=== PATIENT | male | born 1955 | race Caucasian/White ===

== ENCOUNTER 2018-10-29 20:55 | Emergency (ER) | payer OTHER, SELFPAY ==
[2018-10-29 20:56] VITALS: BP 139/78; PULSE 55; RESP 17; TEMP 36.7; O2SAT 96; BMI 23.1
--- NOTE | 2018-10-29 21:24 | CT_ITS ---
HISTORY: LLQ PAIN X ONE WEEK. Hx of CABG, HTN and kidney stones ADDITIONAL HISTORY: None provided. TECHNIQUE: CT images were obtained of the abdomen and pelvis without IV contrast. Enteric contrast was not given. Number of images including paperwork: 449. A radiation dose optimization technique was used for this scan. COMPARISON: 02/17/2014 FINDINGS: Evaluation of the abdominopelvic organs is limited in the absence of contrast. LOWER THORAX: No consolidation or pleural effusion. Moderate to severe emphysema. Coronary calcification. LIVER: No concerning focal lesion. GALLBLADDER: No radiopaque calculi. BILE DUCTS: No significant biliary dilatation. SPLEEN: Unremarkable. PANCREAS: Unremarkable. ADRENAL GLANDS: Unremarkable. KIDNEYS/URETERS: Nonobstructing bilateral renal calculi measuring up to 6 mm in size. Renal vascular calcifications. BOWEL: No bowel obstruction. No significant bowel wall thickening. No localized inflammation. Colonic diverticulosis. APPENDIX: Normal. FREE FLUID: No significant free fluid. FREE AIR: None. LYMPH NODES: No pathologic appearing adenopathy. PERITONEUM, RETROPERITONEUM AND MESENTERY: Otherwise unremarkable. VASCULATURE: Atherosclerotic calcification. 3.6 x 3.9 cm infrarenal abdominal aortic aneurysm, previously 3.1 x 3.3 cm. 2.2 cm right common iliac artery aneurysm. Ectatic left common iliac artery 1.97 m. No evidence of acute rupture. ABDOMINAL WALL: Unremarkable. PELVIS: Unremarkable bladder. OSSEOUS AND SOFT TISSUE STRUCTURES: No acute skeletal findings. CT/Abdomen/Pelvis without Cont IMPRESSION: 1. No acute abdominopelvic abnormality. 2. Nonobstructing bilateral renal calculi. 3. Colonic diverticulosis. 4. Infrarenal abdominal aortic aneurysm and right common iliac artery aneurysm.. 5. Additional findings above. Individualized dose optimization techniques were used for this CT. at 2210 Reported and signed by: Sonia Briseno MD Electronically Signed: Sonia Briseno MD at 22:10 EDT Tel , Service support ,
[2018-10-29] MEDS: Ketorolac 30 MG/ML Syringe 15 MG IV (21:37)
[2018-10-29 21:52] LABS: Absolute Lymphocyte Count 1.45 X10^3/ul (0.83-4.51); Absolute Neutrophil Count 9.8 X10^3/uL (2.0-7.7); Basophil# 0.02 X10^3/uL; Basophil% 0.2 % (0-1); Eosinophil# 0.02 X10^3/uL; Eosinophils% 0.2 % (0-5); Hematocrit 39.4 % (40-54); Hemoglobin 13.7 g/dl (13.0-16.5); Lymphocyte # 1.45 X10^3/ul (4.0); Lymphocyte % 12.1 % (19-41); Mean Corp Hgb Conc 34.8 g/gl (32-36); Mean Corpuscular Volume 86.2 fL (80-94); Mean Platelet Vol. 10.5 fl (6.2-12.0); Monocyte# 0.62 X10^3/uL; Monocyte% 5.2 % (0-10); Neutrophil # 9.84 X10^3/uL (2.7-7.7); Neutrophil % 82.1 % (47-70); Platelet Count 255 K/mm3 (150-450); RBC Distribution Width CV 12.8 % (11.6-14.6); RBC Distribution Width SD 40.4 fl (35.1-43.9); Red Blood Count 4.57 M/mm3 (4.6-6.2)
[2018-10-29 21:53] LABS: POSITIVE COUNT NO; POSITIVE DIFFERENTIAL NO; POSITIVE MORPHOLOGY NO
[2018-10-29 22:09] LABS: Anion Gap 4 (5-15); BUN 19 mg/dL (7-18); BUN/Creat Ratio 12.9 RATIO (10-20); Calcium,Total 9.3 mg/dL (8.5-10.1); Chloride 107 mmol/L (98-107); Creatinine, Serum 1.47 mg/dL (0.70-1.30); EST Glomerular Filtration Rate 51 mL/min (>60); Est Glom Filt Rate - Afr Amer 62 mL/min (>60); Estimated Creatinine Clearance 56.16 ml/min; Glucose 109 mg/dL (74-106); Sodium Level 137 mmol/L (136-145)
--- NOTE | 2018-10-29 22:44 | ED.VIS.GI ---
History of Present Illness Chief Complaint: Abd Pain Narrative: Patient presenting secondary to abdominal pain. Patient reports that over the course last week he has been going backwards and forwards from constipation to having diarrhea. He reports that he has been having some crampy diffuse abdominal pain, but now it is somewhat localized to his left side. He denies any fevers nausea or vomiting. He denies any history of abdominal surgeries. He denies any urinary signs or symptoms associated with this. He is never had any prior similar episodes in the past. Review of systems otherwise negative. Past Medical History - Allergies and Home Meds Allergies/Adverse Reactions: Allergies Yshuezb-Thw-Gov Reductase Inhibitor Adverse Reaction (Verified 10/29/18 20:56) Other Primary Care Physician: [facility],[place] [Primary Care Provider] - 1 Week Smoking Status: Former smoker Review of Systems All systems negative except as indicated Gastrointestinal: Reports: Abdominal pain, Diarrhea, Constipation. Denies: Nausea, Vomiting Physical Exam Vital Signs/Narrative: Vital Signs Temp Pulse Resp BP Pulse Ox 10/29/18 20:56 98.0 F 55 L 17 139/78 H 96 General: Well nourished, Well developed, No Acute Distress Head: Normocephalic, Atraumatic Eyes: Perrl, EOMI ENT: Moist mucous membranes, No rhinorrhea Neck: Supple, Nontender Cardiovascular: Regular rate, Regular rhythm, No murmurs Respiratory: No distress, CTA bilaterally, Chest nontender Abdomen: Tender - LLQ Back: Nontender, Normal Inspection Extremities: Nontender, No edema Skin: Normal color, No rash Neurological: Alert, Oriented x3, Cranial nerves II-XII grossly intact, Normal Strength, Normal Sensation Psychological: Normal affect, Normal Mood Diagnostic/Tx/Re-eval - Medical Decision Making Patient presenting secondary to abdominal pain. Physical exam did show left lower quadrant tenderness. Patient will had some concern for the possibility of diverticulitis. Abdominal CT was found to be negative. CBC shows leukocytosis, chemistry shows no electrolyte abnormalities and stable renal function. Patient has a nonsurgical abdomen. Patient's pain likely is secondary to his constipation and diarrhea. Patient will be placed on Bentyl, and a bowel regimen with Colace. Patient was recommended to follow-up with his primary care physician. Disposition: Home ED Disposition - Plan for ED Patient: Disposition: Home or Assisted Living Diagnosis: Abdominal pain Instructions: ABDOMINAL PAIN, Unkown Cause, (Male) Prescriptions: Dicyclomine HCl [Bentyl] 20 mg PO TIDAC #20 cap Prescription Printed Docusate Sodium [Colace] 100 mg PO DAILY #20 cap Prescription Printed [facility] - 1 Week
[2018-10-29 23:13] VITALS: BP 152/83; PULSE 57; RESP 16; O2SAT 95
--- NOTE | 2018-10-29 23:14 | ED.RN ---
REVIEWED D/C INSTRUCTIONS, FOLLOW UP CARE, PRESCRIPTIONS AND S/S THAT WOULD WARRANT A RETURN TO THE ED WITH PT. PT VERBALIZED AN UNDERSTANDING AND DENIES FURTHER QUESTIONS FOR THIS RN. PT SKIN P/W/D, RESP EVEN AND UNLABORED, PT A&O X 3, NO DISTRESS NOTED. PT AMBULATED OUT OF ED, GAIT STEADY.
== END 2018-10-29 23:15 | disposition home or self-care (01) ==
PROVIDERS: Emergency Provider Emergency Medicine
DX: R10.32 Left lower quadrant pain (principal); Z87.891 Personal history of nicotine dependence
CPT/HCPCS: 74176; 80048; 85025; 96374; 99283; A4216

== ENCOUNTER 2021-01-27 13:10 | Emergency (ER) | payer OTHER, SELFPAY ==
[2021-01-27 13:11] VITALS: BP 97/64; PULSE 68; RESP 95; TEMP 36.4; BMI 21.7
[2021-01-27 13:13] VITALS: BP 109/76; PULSE 52; RESP 18; TEMP 36.4; O2SAT 94
--- NOTE | 2021-01-27 13:51 | EKG12_ITS ---
Test Reason : GI Blood Pressure : / mmHG Vent. Rate : 053 BPM Atrial Rate : 073 BPM P-R Int : 000 ms QRS Dur : 106 ms QT Int : 462 ms P-R-T Axes : 000 030 008 degrees QTc Int : 433 ms Sinus with PAC's Abnormal ECG Confirmed by LOUIS CASTRO, SHRADDHA ([id number]), editor at large BECKY SHARMA ([id number]) on 02/01/2021 10:46:38 AM Referred By: SAMRA Confirmed By:MACI MYERS MD
[2021-01-27 13:52] VITALS: BP 109/76; PULSE 52; RESP 18; TEMP 36.4; O2SAT 94
--- NOTE | 2021-01-27 13:52 | RAD_ITS ---
STUDY: X-RAY CHEST REASON FOR EXAM: Male, 65 years old. cough TECHNIQUE: AP COMPARISON: None. FINDINGS: EKG leads project over the chest. There are interstitial fibrotic changes of the lungs. No airspace consolidation. There is no demonstrated pleural abnormality. Normal size heart. Sternal wires and mediastinal surgical clips compatible with prior CABG. Normal visualized pulmonary arteries. Normal visualized aortic arch and descending thoracic aorta. Normal visualized thoracic spine. Normal visualized ribs, clavicles, and shoulders. There is no demonstrated abnormality of the visualized soft tissue structures of the upper abdomen. RAD/Chest 1 View (Portable) IMPRESSION: No airspace consolidation or pleural effusion. Parenchymal fibrotic changes. Electronically Signed: Jose Antonio Carvajal MD ([place]) at 14:37 EDT , Service support ,
--- NOTE | 2021-01-27 13:53 | EX.ED.DYSGE1 ---
HPI <Dr. Molly De Leon MD - Last Filed: 01/27/21 15:17> History of Present Illness Chief Complaint: General Illness Informant: patient Onset/Context/Timing Onset: Days Context: Gradual Onset Current Severity: Moderate Maximum Severity: Moderate Narrative Narrative: Patient presents secondary to increased shortness of breath, chest pain, generalized weakness. Patient developed Covid symptoms on Dec 30 and tested positive on Jan 25. He reports having subjective fevers and sweats. He has mild cough but has noted increased shortness of breath especially with any exertion over the past couple days. He reports having chest pain for the past 5 days. He does have diarrhea with some mild nausea. He did vomit this morning. Patient was previously vaccinated with [employer]. PFSH <Dr. Molly De Leon MD - Last Filed: 01/27/21 15:17> [facility] Medical History (Updated 01/27/21 @ 16:[address] Nhan Bee DO) Coronary artery disease High cholesterol Hypertension Myocardial infarction Home Medications oxycodone-acetaminophen 1 tab PO Q4H PRN PRN #30 tablet 02/17/14 [Rx Last Taken Unknown] tamsulosin 0.4 mg PO DAILY #7 capsule 02/17/14 [Rx Last Taken Unknown] hydrocodone-acetaminophen 1 - 2 tab PO Q4H PRN PRN #12 tablet 04/06/15 [Rx Last Taken Unknown] dicyclomine 20 mg PO TIDAC #20 cap 10/29/18 [Rx Last Taken Unknown] docusate sodium 100 mg PO DAILY #20 cap 10/29/18 [Rx Last Taken Unknown] dexamethasone [Decadron] 6 mg PO DAILY #9 tab 01/27/21 [Rx Last Taken Unknown] Allergy/AdvReac Type Severity Reaction Status Date / Time Dqbflkk-Iic-Oxj Reductase AdvReac Other Verified 01/27/21 14:19 Inhibitor Surgical History Hx of CABG Social History Smoking Status: Former smoker ROS <Dr. Molly De Leon MD - Last Filed: 01/27/21 15:17> ROS ED Constitutional Constitutional ED: Reports chills, fever(s), subjective and sweats Eyes Eyes: Denies change in vision ENT ENT ED: Denies sore throat Cardiovascular Cardiovascular: Reports chest pain Respiratory/Chest Respiratory/Chest: Reports cough and dyspnea Gastrointestinal Gastrointestinal: Reports diarrhea, nausea and vomiting; Denies abdominal pain Genitourinary Genitourinary ED: Denies dysuria Musculoskeletal Musculoskeletal: Reports myalgias; Denies back pain Integumentary Denies rash Neurologic Neurologic: Reports headache(s) and weakness Allergic/Immunologic Allergic/Immunologic ED: Denies urticaria EXAM <Dr. Molly De Leon MD - Last Filed: 01/27/21 15:17> Physical Exam Const Vital Signs: 01/27/21 13:11 01/27/21 13:13 01/27/21 13:52 Temperature 97.5 F L 97.5 F L 97.5 F L Temperature Source Oral Temporal Temporal Pulse Rate 68 52 L 52 L Respiratory Rate 95 H 18 18 Respiratory Effort Respiratory Pattern Blood Pressure 97/64 109/76 109/76 Blood Pressure Mean 75 87 87 Pulse Ox 94 94 Oxygen Delivery Method Room Air Room Air Room Air 01/27/21 14:13 01/27/21 14:16 01/27/21 16:58 Temperature Temperature Source Pulse Rate 55 L Respiratory Rate 18 Respiratory Effort Short of Breath Respiratory Pattern Normal Blood Pressure 101/78 Blood Pressure Mean 85 Pulse Ox 94 94 Oxygen Delivery Method Positive well nourished and well developed General Appearance ED: well developed HEENT Reports normocephalic and head/scalp atraumatic Eyes PERRL and EOMs intact bilaterally Neck supple Chest Wall inspection of chest normal and palpation of chest normal Resp normal respiratory effort and clear to auscultation bilaterally Cardio regular rhythm Rate: bradycardia GI normal to inspection, nondistended, normoactive bowel sounds and non-tender Palpation: soft Extremity normal to inspection Neuro oriented x3 and no sensory deficits noted Sensorium / Orientation: alert Motor Exam: strength 5/5 throughout Psych mental status grossly normal Skin no rashes or lesions noted <Dr. Nhan Bee DO - Last Filed: 01/27/21 23:51> Physical Exam Const Vital Signs: 01/27/21 13:11 01/27/21 13:13 01/27/21 13:52 Temperature 97.5 F L 97.5 F L 97.5 F L Temperature Source Oral Temporal Temporal Pulse Rate 68 52 L 52 L Respiratory Rate 95 H 18 18 Respiratory Effort Respiratory Pattern Blood Pressure 97/64 109/76 109/76 Blood Pressure Mean 75 87 87 Pulse Ox 94 94 Oxygen Delivery Method Room Air Room Air Room Air 01/27/21 14:13 01/27/21 14:16 01/27/21 16:58 Temperature Temperature Source Pulse Rate 55 L Respiratory Rate 18 Respiratory Effort Short of Breath Respiratory Pattern Normal Blood Pressure 101/78 Blood Pressure Mean 85 Pulse Ox 94 94 Oxygen Delivery Method MDM <Dr. Molly De Leon MD - Last Filed: 01/27/21 15:17> [facility] Narrative Medical decision making narrative: EKG, chest x-ray, lab work obtained. Patient is given a dose of Decadron. Lab Data Attestation: I reviewed the patient's lab results. Labs: Laboratory Results - last 24 hr 01/27/21 01/27/21 01/27/21 14:09 14:09 14:09 WBC 4.5 RBC 4.64 Hgb 13.9 Hct 40.5 MCV 87.3 MCH 30.0 MCHC 34.3 RDW Std Deviation 40.0 RDW Coeff of Taylor 12.5 Plt Count 157 MPV 10.5 Immature Gran % (Auto) 0.400 Neut % (Auto) 72.8 H Lymph % (Auto) 21.8 Elmore % (Auto) 4.8 Eos % (Auto) 0.0 Baso % (Auto) 0.2 Absolute Neuts (auto) 3.3 Absolute Lymphs (auto) 0.99 Nucleated RBC % 0 D-Dimer Quant (PE/DVT) 1.23 H* Sodium 134 L Potassium 3.6 Chloride 102 Carbon Dioxide 24.0 Anion Gap 8 BUN 21 H Creatinine 1.61 H Estim Creat Clear Calc 47.10 Est GFR (MDRD) Af Amer 56 L Est GFR (MDRD) Non-Af 46 L BUN/Creatinine Ratio 13.0 Glucose 105 Lactic Acid Calcium 8.6 Total Bilirubin 0.40 AST 38 H ALT 21 Alkaline Phosphatase 89 Troponin I High Sens 32 Total Protein 7.0 Albumin 2.9 L Globulin 4.1 Albumin/Globulin Ratio 0.7 L 01/27/21 14:09 WBC RBC Hgb Hct MCV MCH MCHC RDW Std Deviation RDW Coeff of Taylor Plt Count MPV Immature Gran % (Auto) Neut % (Auto) Lymph % (Auto) Elmore % (Auto) Eos % (Auto) Baso % (Auto) Absolute Neuts (auto) Absolute Lymphs (auto) Nucleated RBC % D-Dimer Quant (PE/DVT) Sodium Potassium Chloride Carbon Dioxide Anion Gap BUN Creatinine Estim Creat Clear Calc Est GFR (MDRD) Af Amer Est GFR (MDRD) Non-Af BUN/Creatinine Ratio Glucose Lactic Acid 1.5 Calcium Total Bilirubin AST ALT Alkaline Phosphatase Troponin I High Sens Total Protein Albumin Globulin Albumin/Globulin Ratio Radiography Chest X-Ray - ED: 1 View, Read by ED Physician and Right Infiltrate Diagnostic Testing: Radiology Impression Chest X-Ray 01/27/21 13:52 IMPRESSION: No airspace consolidation or pleural effusion. Parenchymal fibrotic changes. Electronically Signed: Jose Antonio Carvajal MD ([place]) at 14:37 EDT , Service support , Chest CTA 01/27/21 14:50 IMPRESSION: 1. No central or segmental pulmonary lesion. 2. Centrilobular emphysema. Electronically Signed: Jose Antonio Carvajal MD ([place]) at 15:58 EDT , Service support , EKG Initial EKG: Attestation: I personally reviewed and interpreted this EKG as follows: Interpretation: Sinus Bradycardia (Sinus bradycardia 53 bpm with PACs. No acute ST change.) Treatment and Re-Evaluation Comments:: Repeat evaluation patient resting comfortably. Blood work per my review reveals normal white count. Creatinine is 1.6, slightly elevated from last available labs 2 years ago. D-dimer is elevated and patient will be sent for CTA. Chest x-ray per my interpretation reveals right-sided peripheral infiltrate. Patient be signed out to oncoming physician for final disposition. <Dr. Nhan Bee, DO - Last Filed: 01/27/21 23:51> [facility] Narrative Medical decision making narrative: 1645: Cristal. Patient signed out to me to follow-up on CAT scan. Results neck for PE or infiltrates. Cardiac work-up was negative. Heart score is a 3. Day 7 of symptoms for Covid. 94% on room air he started on Decadron. Ambulation 93% starting went up to 95% walking he felt fine. He was not weak. He has been vaccinated. He is a candidate for antibody treatment. He would like evaluation. Consult was placed. Prescription for Decadron. Return precautions. All questions answered. Lab Data Attestation: I reviewed the patient's lab results. Labs: Laboratory Results - last 24 hr 01/27/21 01/27/21 01/27/21 14:09 14:09 14:09 WBC 4.5 RBC 4.64 Hgb 13.9 Hct 40.5 MCV 87.3 MCH 30.0 MCHC 34.3 RDW Std Deviation 40.0 RDW Coeff of Taylor 12.5 Plt Count 157 MPV 10.5 Immature Gran % (Auto) 0.400 Neut % (Auto) 72.8 H Lymph % (Auto) 21.8 Elmore % (Auto) 4.8 Eos % (Auto) 0.0 Baso % (Auto) 0.2 Absolute Neuts (auto) 3.3 Absolute Lymphs (auto) 0.99 Nucleated RBC % 0 D-Dimer Quant (PE/DVT) 1.23 H* Sodium 134 L Potassium 3.6 Chloride 102 Carbon Dioxide 24.0 Anion Gap 8 BUN 21 H Creatinine 1.61 H Estim Creat Clear Calc 47.10 Est GFR (MDRD) Af Amer 56 L Est GFR (MDRD) Non-Af 46 L BUN/Creatinine Ratio 13.0 Glucose 105 Lactic Acid Calcium 8.6 Total Bilirubin 0.40 AST 38 H ALT 21 Alkaline Phosphatase 89 Troponin I High Sens 32 Total Protein 7.0 Albumin 2.9 L Globulin 4.1 Albumin/Globulin Ratio 0.7 L 01/27/21 14:09 WBC RBC Hgb Hct MCV MCH MCHC RDW Std Deviation RDW Coeff of Taylor Plt Count MPV Immature Gran % (Auto) Neut % (Auto) Lymph % (Auto) Elmore % (Auto) Eos % (Auto) Baso % (Auto) Absolute Neuts (auto) Absolute Lymphs (auto) Nucleated RBC % D-Dimer Quant (PE/DVT) Sodium Potassium Chloride Carbon Dioxide Anion Gap BUN Creatinine Estim Creat Clear Calc Est GFR (MDRD) Af Amer Est GFR (MDRD) Non-Af BUN/Creatinine Ratio Glucose Lactic Acid 1.5 Calcium Total Bilirubin AST ALT Alkaline Phosphatase Troponin I High Sens Total Protein Albumin Globulin Albumin/Globulin Ratio Radiography Diagnostic Testing: Radiology Impression Chest X-Ray 01/27/21 13:52 IMPRESSION: No airspace consolidation or pleural effusion. Parenchymal fibrotic changes. Electronically Signed: Jose Antonio Carvajal MD ([place]) at 14:37 EDT , Service support , Chest CTA 01/27/21 14:50 IMPRESSION: 1. No central or segmental pulmonary lesion. 2. Centrilobular emphysema. Electronically Signed: Jose Antonio Carvajal MD ([place]) at 15:58 EDT , Service support , Discharge Plan Triage Chief Complaint: General Illness ED Provider: Molly De Leon Dx/Rx/DC Orders Clinical Impression: COVID-19, Chest pain Instructions: Coronavirus Disease 2019 (COVID-19): Caring for Yourself or Others, ED - COVID Monoclonal AB Infusion ..., ED Chest Pain, Noncardiac Prescriptions: New dexamethasone [Decadron] 6 mg tablet 6 mg PO DAILY Qty: 9 RF: 0 No Action oxycodone-acetaminophen 1 TABLET tablet 1 tab PO Q4H PRN PRN (Reason: Pain) Qty: 30 RF: 0 tamsulosin 0.4 MG capsule 0.4 mg PO DAILY Qty: 7 RF: 0 hydrocodone-acetaminophen 1 TABLET tablet 1 - 2 tab PO Q4H PRN PRN (Reason: Pain) Qty: 12 RF: 0 docusate sodium 100 MG capsule 100 mg PO DAILY Qty: 20 RF: 0 dicyclomine 10 MG capsule 20 mg PO TIDAC Qty: 20 RF: 0 Other Ambulatory Orders: COVID Outpatient Monoclonal Antibody Referral (Routine) Timeframe: 1 Day Facility: [facility] - Location: [facility] [place] Ordered By: Dr. Nhan Bee [facility] Provider[facility] - 1 Week Activity Restrictions/Additional Instructions: Your CAT scan negative for blood clots or pneumonia. Take Decadron as prescribed. You are a candidate for evaluation for antibody treatment. You will be contacted for discussion. Disposition Disposition: Home, Self Care Discharge Date/Time: 01/27/21 16:59
[2021-01-27 14:13] VITALS: BP 101/78; PULSE 55; RESP 18; O2SAT 94
[2021-01-27 14:29] LABS: Absolute Lymphocyte Count 0.99 X10^3/uL (0.83-4.51); Absolute Neutrophil Count 3.3 X10^3/uL (2.0-7.7); Basophil# 0.01 X10^3/uL; Basophil% 0.2 % (0-1); Hematocrit 40.5 % (40-54); Hemoglobin 13.9 g/dL (13.0-16.5); Lymphocyte # 0.99 X10^3/ul (0.83-4.51); Lymphocyte % 21.8 % (19-41); Mean Corp Hgb Conc 34.3 g/dL (32-36); Mean Corpuscular Volume 87.3 fL (80-94); Mean Platelet Vol. 10.5 fl (6.2-12.0); Monocyte# 0.22 X10^3/uL; Monocyte% 4.8 % (0-10); NRBC Flagged by Analyzer 0 % (0-5); Neutrophil % 72.8 % (47-70); Platelet Count 157 K/mm3 (150-450); RBC Distribution Width CV 12.5 % (11.6-14.6); Red Blood Count 4.64 M/mm3 (4.6-6.2); White Blood Count 4.5 K/mm3 (4.4-11.0)
[2021-01-27 14:44] LABS: ALB/GLOB Ratio 0.7 RATIO (0.9-2.4); AST(SGOT) 38 U/L (15-37); Alanine Aminotransfer ALT/SGPT 21 U/L (16-61); Albumin, Serum 2.9 g/dL (3.2-5.0); Alkaline Phosphatase 89 U/L (45-117); Anion Gap 8 (5-15); BUN 21 mg/dL (7-18); Calcium,Total 8.6 mg/dL (8.5-10.1); Chloride 102 mmol/L (98-107); Creatinine, Serum 1.61 mg/dL (0.70-1.30); EST Glomerular Filtration Rate 46 mL/min (>60); Est Glom Filt Rate - Afr Amer 56 mL/min (>60); Globulin 4.1 g/dL (2.2-4.2); Glucose 105 mg/dL (74-106); Potassium 3.6 mmol/L (3.5-5.1); Sodium Level 134 mmol/L (136-145); Troponin-I HS 32 pg/mL (3.0-78.0)
[2021-01-27 14:49] LABS: D-Dimer Quantitative (DVT/PE) 1.23 FEU/ug/m (0.27-0.49)
--- NOTE | 2021-01-27 14:50 | CT_ITS ---
STUDY: CTA CHEST REASON FOR EXAM: Male, 65 years old. Shortness of breath with elevated d-dimer RADIATION DOSAGE (If Supplied By Facility): CTDIvol = ( 9.23 ) mGy, DLP = ( 214.02 ) mGycm TECHNIQUE: The examination was performed with the intravenous administration of IV 100mL Isovue-370. Post-processing of the angiographic images was performed, with multiplanar reformation and 3D reconstruction. Individualized dose optimization techniques were used for this CT. COMPARISON: None. FINDINGS: Surgical clips at the base of the neck, midline. Normal enhancement of the main pulmonary artery and right and left pulmonary arteries. Normal enhancement of the bilateral peripheral pulmonary arteries. There is no demonstrated pulmonary embolism. Normal thoracic aorta and visualized great vessels. There is no demonstrated aortic dissection. Normal heart and pericardium. Sternal wires and mediastinal surgical clips compatible with prior CABG. Normal mediastinum. Normal hilar regions. Normal visualized trachea and bronchi. Lungs are hyperexpanded. Severe multilobar centrilobular emphysema with scattered fibrotic bands including in the right pleural apex. Normal pleura. Normal chest wall structures. There are degenerative changes of thoracic spine. Normal visualized upper abdomen. CT/CTA Chest W/WO Contrast IMPRESSION: 1. No central or segmental pulmonary lesion. 2. Centrilobular emphysema. Electronically Signed: Jose Antonio Carvajal MD ([place]) at 15:58 EDT , Service support ,
[2021-01-27 15:00] LABS: Lactic Acid 1.5 mmol/L (0.4-1.9)
[2021-01-27] MEDS: dexAMETHasone 4 MG/ML Vial 6 MG IV (15:32)
[2021-01-27 16:21] VITALS: O2SAT 93
[2021-01-27 16:58] VITALS: O2SAT 94
== END 2021-01-27 16:59 | disposition home or self-care (01) ==
PROVIDERS: Emergency Provider Emergency Medicine
DX: U07.1 COVID-19 (principal); R07.9 Chest pain, unspecified; I25.10 Atherosclerotic heart disease of native coronary artery without angina pectoris; Z87.891 Personal history of nicotine dependence
CPT/HCPCS: 71045; 71275; 80053; 83605; 84484; 85025; 85379; 87040; 93005; 96374; 99284; Q9967; A4216

== ENCOUNTER 2021-01-29 09:07 | Outpatient (CLI) | payer OTHER, SELFPAY ==
[2021-01-29 09:32] VITALS: BP 101/65; PULSE 54; RESP 16; TEMP 36.6; O2SAT 92; BMI 25.0
[2021-01-29] MEDS: 0.9% Saline Lock 10 ML Syringe IV (09:37)
[2021-01-29 10:12] VITALS: BP 96/62; PULSE 57; RESP 16; TEMP 36.6; O2SAT 94
[2021-01-29 11:12] VITALS: BP 111/62; PULSE 54; RESP 16; TEMP 36.6; O2SAT 92
--- NOTE | 2021-02-08 13:30 | NURSING ---
PT CALLED AND LEFT VMAIL WITH QUESTIONS FOR POST CARE FOLLOWING MONOCLONAL INFUSION. [facility]PO[facility] AND GIVEN DIRECTIONS.
== END 2021-01-29 11:12 | disposition home or self-care (01) ==
LOC: MS3OUT 09:07 → MS3 09:08
PROVIDERS: Referring Provider Nurse Practitioner Adult Health; Visit Provider Nurse Practitioner Adult Health
DX: Z23 Encounter for immunization (principal); U07.1 COVID-19
CPT/HCPCS: J7050; M0243; A4216; Q0240

== ENCOUNTER 2021-02-12 10:10 | Emergency (ER) | payer OTHER, SELFPAY ==
[2021-02-12] VITALS (7 sets, daily range): BP systolic 121–190; BP diastolic 86–114; PULSE 40–71; RESP 16–20; TEMP 36.3; O2SAT 84–95; BMI 23.0
--- NOTE | 2021-02-12 10:23 | ED.RN ---
pulse ox reading 87% on room air in triage, poor wav form and pt fingers are cold to touch. taken back to a room via wc and nurse to recheck and evaluate patients sats. татьяна rn aware
--- NOTE | 2021-02-12 10:23 | ED.RN ---
pt entered ed irritated and talking rapidly and aggressively to screener. this triage nurse directed him to triage room. pt elevated voiced began talking about being unhappy with previous visits and nobody gives a shit, this was his third one and states your worst nightmare just arrived. im done being a nice patient. cursing. pt was asked to please not curse that we would both show each other respect. Pt took a breath briefly said ok, then returned to yelling and cursing about [place], the hospital, the country, goverment/[facility] [employer]. When asking pt to get him triaged he would cut nurse off after getting one or two words out, with continued esculation. unable to converse, or have any productive conversation with patient. hands cold unable to get accurate o2 saturation. patient talking with elevated tone/voice and fowl language through the while triage with minimal respiratory distress noted. taken back to room. Charge nurse notified of patients esculation. continued to say your worse nightmare is here to staff as he went through halls to ed room.
--- NOTE | 2021-02-12 10:28 | CT_ITS ---
STUDY: CTA CHEST REASON FOR EXAM: Male, 65 years old. sob -- + covid (sx onset 01/21) RADIATION DOSAGE (If Supplied By Facility): CTDIvol = ( 12.17 ) mGy, DLP = ( 429.98 ) mGycm TECHNIQUE: The examination was performed with the intravenous administration of IV 100mL Isovue-370. Post-processing of the angiographic images was performed, with multiplanar reformation and 3D reconstruction. Individualized dose optimization techniques were used for this CT. COMPARISON: 01/27/2021 FINDINGS: Status post median sternotomy. Normal enhancement of the main pulmonary artery and right and left pulmonary arteries. Normal enhancement of the bilateral peripheral pulmonary arteries. There is no demonstrated pulmonary embolism. Normal thoracic aorta and visualized great vessels. There is no demonstrated aortic dissection. Normal heart and pericardium. Normal mediastinum. Normal hilar regions. Normal visualized trachea and bronchi. The lungs are well expanded. Severe emphysematous changes and scarring. No noncalcified nodule or mass. Normal pleura. Normal chest wall structures. Normal osseous structures. Normal visualized upper abdomen. CT/CTA Chest W/WO Contrast IMPRESSION: 1. No CT evidence of pulmonary embolism. 2. Severe emphysema and scarring. No pneumonia, atelectasis, nodule, or mass. Electronically Signed: Iron Jarquin MD at 12:16 EDT Tel , Service support ,
--- NOTE | 2021-02-12 10:28 | CT_ITS ---
STUDY: CT BRAIN WITHOUT CONTRAST REASON FOR EXAM: Male, 65 years old. pain -- headaches, sinus pressure RADIATION DOSAGE (If Supplied By Facility): CTDIvol = ( 44.99 ) mGy, DLP = ( 880.47 ) mGycm TECHNIQUE: Transaxial CT imaging of the brain was performed without administration of intravenous contrast material. Individualized dose optimization techniques were used for this CT. COMPARISON: No relevant priors. FINDINGS: Normal soft tissue structures. Normal calvarium. There is moderate cerebral atrophy with widening of the extra-axial spaces and ventricular dilatation. There are areas of decreased attenuation within the white matter tracts of the supratentorial brain, consistent with microvascular disease changes. Normal basal ganglia and thalami. Normal brainstem. Normal cerebellum. There is no intracranial hemorrhage. There are no findings of an acute ischemic infarction. Normal visualized paranasal sinuses. CT/Brain/Head without Contrast IMPRESSION: Normal unenhanced CT scan of the brain. Electronically Signed: Iron Jarquin MD at 11:50 EDT Tel , Service support ,
--- NOTE | 2021-02-12 10:31 | EX.ED.DYSGE1 ---
HPI History of Present Illness Chief Complaint: Shortness of Breath Informant: patient Onset/Context/Timing Onset: Weeks Context: Gradual Onset Current Severity: Severe Maximum Severity: Severe Narrative Narrative: Patient returns with multiple complaints related to Covid. He developed symptoms of Covid on January 21 and tested positive on December 26. He was seen here in the ER on the . He had a negative CTA at that time and a negative cardiac work-up. He was ambulated prior to discharge and did not require home oxygen. He was discharged on Decadron. Patient returns today stating that he has never gotten any better. He has significant facial pressure and rhinorrhea. He is coughing up multiple different colored sputum sent today had some blood streaks in it. He feels like he cannot get a deep breath. He states he was initially constipated for 4 days and is now having diarrhea. He states only had 1 day of fever that has not returned. Patient was vaccinated with the Pfizer vaccine. [facility] Medical History Coronary artery disease High cholesterol Hypertension Myocardial infarction Home Medications amlodipine 2.5 mg PO/SL DAILY 02/12/21 [History Last Taken Unknown] amoxicillin-pot clavulanate [Augmentin] 1 tab PO BID #20 tab 02/12/21 [Rx Last Taken Unknown] aspirin 81 mg PO/SL DAILY 02/12/21 [History Last Taken Unknown] carvedilol 3.125 mg PO/SL BID 02/12/21 [History Last Taken Unknown] isosorbide mononitrate 30 mg PO/SL DAILY 02/12/21 [History Last Taken Unknown] losartan 50 mg PO/SL BID 02/12/21 [History Last Taken Unknown] pravastatin 20 mg PO/SL QHS 02/12/21 [History Last Taken Unknown] Allergy/AdvReac Type Severity Reaction Status Date / Time Iolnnsg-Kni-Ynj Reductase AdvReac Other Verified 02/12/21 10:50 Inhibitor Surgical History Hx of CABG Social History Smoking Status: Former smoker ROS ROS ED Constitutional Constitutional ED: Denies chills or fever(s) Eyes Eyes: Denies change in vision ENT ENT ED: Reports rhinorrhea and other Details: Sinus pressure ; Denies sore throat Cardiovascular Cardiovascular: Denies chest pain Respiratory/Chest Respiratory/Chest: Reports cough, dyspnea and sputum Gastrointestinal Gastrointestinal: Reports diarrhea; Denies abdominal pain, nausea or vomiting Genitourinary Genitourinary ED: Denies dysuria Musculoskeletal Musculoskeletal: Reports myalgias; Denies back pain Integumentary Denies rash Neurologic Neurologic: Reports headache(s) and weakness Allergic/Immunologic Allergic/Immunologic ED: Denies urticaria EXAM Physical Exam Const Vital Signs: 02/12/21 10:10 02/12/21 10:40 02/12/21 11:21 Temperature 97.4 F L Temperature Source Temporal Pulse Rate 40 L 64 Respiratory Rate 16 19 H Respiratory Effort Normal Respiratory Depth Normal Respiratory Pattern Normal Blood Pressure 190/114 H 122/86 H Blood Pressure Mean 139 98 Pulse Ox 87 93 Pulse Ox [AMBULATING on Room Air] Pulse Ox [At REST on Room Air] Oxygen Delivery Method Room Air Room Air Room Air 02/12/21 12:15 Temperature Temperature Source Pulse Rate 71 Respiratory Rate 20 H Respiratory Effort Respiratory Depth Respiratory Pattern Blood Pressure 121/90 H Blood Pressure Mean 100 Pulse Ox 93 Pulse Ox [AMBULATING on Room Air] 84 Pulse Ox [At REST on Room Air] 94 Oxygen Delivery Method Room Air Positive well nourished and well developed General Appearance ED: well developed HEENT Reports normocephalic and head/scalp atraumatic Eyes PERRL and EOMs intact bilaterally Neck supple Chest Wall inspection of chest normal and palpation of chest normal Resp normal respiratory effort and clear to auscultation bilaterally Cardio regular rate and regular rhythm GI non-tender Auscultation: hyperactive bowel sounds Palpation: soft Extremity normal to inspection Neuro oriented x3 and no sensory deficits noted Sensorium / Orientation: alert Motor Exam: strength 5/5 throughout Psych Attitude: agitated Skin no rashes or lesions noted MDM MDM MDM Narrative Medical decision making narrative: Lab work, CT head, CTA chest ordered. EKG was ordered but patient declined. Lab Data Attestation: I reviewed the patient's lab results. Labs: Laboratory Results - last 24 hr 02/12/21 02/12/21 02/12/21 10:35 10:35 10:35 WBC 10.2 RBC 4.55 L Hgb 13.5 Hct 40.1 MCV 88.1 MCH 29.7 MCHC 33.7 RDW Std Deviation 41.9 RDW Coeff of Taylor 13.1 Plt Count 346 MPV 10.2 Immature Gran % (Auto) 0.400 Neut % (Auto) 82.1 H Lymph % (Auto) 11.5 L [place] % (Auto) 5.3 Eos % (Auto) 0.4 Baso % (Auto) 0.3 Absolute Neuts (auto) 8.4 H Absolute Lymphs (auto) 1.18 Nucleated RBC % 0 Sodium 138 Potassium 3.2 L Chloride 106 Carbon Dioxide 23.0 Anion Gap 9 BUN 12 Creatinine 1.22 Estim Creat Clear Calc 65.84 Est GFR (MDRD) Af Amer 77 Est GFR (MDRD) Non-Af 63 BUN/Creatinine Ratio 9.8 L Glucose 205 H Lactic Acid 2.5 H* Calcium 9.0 Troponin I High Sens 22 Radiography Diagnostic Testing: Clinical Impression(s) from Imaging Studies Brain CT 02/12/21 10:28 IMPRESSION: Normal unenhanced CT scan of the brain. Electronically Signed: Iron Jarquin MD at 11:50 EDT Tel , Service support , Chest CTA 02/12/21 10:28 IMPRESSION: 1. No CT evidence of pulmonary embolism. 2. Severe emphysema and scarring. No pneumonia, atelectasis, nodule, or mass. Electronically Signed: Iron Jarquin MD at 12:16 EDT Tel , Service support , Treatment and Re-Evaluation Comments:: Patient was noted to be hypoxic in triage 87%. At rest in the room he was satting 93%. Nursing staff did note that when he stood at the bedside to use the urinal he is dropped to 85% but then did quickly recover with rest. Patient states that is what he has been noticing at home. With any exertion he drops into the mid 80s and takes about 5 minutes to recover. At this time patient does have significant sinus drainage and cough with sputum. I will cover him with a course of Augmentin as we are seeing multiple secondary bacterial infections. Patient will be sent home with home oxygen. He is a pulse ox and will continue to monitor his oxygen levels. Discharge Plan Triage Chief Complaint: Shortness of Breath ED Provider: Molly De Leon Dx/Rx/DC Orders Clinical Impression: COVID-19 Instructions: Coronavirus Disease 2019 (COVID-19): Overview, Coronavirus Disease 2019 (COVID-19): Caring for Yourself or Others Prescriptions: New amoxicillin-pot clavulanate [Augmentin] 875-125 mg tablet 1 tab PO BID Qty: 20 RF: 0 No Action amlodipine 2.5 mg PO/SL DAILY RF: 0 aspirin 81 mg PO/SL DAILY RF: 0 carvedilol 3.125 mg PO/SL BID RF: 0 isosorbide mononitrate 30 mg PO/SL DAILY RF: 0 losartan 50 mg PO/SL BID RF: 0 pravastatin 20 mg PO/SL QHS RF: 0 Primary Care Provider: [facility] Referrals: Nato Elizabeth MD [STAFF PHYSICIAN] - [facility]eded [facility] [Primary Care Provider] - 1 Week Disposition Disposition: Home, Self Care
[2021-02-12 10:59] LABS: Absolute Lymphocyte Count 1.18 X10^3/uL (0.83-4.51); Absolute Neutrophil Count 8.4 X10^3/uL (2.0-7.7); Basophil# 0.03 X10^3/uL; Basophil% 0.3 % (0-1); Eosinophil# 0.04 X10^3/uL; Eosinophils% 0.4 % (0-5); Hematocrit 40.1 % (40-54); Hemoglobin 13.5 g/dL (13.0-16.5); Lymphocyte # 1.18 X10^3/ul (0.83-4.51); Lymphocyte % 11.5 % (19-41); Mean Corp Hgb Conc 33.7 g/dL (32-36); Mean Corpuscular Hgb 29.7 pg (27.0-32.0); Mean Corpuscular Volume 88.1 fL (80-94); Mean Platelet Vol. 10.2 fl (6.2-12.0); Monocyte# 0.54 X10^3/uL; Monocyte% 5.3 % (0-10); NRBC Flagged by Analyzer 0 % (0-5); Neutrophil # 8.41 X10^3/uL (2.7-7.7); Neutrophil % 82.1 % (47-70); Platelet Count 346 K/mm3 (150-450); RBC Distribution Width CV 13.1 % (11.6-14.6); RBC Distribution Width SD 41.9 fl (35.1-43.9); Red Blood Count 4.55 M/mm3 (4.6-6.2); White Blood Count 10.2 K/mm3 (4.4-11.0)
[2021-02-12 11:09] LABS: Anion Gap 9 (5-15); BUN 12 mg/dL (7-18); BUN/Creat Ratio 9.8 RATIO (10-20); Chloride 106 mmol/L (98-107); Creatinine, Serum 1.22 mg/dL (0.70-1.30); EST Glomerular Filtration Rate 63 mL/min (>60); Est Glom Filt Rate - Afr Amer 77 mL/min (>60); Estimated Creatinine Clearance 65.84 ml/min; Glucose 205 mg/dL (74-106); Potassium 3.2 mmol/L (3.5-5.1); Sodium Level 138 mmol/L (136-145); Troponin-I HS 22 pg/mL (3.0-78.0)
[2021-02-12 11:23] LABS: Lactic Acid 2.5 mmol/L (0.4-1.9)
[2021-02-12] MEDS: Amox/Clavulanate 875 MG Tablet PO (13:34)
--- NOTE | 2021-02-12 13:43 | CM.ED ---
SOCIAL WORK Referral Source: Dr. De Leon Reason for Consult: COVID positive requires home O2 Patient presents to [facility] ER for general illness. Patient tested positive for COVID-19 on 01/25/2021. Patient needing home O2. Patient lives home with . Nursing completed testing. Patient has pulse ox at home that is not working. Patient provided with pulse ox. Quickscript, facesheet, and clinical information faxed and called to [employer]. Portable tank obtained by nursing from the supply closet. R.T./nurse to review home O2 with patient. Case management notified via email for follow up. Plan: Home with oxygen (2L) Carmelo Casillas, ALLIGATOR TRAPPER, INDUSTRIAL MAINTENANCE REPAIRER HELPER
--- NOTE | 2021-02-12 13:51 | ED.RN ---
Patient angry at this nurse due to someone not stopping the monitor from beeping as on my arrival at bedside it was noted patient had taken all shelter monitor cables off by self, prior to recieving discharge.
[2021-02-12 14:49] LABS: Reflex Lactate? Y
--- NOTE | 2021-02-12 15:23 | CM.ED ---
SOCIAL WORK Received call from [employer], informed not in network with patient's insurance and unable to set up supplies unless patient uses credit card. Attempted to contact patient. No answer. Left message, awaiting call back. Call to [employer] to request they follow up with patient regarding self-pay.
--- NOTE | 2021-02-12 17:10 | CM.ED ---
SOCIAL WORK Patient has [employer] insurance. Received call from Nayana with [facility] who reports patient not friendly and refused self-pay. Nayana states informed patient able to use portable tank at this time as patient requires 2L O2 with exertion. This worker has faxed over 1st page of [facility] form that was reviewed with patient's and signed by ER physician. Message has been left for Azucena BRIGHT ([phone]). and patient will also be contacting [facility]. This worker to follow up on Monday. Carmelo Casillas MSW, DATASTAGE CONSULTANT
--- NOTE | 2021-02-15 15:19 | CM.ED ---
SOCIAL WORK This worker followed up on home o2 for patient. Spoke with Alicia through the [facility]. Alicia reports patient's PCP is putting in orders and they will be following up with patient for O2 needs. Call to patient and to update. Carmelo Casillas MSW, UNDER SEAL OPERATOR
--- NOTE | 2021-02-16 15:14 | CASEMGMT ---
ED Home oxygen follow-up: KATI CAMERON attempted to call patient for follow-up. No answer, voice message left with return contact information.
== END 2021-02-12 13:52 | disposition home or self-care (01) ==
PROVIDERS: Emergency Provider Emergency Medicine
DX: U07.1 COVID-19 (principal); I25.2 Old myocardial infarction; I25.10 Atherosclerotic heart disease of native coronary artery without angina pectoris; E78.00 Pure hypercholesterolemia, unspecified; I10 Essential (primary) hypertension; Z79.82 Long term (current) use of aspirin; Z79.899 Other long term (current) drug therapy; Z87.891 Personal history of nicotine dependence
CPT/HCPCS: 70450; 71275; 80048; 83605; 84484; 85025; 87040; 99284; Q9967; A4216

== ENCOUNTER 2023-06-10 15:37 | Inpatient (IN) | payer OTHER, SELFPAY ==
[2023-06-10] VITALS (8 sets, daily range): BP systolic 129–158; BP diastolic 81–108; PULSE 53–65; RESP 12–20; TEMP 36.3–36.7; O2SAT 70–96; BMI 23.9; BMI 23.1
--- NOTE | 2023-06-10 15:43 | EDS_ITS ---
HPI History of Present Illness Chief Complaint: Chest Pain [facility] Medical History Coronary artery disease High cholesterol Hypertension Myocardial infarction Home Medications amlodipine 2.5 mg PO/SL DAILY 02/12/21 [History Last Taken Unknown] amoxicillin 875 mg-potassium clavulanate 125 mg tablet (Augmentin) 1 tab PO BID #20 tabs 02/12/21 [Rx Last Taken Unknown] aspirin 81 mg PO/SL DAILY 02/12/21 [History Last Taken Unknown] carvedilol 3.125 mg PO/SL BID 02/12/21 [History Last Taken Unknown] isosorbide mononitrate 30 mg PO/SL DAILY 02/12/21 [History Last Taken Unknown] losartan 50 mg PO/SL BID 02/12/21 [History Last Taken Unknown] pravastatin 20 mg PO/SL QHS 02/12/21 [History Last Taken Unknown] Allergy/AdvReac Type Severity Reaction Status Date / Time [id number] Reductase AdvReac Other Verified 06/10/23 15:41 Inhibitor [Ejeaqan-Xll-Fkx Reductase Inhibitor] Surgical History Hx of CABG Social History Smoking Status: Former smoker MDM MDM MDM Narrative Medical decision making narrative: HISTORY OF PRESENT ILLNESS: [] REVIEW OF SYSTEMS: Pertinent positives: Chest pain Pertinent negatives: [] PHYSICAL EXAM: Nursing triage notes reviewed, Vital signs reviewed Constitutional: please see mdm HENT: MMM Eyes: Pupils equal round and reactive to light, Extraocular muscles intact Neck: No stridor, no JVD, full neck ROM Lungs: Clear to auscultation, No wheezing or rales. No increased work of breathing, no conversational dyspnea, no accessory muscle use, no nasal flaring. No respiratory distress noted Heart: Regular rate and rhythm, No murmurs, No rubs and No gallops, 2+ distal pulses (radial, femoral, posterior tibial) in all extremities Abdomen: Soft, there is no tenderness, rigidity, rebound or guarding, no obvious peritoneal signs, no palpable pulsatile abdominal masses, no auscultated abdominal bruit : No CVAT Extremities: No edema Neuro: No focal neurological deficits, cranial nerves II through XII intact, 5/5 strength in all extremities. Intact sensation to light touch in all extremities, 2+ reflexes bilateral patella tendons. Normal gait. No ataxia. Skin: No rash or lesions noted MEDICAL DECISION MAKING: Chief Complaint: Chest pain External records reviewed: No recent ED visits or hospitalizations Factors affecting care: Hyperlipidemia, hypertension, CAD Social determinants of health: none [] History obtained from others: none [] Consults: none [] MDM Narrative: [] I considered the following differential diagnosis: [] ALL IMAGES (IF OBTAINED) HAVE BEEN PERSONALLY REVIEWED AND INTERPRETED BY MYSELF. [] The patient and/or family, caregivers express understanding. The patient and/or family, caregivers agrees with the plan. Shared decision making: I will have a discussion with the patient and or visitors regarding risk/benefits of further testing or admission. They will be made aware of of the risk/benefits inherent in this decision they will be given the opportunity to voice understanding. Total critical care time today provided was at least 0 [] minutes. This excludes separately billable procedures. Critical care time (if documented) is secondary to the patient having high probability of clinically significant/life threatening deterioration in the patient's condition which required my urgent intervention. Impression: [] Dispo: [] This note was generated with [employer] dictation software. It may contain incorrect words, spelling, and punctuation that were not noted in review of the chart prior to signing. Discharge Plan Triage Chief Complaint: Chest Pain ED Provider: Raman Plasencia Dx/Rx/DC Orders Prescriptions: No Action amlodipine 2.5 mg PO/SL DAILY aspirin 81 mg PO/SL DAILY carvedilol 3.125 mg PO/SL BID isosorbide mononitrate 30 mg PO/SL DAILY losartan 50 mg PO/SL BID pravastatin 20 mg PO/SL QHS amoxicillin-pot clavulanate [Augmentin] 875-125 mg tablet 1 tab PO BID Qty: 20 0RF Primary Care Provider[facility] Referrals: [facility] [Primary Care Provider] -
--- NOTE | 2023-06-10 15:57 | CT_ITS ---
STUDY: CTA CHEST REASON FOR EXAM: Male, 68 years old. shortness of breath RADIATION DOSAGE (If Supplied By Facility): CTDIvol = ( 13.30 ) mGy, DLP = ( 362.74 ) mGycm TECHNIQUE: The examination was performed with the intravenous administration of IV 100mL Isovue-370. Post-processing of the angiographic images was performed, with multiplanar reformation and 3D reconstruction. Individualized dose optimization techniques were used for this CT. COMPARISON: None. FINDINGS: Normal enhancement of the main pulmonary artery and right and left pulmonary arteries. Normal enhancement of the bilateral peripheral pulmonary arteries. There is no demonstrated pulmonary embolism. There is atherosclerotic calcification of the aortic arch with tortuosity. There is no demonstrated aortic dissection (limited contrast enhancement). Normal heart and pericardium. Sternal wires and mediastinal surgical clips compatible with prior CABG. Normal mediastinum. Normal hilar regions. Lungs are hyperexpanded with severe bullous emphysema throughout the lungs, upper lobe dominant. Scattered areas of parenchymal fibrosis but no airspace consolidation. Mild atelectasis in the right more than left lung base. Nodule in the right apex on image 223 of series 2 measuring 6 mm is stable. No pleural effusion. Normal chest wall structures. There are degenerative changes of thoracic spine. Normal visualized upper abdomen. CT/CTA Chest W/WO Contrast IMPRESSION: 1. No central or segmental pulmonary embolism. 2. Stable chronic changes, as above. Electronically Signed: Jose Antonio Carvajal MD ([place]) at 17:38 EST ,
--- NOTE | 2023-06-10 15:57 | EKG12_ITS ---
Test Reason : CP Blood Pressure : / mmHG Vent. Rate : 058 BPM Atrial Rate : 058 BPM P-R Int : 144 ms QRS Dur : 116 ms QT Int : 460 ms P-R-T Axes : 062 033 001 degrees QTc Int : 451 ms Sinus bradycardia with occasional Premature ventricular complexes and Premature atrial complexes Incomplete right bundle branch block Cannot rule out Inferior infarct , age undetermined Abnormal ECG Confirmed by GEORGE CASTRO, LAINEY ([id number]), web content editor BECKY SHARMA ([id number]) on 06/12/2023 10:11:29 AM Referred By: GERALDINE Confirmed By:LAINEY VAZQUEZ MD
--- NOTE | 2023-06-10 16:03 | EX.ED.DYSGE1 ---
HPI <JARAD Amaya - Last Filed: 06/10/23 18:36> History of Present Illness Chief Complaint: Chest Pain Narrative Narrative: Patient presenting today due to progressively worsening shortness of breath that he has had over the past month. He reports that the shortness of breath was primarily just with exertion but has progressively worsened to the point where he will feel short of breath at rest. He reports that a few days ago he tried to go grocery shopping but had to leave and sit in his car to catch his breath which is abnormal for him. He reports that he has 4 different pulse oximeter's that he uses to test himself with and he has not been above 85% on room air when tested himself over the past few weeks. He reports that at times he has been in the 70s. He did do a recent sleep study and was diagnosed with DARWIN and was put on a CPAP. He reports a history of CAD with 5x CABG. He also reports that he has had a sharp and constant pain in his left rib cage. He denies any history of blood clots, recent surgery/procedures/travel/immobilization. [facility] <JARAD Amaya - Last Filed: 06/10/23 18:36> [facility] Medical History Coronary artery disease High cholesterol Hypertension Myocardial infarction Prediabetes Home Medications albuterol sulfate 90 mcg/actuation aerosol inhaler (ProAir HFA) 1 inh inhalation Q6H shortness of breath 06/10/23 [History Last Taken Unknown] amlodipine 2.5 mg tablet 2.5 mg PO DAILY 06/10/23 [History Last Taken 06/10/23] aspirin 81 mg chewable tablet 1 tab PO DAILY 06/10/23 [History Last Taken 06/10/23] carvedilol 3.125 mg tablet 3.125 mg PO BID 06/10/23 [History Last Taken 06/10/23] ibuprofen 200 mg tablet 600 mg PO DAILY PRN shoulder pain 06/10/23 [History Last Taken Unknown] isosorbide mononitrate 30 mg tablet,extended release 24 hr 30 mg PO DAILY 06/10/23 [History Last Taken 06/10/23] losartan 50 mg tablet 50 mg PO BID 06/10/23 [History Last Taken 06/10/23] metformin 500 mg tablet 500 mg PO DAILY 06/10/23 [History Last Taken 06/09/23] pantoprazole 1 tab PO DAILY acid reflux 06/10/23 [History Last Taken 06/10/23] pravastatin 20 mg tablet 20 mg PO QHS 06/10/23 [History Last Taken 06/09/23] Allergy/AdvReac Type Severity Reaction Status Date / Time Ygyvwuc-PZE-HvD Reductase AdvReac Other Verified 06/10/23 15:41 Inhibitor [Nmlakja-Rxy-Mrx Reductase Inhibitor] Surgical History Hx of CABG Social History Smoking Status: Former smoker ROS <JARAD Amaya - Last Filed: 06/10/23 18:36> ROS ED Constitutional Constitutional ED: Denies chills or fever(s) Cardiovascular Cardiovascular: Reports orthopnea; Denies chest pain or palpitations Respiratory/Chest Respiratory/Chest: Reports dyspnea, dyspnea on exertion and orthopnea; Denies cough Gastrointestinal Gastrointestinal: Denies abdominal pain, constipation, diarrhea, nausea or vomiting Musculoskeletal Musculoskeletal: Denies arthralgias or myalgias Integumentary Denies rash Neurologic Neurologic: Denies weakness EXAM <JARAD Amaya - Last Filed: 06/10/23 18:36> Physical Exam Const Vital Signs: 06/10/23 15:41 06/10/23 15:46 06/10/23 15:47 Temperature 97.3 F L Temperature Source Temporal Pulse Rate 65 Respiratory Rate 20 H Respiratory Pattern Tachypnea Blood Pressure 129/92 H Blood Pressure Mean 104 Pulse Ox 70 95 Oxygen Delivery Method Room Air Nasal Cannula Oxygen Flow Rate (L/min) 6 06/10/23 16:20 06/10/23 17:42 06/10/23 18:11 Temperature 98.0 F Temperature Source Pulse Rate 53 L 61 Respiratory Rate 17 12 Respiratory Pattern Blood Pressure 137/81 H 138/108 H Blood Pressure Mean 99 118 Pulse Ox 93 90 90 Oxygen Delivery Method Nasal Cannula Nasal Cannula Oxygen Flow Rate (L/min) 4 4 Positive well nourished, well developed and no apparent distress General Appearance ED: well developed HEENT Reports normocephalic and head/scalp atraumatic Mouth ED: Yes moist mucous membranes normal Eyes PERRL and EOMs intact bilaterally Neck full ROM and supple Chest Wall inspection of chest normal Resp normal respiratory effort and clear to auscultation bilaterally Cardio regular rate and regular rhythm GI soft to palpation, non-tender, non-distended and no masses Back/Spine normal ROM and normal to inspection Extremity normal to inspection and full ROM General Extremety ED: Negative for edema General Extremity: Negative for edema Neuro oriented x3, CN's II-XII intact bilaterally, moves all extremities, no focal motor deficits and no sensory deficits noted Sensorium / Orientation: awake and alert Psych mental status grossly normal and thought process normal Skin no rashes or lesions noted and no wounds <Dr. Raman Plasencia DO - Last Filed: 06/10/23 19:38> Physical Exam Const Vital Signs: 06/10/23 15:41 06/10/23 15:46 06/10/23 15:47 Temperature 97.3 F L Temperature Source Temporal Pulse Rate 65 Respiratory Rate 20 H Respiratory Pattern Tachypnea Blood Pressure 129/92 H Blood Pressure Mean 104 Pulse Ox 70 95 Oxygen Delivery Method Room Air Nasal Cannula Oxygen Flow Rate (L/min) 6 06/10/23 16:20 06/10/23 17:42 06/10/23 18:11 Temperature 98.0 F Temperature Source Pulse Rate 53 L 61 Respiratory Rate 17 12 Respiratory Pattern Blood Pressure 137/81 H 138/108 H Blood Pressure Mean 99 118 Pulse Ox 93 90 90 Oxygen Delivery Method Nasal Cannula Nasal Cannula Oxygen Flow Rate (L/min) 4 4 MDM <JARAD Amaya - Last Filed: 06/10/23 18:36> [facility] Narrative Medical decision making narrative: Patient presenting due to increasing shortness of breath on exertion over the past month. His symptoms do sound concerning as he is unable to perform his normal ADLs without feeling significantly short of breath. His pulse ox has been low at home and on arrival and is 70% on room air. I do have some concerns for PE given he has pain in his left rib cage. His lungs are clear on auscultation, I am not hearing any wheezing. CT will be obtained to rule out PE and cardiac workup will be obtained. CT shows evidence of pulmonary fibrosis without PE or infiltrate. He does have a history of pulmonary fibrosis from COVID-19. He is currently 90% oxygen saturation on 4 L O2. He is comfortable appearing, no conversational dyspnea. He does report a history of angina which has been stable. No current chest pain. I do think he would benefit from the hospital for further workup and treatment and he is comfortable with this plan. He will be admitted in stable condition. Lab Data Attestation: I reviewed the patient's lab results. Lab results narrative: WBC 12.8, potassium 3.4, creatinine 1.36, BNP 336.3 Labs: Laboratory Results - last 24 hr 06/10/23 15:45 WBC 12.8 H RBC 4.78 Hgb 14.4 Hct 42.4 MCV 88.7 MCH 30.1 MCHC 34.0 RDW Std Deviation 44.2 H RDW Coeff of Taylor 13.6 Plt Count 287 MPV 11.0 Immature Gran % (Auto) 0.500 Neut % (Auto) 70.2 H Lymph % (Auto) 19.1 [place] % (Auto) 7.0 Eos % (Auto) 2.4 Baso % (Auto) 0.8 Absolute Neuts (auto) 9.0 H Absolute Lymphs (auto) 2.44 Nucleated RBC % 0 Sodium 141 Potassium 3.4 L Chloride 113 H Carbon Dioxide 22.0 Anion Gap 6 BUN 16 Creatinine 1.36 H Estim Creat Clear Calc 57.06 Est GFR (MDRD) Af Amer 67 Est GFR (MDRD) Non-Af 55 L BUN/Creatinine Ratio 11.8 Glucose 157 H Calcium 9.6 Troponin I High Sens 43 B-Natriuretic Peptide 336.3 H Radiography Diagnostic Testing: Clinical Impression(s) from Imaging Studies Chest CTA 06/10/23 15:57 IMPRESSION: 1. No central or segmental pulmonary embolism. 2. Stable chronic changes, as above. Electronically Signed: Jose Antonio Carvajal MD ([place]) at 17:38 EST , EKG Initial EKG: Comments: 58 bpm, sinus bradycardia with occasional PVCs and PACs, incomplete right bundle branch block, no ST elevation, reviewed and interpreted by attending ED physician <Dr. Raman Plasencia, DO - Last Filed: 06/10/23 19:38> [facility] Lab Data Labs: Laboratory Results - last 24 hr 06/10/23 15:45 WBC 12.8 H RBC 4.78 Hgb 14.4 Hct 42.4 MCV 88.7 MCH 30.1 MCHC 34.0 RDW Std Deviation 44.2 H RDW Coeff of Taylor 13.6 Plt Count 287 MPV 11.0 Immature Gran % (Auto) 0.500 Neut % (Auto) 70.2 H Lymph % (Auto) 19.1 [place] % (Auto) 7.0 Eos % (Auto) 2.4 Baso % (Auto) 0.8 Absolute Neuts (auto) 9.0 H Absolute Lymphs (auto) 2.44 Nucleated RBC % 0 Sodium 141 Potassium 3.4 L Chloride 113 H Carbon Dioxide 22.0 Anion Gap 6 BUN 16 Creatinine 1.36 H Estim Creat Clear Calc 57.06 Est GFR (MDRD) Af Amer 67 Est GFR (MDRD) Non-Af 55 L BUN/Creatinine Ratio 11.8 Glucose 157 H Calcium 9.6 Troponin I High Sens 43 B-Natriuretic Peptide 336.3 H Radiography Diagnostic Testing: Clinical Impression(s) from Imaging Studies Chest CTA 06/10/23 15:57 IMPRESSION: 1. No central or segmental pulmonary embolism. 2. Stable chronic changes, as above. Electronically Signed: Jose Antonio Carvajal MD ([place]) at 17:38 EST Reading Location ID and State: [address] [place] [address] , Service support , Treatment and Re-Evaluation :: ED attending note: I evaluated the patient in conjunction with the JAIDEN. I agree with his/her statements and above findings. I have personally performed a face to face assessment of the patient and have reviewed the JAIDEN Note. I performed a substantive portion of the visit including all aspects of the following. I personally saw the patient performed chart review, physical exam, reviewed labs, imaging (if obtained), and formulated a treatment and management plan. This note was generated with [employer]umble[employer]ation software. It may contain incorrect words, spelling, and punctuation that were not noted in review of the chart prior to signing. Discharge Plan Dx/Rx/DC Orders Clinical Impression: Shortness of breath, Pulmonary fibrosis, CAD (coronary artery disease), Hypoxia Disposition Disposition: Acute Care Hospital [facility]
[2023-06-10 16:07] LABS: Absolute Lymphocyte Count 2.44 X10^3/uL (0.83-4.51); Basophil% 0.8 % (0-1); Eosinophil# 0.31 X10^3/uL; Eosinophils% 2.4 % (0-5); Hematocrit 42.4 % (40-54); Hemoglobin 14.4 g/dL (13.0-16.5); Lymphocyte # 2.44 X10^3/ul (0.83-4.51); Lymphocyte % 19.1 % (19-41); Mean Corpuscular Hgb 30.1 pg (27.0-32.0); Mean Corpuscular Volume 88.7 fL (80-94); Monocyte# 0.89 X10^3/uL; NRBC Flagged by Analyzer 0 % (0-5); Neutrophil % 70.2 % (47-70); Platelet Count 287 K/mm3 (150-450); RBC Distribution Width CV 13.6 % (11.6-14.6); RBC Distribution Width SD 44.2 fl (35.1-43.9); Red Blood Count 4.78 M/mm3 (4.6-6.2); White Blood Count 12.8 K/mm3 (4.4-11.0)
[2023-06-10 16:22] LABS: Anion Gap 6 (5-15); BUN 16 mg/dL (7-18); BUN/Creat Ratio 11.8 RATIO (10-20); Calcium,Total 9.6 mg/dL (8.5-10.1); Chloride 113 mmol/L (98-107); Creatinine, Serum 1.36 mg/dL (0.70-1.30); EST Glomerular Filtration Rate 55 mL/min (>60); Est Glom Filt Rate - Afr Amer 67 mL/min (>60); Estimated Creatinine Clearance 57.06 ml/min; Glucose 157 mg/dL (74-106); Potassium 3.4 mmol/L (3.5-5.1); Sodium Level 141 mmol/L (136-145); Troponin-I HS 43 pg/mL (3.0-78.0)
[2023-06-10 16:26] LABS: BNP,B-Type NATRIURETIC PEPTIDE 336.3 pg/mL (0-100)
--- NOTE | 2023-06-10 18:06 | NURSING ---
MED SURG SMITH HYPOXIA, SOB
--- NOTE | 2023-06-10 18:29 | HP.PCM.HOS_ITS ---
HPI - General General Date of Admission: 06/10/23 Date of Service: 06/10/23 Chief Complaint: Shortness of breath HPI Narrative ANDRZEJ LLOYD, is a 68 M with history of coronary artery disease s/p CABG, dyslipidemia, chronic nicotine use, suspected COPD, DARWIN on home CPAP who presents progressive shortness of breath over last 1 week. Since last Monday he has been noticing worsening shortness of breath, fatigue and easy fatigability. He has pulse oximeter at home and today he noticed his agitation was in 60s to 70s. Over the last couple of days and the saturation has never been above 80%. He does not have home oxygen. He follows up at the [facility] in [place] and most of his care is there. He is scheduled to follow-up with pulmonary medicine at the [facility] in July. He was recently diagnosed with DARWIN and was started on CPAP but that has not helped his present symptoms. No orthopnea or PND. Has not noticed any progressive swelling over his feet. He underwent CTA in the ED that showed hyperexpanded lungs with severe bullous emphysema throughout the lungs predominantly involving the upper lobe with mild atelectasis in the right more than left lung. He has quit smoking for the last few years, used to smoke about 2 packs a day for 35 years, was using vape to allow him to quit smoking. His partner continues to vape at present and he is exposed to the fumes. [facility] Medical History Coronary artery disease High cholesterol Hypertension Myocardial infarction Prediabetes Home Medications albuterol sulfate 90 mcg/actuation aerosol inhaler (ProAir HFA) 1 inh inhalation Q6H shortness of breath 06/10/23 [History Last Taken Unknown] amlodipine 2.5 mg tablet 2.5 mg PO DAILY 06/10/23 [History Last Taken 06/10/23] aspirin 81 mg chewable tablet 1 tab PO DAILY 06/10/23 [History Last Taken 06/10/23] carvedilol 3.125 mg tablet 3.125 mg PO BID 06/10/23 [History Last Taken 06/10/23] ibuprofen 200 mg tablet 600 mg PO DAILY PRN shoulder pain 06/10/23 [History Last Taken Unknown] isosorbide mononitrate 30 mg tablet,extended release 24 hr 30 mg PO DAILY 06/10 [History Last Taken 06/10/23] losartan 50 mg tablet 50 mg PO BID 06/10/23 [History Last Taken 06/10/23] metformin 500 mg tablet 500 mg PO DAILY 06/10/23 [History Last Taken 06/09/23] pantoprazole 1 tab PO DAILY acid reflux 06/10/23 [History Last Taken 06/10/23] pravastatin 20 mg tablet 20 mg PO QHS 06/10/23 [History Last Taken 06/09/23] Allergy/AdvReac Type Severity Reaction Status Date / Time Bwmjfcc-YUE-ZxR Reductase AdvReac Other Verified 06/10/23 15:41 Inhibitor [Rebtdff-Kjo-Nji Reductase Inhibitor] Family History no significant family his no significant family history Surgical History Hx of CABG no surgical history Social History Smoking Status: Former smoker ROS Review of Systems ROS Unobtainable: Denies due to encephalopathy, due to endotracheal tube, due to mental condition, due to mental status or other Constitutional Constitutional: Denies fatigue, fever(s), malaise or night sweats Eyes Eyes: Denies blurry vision, change in eye color, change in vision, discharge from eye(s), double vision, erythema, eye pain, loss of vision or other ENT HEENT: Denies abnormal hearing, dysphagia, ear pain, epistaxis, headache(s), hearing loss, nasal congestion, nasal discharge, post nasal drip, sinus pressure, sore throat or other Cardiovascular Cardiovascular: Denies chest pain, claudication, dyspnea on exertion, edema, lightheadedness, orthopnea, palpitations, paroxysmal nocturnal dyspnea, rapid heart rate, syncope or other Respiratory/Chest Respiratory/Chest: Reports dyspnea and shortness of breath at rest; Denies cough, excessive phlegm production, hemoptysis, productive cough, shortness of breath with exertion, wheezing or other Gastrointestinal Gastrointestinal: Denies abdominal pain, coffee ground emesis, constipation, diarrhea, dyspepsia, hematemesis, hematochezia, loose stools, melena, nausea, vomiting or other Genitourinary Genitourinary: Denies burning urination, difficulty urinating, dysuria, hematuria, nocturia, urinary frequency, urinary hesitancy, urinary incontinence, urinary urgency or other Musculoskeletal Musculoskeletal: Denies arthralgias, back pain, joint pain, joint stiffness, joint swelling, myalgias, neck pain or other Neurologic Neurologic: Denies abnormal gait, abnormal speech, confusion, disequilibrium, di zziness, focal weakness, headache(s), numbness, paresthesias, seizure-like activity, seizures, syncope, tingling, tremor(s) or other Psychiatric Psychiatric: Denies anxiety, depression, homicidal ideation, suicidal ideation or other Endocrine Endocrinology: Denies change in body appearance, cold intolerance, excessive sweating, heat intolerance, polydipsia, polyuria or other Hematologic/Lymphatic Hematologic/Lymphatic: Denies anemia, easy bleeding, easy bruising, lymphadenopathy or other Allergic/Immunologic Allergic/Immunologic: Denies rhinitis, hives, eczemia, asthma or other Vital Signs Vital Signs Vital Signs: 06/10/23 15:41 06/10/23 15:46 06/10/23 15:47 Temperature 97.3 F L Temperature Source Temporal Pulse Rate 65 Respiratory Rate 20 H Respiratory Pattern Tachypnea Blood Pressure 129/92 H Blood Pressure Mean 104 Pulse Ox 70 95 Oxygen Delivery Method Room Air Nasal Cannula Oxygen Flow Rate (L/min) 6 06/10/23 16:20 06/10/23 17:42 06/10/23 18:11 Temperature 98.0 F Temperature Source Pulse Rate 53 L 61 Respiratory Rate 17 12 Respiratory Pattern Blood Pressure 137/81 H 138/108 H Blood Pressure Mean 99 118 Pulse Ox 93 90 90 Oxygen Delivery Method Nasal Cannula Nasal Cannula Oxygen Flow Rate (L/min) 4 4 Weight Weight: 176 lb 5.917 oz Body Mass Index (BMI) 23.9 Physical Exam Const alert and oriented x3 General Appearance: cooperative Neck no lymphadenopathy, supple and no JVD Resp Auscultation: rhonchi; Negative for wheezes Cardio regular rate and regular rhythm GI normal to inspection, nondistended, normoactive bowel sounds Extremity normal to inspection Extremity Narrative: No pedal edema Neuro oriented x3 Psych affect normal Results Medical Records Data Attestation: I reviewed the patient's medical records Lab / Micro Data Attestation: I reviewed the patient's lab results. Lab results narrative: WBC 12.8, hemoglobin 14.4, potassium 3.4 BNP 336.3. Creatinine 1.3 06/10/23 15:45 06/10/23 15:45 Labs: Laboratory Results - last 24 hr 06/10/23 15:45: WBC 12.8 H, RBC 4.78, Hgb 14.4, Hct 42.4, MCV 88.7, MCH 30.1, MCHC 34.0, RDW Std Deviation 44.2 H, RDW Coeff of Taylor 13.6, Plt Count 287, MPV 11.0, Immature Gran % (Auto) 0.500, Neut % (Auto) 70.2 H, Lymph % (Auto) 19.1, [place] % (Auto) 7.0, Eos % (Auto) 2.4, Baso % (Auto) 0.8, Absolute Neuts (auto) 9.0 H, Absolute Lymphs (auto) 2.44, Nucleated RBC % 0, Sodium 141, Potassium 3.4 L, Chloride 113 H, Carbon Dioxide 22.0, Anion Gap 6, BUN 16, Creatinine 1.36 H, Estim Creat Clear Calc 57.06, Est GFR (MDRD) Af Amer 67, Est GFR (MDRD) Non-Af 55 L, BUN/Creatinine Ratio 11.8, Glucose 157 H, Calcium 9.6, Troponin I High Sen s 43, B-Natriuretic Peptide 336.3 H Micro: Microbiology 06/10/23 16:27 Mucosa - Nasopharyngeal SARS-CoV-2, Influenza & RSV (PCR) - Final Imaging Radiology Impression Chest CTA 06/10/23 15:57 Lungs are hyperexpanded with severe bullous emphysema throughout the lungs, upper lobe dominant. Scattered areas of parenchymal fibrosis but no airspace consolidation. Mild atelectasis in the right more than left lung base. Nodule in the right apex on image 223 of series 2 measuring 6 mm is stable. No pleural effusion IMPRESSION: 1. No central or segmental pulmonary embolism. 2. Stable chronic changes, as above. Electronically Signed: Jose Antonio Carvajal MD ([place]) at 17:38 EST Reading Location ID and State: [facility] / [place] , Service support , Assessment & Plan Assessment/Plan (1) Hypoxia: (2) Pulmonary fibrosis: PLAN: Plan Mr Lloyd, 68-year-old man with history of COPD, DARWIN, coronary artery disease, dyslipidemia presents to the ED with concerns regarding progressive shortness of breath and hypoxia. Based on his symptoms there is he has no features of COPD exacerbation [no increased cough, expectoration, no fever] but he has some leukocytosis. Based on his CT scan showing severe bullous emphysema that is predominantly involving his upper lobe this could be only secondary to natural history of COPD but could also be interstitial lung disease with significant fibrosis. His imaging findings are similar to his CT scan done in 2020. His proBNP is mildly elevated and we will get echocardiogram for cardiac evaluation given the keisha gstanding history of ischemic heart disease. 1. Acute on chronic respiratory failure: Differentials include severe COPD with natural progression versus interstitial lung disease versus ADHF -Azithromycin for 5 days to cover for atypical infection -Continue oxygen support and maintain saturation 88 to 92% -Discussed regarding long-term home oxygen therapy -Echocardiogram -Pulmonary medicine opinion regarding ILD versus severe COPD 2. Coronary artery disease s/p PCI, CABG: Continue aspirin as before 3. Hypertension: Continue home amlodipine, carvedilol therapy 4. Chronic sinusitis: On fluticasone at home, will hold for now. 5. DVT prophylaxis enoxaparin 6. Physical therapy and Occupational Therapy consult for rehabilitation. Charges/Coding Visit Charges Inpatient E&M: 25160 Init Hosp L2
--- NOTE | 2023-06-10 19:15 | ECHOD_ITS ---
Reason For Study: SOB Procedure This was a 2D Doppler, Color Flow transthoracic echocardiogram. Exam performed portable in patient room. Left Ventricle Normal LV size. Mild concentric left ventricular hypertrophy. Left ventricular systolic function is normal. The left ventricular ejection fraction is 60 %. Stage 1 diastolic dysfunction. Right Ventricle Normal RV size. Normal systolic function. Atria Normal left atrium. Normal right atrium. Mitral Valve Normal mitral valve. Tricuspid Valve Normal tricuspid valve. Mild to moderate (1-2+) tricuspid valve insufficiency. Pulmonary artery systolic pressure is 40 mmHg. Great Vessels Normal aortic root. The pulmonary artery is normal size. Normal inferior vena cava. Pericardium/Pleural No pericardial effusion. MMode/2D Measurements & Calculations LVIDd: 5.0 cm IVSd: 1.4 cm Ao root diam: 3.2 cm LVIDs: 3.9 cm LVPWd: 1.2 cm RVDd: 3.7 cm FS: 22.1 % LAV(MOD-bp): 56.9 ml LVAd ap4: 34.5 cm2 LVAd ap2: 37.1 cm2 LAV(MOD-bp) Indexed: 28.6 ml/m2 LVLd ap4: 9.4 cm LVLd ap2: 9.3 cm LAV(MOD-sp2): 55.6 ml EDV(MOD-sp4): 107.2 ml EDV(MOD-sp2): 123.6 ml LAV(MOD-sp4): 47.9 ml EDV(sp4-el): 108.1 ml EDV(sp2-el): 125.3 ml LVAs ap4: 20.0 cm2 LVAs ap2: 24.8 cm2 LVLs ap4: 7.8 cm LVLs ap2: 8.5 cm ESV(MOD-sp4): 46.3 ml ESV(MOD-sp2): 65.3 ml ESV(sp4-el): 43.5 ml ESV(sp2-el): 61.1 ml EF(MOD-sp4): 56.8 % EF(MOD-sp2): 47.1 % EF(sp4-el): 59.8 % SV(MOD-sp4): 60.9 ml SV(MOD-sp2): 58.3 ml SV(sp4-el): 64.6 ml LA A4 area: 20.2 cm2 LA dimension(2D): 4.5 cm RA A4 area: 19.9 cm2 TAPSE: 1.5 cm Time Measurements MV dec time: 0.22 sec Doppler Measurements & Calculations MV E max antoine: 52.4 cm/sec Lat Peak E' Antoine: 5.5 cm/sec Med Peak E' Antoine: 3.6 cm/sec MV A max antoine: 64.1 cm/sec E/E' lat: 9.6 E/E' med: 14.5 MV E/A: 0.82 MV dec slope: 240.7 cm/sec2 Ao V2 max: 142.7 cm/sec LV V1 max: 119.1 cm/sec Ao max P.1 mmHg LV V1 max P.7 mmHg Ao V2 mean: 94.5 cm/sec LV V1 mean P.1 mmHg Ao mean P.1 mmHg LV V1 mean: 83.5 cm/sec Ao V2 VTI: 30.2 cm LV V1 VTI: 25.7 cm AV (velocity ratio): 0.85 PA V2 max: 88.2 cm/sec TR max antoine: 306.9 cm/sec TR max P.7 mmHg ECHO/Echo Complete Interpretation Summary Normal LV size. Mild concentric left ventricular hypertrophy. The left ventricular ejection fraction is 60 %. Left ventricular systolic function is normal. Stage 1 diastolic dysfunction. Pulmonary artery systolic pressure is 40 mmHg. Ordering Physician: Herbert Nunez Referring Physician: [facility] Performed By: Diana Win RDCS
[2023-06-10] MEDS: Azithromycin 500 MG in Dextrose 5%-Water (250mL Bag) 250 ML 250 MG IV (20:29)
[2023-06-10] MEDS: Enoxaparin 40 MG/0.4 ML Syringe SC (20:30)
[2023-06-10] MEDS: Pravastatin 20 MG Tablet PO (22:40)
[2023-06-10] MEDS: Carvedilol 3.125 MG TABLET PO (22:40)
[2023-06-11] VITALS (8 sets, daily range): BP systolic 105–119; BP diastolic 61–70; PULSE 43–65; RESP 14–18; TEMP 36.6–37.1; O2SAT 90–96
[2023-06-11] MEDS: Albuterol 2.5 MG/3 ML VIAL.NEB. INHALATION (04:32)
--- NOTE | 2023-06-11 05:04 | EKG12_ITS ---
Test Reason : Blood Pressure : / mmHG Vent. Rate : 066 BPM Atrial Rate : 066 BPM P-R Int : 148 ms QRS Dur : 106 ms QT Int : 440 ms P-R-T Axes : 039 016 -07 degrees QTc Int : 461 ms Sinus rhythm with frequent Premature ventricular complexes in a pattern of bigeminy Incomplete right bundle branch block Borderline ECG Confirmed by GEORGE CASTRO, LAINEY ([id number]), order editor LIGIA COLLAZO ([id number]) on 06/13/2023 6:29:41 AM Referred By: Confirmed By:LAINEY VAZQUEZ MD
[2023-06-11 05:19] LABS: Allen Test Positive; Base Excess -4 mmol/L (-2 to +2); Bicarbonate 20.4 mmol/L (22-26); Blood Gas Specimen Type ART; Mode Not entered; O2 Delivery Device HFNC; PO2 68 mmHG (75-100); SITE R Radial; SO2 93 % (95-99); Total Carbon Dioxide 21 mmol/L
[2023-06-11 05:27] LABS: Absolute Lymphocyte Count 2.84 X10^3/uL (0.83-4.51); Absolute Neutrophil Count 6.5 X10^3/uL (2.0-7.7); Basophil# 0.09 X10^3/uL; Basophil% 0.9 % (0-1); Eosinophil# 0.36 X10^3/uL; Eosinophils% 3.4 % (0-5); Hematocrit 37.5 % (40-54); Hemoglobin 12.6 g/dL (13.0-16.5); Lymphocyte # 2.84 X10^3/ul (0.83-4.51); Lymphocyte % 26.9 % (19-41); Mean Corp Hgb Conc 33.6 g/dL (32-36); Mean Corpuscular Hgb 29.9 pg (27.0-32.0); Mean Corpuscular Volume 89.1 fL (80-94); Mean Platelet Vol. 10.9 fl (6.2-12.0); Monocyte# 0.78 X10^3/uL; Monocyte% 7.4 % (0-10); NRBC Flagged by Analyzer 0 % (0-5); Neutrophil # 6.45 X10^3/uL (2.7-7.7); Neutrophil % 61.1 % (47-70); Platelet Count 243 K/mm3 (150-450); RBC Distribution Width CV 13.7 % (11.6-14.6); Red Blood Count 4.21 M/mm3 (4.6-6.2); White Blood Count 10.6 K/mm3 (4.4-11.0)
[2023-06-11] MEDS: MethylPREDNISolone 125 MG/2 ML Vial IV (05:42)
[2023-06-11] MEDS: Ceftriaxone 1 GM/50 ML BAG IV (05:45)
[2023-06-11 05:52] LABS: Troponin-I HS 45 pg/mL (3.0-78.0)
[2023-06-11] MEDS: Acetaminophen 325 MG Tablet 650 MG PO ×2 (05:52→22:53)
[2023-06-11 05:54] LABS: ALB/GLOB Ratio 1.1 RATIO (0.9-2.4); AST(SGOT) 15 U/L (15-37); Alanine Aminotransfer ALT/SGPT 16 U/L (16-61); Albumin, Serum 3.2 g/dL (3.2-5.0); Alkaline Phosphatase 85 U/L (45-117); Anion Gap 5 (5-15); BUN 18 mg/dL (7-18); BUN/Creat Ratio 16.5 RATIO (10-20); Bilirubin, Direct 0.29 mg/dL (0.00-0.30); Calcium,Total 8.5 mg/dL (8.5-10.1); Chloride 115 mmol/L (98-107); Creatinine, Serum 1.09 mg/dL (0.70-1.30); EST Glomerular Filtration Rate 72 mL/min (>60); Est Glom Filt Rate - Afr Amer 87 mL/min (>60); Globulin 2.9 g/dL (2.2-4.2); Glucose 93 mg/dL (74-106); Magnesium 1.9 mg/dL (1.6-2.6); Phosphorus 3.5 mg/dL (2.5-4.9); Potassium 3.6 mmol/L (3.5-5.1); Protein, Total 6.1 g/dL (6.4-8.2); Sodium Level 142 mmol/L (136-145); Thyroid Stim Hormone (TSH) 2.49 uIU/mL (0.358-3.74)
[2023-06-11 06:02] LABS: International Normalized Ratio 1.2; Prothrombin Time (Protime)PT. 15.3 SECONDS (11.7-14.9)
--- NOTE | 2023-06-11 07:03 | NURSING ---
PT STSTED HE JUST DIDNT FEEL LIKE HE WAS GETTING BETTER AND FELT WORSE, HR LOW IN THE 30-40. CALLED RESP, GOT A BREATHING TREATMENT GIVEN, LUNGS DIMINISHED, ON 8LNC HF, DROPS TO THE 80S WHEN HE USES THE URINAL AND TAKES A LONG TIME TO RECOVER. CALLED DR OCONNOR AND GOT A BUNCH OF ORDERED, SOLUMEDROL, ROCEPHIN, EKG, ABGS.
--- NOTE | 2023-06-11 09:02 | PN.HOSP_ITS ---
Subjective Subjective Breathing is better on the 8 L, no issues overnight Objective Data Objective Data Vital Signs: Vital Signs Temp Pulse Resp BP Pulse Ox O2 Del Method O2 Flow Rate 98.4 F 56 L 16 107/64 94 High Flow 8 06/11/23 05:30 06/11/23 05:30 06/11/23 05:30 06/11/23 05:30 06/11/23 07:25 06/11/23 07:25 06/11/23 07:25 Oxygen Flow Rate (L/min) 8 Oxygen Delivery Method High Flow Weight: 170 lb 13.732 oz Body Mass Index (BMI) 23.1 Intake & Output: Intake and Output for Last 24 Hours 06/10/23 06/11/23 06/12/23 03:59 03:59 03:59 Intake Total 305 / 305 Output Total 120 / 120 Balance 185 / 185 Lab / Micro Data 06/11/23 05:14 06/11/23 05:14 Labs: Laboratory Results - last 24 hr 06/10/23 15:45: WBC 12.8 H, RBC 4.78, Hgb 14.4, Hct 42.4, MCV 88.7, MCH 30.1, MCHC 34.0, RDW Std Deviation 44.2 H, RDW Coeff of Taylor 13.6, Plt Count 287, MPV 11.0, Immature Gran % (Auto) 0.500, Neut % (Auto) 70.2 H, Lymph % (Auto) 19.1, Trego % (Auto) 7.0, Eos % (Auto) 2.4, Baso % (Auto) 0.8, Absolute Neuts (auto) 9.0 H, Absolute Lymphs (auto) 2.44, Nucleated RBC % 0, Sodium 141, Potassium 3.4 L, Chloride 113 H, Carbon Dioxide 22.0, Anion Gap 6, BUN 16, Creatinine 1.36 H, Estim Creat Clear Calc 57.06, Est GFR (MDRD) Af Amer 67, Est GFR (MDRD) Non-Af 55 L, BUN/Creatinine Ratio 11.8, Glucose 157 H, Calcium 9.6, Troponin I High Sens 43, B-Natriuretic Peptide 336.3 H 06/11/23 05:14: WBC 10.6, RBC 4.21 L, Hgb 12.6 L, Hct 37.5 L, MCV 89.1, MCH 29.9, MCHC 33.6, RDW Std Deviation 44.0 H, RDW Coeff of Taylor 13.7, Plt Count 243, MPV 10.9, Immature Gran % (Auto) 0.300, Neut % (Auto) 61.1, Lymph % (Auto) 26.9, Trego % (Auto) 7.4, Eos % (Auto) 3.4, Baso % (Auto) 0.9, Absolute Neuts (auto) 6.5, Absolute Lymphs (auto) 2.84, Nucleated RBC % 0, PT 15.3 H, INR 1.2, Sodium 142, Potassium 3.6, Chloride 115 H, Carbon Dioxide 22.0, Anion Gap 5, BUN 18, Creatinine 1.09, Estim Creat Clear Calc 71.10, Est GFR (MDRD) Af Amer 87, Est GFR (MDRD) Non-Af 72, BUN/Creatinine Ratio 16.5, Glucose 93, Calcium 8.5, Phosphorus 3.5, Magnesium 1.9, Total Bilirubin 0.80, Direct Bilirubin 0.29, AST 15, ALT 16, Alkaline Phosphatase 85, Troponin I High Sens 45, Total Protein 6.1 L, Albumin 3.2, Globulin 2.9, Albumin/Globulin Ratio 1.1, TSH 2.49 Micro: Microbiology 06/10/23 16:27 Mucosa - Nasopharyngeal SARS-CoV-2, Influenza & RSV (PCR) - Final ABG Data ABG results: ABG 06/11/23 05:15 Specimen Type ART Sample Site R Radial pH 7.40 Bicarbonate Actual 20.4 L Total CO2 21 Base Excess -4 L O2 Saturation 93 L O2 % 8.0 ABG pCO2 33.0 L ABG pO2 68 L Micheal Test Positive O2 Delivery Device HFNC Vent Mode Not entered Radiography Diagnostic Testing: Radiology Impression Chest CTA 06/10/23 15:57 IMPRESSION: 1. No central or segmental pulmonary embolism. 2. Stable chronic changes, as above. Electronically Signed: Jose Antonio Carvajal MD ([place]) at 17:38 EST , Physical Exam Narrative General: Alert, Oriented x3, Cooperative, No apparent distress HEENT: Atraumatic, PERRLA, EOMI, Normocephalic Oral: Moist Mucosa Neck: Supple, No JVD Lungs: Diminished, Normal air movement, No rhonchi, No wheeze, No rales, mild conversational dyspnea now that he is on appropriate oxygen Cardiovascular: Regular rate, Regular Rhythm, Normal S1, Normal S2, No murmurs Abdomen: Soft, Non Tender, Non-Distended, No Hepato-splenomegaly Extremities: No edema, Capillary Refill Less than 3 Seconds Skin: No rashes, No breakdown Musculoskeletal: No Tenderness to Palpation of Joints or Extremities Neurological: No focal neurological deficits, Motor Exam 5/5 strength throughout, Sensory exam intact to light touch and pain Psych/Mental Status: Normal Affect, Appropriate Assessment & Plan Assessment/Plan (1) Hypoxia: (2) Pulmonary fibrosis: PLAN: Plan Mr Powell, 68-year-old man with history of COPD, DARWIN, coronary artery disease, dyslipidemia presents to the ED with concerns regarding progressive shortness of breath and hypoxia. Based on his symptoms there is he has no features of COPD exacerbation [no increased cough, expectoration, no fever] but he has some leukocytosis. 1. Acute hypoxic respiratory failure secondary to severe COPD versus interstitial lung disease ? Continue with steroids and breathing treatments ? CTA of the chest demonstrated bullous emphysema ? Will consult pulmonology for evaluation tomorrow ? She was placed on azithromycin, will obtain a sputum culture 2. CAD status post CABG and stent/HTN/HLD ? His BNP is slightly elevated but his troponins were normal ? We do not have an echo in our system so we will obtain an echo tomorrow depending on findings can proceed with other test ? Will resume his home blood pressure medications ? We will monitor make adjustments as necessary 3. DM2 ? Will hold his home metformin ? Will place him on sign scale insulin ? Accu-Cheks ACHS ? We will monitor make adjustments as necessary 4. GERD ? Stable ? Continue with PPI DVT: Lovenox Charges/Coding Visit Charges Inpatient E&M: 65351 Subs Hosp L2
[2023-06-11] MEDS: Aspirin 81 MG TAB.CHEW PO (09:27)
[2023-06-11] MEDS: Carvedilol 3.125 MG TABLET PO ×2 (09:27→22:44)
[2023-06-11] MEDS: amLODIPine 2.5 MG Tablet PO (09:27)
[2023-06-11] MEDS: Losartan Potassium 50 MG Tablet PO (09:28)
[2023-06-11] MEDS: Isosorbide Mononitrate 30 MG Tablet PO (09:28)
[2023-06-11] MEDS: Enoxaparin 40 MG/0.4 ML Syringe SC (09:28)
[2023-06-11] MEDS: MethylPREDNISolone 125 MG/2 ML Vial 60 MG IV ×2 (09:30→22:43)
[2023-06-11] MEDS: Azithromycin 500 MG in Dextrose 5%-Water (250mL Bag) 250 ML 250 MG IV (09:34)
[2023-06-11] MEDS: Insulin Lispro 100 UNIT/ML INSULN.PEN SC ×2 (11:25→16:29)
[2023-06-11 11:54] LABS: Bedside Glucose 252 mg/dL (74-106)
[2023-06-11 17:20] LABS: Bedside Glucose 182 mg/dL (74-106)
[2023-06-11] MEDS: 0.9% Saline Lock 10 ML Syringe IV (22:43)
[2023-06-11] MEDS: Pravastatin 20 MG Tablet PO (22:44)
[2023-06-11 23:23] LABS: Bedside Glucose 146 mg/dL (74-106)
[2023-06-12] VITALS (12 sets, daily range): BP systolic 108–116; BP diastolic 52–70; PULSE 62–70; RESP 12–18; TEMP 36.2–36.6; O2SAT 78–97
[2023-06-12 06:41] LABS: Bedside Glucose 149 mg/dL (74-106)
--- NOTE | 2023-06-12 07:05 | EX.PCM.CONCC ---
Assessment & Plan Assessment/Plan (1) Shortness of breath: (2) Hypoxia: PLAN: Plan RECOMMENDATIONS: 1. Wean supplemental oxygen to maintain saturations 88 to 92%. 2. Initiate scheduled bronchodilators as ordered. 3. Continue antimicrobials and steroids. 4. BiPAP therapy with naps and nightly. 5. Encourage incentive spirometer use and mobilize patient as tolerated. 6. Close outpatient follow-up with primary steam conditioner operator through the [facility] system. IMPRESSIONS: 1. Shortness of breath and hypoxemia The patient has a known history of COPD and is currently followed by an outside pulmonary provider. CTA chest showed no evidence for PE but did demonstrate significant end-stage emphysematous changes. I suspect that his presenting symptoms and hypoxemia are just progression of his known obstructive lung disease. Although the patient was not previously on supplemental O2, it is highly likely that he will require supplemental oxygen at the time of his discharge. At this time, I agree with continuing antibiotics and steroids as ordered. I am going to place the patient on scheduled DuoNebs while awake. I would recommend that supplemental oxygen to be weaned to maintain saturation is 88 to 92%. Lastly, will initiate PAP therapy with naps and nightly, given his history of sleep apnea. 2. History of coronary artery disease status post CABG/history of tobacco dependency/diabetes mellitus/GERD/sleep apnea Complicates care, management, recovery and prognosis. Continue supportive care as noted above. This note was generated with FONU2 dictation software. It may contain incorrect words, spelling, and punctuation that were not noted in checking the note before signing. HPI Consult Data Date of Consult: 06/12/23 HPI Narrative Reason for Consultation: COPD HPI Narrative: The patient is a 68-year-old male, with a history as outlined below, who presented to the emergency department on June 10 with shortness of breath. The patient has a known history of coronary artery disease status post CABG along with chronic tobacco dependency and suspected obstructive lung disease. In addition, the patient was previously diagnosed with obstructive sleep apnea, for which she is prescribed nocturnal PAP therapy. Although the patient quit smoking combustible cigarettes 15 years ago, he does vape on a regular basis. He is currently an established patient of a pulmonary provider through the [facility] system as scheduled to follow-up with his primary pulmonary provider in July. He is already on a stable maintenance inhaler regimen. He stated that his breathing quality has been on a downward trajectory since 2020, when he was diagnosed with COVID-19. On presentation to the emergency department, the patient was documented to be afebrile and hemodynamically stable. He was documented to be saturating 70% on room air. Initial laboratory evaluation revealed a white blood cell count of 13,000. Chemistry profile was notable for a creatinine of 1.36. Troponin was within normal limits. BNP was mildly elevated at 336. COVID, influenza and RSV PCR were negative. CTA chest showed no evidence for pulmonary embolism. Significant bilateral emphysematous changes were noted. The patient is currently being maintained on antimicrobials, steroids and as needed albuterol. [facility] Medical History Coronary artery disease High cholesterol Hypertension Myocardial infarction Prediabetes Home Medications albuterol sulfate 90 mcg/actuation aerosol inhaler (ProAir HFA) 1 inh inhalation Q6H shortness of breath 06/10/23 [History Last Taken Unknown] amlodipine 2.5 mg tablet 2.5 mg PO DAILY 06/10/23 [History Last Taken 06/10/23] aspirin 81 mg chewable tablet 1 tab PO DAILY 06/10/23 [History Last Taken 06/10/23] carvedilol 3.125 mg tablet 3.125 mg PO BID 06/10/23 [History Last Taken 06/10/23] ibuprofen 200 mg tablet 600 mg PO DAILY PRN shoulder pain 06/10/23 [History Last Taken Unknown] isosorbide mononitrate 30 mg tablet,extended release 24 hr 30 mg PO DAILY 06/10/23 [History Last Taken 06/10/23] losartan 50 mg tablet 50 mg PO BID 06/10/23 [History Last Taken 06/10/23] metformin 500 mg tablet 500 mg PO DAILY 06/10/23 [History Last Taken 06/09/23] pantoprazole 1 tab PO DAILY acid reflux 06/10/23 [History Last Taken 06/10/23] pravastatin 20 mg tablet 20 mg PO QHS 06/10/23 [History Last Taken 06/09/23] Allergy/AdvReac Type Severity Reaction Status Date / Time Mytphmd-Aln-Kxd Reductase AdvReac Other Verified 06/10/23 15:41 Inhibitor Family History no significant family his Surgical History Hx of CABG Social History Smoking Status: Former smoker ROS ROS Narrative 10 systems were reviewed with pertinent positives as noted in the HPI above. Physical Exam Const alert and no apparent distress General Appearance: cooperative HEENT normocephalic, head/scalp atraumatic and moist oral mucous membranes Eyes PERRL, EOMs intact bilaterally and conjunctivae normal Neck supple General: trachea midline Chest inspection of chest normal Resp normal respiratory effort Resp Narrative: Globally diminished air movement throughout all lung mcdaniel. No wheezes, rales or rhonchi. Cardio regular rate and regular rhythm GI normal to inspection, nondistended, normoactive bowel sounds Extremity no clubbing, cyanosis or edema Skin no rashes or lesions noted Neuro oriented x3, CN's II-XII intact bilaterally and moves all extremities Psych cooperative and affect normal Lab / Micro Data 06/11/23 05:14 06/11/23 05:14 Labs: Laboratory Results - last 24 hr 06/11/23 11:21: POC Glucose 252 H 06/11/23 16:23: POC Glucose 182 H 06/11/23 22:46: POC Glucose 146 H 06/12/23 06:07: POC Glucose 149 H Charges/Coding Visit Charges Inpatient E&M: 36407 Init Hosp L3
[2023-06-12] MEDS: Aspirin 81 MG TAB.CHEW PO (08:08)
[2023-06-12] MEDS: Losartan Potassium 50 MG Tablet PO (08:08)
[2023-06-12] MEDS: amLODIPine 2.5 MG Tablet PO (08:08)
[2023-06-12] MEDS: Isosorbide Mononitrate 30 MG Tablet PO (08:08)
[2023-06-12] MEDS: Carvedilol 3.125 MG TABLET PO ×2 (08:08→21:18)
[2023-06-12] MEDS: Enoxaparin 40 MG/0.4 ML Syringe SC (08:08)
[2023-06-12] MEDS: Ceftriaxone 1 GM/50 ML BAG IV (09:19)
[2023-06-12] MEDS: MethylPREDNISolone 125 MG/2 ML Vial 60 MG IV ×2 (09:19→21:17)
[2023-06-12] MEDS: 0.9% Saline Lock 10 ML Syringe IV ×2 (09:20→21:17)
--- NOTE | 2023-06-12 09:27 | CASEMGMT ---
KATI CAMERON Assessment Face to Face with patient for initial transition planning/care coordination assessment. KATI CAMERON introduced self and role at [facility], pt voices understanding. Pt is A&Ox4 and is resting comfortably in bed and is calm. Care providers, pharmacy, and demographics verified. Admitting dx: SOB LACE Strata: 2 PCP: NUHA. Pt states his Primary is in [place]. Specialist: Pt states he sees a Credit Card Control Clerk, Soil Engineer, and ENT at [facility] in [place]. Preferred Pharmacy: [facility] Insurance: MD, [facility] A Prescription Benefit: Yes LNOK: Fannie Powell (W) Living Arrangements: Pt lives with his and 24 y/o daughter in a 2 story home with an attic and unfinished BM with HR. Pt states there are 5 steps to enter the home with HR and no issues. ADLs/IADLs: Ind Transportation: Drives. drives DME: Pt states he is looking into getting a lift chair. Pt denies having a walker or cane at home and denies the need at this time. Pt does have a P. Ox at home. Pt states he had to wear O2 at home before d/t COVID and states that he used [employer] at that time. Pt states that he does not have any of the O2 equipment anymore. Pt states he was told by the MD he may need to go home on O2. Pt denies wanting to see a local list of in-network DME providers. Pt states he wants to use [employer] again for home O2 needs. Will follow. HHC/SNF: Denies history or needs. Pt?s goal: Home with family Plan: Pt is on 4L currently. Pt is Ind and not requiring additional therapy at this time. The plan is to DC home with potential O2. Pt denies other needs. CM to follow. Ty Barrow RN, CM
--- NOTE | 2023-06-12 09:52 | PCM.PN.HOSP ---
Subjective Subjective Doing well, breathing a bit better. Oxygen is down to 4 L nasal cannula Objective Data Objective Data Vital Signs: Vital Signs Temp Pulse Resp BP Pulse Ox O2 Del Method O2 Flow Rate 97.4 F L 65 16 108/52 L 95 High Flow 4 06/12/23 08:28 06/12/23 08:28 06/12/23 08:28 06/12/23 08:28 06/12/23 08:28 06/12/23 08:28 06/12/23 08:28 Oxygen Flow Rate (L/min) 4 Oxygen Delivery Method High Flow Weight: 170 lb 13.732 oz Body Mass Index (BMI) 23.1 Intake & Output: Intake and Output for Last 24 Hours 06/11/23 06/12/23 06/13/23 03:59 03:59 03:59 Intake Total 560 / 560 Output Total 320 / 320 300 / 300 Balance 240 / 240 -300 / -300 Lab / Micro Data 06/11/23 05:14 06/11/23 05:14 Labs: Laboratory Results - last 24 hr 06/11/23 11:21: POC Glucose 252 H 06/11/23 16:23: POC Glucose 182 H 06/11/23 22:46: POC Glucose 146 H 06/12/23 06:07: POC Glucose 149 H Micro: Microbiology 06/10/23 16:27 Mucosa - Nasopharyngeal SARS-CoV-2, Influenza & RSV (PCR) - Final Physical Exam Narrative General: Alert, Oriented x3, Cooperative, No apparent distress HEENT: Atraumatic, PERRLA, EOMI, Normocephalic Oral: Moist Mucosa Neck: Supple, No JVD Lungs: Diminished, Normal air movement, No rhonchi, No wheeze, No rales Cardiovascular: Regular rate, Regular Rhythm, Normal S1, Normal S2, No murmurs Abdomen: Soft, Non Tender, Non-Distended, No Hepato-splenomegaly Extremities: No edema, Capillary Refill Less than 3 Seconds Skin: No rashes, No breakdown Musculoskeletal: No Tenderness to Palpation of Joints or Extremities Neurological: No focal neurological deficits, Motor Exam 5/5 strength throughout, Sensory exam intact to light touch and pain Psych/Mental Status: Normal Affect, Appropriate Assessment & Plan Assessment/Plan (1) Hypoxia: (2) Pulmonary fibrosis: PLAN: Plan 1. Acute hypoxic respiratory failure secondary to severe COPD versus interstitial lung disease ? Continue with steroids and breathing treatments ? CTA of the chest demonstrated bullous emphysema ? Appreciate pulmonology assistance ? She was placed on azithromycin, will obtain a sputum culture ? Respiratory status is improving with current intervention 2. CAD status post CABG and stent/HTN/HLD ? His BNP is slightly elevated but his troponins were normal ? We do not have an echo in our system so we will obtain an echo tomorrow depending on findings can proceed with other test ? Will resume his home blood pressure medications ? We will monitor make adjustments as necessary 3. DM2 ? Will hold his home metformin ? Will place him on sign scale insulin ? Accu-Cheks ACHS ? We will monitor make adjustments as necessary 4. GERD ? Stable ? Continue with PPI DVT: Lovenox Charges/Coding Visit Charges Inpatient E&M: 24378 Subs Hosp L2
[2023-06-12] MEDS: Azithromycin 500 MG in Dextrose 5%-Water (250mL Bag) 250 ML 250 MG IV (10:15)
[2023-06-12 11:28] LABS: Bedside Glucose 179 mg/dL (74-106)
[2023-06-12] MEDS: Ipratropium/Albuterol Sulfate 3 ML AMPUL.NEB INHALATION ×3 (11:29→19:04)
[2023-06-12] MEDS: Insulin Lispro 100 UNIT/ML INSULN.PEN SC ×2 (12:22→15:48)
[2023-06-12 16:10] LABS: Bedside Glucose 194 mg/dL (74-106)
[2023-06-12] MEDS: Acetaminophen 325 MG Tablet 650 MG PO (21:18)
[2023-06-12] MEDS: Pravastatin 20 MG Tablet PO (21:22)
[2023-06-12 22:05] LABS: Bedside Glucose 142 mg/dL (74-106)
[2023-06-13] VITALS (9 sets, daily range): BP systolic 101–134; BP diastolic 54–72; PULSE 61–96; RESP 12–20; TEMP 36.1–36.6; O2SAT 81–98
[2023-06-13 06:37] LABS: Bedside Glucose 142 mg/dL (74-106)
[2023-06-13] MEDS: Ipratropium/Albuterol Sulfate 3 ML AMPUL.NEB INHALATION ×4 (07:22→19:46)
[2023-06-13] MEDS: Furosemide 20 MG/2 ML VIAL IV ×2 (07:40→16:01)
[2023-06-13] MEDS: 0.9% Saline Lock 10 ML Syringe IV (07:40)
[2023-06-13] MEDS: Aspirin 81 MG TAB.CHEW PO (07:47)
[2023-06-13] MEDS: Ceftriaxone 1 GM/50 ML BAG IV (10:46)
[2023-06-13] MEDS: MethylPREDNISolone 125 MG/2 ML Vial 60 MG IV ×2 (10:47→21:37)
[2023-06-13] MEDS: Enoxaparin 40 MG/0.4 ML Syringe SC (10:48)
[2023-06-13] MEDS: Azithromycin 500 MG in Dextrose 5%-Water (250mL Bag) 250 ML 250 MG IV (12:05)
--- NOTE | 2023-06-13 12:10 | PN.HOSP_ITS ---
Subjective Subjective Doing well, the Jose Raulix helped this morning unfortunately still needed 8 L nasal cannula with ambulation Objective Data Objective Data Vital Signs: Vital Signs Temp Pulse Resp BP Pulse Ox O2 Del Method O2 Flow Rate 97.8 F 65 16 101/59 L 84 Nasal Cannula 4 06/13/23 07:39 06/13/23 10:46 06/13/23 10:46 06/13/23 07:39 06/13/23 10:44 06/13/23 07:54 06/13/23 10:44 FiO2 6 06/12/23 15:31 Oxygen Flow Rate (L/min) [ 8 AMBULATING with Oxygen #3] Oxygen Flow Rate (L/min) [ 6 AMBULATING with Oxygen #2] Oxygen Flow Rate (L/min) [At 4 REST with Oxygen] Oxygen Flow Rate (L/min) [ 4 AMBULATING with Oxygen #1] Oxygen Flow Rate (L/min) 5 Oxygen Delivery Method Nasal Cannula Weight: 170 lb 13.732 oz Body Mass Index (BMI) 23.1 Intake & Output: Intake and Output for Last 24 Hours 06/12/23 06/13/23 06/14/23 03:59 03:59 03:59 Intake Total 560 / 560 905 / 905 50 / 50 Output Total 320 / 320 700 / 700 400 / 400 Balance 240 / 240 205 / 205 -350 / -350 Lab / Micro Data 06/11/23 05:14 06/11/23 05:14 Labs: Laboratory Results - last 24 hr 06/12/23 15:47: POC Glucose 194 H 06/12/23 21:15: POC Glucose 142 H 06/13/23 06:01: POC Glucose 142 H Micro: Microbiology 06/10/23 16:27 Mucosa - Nasopharyngeal SARS-CoV-2, Influenza & RSV (PCR) - Final Radiography Diagnostic Testing: Radiology Impression Echocardiogram 06/10/23 19:15 Interpretation Summary Normal LV size. Mild concentric left ventricular hypertrophy. The left ventricular ejection fraction is 60 %. Left ventricular systolic function is normal. Stage 1 diastolic dysfunction. Pulmonary artery systolic pressure is 40 mmHg. Ordering Physician: Herbert Nunez Referring Physician: [facility] Performed By: Diana Win RDCS Physical Exam Narrative General: Alert, Oriented x3, Cooperative, No apparent distress HEENT: Atraumatic, PERRLA, EOMI, Normocephalic Oral: Moist Mucosa Neck: Supple, No JVD Lungs: Diminished, Normal air movement, No rhonchi, No wheeze, No rales Cardiovascular: Regular rate, Regular Rhythm, Normal S1, Normal S2, No murmurs Abdomen: Soft, Non Tender, Non-Distended, No Hepato-splenomegaly Extremities: No edema, Capillary Refill Less than 3 Seconds Skin: No rashes, No breakdown Musculoskeletal: No Tenderness to Palpation of Joints or Extremities Neurological: No focal neurological deficits, Motor Exam 5/5 strength throughout, Sensory exam intact to light touch and pain Psych/Mental Status: Normal Affect, Appropriate Assessment & Plan Assessment/Plan (1) Hypoxia: (2) Pulmonary fibrosis: PLAN: Plan 1. Acute hypoxic respiratory failure secondary to severe COPD versus intersti tial lung disease ? Continue with steroids and breathing treatments ? CTA of the chest demonstrated bullous emphysema ? Appreciate pulmonology assistance ? He was placed on azithromycin, will obtain a sputum culture ? Respiratory status is improving with current intervention ? Ambulatory pulse ox demonstrated need of 8 L at 91% 2. CAD status post CABG and stent/HTN/HLD/pulmonary hypertension ? His BNP is slightly elevated but his troponins were normal ? Echo on 06/10/2023 with an EF of 60% with stage I diastolic dysfunction and a PASP of 40 mmHg ? Continue with Lasix ? Will resume his home blood pressure medications ? We will monitor make adjustments as necessary 3. DM2 ? Will hold his home metformin ? Will place him on sign scale insulin ? Accu-Cheks ACHS ? We will monitor make adjustments as necessary 4. GERD ? Stable ? Continue with PPI DVT: Lovenox Charges/Coding Visit Charges Inpatient E&M: 69941 Subs Hosp L2
[2023-06-13 12:29] LABS: Bedside Glucose 176 mg/dL (74-106)
[2023-06-13] MEDS: Insulin Lispro 100 UNIT/ML INSULN.PEN SC ×2 (13:00→17:45)
--- NOTE | 2023-06-13 15:20 | CASEMGMT ---
RN CM met with pt in room. Discussed home oxygen needs and oxygen providers. Pt reports he plans to use [employer] and [facility] as [employer] is quicker. Discussed with pt that [facility] paperwork can be completed today and arranged, and should not cause any delays in DC. Completed [facility] questionnaires and paperwork with pt at bedside. [facility] with a note that pt is anticipated to be DC ready tomorrow 06/14/2023. Pt denies any other home going needs. He reports he was doing pulmonary rehab and has some home exercises that he plans to re-start once he is discharged. Anny Johns MSN, RN, CCM
[2023-06-13 17:47] LABS: Bedside Glucose 163 mg/dL (74-106)
[2023-06-13] MEDS: Acetaminophen 325 MG Tablet 650 MG PO (20:13)
[2023-06-13] MEDS: Carvedilol 3.125 MG TABLET PO (21:37)
[2023-06-13] MEDS: Pravastatin 20 MG Tablet PO (21:38)
[2023-06-13 22:03] LABS: Bedside Glucose 146 mg/dL (74-106)
[2023-06-14] VITALS (11 sets, daily range): BP systolic 98–139; BP diastolic 62–69; PULSE 60–96; RESP 15–22; TEMP 36.6; O2SAT 86–96
[2023-06-14 06:47] LABS: Bedside Glucose 128 mg/dL (74-106)
[2023-06-14] MEDS: Ipratropium/Albuterol Sulfate 3 ML AMPUL.NEB INHALATION ×4 (07:27→21:58)
[2023-06-14] MEDS: 0.9% Saline Lock 10 ML Syringe IV (08:03)
[2023-06-14] MEDS: Furosemide 40 MG/4 ML Vial IV (08:03)
[2023-06-14] MEDS: Aspirin 81 MG TAB.CHEW PO (08:03)
[2023-06-14 09:29] LABS: Anion Gap 6 (5-15); BUN 38 mg/dL (7-18); BUN/Creat Ratio 37.3 RATIO (10-20); Calcium,Total 9.1 mg/dL (8.5-10.1); Chloride 112 mmol/L (98-107); Creatinine, Serum 1.02 mg/dL (0.70-1.30); EST Glomerular Filtration Rate 77 mL/min (>60); Est Glom Filt Rate - Afr Amer 93 mL/min (>60); Estimated Creatinine Clearance 75.98 ml/min; Glucose 131 mg/dL (74-106); Sodium Level 142 mmol/L (136-145)
[2023-06-14] MEDS: Ceftriaxone 1 GM/50 ML BAG IV (09:53)
[2023-06-14] MEDS: Losartan Potassium 50 MG Tablet PO (09:57)
[2023-06-14] MEDS: amLODIPine 2.5 MG Tablet PO (09:57)
[2023-06-14] MEDS: Isosorbide Mononitrate 30 MG Tablet PO (09:57)
[2023-06-14] MEDS: Enoxaparin 40 MG/0.4 ML Syringe SC (09:57)
[2023-06-14] MEDS: Carvedilol 3.125 MG TABLET PO ×2 (09:57→21:10)
[2023-06-14] MEDS: MethylPREDNISolone 125 MG/2 ML Vial 60 MG IV ×2 (10:04→21:10)
--- NOTE | 2023-06-14 10:50 | PCM.PN.HOSP ---
Subjective Subjective Doing well, unfortunately requires 8 L with ambulation today Objective Data Objective Data Vital Signs: Vital Signs Temp Pulse Resp BP Pulse Ox O2 Del Method O2 Flow Rate 97.8 F 64 18 128/65 H 86 Nasal Cannula 2 06/14/23 07:53 06/14/23 07:53 06/14/23 07:53 06/14/23 07:53 06/14/23 09:46 06/14/23 08:14 06/14/23 09:46 FiO2 6 06/12/23 15:31 Oxygen Flow Rate (L/min) [ 8 AMBULATING with Oxygen #3] Oxygen Flow Rate (L/min) [ 4 AMBULATING with Oxygen #2] Oxygen Flow Rate (L/min) [At 4 REST with Oxygen] Oxygen Flow Rate (L/min) [ 2 AMBULATING with Oxygen #1] Oxygen Flow Rate (L/min) 5 Oxygen Delivery Method Nasal Cannula Weight: 170 lb 13.732 oz Body Mass Index (BMI) 23.1 Intake & Output: Intake and Output for Last 24 Hours 06/13/23 06/14/23 06/15/23 03:59 03:59 03:59 Intake Total 905 / 905 1405 / 1405 Output Total 700 / 700 2300 / 2300 250 / 250 Balance 205 / 205 -895 / -895 -250 / -250 Lab / Micro Data 06/11/23 05:14 06/14/23 07:00 Labs: Laboratory Results - last 24 hr 06/13/23 12:10: POC Glucose 176 H 06/13/23 16:43: POC Glucose 163 H 06/13/23 21:36: POC Glucose 146 H 06/14/23 06:22: POC Glucose 128 H 06/14/23 07:00: Sodium 142, Potassium 4.0, Chloride 112 H, Carbon Dioxide 24.0, Anion Gap 6, BUN 38 H, Creatinine 1.02, Estim Creat Clear Calc 75.98, Est GFR (MDRD) Af Amer 93, Est GFR (MDRD) Non-Af 77, BUN/Creatinine Ratio 37.3 H, Glucose 131 H, Calcium 9.1 Micro: Microbiology 06/10/23 16:27 Mucosa - Nasopharyngeal SARS-CoV-2, Influenza & RSV (PCR) - Final Physical Exam Narrative General: Alert, Oriented x3, Cooperative, No apparent distress HEENT: Atraumatic, PERRLA, EOMI, Normocephalic Oral: Moist Mucosa Neck: Supple, No JVD Lungs: Diminished, Normal air movement, No rhonchi, No wheeze, No rales Cardiovascular: Regular rate, Regular Rhythm, Normal S1, Normal S2, No murmurs Abdomen: Soft, Non Tender, Non-Distended, No Hepato-splenomegaly Extremities: No edema, Capillary Refill Less than 3 Seconds Skin: No rashes, No breakdown Musculoskeletal: No Tenderness to Palpation of Joints or Extremities Neurological: No focal neurological deficits, Motor Exam 5/5 strength throughout, Sensory exam intact to light touch and pain Psych/Mental Status: Normal Affect, Appropriate Assessment & Plan Assessment/Plan (1) Hypoxia: (2) Pulmonary fibrosis: PLAN: Plan 1. Acute hypoxic respiratory failure secondary to severe COPD versus interstitial lung disease ? Continue with steroids and breathing treatments ? CTA of the chest demonstrated bullous emphysema ? Appreciate pulmonology assistance ? He was placed on azithromycin, will obtain a sputum culture ?Continue with Lasix as needed ? Ambulatory pulse ox demonstrated need of 8 L at 90% 2. CAD status post CABG and stent/HTN/HLD/pulmonary hypertension ? His BNP is slightly elevated but his troponins were normal ? Echo on 06/10/2023 with an EF of 60% with stage I diastolic dysfunction and a PASP of 40 mmHg ? Continue with Lasix ? Will resume his home blood pressure medications ? We will monitor make adjustments as necessary 3. DM2 ? Will hold his home metformin ? Will place him on sign scale insulin ? Accu-Cheks ACHS ? We will monitor make adjustments as necessary 4. GERD ? Stable ? Continue with PPI DVT: Lovenox Charges/Coding Visit Charges Inpatient E&M: 54039 Subs Hosp L2
[2023-06-14] MEDS: Azithromycin 500 MG in Dextrose 5%-Water (250mL Bag) 250 ML 250 MG IV (10:51)
[2023-06-14] MEDS: Insulin Lispro 100 UNIT/ML INSULN.PEN SC (12:20)
[2023-06-14 12:21] LABS: Bedside Glucose 172 mg/dL (74-106)
[2023-06-14 17:28] LABS: Bedside Glucose 142 mg/dL (74-106)
[2023-06-14] MEDS: Pravastatin 20 MG Tablet PO (21:10)
[2023-06-14 21:32] LABS: Bedside Glucose 144 mg/dL (74-106)
[2023-06-15] VITALS (9 sets, daily range): BP systolic 101–118; BP diastolic 53–70; PULSE 58–67; RESP 14–18; TEMP 36.6–37.1; O2SAT 81–99; BMI 23.1
[2023-06-15 07:00] LABS: Bedside Glucose 121 mg/dL (74-106)
[2023-06-15] MEDS: Ipratropium/Albuterol Sulfate 3 ML AMPUL.NEB INHALATION ×2 (07:23→11:06)
--- NOTE | 2023-06-15 07:33 | PCM.PN.INT ---
Assessment & Plan Assessment/Plan (1) Shortness of breath: (2) Hypoxia: PLAN: Plan RECOMMENDATIONS: 1. Wean supplemental oxygen to maintain saturations 88 to 92%. 2. Continue scheduled bronchodilators as ordered. 3. Continue antimicrobials. 4. Transition to prednisone 40 mg daily, with plans for a 5-day burst at discharge. 5. Continue attempts at diuresis as tolerated by hemodynamics and renal function. 6. Perform walking oximetry study prior to consideration for discharge home. 7. BiPAP therapy with naps and nightly. 8. Close outpatient follow-up with primary manager power through the [facility] system. IMPRESSIONS: 1. Shortness of breath and hypoxemia The patient has a known history of COPD and is currently followed by an outside pulmonary provider. CTA chest showed no evidence for PE but did demonstrate significant end-stage emphysematous changes. I suspect that his presenting symptoms and hypoxemia are just progression of his known obstructive lung disease. Although the patient was not previously on supplemental O2, it is highly likely that he will require supplemental oxygen at the time of his discharge. At this time, I agree with continuing antibiotics and steroids as ordered. The patient will be transition to prednisone today. He has responded favorably to the use of diuretics, which can be continued as needed, as tolerated by hemodynamics and renal function. Perform walking oximetry study prior to consideration for discharge home. Continue PAP therapy with naps and nightly, given his history of sleep apnea. Continue to wean supplemental oxygen to maintain saturations 80 to 92%. 2. History of coronary artery disease status post CABG/history of tobacco dependency/diabetes mellitus/GERD/sleep apnea Complicates care, management, recovery and prognosis. Continue supportive care as noted above. This note was generated with [employer] dictation software. It may contain incorrect words, spelling, and punctuation that were not noted in checking the note before signing. Subjective Subjective The patient was seen and examined at the bedside this morning. Events from the last 24 hours have been reviewed. The patient is currently afebrile, hemodynamically stable and maintaining appropriate oxygen saturations on 2 L/min via nasal cannula. The patient is documented to be overall net -1.8 L for the hospitalization. The patient has been tolerant of diuresis over the last couple of days. Creatinine remains within normal limits. Objective Data Objective Data The patient's most recent lab work, culture data and imaging studies have all been personally reviewed. Infectious workup has been unrevealing to date. Vital Signs: Vital Signs Temp Pulse Resp BP Pulse Ox O2 Del Method O2 Flow Rate 98.7 F 58 L 15 107/53 L 97 Nasal Cannula 4 06/15/23 03:30 06/15/23 03:30 06/15/23 04:00 06/15/23 03:30 06/15/23 03:30 06/15/23 04:00 06/15/23 04:00 FiO2 6 06/12/23 15:31 Oxygen Flow Rate (L/min) [ 8 AMBULATING with Oxygen #3] Oxygen Flow Rate (L/min) [ 4 AMBULATING with Oxygen #2] Oxygen Flow Rate (L/min) [At 4 REST with Oxygen] Oxygen Flow Rate (L/min) [ 2 AMBULATING with Oxygen #1] Oxygen Flow Rate (L/min) 4 Oxygen Delivery Method Nasal Cannula Weight: 170 lb 13.732 oz Body Mass Index (BMI) 23.1 Intake & Output: Intake and Output for Last 24 Hours 06/13/23 06/14/23 06/15/23 23:59 23:59 23:59 Intake Total 1405 / 1405 305 / 305 Output Total 1650 / 2300 2300 / 2300 Balance -245 / -895 -1994 / Lab / Micro Data Attestation: I reviewed the patient's lab results. 06/11/23 05:14 06/15/23 06:51 Labs: Laboratory Results - last 24 hr 06/14/23 07:00: Sodium 142, Potassium 4.0, Chloride 112 H, Carbon Dioxide 24.0, Anion Gap 6, BUN 38 H, Creatinine 1.02, Estim Creat Clear Calc 75.98, Est GFR (MDRD) Af Amer 93, Est GFR (MDRD) Non-Af 77, BUN/Creatinine Ratio 37.3 H, Glucose 131 H, Calcium 9.1 06/14/23 12:01: POC Glucose 172 H 06/14/23 16:34: POC Glucose 142 H 06/14/23 21:09: POC Glucose 144 H 06/15/23 06:29: POC Glucose 121 H Micro: Microbiology 06/10/23 16:27 Mucosa - Nasopharyngeal SARS-CoV-2, Influenza & RSV (PCR) - Final Physical Exam Const alert and no apparent distress General Appearance: cooperative HEENT normocephalic, head/scalp atraumatic and moist oral mucous membranes Eyes PERRL, EOMs intact bilaterally and conjunctivae normal Neck supple General: trachea midline Chest inspection of chest normal Resp normal respiratory effort Resp Narrative: Globally diminished air movement throughout all lung mcdaniel. No wheezes, rales or rhonchi. Cardio regular rate and regular rhythm GI normal to inspection, nondistended, normoactive bowel sounds Extremity no clubbing, cyanosis or edema Skin no rashes or lesions noted Neuro oriented x3, CN's II-XII intact bilaterally and moves all extremities Psych cooperative and affect normal Charges/Coding Visit Charges Inpatient E&M: 05956 Subs Hosp L2
[2023-06-15 07:36] LABS: Anion Gap 3 (5-15); BUN 39 mg/dL (7-18); BUN/Creat Ratio 37.1 RATIO (10-20); Calcium,Total 8.5 mg/dL (8.5-10.1); Chloride 109 mmol/L (98-107); Creatinine, Serum 1.05 mg/dL (0.70-1.30); EST Glomerular Filtration Rate 75 mL/min (>60); Est Glom Filt Rate - Afr Amer 90 mL/min (>60); Estimated Creatinine Clearance 73.81 ml/min; Glucose 132 mg/dL (74-106); Potassium 4.1 mmol/L (3.5-5.1); Sodium Level 140 mmol/L (136-145)
[2023-06-15] MEDS: 0.9% Saline Lock 10 ML Syringe IV (07:58)
[2023-06-15] MEDS: Furosemide 40 MG/4 ML Vial IV (07:58)
[2023-06-15] MEDS: Aspirin 81 MG TAB.CHEW PO (07:58)
[2023-06-15] MEDS: predniSONE 20 MG Tablet 40 MG PO (08:01)
--- NOTE | 2023-06-15 08:59 | CPS ---
decreased pt to 2L NC at this time
[2023-06-15] MEDS: Ceftriaxone 1 GM/50 ML BAG IV (10:19)
[2023-06-15] MEDS: Azithromycin 500 MG in Dextrose 5%-Water (250mL Bag) 250 ML 250 MG IV (11:02)
[2023-06-15] MEDS: Isosorbide Mononitrate 30 MG Tablet PO (11:07)
--- NOTE | 2023-06-15 11:07 | CASEMGMT ---
Addendum entered by Laure Johns 06/15/23 12:55: KATI CAMERON spoke with [facility], oxygen will be delivered between 130PM and 230PM. Spoke with pt bedside and made him aware of delivery times. Pt reports he spoke with them as well. Pt aware he can DC after oxygen is delivered. Pt states he has 5 pulse oxs at home. Pt states he is working on transportation home via friend but is willing to take a cab if needed. Laure HARRIS, RN, CCM Addendum entered by Laure Johns 06/15/23 12:31: KATI CAMERON [facility] to the [facility]. [facility] reports everythng was received, approved, and forwarded on to the DME provider. KATI CAMERON placed call to DME provider [facility] to find out delivery timing. [facility] unable to provide a time yet and will call this ticket writer back. Laure HARRIS, RN, CCM Original Note: KAT[facility] CAMERON [facility] Awaiting response. Laure HARRIS, RN, CCM
[2023-06-15] MEDS: amLODIPine 2.5 MG Tablet PO (11:08)
[2023-06-15] MEDS: Losartan Potassium 50 MG Tablet PO (11:08)
[2023-06-15] MEDS: Carvedilol 3.125 MG TABLET PO (11:09)
--- NOTE | 2023-06-15 11:34 | PCM.DC ---
Discharge Instructions Diet Discharge Diet: Low fat / Low cholesterol and 8 Cup Fluid Restriction Activity Discharge Activity: Return to Normal Activity Dressing / Incision Call your doctor if you observe: Fever of 101 or Higher, Shortness of breath, Dizziness, Fainting spells, Swelling in the ankles, Chest pain and Increased palpitations (irregular heartbeat) Follow Up Care Test Results: Test results from this visit will be discussed in further detail at your follow-up appointment, if applicable. Discharge Plan Admission Admit Date/Time: 06/10/23 18:19 Attending Provider: Neftali Suazo Primary Care Provider: [facility],[place] Consulting Providers: Herbert Nunez; Tyrone Huang; Nato Elizabeth; Jey Qureshi; Niall Shankar; Kaia Ellison; Bony Lui; Deandra Collins; Krysta Owens; Misael Gilliam; Saqib Garcia; Navin Encarnacion; Louis Rojas Instructions Additional Instructions / Restrictions: Follow-up with your PCP in 3 to 5 days to monitor your renal function your respiratory status. Discharge Orders/Prescriptions Prescriptions: New prednisone 10 mg tablet 40 mg PO BREAKFAST Qty: 30 0RF Rx Instructions: Take 4 tablets daily for 3 days then 3 tablets daily for 3 days then 2 tablets daily for 3 days then 1 tablet daily for 3 days furosemide [Lasix] 40 mg tablet 40 mg PO DAILY Qty: 30 0RF Continued amlodipine 2.5 mg tablet 2.5 mg PO DAILY aspirin 81 mg tablet,chewable 1 tab PO DAILY albuterol sulfate [ProAir HFA] 90 mcg/actuation HFA aerosol inhaler 1 inh inhalation Q6H carvedilol 3.125 mg tablet 3.125 mg PO BID Rx Instructions: must administer with a meal/food isosorbide mononitrate 30 mg tablet extended release 24 hr 30 mg PO DAILY losartan 50 mg tablet 50 mg PO BID pravastatin 20 mg tablet 20 mg PO QHS metformin 500 mg tablet 500 mg PO DAILY pantoprazole 1 tab PO DAILY Patient Comments: pt unsure if 20mg or 40mg ibuprofen 200 mg tablet 600 mg PO DAILY PRN (Reason: shoulder pain) Referrals / Follow Up: [facility],[place] [Primary Care Provider] - Within 1 Week Disposition Disposition (needs filled in before D/C Order can be placed): Home, Self Care
[2023-06-15] MEDS: Insulin Lispro 100 UNIT/ML INSULN.PEN SC (11:36)
--- NOTE | 2023-06-15 11:41 | PCM.DC.SUM ---
Providers Date of Admission: 06/10/23 Primary Care Physician: [facility] Consultations 06/10/23 19:15 Consult: Welder/Installer / Pulmonary Medicine Routine Consulting Provider: Pulmonary Medicine jose rafael Cain Reason for Consult: Progressive COPD versus ILD EMERGENT Consult: No Notified: No Date Notified: 06/10/23 Time Notified: 18:48 06/12/23 06:43 Consult: Welder/Installer / Pulmonary Medicine Routine Consulting Provider: Intensivists/Pulmonary Med Reason for Consult: sob EMERGENT Consult: No Notified: Yes Date Notified: 06/12/23 Time Notified: 06:43 Method of Notification: Text Reason For Visit: SHORTNESS OF BREATH Diagnosis Discharge Diagnosis (1) Shortness of breath: Status: Acute Code(s): R06.02 - Shortness of breath (2) Hypoxia: Status: Acute Code(s): R09.02 - Hypoxemia Medications at Discharge Home Medications albuterol sulfate 90 mcg/actuation aerosol inhaler (ProAir HFA) 1 inh inhalation Q6H shortness of breath 06/10/23 amlodipine 2.5 mg tablet 2.5 mg PO DAILY 06/10/23 aspirin 81 mg chewable tablet 1 tab PO DAILY 06/10/23 carvedilol 3.125 mg tablet 3.125 mg PO BID 06/10/23 ibuprofen 200 mg tablet 600 mg PO DAILY PRN shoulder pain 06/10/23 isosorbide mononitrate 30 mg tablet,extended release 24 hr 30 mg PO DAILY 06/10/23 losartan 50 mg tablet 50 mg PO BID 06/10/23 metformin 500 mg tablet 500 mg PO DAILY 06/10/23 pantoprazole 1 tab PO DAILY acid reflux 06/10/23 pravastatin 20 mg tablet 20 mg PO QHS 06/10/23 furosemide 40 mg tablet (Lasix) 40 mg PO DAILY #30 tabs 06/15/23 prednisone 10 mg tablet 40 mg (4 x 10 mg) PO BREAKFAST #30 tabs 06/15/23 Hospital Course Operations None Procedures 2-D Echocardiogram Summary of Care Provided Minutes Spent on Discharge: 36 Hospital Course: Per HPI: ANDRZEJ LLOYD, is a 68 M with history of coronary artery disease s/p CABG, dyslipidemia, chronic nicotine use, suspected COPD, DARWIN on home CPAP who presents progressive shortness of breath over last 1 week. Since last Monday he has been noticing worsening shortness of breath, fatigue and easy fatigability. He has pulse oximeter at home and today he noticed his agitation was in 60s to 70s. Over the last couple of days and the saturation has never been above 80%. He does not have home oxygen. He follows up at the [facility] in [place] and most of his care is there. He is scheduled to follow-up with pulmonary medicine at the [facility] in July. He was recently diagnosed with DARWIN and was started on CPAP but that has not helped his present symptoms. No orthopnea or PND. Has not noticed any progressive swelling over his feet. He underwent CTA in the ED that showed hyperexpanded lungs with severe bullous emphysema throughout the lungs predominantly involving the upper lobe with mild atelectasis in the right more than left lung. He has quit smoking for the last few years, used to smoke about 2 packs a day for 35 years, was using vape to allow him to quit smoking. His partner continues to vape at present and he is exposed to the fumes. Hospital course: 1. Acute hypoxic respiratory failure secondary to severe COPD with possible interstitial lung disease and pulmonary hypertension?68-year-old male presented to the hospital with shortness of breath. He was initially placed on azithromycin and Rocephin and he has completed 5 days of both. CTA of the chest demonstrated bullous emphysema and an echo was obtained which demonstrated an EF of 60% with stage I diastolic dysfunction and a PASP of 40 mmHg. He was started on steroids and transition to p.o. prednisone on the day of discharge. He was also started on aggressive Lasix which has significantly helped his respiratory issues. He was able to ambulate today on about 4 L of oxygen and felt well. He did complete his antibiotics and will be placed on a steroid taper on discharge. I did discuss with him the plan for discharge today he expressed understanding of the risk benefits of going home and would like to go home today. Patient is ambulatory in home and in the community and requires home oxygen with portability. I discussed with him the need to follow-up with both his PCP as well as his pulmonary doctor at the [facility]. 2. Coronary artery disease status post CABG and stents, essential hypertension, hyperlipidemia, type 2 diabetes, GERD are all chronic medical conditions which complicate his care. His home medications were continued where appropriate Physical Exam Narrative General: Alert, Oriented x3, Cooperative, No apparent distress HEENT: Atraumatic, PERRLA, EOMI, Normocephalic Oral: Moist Mucosa Neck: Supple, No JVD Lungs: Diminished, Normal air movement, No rhonchi, No wheeze, No rales Cardiovascular: Regular rate, Regular Rhythm, Normal S1, Normal S2, No murmurs Abdomen: Soft, Non Tender, Non-Distended, No Hepato-splenomegaly Extremities: No edema, Capillary Refill Less than 3 Seconds Skin: No rashes, No breakdown Musculoskeletal: No Tenderness to Palpation of Joints or Extremities Neurological: No focal neurological deficits, Motor Exam 5/5 strength throughout, Sensory exam intact to light touch and pain Psych/Mental Status: Normal Affect, Appropriate Weight / BMI Weight Weight: 170 lb 13.732 oz Body Mass Index (BMI) 23.1 ABG / Lab / Microbiology Data 06/11/23 05:14 06/15/23 06:51 Laboratory: Laboratory Results - last 24 hr 06/14/23 12:01: POC Glucose 172 H 06/14/23 16:34: POC Glucose 142 H 06/14/23 21:09: POC Glucose 144 H 06/15/23 06:29: POC Glucose 121 H 06/15/23 06:51: Sodium 140, Potassium 4.1, Chloride 109 H, Carbon Dioxide 28.0, Anion Gap 3 L, BUN 39 H, Creatinine 1.05, Estim Creat Clear Calc 73.81, Est GFR (MDRD) Af Amer 90, Est GFR (MDRD) Non-Af 75, BUN/Creatinine Ratio 37.1 H, Glucose 132 H, Calcium 8.5 Microbiology: Microbiology 06/10/23 16:27 Mucosa - Nasopharyngeal SARS-CoV-2, Influenza & RSV (PCR) - Final D/C Instructions Discharge Diet: Low fat / Low cholesterol and 8 Cup Fluid Restriction Call your doctor if you observe: Fever of 101 or Higher, Shortness of breath, Dizziness, Fainting spells, Swelling in the ankles, Chest pain and Increased palpitations (irregular heartbeat) Meaningful Use Info Meaningful Use Diagnoses (Choose all that apply): None applicable Discharge Plan Admission Admit Date/Time: 06/10/23 18:19 Attending Provider: Neftali Suazo Primary Care Provider: [facility],[place] Consulting Providers: Herbert Nunez; Tyrone Huang; Nato Elizabeth; Jey Qureshi; Niall Shankar; Kaia lElison; Bony Lui; Deandra Collins; Krysta Owens; Misael Gilliam; Saqib Garcia; Navin Encarnacion; Louis Rojas Instructions Additional Instructions / Restrictions: Follow-up with your PCP in 3 to 5 days to monitor your renal function your respiratory status. Discharge Orders/Prescriptions Prescriptions: New prednisone 10 mg tablet 40 mg PO BREAKFAST Qty: 30 0RF Rx Instructions: Take 4 tablets daily for 3 days then 3 tablets daily for 3 days then 2 tablets daily for 3 days then 1 tablet daily for 3 days furosemide [Lasix] 40 mg tablet 40 mg PO DAILY Qty: 30 0RF Continued amlodipine 2.5 mg tablet 2.5 mg PO DAILY aspirin 81 mg tablet,chewable 1 tab PO DAILY albuterol sulfate [ProAir HFA] 90 mcg/actuation HFA aerosol inhaler 1 inh inhalation Q6H carvedilol 3.125 mg tablet 3.125 mg PO BID Rx Instructions: must administer with a meal/food isosorbide mononitrate 30 mg tablet extended release 24 hr 30 mg PO DAILY losartan 50 mg tablet 50 mg PO BID pravastatin 20 mg tablet 20 mg PO QHS metformin 500 mg tablet 500 mg PO DAILY pantoprazole 1 tab PO DAILY Patient Comments: pt unsure if 20mg or 40mg ibuprofen 200 mg tablet 600 mg PO DAILY PRN (Reason: shoulder pain) [facility] - Within 1 Week Disposition Disposition (needs filled in before D/C Order can be placed): Home, Self Care Charges/Coding Visit Charges Inpatient E&M: 22318 Disch Hosp >30min
[2023-06-15 11:58] LABS: Bedside Glucose 183 mg/dL (74-106)
--- NOTE | 2023-06-15 13:21 | PHA.DC.MC.R ---
Pharmacy [facility] has performed discharge medication reconciliation and counseling for this patient. The patient's discharge medication list was reviewed for discrepancies and discrepancies were resolved. The patient was counseled on the following discharge medications and changes in medications for homegoing were reviewed. The Reason for Use, instructions for use, and potential side effects were reviewed for all new medications. The patient's questions regarding all of their medications were answered. 1. Furosemide 40 mg PO daily 2. Prednisone 40 mg daily The patient was able to verbally demonstrate an understanding of their discharge medications. The patient was counselled on new medications by pharmacy assistant Madhav. Medications at Discharge Home Medications albuterol sulfate 90 mcg/actuation aerosol inhaler (ProAir HFA) 1 inh inhalation Q6H shortness of breath 06/10/23 amlodipine 2.5 mg tablet 2.5 mg PO DAILY 06/10/23 aspirin 81 mg chewable tablet 1 tab PO DAILY 06/10/23 carvedilol 3.125 mg tablet 3.125 mg PO BID 06/10/23 ibuprofen 200 mg tablet 600 mg PO DAILY PRN shoulder pain 06/10/23 isosorbide mononitrate 30 mg tablet,extended release 24 hr 30 mg PO DAILY 06/10/23 losartan 50 mg tablet 50 mg PO BID 06/10/23 metformin 500 mg tablet 500 mg PO DAILY 06/10/23 pantoprazole 1 tab PO DAILY acid reflux 06/10/23 pravastatin 20 mg tablet 20 mg PO QHS 06/10/23 furosemide 40 mg tablet (Lasix) 40 mg PO DAILY #30 tabs 06/15/23 prednisone 10 mg tablet 40 mg (4 x 10 mg) PO BREAKFAST #30 tabs 06/15/23
== END 2023-06-15 15:46 | disposition home or self-care (01) | DRG 189 ==
LOC: ED 18:11 → MS3 18:25
PROVIDERS: Internal Medicine; Physician Assistant; Admitting Provider Internal Medicine; Emergency Provider Emergency Medicine; Visit Provider Family Medicine
DX: J96.01 Acute respiratory failure with hypoxia (principal); J44.1 Chronic obstructive pulmonary disease with (acute) exacerbation; I50.32 Chronic diastolic (congestive) heart failure; I27.20 Pulmonary hypertension, unspecified; J98.2 Interstitial emphysema; E11.9 Type 2 diabetes mellitus without complications; I11.0 Hypertensive heart disease with heart failure; E78.00 Pure hypercholesterolemia, unspecified; G47.33 Obstructive sleep apnea (adult) (pediatric); K21.9 Gastro-esophageal reflux disease without esophagitis; I25.10 Atherosclerotic heart disease of native coronary artery without angina pectoris; I25.2 Old myocardial infarction; Z95.1 Presence of aortocoronary bypass graft; Z95.5 Presence of coronary angioplasty implant and graft; Z79.82 Long term (current) use of aspirin; Z79.84 Long term (current) use of oral hypoglycemic drugs; Z79.899 Other long term (current) drug therapy; Z86.16 Personal history of COVID-19; Z87.891 Personal history of nicotine dependence
CPT/HCPCS: 36415; 36600; 71275; 80048; 80053; 80076; 82803; 82962; 83735; 83880; 84100; 84443; 84484; 85025; 85610; 87631; 93005; 93306; 94002; 94640; 94668; 94762; 99252; 99285; J7040; Q9967; A4216; G0463; J1940

== ENCOUNTER 2023-12-14 20:24 | Inpatient (IN) | payer OTHER, SELFPAY ==
[2023-12-14] VITALS (17 sets, daily range): BP systolic 116–163; BP diastolic 62–96; PULSE 61–80; RESP 12–23; TEMP 35.8–37.1; O2SAT 62–100; BMI 24.1
--- NOTE | 2023-12-14 20:35 | EKG12_ITS ---
Test Reason : Blood Pressure : / mmHG Vent. Rate : 069 BPM Atrial Rate : 069 BPM P-R Int : 128 ms QRS Dur : 116 ms QT Int : 440 ms P-R-T Axes : 075 021 004 degrees QTc Int : 471 ms Sinus rhythm with Premature atrial complexes Incomplete right bundle branch block ST & T wave abnormality, consider anterolateral ischemia Abnormal ECG When compared with ECG of 14-DEC-2023 20:27, MANUAL COMPARISON REQUIRED, DATA IS UNCONFIRMED Confirmed by Jaun Escobedo ([id number]), supervising film or videotape editor LIGIA COLLAZO ([id number]) on 12/18/2023 1:55:57 PM Referred By: RADHA Confirmed By:Jaun Escobedo
--- NOTE | 2023-12-14 20:42 | RAD_ITS ---
EXAM: XR CHEST, 1 VIEW CLINICAL INDICATION: CHEST PAIN TECHNIQUE: Frontal view of the chest. COMPARISON: 06/10/2023 CTA Chest. FINDINGS: LUNGS AND PLEURAL SPACES: Extensive emphysematous changes with lucencies suspicious for blebs at the lung apices and diffuse interstitial prominence. No definite focal pneumonia although superimposed pneumonia cannot be entirely excluded particularly in the basilar lungs. No pneumothorax. No effusion. HEART: Status post CABG. No significant cardiomegaly. MEDIASTINUM: Central airways and mediastinal contour are unremarkable. BONES/JOINTS: Median sternotomy. No acute fracture. SOFT TISSUES: No significant abnormality. RAD/Chest 1 View (Portable) IMPRESSION: 1. Extensive emphysematous changes with lucencies suspicious for blebs at the lung apices and diffuse interstitial prominence. No definite focal pneumonia although superimposed pneumonia cannot be entirely excluded particularly in the basilar lungs. 2. Status post CABG. No significant cardiomegaly. Electronically Signed: Caesar Galloway DO at 21:00 EDT ,
[2023-12-14 20:48] LABS: Allen Test Positive; Base Excess -4 mmol/L (-2 to +2); Bicarbonate 20.8 mmol/L (22-26); Blood Gas Specimen Type ART; Mode Not entered; O2 Delivery Device NRB; PO2 41 mmHG (75-100); SITE R Radial; SO2 78 % (95-99); Total Carbon Dioxide 22 mmol/L; pCO2 32.1 mmHg (35-45); pH 7.42 (7.35-7.45)
[2023-12-14 20:50] LABS: Absolute Lymphocyte Count 1.92 X10^3/uL (0.83-4.51); Absolute Neutrophil Count 7.9 X10^3/uL (2.0-7.7); Basophil# 0.12 X10^3/uL; Basophil% 1.1 % (0-1); Eosinophil# 0.27 X10^3/uL; Eosinophils% 2.4 % (0-5); Hemoglobin 13.5 g/dL (13.0-16.5); Lymphocyte # 1.92 X10^3/ul (0.83-4.51); Lymphocyte % 17.3 % (19-41); Mean Corp Hgb Conc 33.8 g/dL (32-36); Mean Corpuscular Hgb 29.9 pg (27.0-32.0); Mean Corpuscular Volume 88.7 fL (80-94); Mean Platelet Vol. 10.8 fl (6.2-12.0); Monocyte# 0.79 X10^3/uL; Monocyte% 7.1 % (0-10); NRBC Flagged by Analyzer 0 % (0-5); Neutrophil # 7.94 X10^3/uL (2.7-7.7); Neutrophil % 71.7 % (47-70); Platelet Count 330 K/mm3 (150-450); RBC Distribution Width CV 13.2 % (11.6-14.6); RBC Distribution Width SD 42.8 fl (35.1-43.9); Red Blood Count 4.51 M/mm3 (4.6-6.2); White Blood Count 11.1 K/mm3 (4.4-11.0)
[2023-12-14 21:11] LABS: Anion Gap 9 (5-15); BUN 19 mg/dL (7-18); BUN/Creat Ratio 15.6 RATIO (10-20); Calcium,Total 9.4 mg/dL (8.5-10.1); Chloride 106 mmol/L (98-107); Creatinine, Serum 1.22 mg/dL (0.70-1.30); EST Glomerular Filtration Rate 63 mL/min (>60); Est Glom Filt Rate - Afr Amer 76 mL/min (>60); Estimated Creatinine Clearance 63.61 ml/min; Glucose 124 mg/dL (74-106); Potassium 3.5 mmol/L (3.5-5.1); Sodium Level 139 mmol/L (136-145); Troponin-I HS (w/2H Reflex) 65 pg/mL (3.0-78.0)
--- NOTE | 2023-12-14 21:32 | ED.VIS.DYS ---
HPI History of Present Illness Chief Complaint: Chest Pain Informant: patient Onset/Context/Timing Onset: Weeks (2) Context: gradual Timing: Continuous Quality: Positive for Dyspnea on exertion Current Severity: Severe Maximum Severity: Severe Worsened by: Exertion Relieved by: Rest Associated Symptoms ear pain, subjective and chills; Negative for cough, rhinorrhea, post nasal drip, fever, sore throat, clear sputum, white sputum, yellow sputum or green sputum Chest Pain: Positive for Intermittent (Patient had chest pain yesterday but denies any pain today.) Narrative Narrative: Patient presents with shortness of breath that has been getting worse over the past 2 weeks. Patient states that he was at the [facility] earlier today and they were working with him to increase his oxygen saturations at that time. Patient states he was discharged from there today and his floor director called him and told him to come to the emergency department. Patient states that he tried to do things at home but his breathing got progressively worse. Patient then came to the emergency department. Patient admits to some pain on the right side of his chest yesterday. Patient states he took some nitroglycerin yesterday for this. Patient states that he has not required any nitroglycerin today. Patient denies any leg swelling. Patient denies any fevers or chills. [facility] Medical History (Updated 12/15/23 @ 00:[address] August Brandon, ) COPD (chronic obstructive pulmonary disease) COVID-19 Prediabetes High cholesterol Hypertension Myocardial infarction Coronary artery disease Home Medications ?Medication ?Instructions ?Recorded ?Last Taken ?Type albuterol sulfate 90 mcg/actuation 1 inh inhalation Q6H shortness of 06/10/23 Unknown History aerosol inhaler (ProAir HFA) breath amlodipine 2.5 mg tablet 2.5 mg PO DAILY 06/10/23 06/10/23 History aspirin 81 mg chewable tablet 1 tab PO DAILY 06/10/23 06/10/23 History carvedilol 3.125 mg tablet 3.125 mg PO BID 06/10/23 06/10/23 History isosorbide mononitrate 30 mg 30 mg PO DAILY 06/10/23 06/10/23 History tablet,extended release 24 hr losartan 50 mg tablet 50 mg PO BID 06/10/23 06/10/23 History metformin 500 mg tablet 500 mg PO DAILY 06/10/23 06/09/23 History pravastatin 20 mg tablet 20 mg PO QHS 06/10/23 06/09/23 History furosemide 40 mg tablet (Lasix) 40 mg PO DAILY #30 tabs 06/15/23 Unknown Rx pantoprazole 40 mg tablet,delayed 40 mg PO DAILY 12/14/23 Unknown History release Allergy/AdvReac Type Severity Reaction Status Date / Time [id number] Reductase AdvReac Other Verified 06/10/23 15:41 Inhibitor (Rrocijw-Shg-Dir Reductase Inhibitor) Surgical History (Updated 12/14/23 @ 21:[address] August Brandon DO) Hx of knee surgery Hx of CABG Social History Smoking Status: Former smoker ROS ROS ED Constitutional Constitutional ED: Denies chills or fever(s) Eyes Eyes: Denies blurry vision or change in vision ENT ENT ED: Denies rhinorrhea or sore throat Cardiovascular Cardiovascular: Reports chest pain; Denies palpitations Respiratory/Chest Respiratory/Chest: Reports dyspnea; Denies cough Gastrointestinal Gastrointestinal: Denies nausea or vomiting Genitourinary Genitourinary ED: Denies dysuria or hematuria Musculoskeletal Musculoskeletal: Reports back pain; Denies neck pain Integumentary Denies abscess or rash Neurologic Neurologic: Reports headache(s) and weakness Allergic/Immunologic Allergic/Immunologic ED: Denies mouth swelling or urticaria EXAM Physical Exam Const Vital Signs: 12/14/23 20:27 12/14/23 20:30 12/14/23 20:30 Temperature 96.4 F L 96.4 F L Temperature Source Temporal Temporal Pulse Rate 78 78 66 Respiratory Rate 13 14 23 H Respiratory Effort Respiratory Pattern Blood Pressure 138/82 H 160/62 H Blood Pressure Mean 100 94 Pulse Ox 62 87 86 Oxygen Delivery Method Nasal Cannula Non-Rebreather Non-Rebreather Oxygen Flow Rate (L/min) 8 15 15 12/14/23 20:37 12/14/23 20:41 12/14/23 20:54 Temperature 98.7 F Temperature Source Temporal Pulse Rate 65 69 Respiratory Rate 19 H 20 H Respiratory Effort Respiratory Pattern Blood Pressure 160/62 H Blood Pressure Mean 94 Pulse Ox 75 89 Oxygen Delivery Method Non-Rebreather Non-Rebreather Oxygen Flow Rate (L/min) 15 12/14/23 20:55 12/14/23 21:00 12/14/23 21:15 Temperature Temperature Source Pulse Rate 61 64 Respiratory Rate 13 15 Respiratory Effort Short of Breath Accessory Muscle Use Pursed Lip Head Bobbing Respiratory Pattern Tachypnea Blood Pressure 140/72 H 130/71 H Blood Pressure Mean 93 91 Pulse Ox 92 83 Oxygen Delivery Method Oxygen Flow Rate (L/min) 12/14/23 21:30 12/14/23 21:36 12/14/23 21:37 Temperature 98.1 F Temperature Source Oral Pulse Rate 69 63 61 Respiratory Rate 12 14 18 Respiratory Effort Respiratory Pattern Normal Blood Pressure 146/78 H 131/96 H Blood Pressure Mean 96 107 Pulse Ox 90 90 Oxygen Delivery Method High Flow Oxygen Flow Rate (L/min) 12/14/23 21:45 12/14/23 22:00 12/14/23 22:00 Temperature 98.4 F Temperature Source Temporal Pulse Rate 61 80 73 Respiratory Rate 14 22 H 14 Respiratory Effort Respiratory Pattern Blood Pressure 137/76 H 163/69 H 116/90 H Blood Pressure Mean 95 100 98 Pulse Ox 94 92 88 Oxygen Delivery Method High Flow High Flow Oxygen Flow Rate (L/min) 10 8 12/14/23 22:15 12/14/23 22:30 12/14/23 23:00 Temperature 98 F Temperature Source Oral Pulse Rate 65 69 65 Respiratory Rate 15 12 14 Respiratory Effort Respiratory Pattern Blood Pressure 148/83 H 154/96 H Blood Pressure Mean 103 115 Pulse Ox 91 89 100 Oxygen Delivery Method High Flow Oxygen Flow Rate (L/min) 10 12/14/23 23:00 12/14/23 23:30 12/14/23 23:31 Temperature Temperature Source Pulse Rate 67 65 65 Respiratory Rate 19 H 15 16 Respiratory Effort Respiratory Pattern Blood Pressure 154/96 H Blood Pressure Mean 112 Pulse Ox 100 100 98 Oxygen Delivery Method High Flow Nasal Cannula Oxygen Flow Rate (L/min) 6 8 12/15/23 00:00 12/15/23 00:13 Temperature 98.4 F Temperature Source Pulse Rate 61 61 Respiratory Rate 14 14 Respiratory Effort Respiratory Pattern Blood Pressure 129/74 H 129/74 H Blood Pressure Mean 89 92 Pulse Ox 100 100 Oxygen Delivery Method High Flow Oxygen Flow Rate (L/min) 6 Positive well nourished and well developed General Appearance ED: well developed and NAD HEENT Reports moist mucous membranes Neck supple and no JVD Resp normal respiratory effort Auscultation: diminished lung sounds diffuse Cardio regular rate and regular rhythm GI non-tender and non-distended Palpation: soft Extremity General Extremety ED: Negative for edema or tenderness General Extremity: Negative for edema Neuro oriented x3, CN's II-XII intact bilaterally and no sensory deficits noted Tre Coma Scale: document GCS findings Spontaneous Obeys Commands Oriented 15 Sensorium / Orientation: alert Motor Exam: strength 5/5 throughout Psych mental status grossly normal MDM MDM MDM Narrative Medical decision making narrative: Differential diagnosis includes COPD exacerbation, pneumonia, pneumothorax, congestive heart failure, cardiac dysrhythmia, cardiac ischemia, and viral illness. Chest x-ray will be obtained to assess for pneumonia, congestive heart failure, pneumothorax. EKG will be obtained to assess for cardiac dysrhythmia and cardiac ischemia. CBC will be obtained to assess for leukocytosis and anemia. Basic metabolic profile will be obtained to assess for electrolyte abnormality and renal function. PT with INR and PTT will be obtained to assess for coagulopathy. High-sensitivity troponin will be obtained to assess for cardiac ischemia. 2-hour repeat high-sensitivity troponin will be obtained to assess for ongoing cardiac ischemia. Serum lactate will be obtained to assess for sepsis. BNP will be obtained to assess for congestive heart failure. Lab Data Attestation: I reviewed the patient's lab results. Lab results narrative: CBC was reviewed. There is a slight leukocytosis of 11.1. The remainder is within normal limits. Basic metabolic profile was reviewed. Glucose was slightly elevated at 124. The remainder was within normal limits. High-sensitivity troponin was reviewed and was normal at 65. Lactate was reviewed and was normal at 1.6. PT was INR and PTT were reviewed. Pro time was 15.1 and INR is 1.2. PTT was normal at 32.1. BNP was reviewed and was elevated at 511.4. 2-hour repeat high-sensitivity troponin was reviewed and was elevated at 97. Labs: Laboratory Results - last 24 hr 12/14/23 12/14/23 12/14/23 20:32 20:35 21:48 WBC 11.1 H RBC 4.51 L Hgb 13.5 Hct 40.0 MCV 88.7 MCH 29.9 MCHC 33.8 RDW Std Deviation 42.8 RDW Coeff of Taylor 13.2 Plt Count 330 MPV 10.8 Immature Gran % (Auto) 0.400 Neut % (Auto) 71.7 H Lymph % (Auto) 17.3 L Darke % (Auto) 7.1 Eos % (Auto) 2.4 Baso % (Auto) 1.1 H Absolute Neuts (auto) 7.9 H Absolute Lymphs (auto) 1.92 Nucleated RBC % 0 PT 15.1 H INR 1.2 APTT 32.1 Sodium 139 Potassium 3.5 Chloride 106 Carbon Dioxide 24.0 Anion Gap 9 BUN 19 H Creatinine 1.22 Estim Creat Clear Calc 63.61 Est GFR (MDRD) Af Amer 76 Est GFR (MDRD) Non-Af 63 BUN/Creatinine Ratio 15.6 Glucose 124 H Lactic Acid 1.6 Calcium 9.4 Troponin I High Sens 65 B-Natriuretic Peptide 511.4 H 12/14/23 22:46 WBC RBC Hgb Hct MCV MCH MCHC RDW Std Deviation RDW Coeff of Taylor Plt Count MPV Immature Gran % (Auto) Neut % (Auto) Lymph % (Auto) Darke % (Auto) Eos % (Auto) Baso % (Auto) Absolute Neuts (auto) Absolute Lymphs (auto) Nucleated RBC % PT INR APTT Sodium Potassium Chloride Carbon Dioxide Anion Gap BUN Creatinine Estim Creat Clear Calc Est GFR (MDRD) Af Amer Est GFR (MDRD) Non-Af BUN/Creatinine Ratio Glucose Lactic Acid Calcium Troponin I High Sens 97 H B-Natriuretic Peptide ABG Data Attestation: I personally reviewed and interpreted this ABG as follows: Interpretation: Arterial blood gas was reviewed. pH was normal at 7.42. pCO2 was slightly low at 32. pO2 was low at 41. Bicarbonate was slightly low at 20.8. Oxygen saturation was low at 78. This was obtained on nonrebreather mask. ABG results: ABG 12/14/23 20:43 Specimen Type ART Sample Site R Radial pH 7.42 Bicarbonate Actual 20.8 L Total CO2 22 Base Excess -4 L O2 Saturation 78 L O2 % 15.0 ABG pCO2 32.1 L ABG pO2 41 L Micheal Test Positive O2 Delivery Device NRB Vent Mode Not entered Radiography Chest X-Ray - ED: 1 View, Read by ED Physician, Read by Radiologist and Chronic Changes Diagnostic Testing: Clinical Impression(s) from Imaging Studies Chest X-Ray 12/14/23 20:42 IMPRESSION: 1. Extensive emphysematous changes with lucencies suspicious for blebs at the lung apices and diffuse interstitial prominence. No definite focal pneumonia although superimposed pneumonia cannot be entirely excluded particularly in the basilar lungs. 2. Status post CABG. No significant cardiomegaly. Electronically Signed: Caesar Galloway DO at 21:00 EDT , Portable 1 view chest x-ray was obtained. On my independent interpretation, lung mcdaniel show chronic changes of COPD. There is normal cardiac silhouette. Bony thorax is normal. There is no acute infiltrate noted. Radiologist also interpreted the x-ray and agrees. EKG Initial EKG: Attestation: I personally reviewed and interpreted this EKG as follows: Interpretation: Sinus Rhythm (With frequent PVCs and PACs) and Non-Specific ST Changes Comments: EKG was obtained. On my independent interpretation, it showed sinus rhythm with frequent PVCs and PACs with a rate of 64. MA interval was normal at 126 ms. QRS was normal at 120 ms. QTc interval was normal at 470 ms. [place] was normal. There are nonspecific ST-T wave changes noted. Prior EKG tracings: available for review Prior: Unchanged (06/11/2023) Management Discussion w/another healthcare provider: Hospitalist and Insole And Outsole Splitter Treatment and Re-Evaluation :: Patient was given a DuoNeb aerosol here. Patient is feeling better on reevaluation. Patient's oxygen improved to 100% on high flow nasal cannula. We will attempt to wean this down. However, with the increase in troponin, I recommended admission to the hospital. Patient is agreeable with this. Case was discussed with Dr. Olvera. He had no further recommendations. He felt the increase in troponin is likely from hypoxia. Case was discussed with the hospitalist. She recommended obtaining a COVID PCR. This was ordered. She will admit the patient to PCU. Patient understood and was agreeable with the plan. All questions were answered. Discharge Plan Dx/Rx/DC Orders Clinical Impression: Hypoxia, Shortness of breath, COPD (chronic obstructive pulmonary disease), Elevated troponin Disposition Disposition: Acute Care [facility]
[2023-12-14] MEDS: Ipratropium/Albuterol Sulfate 3 ML AMPUL.NEB INHALATION (21:36)
[2023-12-14 22:04] LABS: International Normalized Ratio 1.2; Prothrombin Time (Protime)PT. 15.1 SECONDS (11.7-14.9)
[2023-12-14 22:05] LABS: Partial Thromboplast Time 32.1 Seconds (24.1-36.2)
[2023-12-14 22:14] LABS: BNP,B-Type NATRIURETIC PEPTIDE 511.4 pg/mL (0-100)
[2023-12-14 22:36] LABS: Lactic Acid 1.6 mmol/L (0.4-1.9)
[2023-12-14 22:42] LABS: Reflex Troponin-HS? (from REC) Y
[2023-12-14 23:13] LABS: Troponin-I HS 97 pg/mL (3.0-78.0)
[2023-12-15] VITALS (29 sets, daily range): BP systolic 111–153; BP diastolic 69–84; PULSE 60–89; RESP 14–24; TEMP 36.3–36.9; O2SAT 75–100; BMI 28.7
--- NOTE | 2023-12-15 01:04 | CT_ITS ---
EXAM: CT ANGIOGRAPHY CHEST WITHOUT AND WITH INTRAVENOUS CONTRAST CLINICAL INDICATION: hypoxia hypoxia TECHNIQUE: Helically acquired angiography images were obtained of the chest without and with intravenous contrast. This CT exam was performed using one or more of the following dose reduction techniques: automated exposure control, adjustment of the mA and/or kV according to patient size, and/or use of iterative reconstruction technique. MIP reconstructed images were created and reviewed. CONTRAST: IV 100mL Isovue-370 RADIATION DOSE: CTDIvol = 13.12 mGy, DLP = 432.65 mGy-cm COMPARISON: CTA Chest 05/31/2023 and 01/27/2021 FINDINGS: PULMONARY ARTERIES: Unremarkable. Normal in caliber. No evidence of pulmonary embolism. AORTA: There is atherosclerotic calcification of the thoracic aorta. Normal in caliber. No evidence of dissection. GREAT VESSELS OF AORTIC ARCH: Unremarkable. Normal in caliber. No evidence of dissection. LUNGS AND PLEURAL SPACES: There is a small right pleural effusion. There are prominent paraseptal and centrilobular emphysematous bullae throughout the lungs. There are prominent fibrotic changes. These findings are not significantly different from previous exams. As seen on series 2, axial image 215, there is a 7 mm right upper lobe lung nodule which is not significantly different from the previous exams. No pneumothorax. HEART: There are sternotomy wires and surgical clips suggesting previous CABG. There are coronary artery calcifications. Heart size is normal. No pericardial effusion. MEDIASTINUM: There are mildly enlarged mediastinal lymph nodes short axis diameters ranging up to 1.2 cm in the subcarinal region and AP window. There are enlarged right hilar lymph nodes with short axis diameters ranging up to 1.5 cm. Mildly enlarged lymph nodes were also present on previous studies. Esophagus is unremarkable. No hiatal hernia. THYROID: Unremarkable. No thyroid lesions. BONES/JOINTS: There are multilevel degenerative changes in the visualized spine. No suspicious lytic or blastic abnormality. CT/CTA Chest W/WO Contrast IMPRESSION: 1. No evidence for pulmonary embolism, aortic aneurysm, or aortic dissection. 2. Severe emphysematous and fibrotic changes in the lungs, stable in appearance. Emphysema is an independent risk factor for lung cancer. Recommend that the patient be considered for low dose CT lung cancer screening in the future. 3. Small right pleural effusion, which is increased from last previous study. No visualized acute pulmonary infiltrate. 4. Stable mediastinal and hilar lymph nodes. 5. Stable 7 mm right upper lobe lung nodule. No further evaluation is necessary. 6. Atherosclerosis. Electronically Signed: Chris Menezes MD at 4:33 EDT Reading Location ID and State: [facility] / [place] , Service support ,
--- NOTE | 2023-12-15 01:15 | HP.PCM.HOS_ITS ---
HPI - General General Date of Admission: 12/15/23 Date of Service: 12/15/23 Chief Complaint: Shortness of breath HPI Narrative ANDRZEJ LLOYD, is a 68 M who presented to the emergency department at [facility] on 12/14/2023 for chest pain and shortness of breath. Patient reported that he had been having worsening shortness of breath over about 2 weeks prior to presentation. He was at the [facility] earlier today and they were working with him to increase his oxygen saturations at that time. 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 The patient complains of predominantly exertional dyspnea. He denies any worsening edema or orthopnea. He states he had a cardiac catheterization and stress test a year ago in August with no intervention performed. He has had some suggestive chills and a chronic cough with no change in sputum production over the last month but denies any upper respiratory symptoms that are new and has had no fever. He has complained of some intermittent chest pain on and off for the last 48 hours. He denies any at the time of my evaluation. He did take some nitroglycerin however yesterday for this. Vital signs show temperature of 96.4, heart rate 78, respiratory rate 13, blood pressure 138/82 and oxygen saturation was 62% on 8 L nasal cannula which is in his baseline range of 6 to 8 L. He was placed on a nonrebreather at 15 L and his oxygen saturation only improved to 87% and progressively improved to 100% on high flow nasal cannula at 6 L after intervention in the emergency department. His CBC showed a mild leukocytosis with a white count of 11.1 and a minimal left shift with a 71.7% neutrophilia. Coags were overall unremarkable but his D- dimer was elevated at 1.78. An ABG was drawn and his pH was 7.42 with a pCO2 of 32 but a pO2 of 41 on a nonrebreather at the time of the draw. His chemistry panel was unremarkable other than some mild hyperglycemia at 124. His lactic acid was normal at 1.6. Initial troponin was 65 with a repeat of 97. BNP was markedly elevated at 511.4. Chest x-ray showed extensive emphysematous changes with no definite focal pneumonia and previous CABG. EKG showed sinus rhythm with frequent PVCs and PACs, normal intervals and nonspecific ST-T wave changes. [facility] Medical History COPD (chronic obstructive pulmonary disease) COVID-19 Prediabetes High cholesterol Hypertension Myocardial infarction Coronary artery disease Home Medications ?Medication ?Instructions ?Recorded ?Last Taken ?Type albuterol sulfate 90 mcg/actuation 1 inh inhalation Q6H shortness of 06/10/23 Unknown History aerosol inhaler (ProAir HFA) breath amlodipine 2.5 mg tablet 2.5 mg PO DAILY 06/10/23 06/10/23 History aspirin 81 mg chewable tablet 1 tab PO DAILY 06/10/23 06/10/23 History carvedilol 3.125 mg tablet 3.125 mg PO BID 06/10/23 06/10/23 History isosorbide mononitrate 30 mg 30 mg PO DAILY 06/10/23 06/10/23 History tablet,extended release 24 hr losartan 50 mg tablet 50 mg PO BID 06/10/23 06/10/23 History metformin 500 mg tablet 500 mg PO DAILY 06/10/23 06/09/23 History pravastatin 20 mg tablet 20 mg PO QHS 06/10/23 06/09/23 History furosemide 40 mg tablet (Lasix) 40 mg PO DAILY #30 tabs 06/15/23 Unknown Rx pantoprazole 40 mg tablet,delayed 40 mg PO DAILY 12/14/23 Unknown History release Allergy/AdvReac Type Severity Reaction Status Date / Time Iodinated Contrast Media (iv Allergy Intermediate Other Verified 12/15/23 02:04 contrast) Yubrwft-[id number] Reductase AdvReac Other Verified 12/15/23 01:32 Inhibitor (Kuxyajn-Zld-Icj Reductase Inhibitor) no significant family history Surgical History Hx of knee surgery Hx of CABG Social History (Updated 12/15/23 @ 02:[address] Jamee Triana DO) Smoking Status: Former smoker alcohol intake: never substance use type: does not use ROS Constitutional Constitutional: Reports chills; Denies anorexia, change in weight, fatigue, fever(s), malaise, night sweats, weakness or other Eyes Eyes: Denies blurry vision, change in eye color, change in vision, discharge from eye(s), double vision, erythema, eye pain, loss of vision or other ENT HEENT: Denies abnormal hearing, dysphagia, ear pain, epistaxis, headache(s), hearing loss, nasal congestion, nasal discharge, post nasal drip, sinus pressure, sore throat or other Cardiovascular Cardiovascular: Reports chest pain and dyspnea on exertion; Denies claudication, edema, lightheadedness, orthopnea, palpitations, paroxysmal nocturnal dyspnea, rapid heart rate, syncope or other Respiratory/Chest Respiratory/Chest: Reports cough, dyspnea, shortness of breath at rest and shortness of breath with exertion; Denies excessive phlegm production, hemoptysis, productive cough, wheezing or other Gastrointestinal Gastrointestinal: Denies abdominal pain, coffee ground emesis, constipation, diarrhea, dyspepsia, hematemesis, hematochezia, loose stools, melena, nausea, vomiting or other Genitourinary Genitourinary: Denies burning urination, difficulty urinating, dysuria, hematuria, nocturia, urinary frequency, urinary hesitancy, urinary incontinence, urinary urgency or other Musculoskeletal Musculoskeletal: Denies arthralgias, back pain, joint pain, joint stiffness, joint swelling, myalgias, neck pain or other Neurologic Neurologic: Denies abnormal gait, abnormal speech, confusion, disequilibrium, dizziness, focal weakness, headache(s), numbness, paresthesias, seizure-like activity, seizures, syncope, tingling, tremor(s) or other Psychiatric Psychiatric: Denies anxiety, depression, homicidal ideation, suicidal ideation or other Endocrine Endocrinology: Denies change in body appearance, cold intolerance, excessive sweating, heat intolerance, polydipsia, polyuria or other Hematologic/Lymphatic Hematologic/Lymphatic: Denies anemia, easy bleeding, easy bruising, lymphadenopathy or other Allergic/Immunologic Allergic/Immunologic: Denies rhinitis, hives, eczemia, asthma or other Vital Signs Vital Signs Vital Signs: 12/14/23 20:27 12/14/23 20:30 12/14/23 20:30 Temperature 96.4 F L 96.4 F L Temperature Source Temporal Temporal Pulse Rate 78 78 66 Respiratory Rate 13 14 23 H Respiratory Effort Respiratory Pattern Blood Pressure 138/82 H 160/62 H Blood Pressure Mean 100 94 Pulse Ox 62 87 86 Oxygen Delivery Method Nasal Cannula Non-Rebreather Non-Rebreather Oxygen Flow Rate (L/min) 8 15 15 12/14/23 20:37 12/14/23 20:41 12/14/23 20:54 Temperature 98.7 F Temperature Source Temporal Pulse Rate 65 69 Respiratory Rate 19 H 20 H Respiratory Effort Respiratory Pattern Blood Pressure 160/62 H Blood Pressure Mean 94 Pulse Ox 75 89 Oxygen Delivery Method Non-Rebreather Non-Rebreather Oxygen Flow Rate (L/min) 15 12/14/23 20:55 12/14/23 21:00 12/14/23 21:15 Temperature Temperature Source Pulse Rate 61 64 Respiratory Rate 13 15 Respiratory Effort Short of Breath Accessory Muscle Use Pursed Lip Head Bobbing Respiratory Pattern Tachypnea Blood Pressure 140/72 H 130/71 H Blood Pressure Mean 93 91 Pulse Ox 92 83 Oxygen Delivery Method Oxygen Flow Rate (L/min) 12/14/23 21:30 12/14/23 21:36 12/14/23 21:37 Temperature 98.1 F Temperature Source Oral Pulse Rate 69 63 61 Respiratory Rate 12 14 18 Respiratory Effort Respiratory Pattern Normal Blood Pressure 146/78 H 131/96 H Blood Pressure Mean 96 107 Pulse Ox 90 90 Oxygen Delivery Method High Flow Oxygen Flow Rate (L/min) 12/14/23 21:45 12/14/23 22:00 12/14/23 22:00 Temperature 98.4 F Temperature Source Temporal Pulse Rate 61 80 73 Respiratory Rate 14 22 H 14 Respiratory Effort Respiratory Pattern Blood Pressure 137/76 H 163/69 H 116/90 H Blood Pressure Mean 95 100 98 Pulse Ox 94 92 88 Oxygen Delivery Method High Flow High Flow Oxygen Flow Rate (L/min) 10 8 12/14/23 22:15 12/14/23 22:30 12/14/23 23:00 Temperature 98 F Temperature Source Oral Pulse Rate 65 69 65 Respiratory Rate 15 12 14 Respiratory Effort Respiratory Pattern Blood Pressure 148/83 H 154/96 H Blood Pressure Mean 103 115 Pulse Ox 91 89 100 Oxygen Delivery Method High Flow Oxygen Flow Rate (L/min) 10 12/14/23 23:00 12/14/23 23:30 12/14/23 23:31 Temperature Temperature Source Pulse Rate 67 65 65 Respiratory Rate 19 H 15 16 Respiratory Effort Respiratory Pattern Blood Pressure 154/96 H Blood Pressure Mean 112 Pulse Ox 100 100 98 Oxygen Delivery Method High Flow Nasal Cannula Oxygen Flow Rate (L/min) 6 8 12/15/23 00:00 12/15/23 00:13 Temperature 98.4 F Temperature Source Pulse Rate 61 61 Respiratory Rate 14 14 Respiratory Effort Respiratory Pattern Blood Pressure 129/74 H 129/74 H Blood Pressure Mean 89 92 Pulse Ox 100 100 Oxygen Delivery Method High Flow Oxygen Flow Rate (L/min) 6 Weight Weight: 80.7 kg Body Mass Index (BMI) 24.1 Physical Exam Const alert, oriented x3, no apparent distress, average body habitus and well nourished; Negative for healthy appearing Constitutional Narrative: Upper middle-aged, white male who appears older than stated age, lying in bed in right side-lying, currently appears comfortable, nontoxic, no conversational dyspnea at this time on 6 L high flow nasal cannula General Appearance: cooperative HEENT normocephalic, head/scalp atraumatic, hearing grossly normal bilaterally and moist oral mucous membranes HEENT Narrative: Mallampati 2, no thrush, dentures in place Eyes PERRL, EOMs intact bilaterally and conjunctivae normal Eyes Narrative: No scleral icterus Neck no lymphadenopathy and supple Neck Narrative: Trachea midline, no thyroid enlargement Resp no retractions, no use of accessory muscles and No clear to auscultation bilaterally Resp Narrative: Markedly diminished diffusely with poor air movement, no signs of extremis currently and no significant conversational dyspnea, crackles at bases bilaterally Auscultation: crackles; Negative for rhonchi or wheezes Cardio regular rate, regular rhythm, S1 normal heart sound, S2 normal heart sound, no murmurs, no rub, no gallops and no clicks GI normal to inspection, nondistended, normoactive bowel sounds, soft to palpation and non-tender Extremity no clubbing, cyanosis or edema Skin no rashes or lesions noted, no wounds, skin turgor normal, no jaundice, no petechiae and no mottling Neuro oriented x3, moves all extremities and no focal motor deficits Speech: speech normal Psych affect normal Psych Narrative: Very pleasant, interacts appropriately Results Lab / Micro Data 12/14/23 20:32 12/14/23 20:32 Labs: Laboratory Results - last 24 hr 12/14/23 20:32: WBC 11.1 H, RBC 4.51 L, Hgb 13.5, Hct 40.0, MCV 88.7, MCH 29.9, MCHC 33.8, RDW Std Deviation 42.8, RDW Coeff of Taylor 13.2, Plt Count 330, MPV 10.8, Immature Gran % (Auto) 0.400, Neut % (Auto) 71.7 H, Lymph % (Auto) 17.3 L, Eagle % (Auto) 7.1, Eos % (Auto) 2.4, Baso % (Auto) 1.1 H, Absolute Neuts (auto) 7.9 H, Absolute Lymphs (auto) 1.92, Nucleated RBC % 0, Sodium 139, Potassium 3.5, Chloride 106, Carbon Dioxide 24.0, Anion Gap 9, BUN 19 H, Creatinine 1.22, Estim Creat Clear Calc 63.61, Est GFR (MDRD) Af Amer 76, Est GFR (MDRD) Non-Af 63, BUN/Creatinine Ratio 15.6, Glucose 124 H, Calcium 9.4, Troponin I High Sens 65, B-Natriuretic Peptide 511.4 H 12/14/23 20:35: PT 15.1 H, INR 1.2, APTT 32.1 12/14/23 21:48: Lactic Acid 1.6 12/14/23 22:46: Troponin I High Sens 97 H Micro: Microbiology 12/15/23 00:17 Mucosa - Nose SARS-CoV-2, Influenza & RSV (PCR) - Final ABG Data ABG results: ABG 12/14/23 20:43 Specimen Type ART Sample Site R Radial pH 7.42 Bicarbonate Actual 20.8 L Total CO2 22 Base Excess -4 L O2 Saturation 78 L O2 % 15.0 ABG pCO2 32.1 L ABG pO2 41 L Micheal Test Positive O2 Delivery Device NRB Vent Mode Not entered Imaging Radiology Impression Chest X-Ray 12/14/23 20:42 IMPRESSION: 1. Extensive emphysematous changes with lucencies suspicious for blebs at the lung apices and diffuse interstitial prominence. No definite focal pneumonia although superimposed pneumonia cannot be entirely excluded particularly in the basilar lungs. 2. Status post CABG. No significant cardiomegaly. Electronically Signed: Caesar Galloway DO at 21:00 EDT , Assessment & Plan Assessment/Plan (1) Elevated troponin: (2) Acute on chronic hypoxic respiratory failure: (3) Elevated brain natriuretic peptide (BNP) level: (4) Chest pain: (5) Elevated d-dimer: PLAN: Plan Acute on chronic hypoxic respiratory failure secondary to heart failure of unknown type/+/- COPD exacerbation -Baseline oxygen requirement is 68 L and currently requiring high flow at 10 L -Patient with markedly elevated BNP -Check echocardiogram--> highly suspect right-sided heart failure with elevated pulmonary pressures based on history -Lasix 40 mg x 1 dose now followed by Lasix 40 mg IV push 3 times daily -Daily weights -Strict I's and O's -Fluid and sodium restricted diet -Aggressive aerosols -Will give steroids for now however not considerably wheezy during exam however he is markedly diminished and does have severe architectural changes on previous imaging -Mucinex -I-S/scheduled Pep therapy while awake -Consult pulmonary medicine Chest pain with elevated troponin -Initial troponin was 65 with a repeat in 97 -Highly suspect that this is related to his hypoxia -ER discussed with Dr. Olvera and he agrees that it is probably hypoxia and demand ischemia related -Check echocardiogram -Cycle cardiac enzymes -Continue home medications to include aspirin, carvedilol, isosorbide mononitrate, losartan, and pravastatin Elevated D-dimer something trying to get through -Check CTA of chest after patient is premedicated COPD/pulmonary fibrosis -Continue treatment as noted above Something new -Previous CABG -Follows with cardiology at the [facility] -Continue amlodipine -Continue aspirin -Continue carvedilol -Continue isosorbide mononitrate -Continue losartan -Continue pravastatin Send this -Hold home metformin -SSI as ordered -Accu-Cheks as ordered -Cardiac/carb controlled diet GERD -Continue home PPI DVT prophylaxis -Subcu Lovenox CODE STATUS -DNR CCA with no intubation per discussion with patient prior to admission Charges/Coding Visit Charges Inpatient E&M: 92218 Init Hosp L3
[2023-12-15 01:51] LABS: D-Dimer Quantitative (DVT/PE) 1.78 FEU/ug/m (0.27-0.49)
[2023-12-15] MEDS: DiphenhydrAMINE 50 MG/ML Syringe IV (02:12)
[2023-12-15] MEDS: MethylPREDNISolone 125 MG/2 ML Vial 40 MG IV (02:12)
[2023-12-15] MEDS: Furosemide 40 MG/4 ML Vial IV ×3 (03:51→20:19)
[2023-12-15] MEDS: 0.9% Saline Lock 10 ML Syringe IV ×3 (03:52→13:40)
[2023-12-15 04:46] LABS: Troponin-I HS 144 pg/mL (3.0-78.0)
[2023-12-15 05:57] LABS: Absolute Lymphocyte Count 0.67 X10^3/uL (0.83-4.51); Absolute Neutrophil Count 9.5 X10^3/uL (2.0-7.7); Basophil# 0.06 X10^3/uL; Basophil% 0.6 % (0-1); Eosinophil# 0.04 X10^3/uL; Eosinophils% 0.4 % (0-5); Hematocrit 40.1 % (40-54); Hemoglobin 13.8 g/dL (13.0-16.5); Lymphocyte # 0.67 X10^3/ul (0.83-4.51); Lymphocyte % 6.4 % (19-41); Mean Corp Hgb Conc 34.4 g/dL (32-36); Mean Corpuscular Hgb 29.8 pg (27.0-32.0); Mean Corpuscular Volume 86.6 fL (80-94); Mean Platelet Vol. 10.8 fl (6.2-12.0); Monocyte# 0.14 X10^3/uL; Monocyte% 1.3 % (0-10); NRBC Flagged by Analyzer 0 % (0-5); Neutrophil # 9.52 X10^3/uL (2.7-7.7); Neutrophil % 90.9 % (47-70); Platelet Count 320 K/mm3 (150-450); RBC Distribution Width CV 13.2 % (11.6-14.6); RBC Distribution Width SD 41.1 fl (35.1-43.9); Red Blood Count 4.63 M/mm3 (4.6-6.2); White Blood Count 10.5 K/mm3 (4.4-11.0)
[2023-12-15 06:44] LABS: Troponin-I HS 139 pg/mL (3.0-78.0)
[2023-12-15 06:56] LABS: AST(SGOT) 18 U/L (15-37); Alanine Aminotransfer ALT/SGPT 12 U/L (16-61); Albumin, Serum 3.7 g/dL (3.2-5.0); Alkaline Phosphatase 133 U/L (45-117); Anion Gap 8 (5-15); BUN 16 mg/dL (7-18); BUN/Creat Ratio 15.2 RATIO (10-20); Calcium,Total 9.4 mg/dL (8.5-10.1); Chloride 107 mmol/L (98-107); Creatinine, Serum 1.05 mg/dL (0.70-1.30); EST Glomerular Filtration Rate 75 mL/min (>60); Est Glom Filt Rate - Afr Amer 90 mL/min (>60); Estimated Creatinine Clearance 80.95 ml/min; Globulin 3.7 g/dL (2.2-4.2); Glucose 120 mg/dL (74-106); Magnesium 2.1 mg/dL (1.6-2.6); Phosphorus 1.6 mg/dL (2.5-4.9); Potassium 3.5 mmol/L (3.5-5.1); Protein, Total 7.4 g/dL (6.4-8.2); Sodium Level 140 mmol/L (136-145); Thyroid Stim Hormone (TSH) 0.922 uIU/mL (0.358-3.740)
[2023-12-15 07:10] LABS: Bedside Glucose 132 mg/dL (74-106)
[2023-12-15] MEDS: Aspirin 81 MG TAB.CHEW PO (08:27)
[2023-12-15] MEDS: guaiFENesin 1,200 MG Tablet 1200 MG PO ×2 (10:02→20:18)
[2023-12-15] MEDS: Enoxaparin 40 MG/0.4 ML Syringe SC (10:02)
[2023-12-15] MEDS: Carvedilol 3.125 MG TABLET PO ×2 (10:02→20:18)
[2023-12-15] MEDS: amLODIPine 2.5 MG Tablet PO (10:02)
[2023-12-15] MEDS: Pantoprazole Sodium 40 MG Tablet PO (10:02)
[2023-12-15] MEDS: Losartan Potassium 50 MG Tablet PO ×2 (10:02→20:19)
[2023-12-15] MEDS: Isosorbide Mononitrate 30 MG Tablet PO (10:02)
[2023-12-15 10:05] LABS: Troponin-I HS 105 pg/mL (3.0-78.0)
--- NOTE | 2023-12-15 10:50 | CASEMGMT ---
KATI CAMERON Face to Face with patient for initial transition planning/care coordination assessment. KATI CAMERON introduced self and role at [facility]. Patient lying in bed, alert and oriented. Patient willing to participate in assessment and is able to answer all questions appropriately. Care providers, pharmacy, and demographics verified. Strata: 2 PCP: Trip Starkey Specialists: Cardologist and healthcare marketer at [facility] Preferred Pharmacy: [facility] Insurance: [place], [facility] Prescription Benefit: [facility] only Living Will/HPOA: none LNOK: Living Arrangements: Patient lives with in a 3 story home. Patient is independent and able to ambulate stairs. Transportation: DME/HHC: Patient has shower chair, hand held shower, cpap, nebulizer, pulse ox, and home oxygen with portability through [facility] at 8lpm. No previous HHC or SNF Patient wishes to discharge home, denies need for home health at this time. Patient states he has no further needs or concerns at this time. CM to follow for discharge planning needs that may arise. Disposition Plan: Patient to discharge home with family support and follow-up plans in place. Will monitor for increase in home oxygen. Shanta BLUE, RN, CM
[2023-12-15] MEDS: Ipratropium/Albuterol Sulfate 3 ML AMPUL.NEB INHALATION ×4 (11:11→23:34)
[2023-12-15] MEDS: Acetaminophen 325 MG Tablet 650 MG PO ×2 (11:21→20:13)
[2023-12-15 11:32] LABS: Bedside Glucose 162 mg/dL (74-106)
--- NOTE | 2023-12-15 11:54 | CASEMGMT ---
Addendum entered by Vanna Alvarez 12/15/23 11:57: 6 clicks=22,no therapy ordered. Original Note: Spoke with Braydon at [facility], confirmed pt oxygen orders and updated on pt status. Plan for pt to dc back home once baseline oxygen is achieved.
--- NOTE | 2023-12-15 12:59 | PCMCONS.TICU ---
HPI Consult Data Date of Consult: 12/16/23 HPI Narrative HPI Narrative: Mr Powell is a 68 M who presented to the emergency department at [facility] on 12/14/2023 for chest pain and shortness of breath. Patient reported that he had been having worsening shortness of breath over about 2 weeks prior to presentation. He was at the [facility] earlier today and they were working with him to increase his oxygen saturations at that time. 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 In the ED an ABG was drawn and his pH was 7.42 with a pCO2 of 32 but a pO2 of 41 on a nonrebreather at the time of the draw. His chemistry panel was unremarkable other than some mild hyperglycemia at 124. His lactic acid was normal at 1.6. Initial troponin was 65 with a repeat of 97. BNP was markedly elevated at 511.4. Chest x-ray showed extensive emphysematous changes with no definite focal pneumonia and previous CABG. EKG showed sinus rhythm with frequent PVCs and PACs, normal intervals and nonspecific ST-T wave changes. On the floor the patient did have an Echo which showed Patient had an echo which showed had PASP on 40 mm hg. His imaging showed that he had paraseptal and cetrilobular emphysematous bullae thoughout his lungs. He did have fibrotic changes. di was also foudn to have enlarged mediastinal lympd nodes in the 1.2 cm in the subcarinal region [facility] Medical History (Updated 12/15/23 @ 03:38 by Sis Geronimo) Kidney stones On home oxygen therapy Congestive heart failure (CHF) COPD (chronic obstructive pulmonary disease) Prediabetes COVID-19 High cholesterol Hypertension Myocardial infarction Coronary artery disease Home Medications ?Medication ?Instructions ?Recorded ?Last Taken ?Type albuterol sulfate 90 mcg/actuation 1 inh inhalation Q6H shortness of 06/10/23 Unknown History aerosol inhaler (ProAir HFA) breath amlodipine 2.5 mg tablet 5 mg PO DAILY Blood pressure 06/10/23 06/10/23 History aspirin 81 mg chewable tablet 1 tab PO DAILY 06/10/23 06/10/23 History carvedilol 3.125 mg tablet 3.125 mg PO BID 06/10/23 06/10/23 History isosorbide mononitrate 30 mg 30 mg PO DAILY 06/10/23 06/10/23 History tablet,extended release 24 hr losartan 50 mg tablet 50 mg PO DAILY Blood pressure 06/10/23 06/10/23 History metformin 500 mg tablet 500 mg PO DAILY 06/10/23 06/09/23 History pravastatin 20 mg tablet 40 mg PO QHS Cholesterol 06/10/23 06/09/23 History furosemide 40 mg tablet (Lasix) 40 mg PO DAILY #30 tabs 06/15/23 Unknown Rx pantoprazole 40 mg tablet,delayed 20 mg PO DAILY Reflux 12/14/23 Unknown History release tiotropium 2.5 mcg-olodaterol 2.5 2 inh inhalation DAILY pulmonary 12/15/23 Unknown History mcg/actuation mist for inhalation HTN (Stiolto Respimat) Allergy/AdvReac Type Severity Reaction Status Date / Time Iodinated Contrast Media (iv Allergy Intermediate Other Verified 12/15/23 02:04 contrast) Mgmqvgc-MDO-QvW Reductase AdvReac Other Verified 12/15/23 01:32 Inhibitor (Mjmszub-Gst-Pua Reductase Inhibitor) Family History no significant family his Surgical History Hx of knee surgery Hx of CABG Social History (Updated 12/15/23 @ 02:[address] Jamee Triana DO) Smoking Status: Former smoker alcohol intake: never substance use type: does not use ROS Constitutional Constitutional: Reports fatigue Eyes Eyes: Reports systems reviewed and no addt'l complaints, except as documented ENT HEENT: Reports systems reviewed and no addt'l complaints, except as documented Cardiovascular Cardiovascular: Reports dyspnea on exertion and easily tiring during activity Respiratory/Chest Respiratory/Chest: Reports dyspnea on exertion and shortness of breath with exertion Objective Data Objective Data Vital Signs: Vital Signs Last response Temperature 36.3 C L 12/15/23 08:30 Temperature Source Oral 12/15/23 08:30 Pulse Rate 89 12/15/23 11:11 Pulse Strength Normal (2+) 12/15/23 10:00 Respiratory Rate 24 H 12/15/23 11:11 Respiratory Effort Normal, Non-Labored 12/15/23 10:00 Respiratory Depth Normal 12/15/23 10:00 Respiratory Pattern Tachypnea 12/15/23 11:11 Blood Pressure 137/80 H 12/15/23 08:30 Blood Pressure Mean 99 12/15/23 08:30 Blood Pressure Source Monitor 12/15/23 08:30 Blood Pressure Position Semi-Fowlers 12/15/23 08:30 Blood Pressure Location Right Arm 12/15/23 08:30 Pulse Ox 90 12/15/23 12:10 Oxygen Delivery Method High Flow 12/15/23 12:10 Oxygen Flow Rate (L/min) 8 12/15/23 12:10 I&O: I&O Last 24 Hours 12/14/23 12/15/23 12/15/23 23:59 11:59 23:59 Intake Total 420 / 420 Output Total 1100 / 1575 475 / 1575 Balance -1100 / -1155 -55 / -1155 I&O: Total Stay 12/14/23 20:24 thru 12/15/23 12:00 Intake Total 420 Output Total 1575 Balance -1155 Current Meds Ordered / Administered: Current meds ordered / Administered Generic Name Dose Route Start Last Admin Trade Name Vernell PRN Reason Stop Dose Admin Acetaminophen 650 mg 12/15/23 02:51 12/15/23 11:21 Acetaminophen 325 Mg Tablet PO 650 mg Q6H PRN PRN Administration Pain 1-10 Or Fever>100.7 Albuterol Sulfate 2.5 mg 12/15/23 02:51 Albuterol 2.5 Mg/3 Ml Vial.Neb. INHALATION Q2H PRN PRN SHORTNESS OF BREATH Albuterol/Ipratropium 3 ml 12/15/23 02:51 12/15/23 11:11 Ipratropium/Albuterol Sulfate 3 Ml Ampul.Neb INHALATION 3 ml Q4H.RT CHANELL Administration Amlodipine Besylate 2.5 mg 12/15/23 10:00 12/15/23 10:02 Amlodipine 2.5 Mg Tablet PO 2.5 mg DAILY CHANELL Administration Protocol Aspirin 81 mg 12/15/23 08:00 12/15/23 08:27 Aspirin 81 Mg Tab.Chew PO 81 mg DAILYCM CHANELL Administration Carvedilol 3.125 mg 12/15/23 10:00 12/15/23 10:02 Carvedilol 3.125 Mg Tablet PO 3.125 mg BID CHANELL Administration Protocol Enoxaparin Sodium 40 mg 12/15/23 10:00 12/15/23 10:02 Enoxaparin 40 Mg/0.4 Ml Syringe SC 40 mg DAILY CHANELL Administration Furosemide 40 mg 12/15/23 06:00 12/15/23 04:27 Furosemide 40 Mg/4 Ml Vial IV Not Given Q8 CHANELL Glucagon 1 mg 12/15/23 02:51 Glucagon 1 Mg/Ml Syringe IM X1 PRN HYPOGLYCEMIA Protocol Guaifenesin 1,200 mg 12/15/23 10:00 12/15/23 10:02 Guaifenesin 1,200 Mg Tablet PO 1,200 mg BID CHANELL Administration Dextrose 250 mls @ 0 mls/hr 12/15/23 02:51 Dextrose 10%-Water IV .Q0M PRN HYPOGLYCEMIA Protocol As Directed Sodium Chloride 250 mls @ 15 mls/hr 12/15/23 02:57 IV .[id number] PRN Additional IVPB Infusion Sodium Chloride 250 mls @ 15 mls/hr 12/15/23 02:57 IV .[id number] PRN Saline Flush Insulin Human Lispro 0 unit 12/15/23 07:00 12/15/23 11:23 Insulin Lispro 100 Unit/Ml Insuln.Pen SC Not Given ACHS [facility] Protocol Isosorbide Mononitrate 30 mg 12/15/23 10:00 12/15/23 10:02 Isosorbide Mononitrate 30 Mg Tablet PO 30 mg DAILY CHANELL Administration Protocol Losartan Potassium 50 mg 12/15/23 10:00 12/15/23 10:02 Losartan Potassium 50 Mg Tablet PO 50 mg BID CHANELL Administration Protocol Methylprednisolone 40 mg 12/15/23 06:00 12/15/23 04:28 Methylprednisolone 40 Mg/Ml Vial IV Not Given Q8 CHANELL Ondansetron HCl 4 mg 12/15/23 02:51 Ondansetron 4 Mg/2 Ml Vial IV Q8H PRN PRN NAUSEA/VOMITING Pantoprazole Sodium 40 mg 12/15/23 10:00 12/15/23 10:02 Pantoprazole Sodium 40 Mg Tablet PO 40 mg DAILY CHANELL Administration Pravastatin Sodium 20 mg 12/15/23 22:00 Pravastatin 20 Mg Tablet PO QHS CHANELL Senna/Docusate Sodium 2 tablet 12/15/23 02:51 Senna/Docusate Sodium 1 Tablet PO BID PRN PRN Constipation Sodium Chloride 10 - 40 ml 12/15/23 02:57 12/15/23 08:27 0.9% Saline Lock 10 Ml Syringe IV 10 ml UD PRN Administration SALINE FLUSH Physical Exam Const alert, oriented x3 and no apparent distress Orientation / Consciousness: awake HEENT normocephalic and head/scalp atraumatic Eyes PERRL General Eye: normal appearance of both eyes Neck full ROM Chest inspection of chest normal Chest: abnormal inspection of the chest Lab / Micro Data 12/16/23 06:20 12/16/23 06:20 Labs: Laboratory Results - last 24 hr 12/14/23 20:32: WBC 11.1 H, RBC 4.51 L, Hgb 13.5, Hct 40.0, MCV 88.7, MCH 29.9, MCHC 33.8, RDW Std Deviation 42.8, RDW Coeff of Taylor 13.2, Plt Count 330, MPV 10.8, Immature Gran % (Auto) 0.400, Neut % (Auto) 71.7 H, Lymph % (Auto) 17.3 L, [place] % (Auto) 7.1, Eos % (Auto) 2.4, Baso % (Auto) 1.1 H, Absolute Neuts (auto) 7.9 H, Absolute Lymphs (auto) 1.92, Nucleated RBC % 0, Sodium 139, Potassium 3.5, Chloride 106, Carbon Dioxide 24.0, Anion Gap 9, BUN 19 H, Creatinine 1.22, Estim Creat Clear Calc 63.61, Est GFR (MDRD) Af Amer 76, Est GFR (MDRD) Non-Af 63, BUN/Creatinine Ratio 15.6, Glucose 124 H, Calcium 9.4, Troponin I High Sens 65, B-Natriuretic Peptide 511.4 H 12/14/23 20:35: PT 15.1 H, INR 1.2, APTT 32.1, D-Dimer Quant (PE/DVT) 1.78 H* 12/14/23 21:48: Lactic Acid 1.6 12/14/23 22:46: Troponin I High Sens 97 H 12/15/23 04:00: Troponin I High Sens 144 H* 12/15/23 05:39: WBC 10.5, RBC 4.63, Hgb 13.8, Hct 40.1, MCV 86.6, MCH 29.8, MCHC 34.4, RDW Std Deviation 41.1, RDW Coeff of Taylor 13.2, Plt Count 320, MPV 10.8, Immature Gran % (Auto) 0.400, Neut % (Auto) 90.9 H, Lymph % (Auto) 6.4 L, [place] % (Auto) 1.3, Eos % (Auto) 0.4, Baso % (Auto) 0.6, Absolute Neuts (auto) 9.5 H, Absolute Lymphs (auto) 0.67 L, Nucleated RBC % 0, Sodium 140, Potassium 3.5, Chloride 107, Carbon Dioxide 25.0, Anion Gap 8, BUN 16, Creatinine 1.05, Estim Creat Clear Calc 80.95, Est GFR (MDRD) Af Amer 90, Est GFR (MDRD) Non-Af 75, BUN/Creatinine Ratio 15.2, Glucose 120 H, Calcium 9.4, Phosphorus 1.6 L, Magnesium 2.1, Total Bilirubin 1.10 H, AST 18, ALT 12 L, Alkaline Phosphatase 133 H, Troponin I High Sens 139 H*, Total Protein 7.4, Albumin 3.7, Globulin 3.7, Albumin/Globulin Ratio 1.0, TSH 0.922 12/15/23 06:51: POC Glucose 132 H 12/15/23 09:42: Troponin I High Sens 105 H 12/15/23 11:13: POC Glucose 162 H Micro: Microbiology 12/15/23 00:17 Mucosa - Nose SARS-CoV-2, Influenza & RSV (PCR) - Final ABG Data ABG results: ABG 12/14/23 20:43 Specimen Type ART Sample Site R Radial pH 7.42 Bicarbonate Actual 20.8 L Total CO2 22 Base Excess -4 L O2 Saturation 78 L O2 % 15.0 ABG pCO2 32.1 L ABG pO2 41 L Micheal Test Positive O2 Delivery Device NRB Vent Mode Not entered Imaging Radiology Impression Chest X-Ray 12/14/23 20:42 IMPRESSION: 1. Extensive emphysematous changes with lucencies suspicious for blebs at the lung apices and diffuse interstitial prominence. No definite focal pneumonia although superimposed pneumonia cannot be entirely excluded particularly in the basilar lungs. 2. Status post CABG. No significant cardiomegaly. Electronically Signed: Caesar Galloway DO at 21:00 EDT , Chest CTA 12/15/23 01:04 IMPRESSION: 1. No evidence for pulmonary embolism, aortic aneurysm, or aortic dissection. 2. Severe emphysematous and fibrotic changes in the lungs, stable in appearance. Emphysema is an independent risk factor for lung cancer. Recommend that the patient be considered for low dose CT lung cancer screening in the future. 3. Small right pleural effusion, which is increased from last previous study. No visualized acute pulmonary infiltrate. 4. Stable mediastinal and hilar lymph nodes. 5. Stable 7 mm right upper lobe lung nodule. No further evaluation is necessary. 6. Atherosclerosis. Electronically Signed: Chris Menezes MD at 4:33 EDT , Assessment and Plan . Assessment and plan: Acute hypoxic respiratory failure AECOPD Pulmonary fibrosis Pulmonary hypertension - patient has COPD with mixed fibrotic disease - will need to max out his COPD regimen , stiloto likely not enough , considering add pulmicort 0.5 mcg neb NEB and short acting b agonist as outpatient - the echo is showing patient is developing pulmonary hypertension likely to his structural lung disease - will need a diuretic regimen to help with symptoms - will need to investigate cause of fibrotic disease and how to prevent progression - needs FULL PFTS as an outpatient The entirety of this encounter was done via Telemedicine
--- NOTE | 2023-12-15 14:01 | PN_ITS ---
Subjective Subjective Patient seen and examined. HE complains of shortness of breath. He was admitted with a complaint of shortness of breath. He feels his breathing has improved a bit. He is down to 8L from 10L. He does wear 8L of oxygen at home. Review of systems is otherwise negative. Objective Data Objective Data Vital Signs: Vital Signs Temp Pulse Resp BP Pulse Ox O2 Del Method O2 Flow Rate 97.6 F L 63 18 111/76 96 High Flow 8 12/15/23 13:45 12/15/23 13:45 12/15/23 13:45 12/15/23 13:45 12/15/23 13:45 12/15/23 13:45 12/15/23 13:45 Oxygen Flow Rate (L/min) 8 Oxygen Delivery Method High Flow Weight: 211 lb 13.828 oz Body Mass Index (BMI) 28.7 Intake & Output: Intake and Output for Last 24 Hours 12/13/23 12/14/23 12/15/23 23:59 23:59 23:59 Intake Total 420 / 420 Output Total 1575 / 1575 Balance -1155 / -1155 Lab / Micro Data 12/15/23 05:39 12/15/23 05:39 Labs: Laboratory Results - last 24 hr 12/14/23 20:32: WBC 11.1 H, RBC 4.51 L, Hgb 13.5, Hct 40.0, MCV 88.7, MCH 29.9, MCHC 33.8, RDW Std Deviation 42.8, RDW Coeff of Taylor 13.2, Plt Count 330, MPV 10.8, Immature Gran % (Auto) 0.400, Neut % (Auto) 71.7 H, Lymph % (Auto) 17.3 L, [place] % (Auto) 7.1, Eos % (Auto) 2.4, Baso % (Auto) 1.1 H, Absolute Neuts (auto) 7.9 H, Absolute Lymphs (auto) 1.92, Nucleated RBC % 0, Sodium 139, Potassium 3.5, Chloride 106, Carbon Dioxide 24.0, Anion Gap 9, BUN 19 H, Creatinine 1.22, Estim Creat Clear Calc 63.61, Est GFR (MDRD) Af Amer 76, Est GFR (MDRD) Non-Af 63, BUN/Creatinine Ratio 15.6, Glucose 124 H, Calcium 9.4, Troponin I High Sens 65, B-Natriuretic Peptide 511.4 H 12/14/23 20:35: PT 15.1 H, INR 1.2, APTT 32.1, D-Dimer Quant (PE/DVT) 1.78 H* 12/14/23 21:48: Lactic Acid 1.6 12/14/23 22:46: Troponin I High Sens 97 H 12/15/23 04:00: Troponin I High Sens 144 H* 12/15/23 05:39: WBC 10.5, RBC 4.63, Hgb 13.8, Hct 40.1, MCV 86.6, MCH 29.8, MCHC 34.4, RDW Std Deviation 41.1, RDW Coeff of Taylor 13.2, Plt Count 320, MPV 10.8, Immature Gran % (Auto) 0.400, Neut % (Auto) 90.9 H, Lymph % (Auto) 6.4 L, [place] % (Auto) 1.3, Eos % (Auto) 0.4, Baso % (Auto) 0.6, Absolute Neuts (auto) 9.5 H, A bsolute Lymphs (auto) 0.67 L, Nucleated RBC % 0, Sodium 140, Potassium 3.5, Chloride 107, Carbon Dioxide 25.0, Anion Gap 8, BUN 16, Creatinine 1.05, Estim Creat Clear Calc 80.95, Est GFR (MDRD) Af Amer 90, Est GFR (MDRD) Non-Af 75, BUN/Creatinine Ratio 15.2, Glucose 120 H, Calcium 9.4, Phosphorus 1.6 L, Magnesium 2.1, Total Bilirubin 1.10 H, AST 18, ALT 12 L, Alkaline Phosphatase 133 H, Troponin I High Sens 139 H*, Total Protein 7.4, Albumin 3.7, Globulin 3.7, Albumin/Globulin Ratio 1.0, TSH 0.922 12/15/23 06:51: POC Glucose 132 H 12/15/23 09:42: Troponin I High Sens 105 H 12/15/23 11:13: POC Glucose 162 H Micro: Microbiology 12/15/23 00:17 Mucosa - Nose SARS-CoV-2, Influenza & RSV (PCR) - Final ABG Data ABG results: ABG 12/14/23 20:43 Specimen Type ART Sample Site R Radial pH 7.42 Bicarbonate Actual 20.8 L Total CO2 22 Base Excess -4 L O2 Saturation 78 L O2 % 15.0 ABG pCO2 32.1 L ABG pO2 41 L Micheal Test Positive O2 Delivery Device NRB Vent Mode Not entered Radiography Diagnostic Testing: Radiology Impression Chest X-Ray 12/14/23 20:42 IMPRESSION: 1. Extensive emphysematous changes with lucencies suspicious for blebs at the lung apices and diffuse interstitial prominence. No definite focal pneumonia although superimposed pneumonia cannot be entirely excluded particularly in the basilar lungs. 2. Status post CABG. No significant cardiomegaly. Electronically Signed: Caesar Galloway DO at 21:00 EDT , Chest CTA 12/15/23 01:04 IMPRESSION: 1. No evidence for pulmonary embolism, aortic aneurysm, or aortic dissection. 2. Severe emphysematous and fibrotic changes in the lungs, stable in appearance. Emphysema is an independent risk factor for lung cancer. Recommend that the patient be considered for low dose CT lung cancer screening in the future. 3. Small right pleural effusion, which is increased from last previous study. No visualized acute pulmonary infiltrate. 4. Stable mediastinal and hilar lymph nodes. 5. Stable 7 mm right upper lobe lung nodule. No further evaluation is necessary. 6. Atherosclerosis. Electronically Signed: Chris Menezes MD at 4:33 EDT , Physical Exam Const alert, oriented x3, no apparent distress and well nourished General Appearance: cooperative HEENT normocephalic, head/scalp atraumatic, moist oral mucous membranes and oropharynx normal Eyes PERRL and EOMs intact bilaterally Neck no lymphadenopathy and supple Lymph Lymphatic: no lymphadenopathy noted and no lymphedema noted Resp Resp Narrative: diminished breath sounds bilaterally, no wheezes, few crackles. On 8L of oxygen. Cardio regular rate, regular rhythm, S1 normal heart sound, S2 normal heart sound and no murmurs GI normal to inspection, nondistended, normoactive bowel sounds, soft to palpation, non-tender and non-distended Extremity normal capillary refill, no clubbing, cyanosis or edema and no calf tenderness General Extremity: no tenderness to palpation of joints or extremities Skin General Skin Exam: no breakdown Neuro CN's II-XII intact bilaterally, no focal motor deficits, no sensory deficits noted and deep tendon reflexes 2+ bilaterally Motor Exam: strength 5/5 throughout and general weakness Psych thought process normal and cooperative Appearance: appropriate Assessment & Plan Assessment/Plan (1) Acute on chronic hypoxic respiratory failure: PLAN: Plan #Acute on chronic hypoxic respiratory failure * Due to acute heart failure likely with preserved ejection fraction due to history of right-sided heart failure. Patient. May also be exacerbated by COPD. * He said he usually wears 8 L of oxygen at home. He was on 10 L but is now down to 8 L. * BNP was elevated. Being diuresed with IV Lasix. Will cut down from IV Lasix 40 mg 3 times daily to IV Lasix 40 mg twice daily. * On IV Solu-Medrol. Breathing treatments with bronchodilators. Titrate oxygen to maintain saturation above 90%. * Pulmonology on board. * Records requested from the [facility] as patient said he had an echo just yesterday so no need to repeat one now. #Elevated troponin * Likely due to to hypoxia. 2D echo ordered and pending. * Continue aspirin, carvedilol, Imdur, losartan and pravastatin. * #Elevated D-dimer: CTA was negative for evidence of PE. #COPD and pulmonary fibrosis: As above #CAD: S/p CABG. Follows cardiology at [facility]. On amlodipine, aspirin and carvedilol as well as Imdur, losartan and high intensity statin. #Type 2 diabetes mellitus: Metformin held. Insulin sliding scale. Checks ACHS. #GERD: On PPI DVT prophylaxis: Lovenox Code status: DNRCCA no intubation. Charges/Coding Visit Charges Inpatient E&M: 08736 Subs Hosp L2
--- NOTE | 2023-12-15 17:09 | EKG12_ITS ---
Test Reason : CP Blood Pressure : / mmHG Vent. Rate : 064 BPM Atrial Rate : 064 BPM P-R Int : 126 ms QRS Dur : 120 ms QT Int : 456 ms P-R-T Axes : 046 036 -03 degrees QTc Int : 470 ms Sinus rhythm with frequent Premature ventricular complexes and Premature atrial complexes Non-specific intra-ventricular conduction delay ST & T wave abnormality, consider anterior ischemia Abnormal ECG When compared with ECG of 11-JUN-2023 04:53, Premature atrial complexes are now Present Inverted T waves have replaced nonspecific T wave abnormality in Anterior leads Confirmed by Jaun Escobedo ([id number]), technical editor BECKY SHARMA ([id number]) on 12/19/2023 8:35:54 AM Referred By: ZHANNA Confirmed By:Jaun Escobedo
[2023-12-15 17:33] LABS: Bedside Glucose 160 mg/dL (74-106)
[2023-12-15] MEDS: Pravastatin 20 MG Tablet PO (20:18)
[2023-12-15] MEDS: Insulin Lispro 100 UNIT/ML INSULN.PEN SC (20:43)
[2023-12-15 20:56] LABS: Bedside Glucose 214 mg/dL (74-106)
[2023-12-16] VITALS (11 sets, daily range): BP systolic 105–119; BP diastolic 60–86; PULSE 66–97; RESP 16–18; TEMP 36.6–36.7; O2SAT 92–96; BMI 28.8
[2023-12-16] MEDS: Ipratropium/Albuterol Sulfate 3 ML AMPUL.NEB INHALATION ×6 (04:03→23:25)
[2023-12-16] MEDS: Furosemide 40 MG/4 ML Vial IV ×3 (05:34→20:07)
[2023-12-16 06:52] LABS: Bedside Glucose 144 mg/dL (74-106)
[2023-12-16 07:04] LABS: Absolute Lymphocyte Count 0.68 X10^3/uL (0.83-4.51); Absolute Neutrophil Count 16.7 X10^3/uL (2.0-7.7); Basophil# 0.02 X10^3/uL; Basophil% 0.1 % (0-1); Hematocrit 35.6 % (40-54); Hemoglobin 12.2 g/dL (13.0-16.5); Lymphocyte # 0.68 X10^3/ul (0.83-4.51); Lymphocyte % 3.8 % (19-41); Mean Corp Hgb Conc 34.3 g/dL (32-36); Mean Corpuscular Hgb 30.2 pg (27.0-32.0); Mean Corpuscular Volume 88.1 fL (80-94); Mean Platelet Vol. 11.1 fl (6.2-12.0); Monocyte# 0.47 X10^3/uL; Monocyte% 2.6 % (0-10); NRBC Flagged by Analyzer 0 % (0-5); Neutrophil # 16.72 X10^3/uL (2.7-7.7); Neutrophil % 92.9 % (47-70); Platelet Count 301 K/mm3 (150-450); RBC Distribution Width CV 13.1 % (11.6-14.6); Red Blood Count 4.04 M/mm3 (4.6-6.2)
[2023-12-16 09:04] LABS: Anion Gap 11 (5-15); BUN 28 mg/dL (7-18); BUN/Creat Ratio 15.8 RATIO (10-20); Calcium,Total 9.3 mg/dL (8.5-10.1); Chloride 105 mmol/L (98-107); Creatinine, Serum 1.77 mg/dL (0.70-1.30); EST Glomerular Filtration Rate 41 mL/min (>60); Est Glom Filt Rate - Afr Amer 49 mL/min (>60); Estimated Creatinine Clearance 48.07 ml/min; Glucose 147 mg/dL (74-106); Potassium 3.5 mmol/L (3.5-5.1); Sodium Level 138 mmol/L (136-145)
[2023-12-16] MEDS: amLODIPine 2.5 MG Tablet PO (11:04)
[2023-12-16] MEDS: Enoxaparin 40 MG/0.4 ML Syringe SC (11:04)
[2023-12-16] MEDS: Carvedilol 3.125 MG TABLET PO ×3 (11:05→20:06)
[2023-12-16] MEDS: Isosorbide Mononitrate 30 MG Tablet PO (11:06)
[2023-12-16] MEDS: Losartan Potassium 50 MG Tablet PO ×2 (11:06→20:06)
[2023-12-16] MEDS: Aspirin 81 MG TAB.CHEW PO (11:06)
[2023-12-16] MEDS: guaiFENesin 1,200 MG Tablet 1200 MG PO ×2 (11:06→20:06)
[2023-12-16] MEDS: Pantoprazole Sodium 40 MG Tablet PO (11:07)
--- NOTE | 2023-12-16 11:37 | PN.CC_ITS ---
Objective Data Objective Data Vital Signs: Vital Signs Last response 3 Temperature 36.6 C 12/16/23 11:00 Temperature Source Temporal 12/16/23 11:00 Pulse Rate 72 12/16/23 11:00 Pulse Strength Normal (2+) 12/15/23 22:00 Respiratory Rate 18 12/16/23 11:00 Respiratory Effort Non-Labored 12/15/23 20:30 Respiratory Depth Normal 12/15/23 14:00 Respiratory Pattern Normal 12/16/23 07:45 Blood Pressure 105/68 12/16/23 11:00 Blood Pressure Mean 80 12/16/23 11:00 Blood Pressure Source Monitor 12/16/23 11:00 Blood Pressure Position Semi-Fowlers 12/16/23 11:00 Blood Pressure Location Left Arm 12/16/23 11:00 Pulse Ox 96 12/16/23 11:00 Oxygen Delivery Method High Flow 12/16/23 11:00 Oxygen Flow Rate (L/min) 8 12/16/23 11:00 I&O: I&O Last 24 Hours 3 12/15/23 12/15/23 12/16/23 11:59 23:59 11:59 Intake Total 760 / 880 120 / 120 Output Total 1100 / 2125 875 / 2125 550 / 550 Balance -1100 / -1245 -115 / -1245 -430 / -430 I&O: Total Stay 3 12/14/23 20:24 thru 12/16/23 06:00 Intake Total 880 Output Total 2525 Balance -1645 Current Meds Ordered / Administered: Current meds ordered / Administered 3 Generic Name Dose Route Start Last Admin Trade Name Vernell PRN Reason Stop Dose Admin Acetaminophen 650 mg 12/15/23 02:51 12/15/23 20:13 Acetaminophen 325 Mg Tablet PO 650 mg Q6H PRN PRN Administration Pain 1-10 Or Fever>100.7 Albuterol Sulfate 2.5 mg 12/15/23 02:51 Albuterol 2.5 Mg/3 Ml Vial.Neb. INHALATION Q2H PRN PRN SHORTNESS OF BREATH Albuterol/Ipratropium 3 ml 12/15/23 02:51 12/16/23 11:15 Ipratropium/Albuterol Sulfate 3 Ml Ampul.Neb INHALATION 3 ml Q4H.RT CHANELL Administration Amlodipine Besylate 2.5 mg 12/15/23 10:00 12/16/23 11:04 Amlodipine 2.5 Mg Tablet PO 2.5 mg DAILY CHANELL Administration Protocol Aspirin 81 mg 12/15/23 08:00 12/16/23 11:06 Aspirin 81 Mg Tab.Chew PO 81 mg DAILYCM CHANELL Administration Carvedilol 3.125 mg 12/15/23 10:00 12/16/23 11:05 Carvedilol 3.125 Mg Tablet PO 3.125 mg BID CHANELL Administration Protocol Enoxaparin Sodium 40 mg 12/15/23 10:00 12/16/23 11:04 Enoxaparin 40 Mg/0.4 Ml Syringe SC 40 mg DAILY CHANELL Administration Furosemide 40 mg 12/15/23 06:00 12/16/23 05:34 Furosemide 40 Mg/4 Ml Vial IV 40 mg Q8 CHANELL Administration Glucagon 1 mg 12/15/23 02:51 Glucagon 1 Mg/Ml Syringe IM X1 PRN HYPOGLYCEMIA Protocol Guaifenesin 1,200 mg 12/15/23 10:00 12/16/23 11:06 Guaifenesin 1,200 Mg Tablet PO 1,200 mg BID CHANELL Administration Dextrose 250 mls @ 0 mls/hr 12/15/23 02:51 Dextrose 10%-Water IV .Q0M PRN HYPOGLYCEMIA Protocol As Directed Sodium Chloride 250 mls @ 15 mls/hr 12/15/23 02:57 IV .[id number] PRN Additional IVPB Infusion Sodium Chloride 250 mls @ 15 mls/hr 12/15/23 02:57 IV .[id number] PRN Saline Flush Insulin Human Lispro 0 unit 12/15/23 07:00 12/16/23 06:33 Insulin Lispro 100 Unit/Ml Insuln.Pen SC Not Given ACHS CHANELL Protocol Isosorbide Mononitrate 30 mg 12/15/23 10:00 12/16/23 11:06 Isosorbide Mononitrate 30 Mg Tablet PO 30 mg DAILY CHANELL Administration Protocol Losartan Potassium 50 mg 12/15/23 10:00 12/16/23 11:06 Losartan Potassium 50 Mg Tablet PO 50 mg BID HCANELL Administration Protocol Methylprednisolone 40 mg 12/15/23 06:00 12/16/23 05:33 Methylprednisolone 40 Mg/Ml Vial IV 40 mg Q8 CHANELL Administration Ondansetron HCl 4 mg 12/15/23 02:51 Ondansetron 4 Mg/2 Ml Vial IV Q8H PRN PRN NAUSEA/VOMITING Pantoprazole Sodium 40 mg 12/15/23 10:00 12/16/23 11:07 Pantoprazole Sodium 40 Mg Tablet PO 40 mg DAILY CHANELL Administration Pravastatin Sodium 20 mg 12/15/23 22:00 12/15/23 20:18 Pravastatin 20 Mg Tablet PO 20 mg QHS CHANELL Administration Senna/Docusate Sodium 2 tablet 12/15/23 02:51 Senna/Docusate Sodium 1 Tablet PO BID PRN PRN Constipation Sodium Chloride 10 - 40 ml 12/15/23 02:57 12/15/23 13:40 0.9% Saline Lock 10 Ml Syringe IV 20 ml UD PRN Administration SALINE FLUSH Lab / Micro Data 12/16/23 06:20 12/16/23 06:20 Labs: Laboratory Results - last 24 hr 12/15/23 16:56: POC Glucose 160 H 12/15/23 20:29: POC Glucose 214 H 12/16/23 06:20: WBC 18.0 H, RBC 4.04 L, Hgb 12.2 L, Hct 35.6 L, MCV 88.1, MCH 30.2, MCHC 34.3, RDW Std Deviation 42.0, RDW Coeff of Taylor 13.1, Plt Count 301, MPV 11.1, Immature Gran % (Auto) 0.600, Neut % (Auto) 92.9 H, Lymph % (Auto) 3.8 L, [place] % (Auto) 2.6, Eos % (Auto) 0.0, Baso % (Auto) 0.1, Absolute Neuts (auto) 16.7 H, Absolute Lymphs (auto) 0.68 L, Nucleated RBC % 0, Sodium 138, Potassium 3.5, Chloride 105, Carbon Dioxide 22.0, Anion Gap 11, BUN 28 H, Creatinine 1.77 H, Estim Creat Clear Calc 48.07, Est GFR (MDRD) Af Amer 49 L, Est GFR (MDRD) Non-Af 41 L, BUN/Creatinine Ratio 15.8, Glucose 147 H, Calcium 9.3 12/16/23 06:32: POC Glucose 144 H Assessment and Plan . Assessment and plan: Acute hypoxic respiratory failure AECOPD Pulmonary fibrosis Pulmonary hypertension - patient has COPD with mixed fibrotic disease - will need to max out his COPD regimen , stiloto likely not enough , considering add pulmicort 0.5 mcg neb NEB and short acting b agonist as outpatient - the echo is showing patient is developing pulmonary hypertension likely to his structural lung disease - will need a diuretic regimen to help with symptoms , will need this as an outpatient - will need to investigate cause of fibrotic disease and how to prevent progression - needs FULL PFTS as an outpatient Critical Care Time: The entirety of this encounter was done via Telemedicine Physical Exam Const alert and oriented x3 General Appearance: cooperative HEENT normocephalic Eyes PERRL Resp normal respiratory effort Auscultation: diminished lung sounds Cardio regular rate, regular rhythm and S1 normal heart sound GI normal to inspection, nondistended, normoactive bowel sounds Back/Spine no CVA tenderness Extremity no clubbing, cyanosis or edema Subjective Subjective Patient had no acute events overnight. Patietn remains short of breath
--- NOTE | 2023-12-16 11:44 | CPS ---
rt offered to change to airvo for humidification. patient has bubble humidifier on at this time. Patient stated that he may want to later but will cont. to use saline ns.
[2023-12-16 12:10] LABS: Bedside Glucose 167 mg/dL (74-106)
--- NOTE | 2023-12-16 13:42 | CASEMGMT ---
Social Work SW confirmed w/pt that his Erika is healthcare POA. SW explained that we do not have the document on file, if is is able to bring it in we can place a copy on the chart. Pt states understanding. TREE Bailey
--- NOTE | 2023-12-16 14:22 | PN_ITS ---
Subjective Subjective Patient seen and examined. He had no complaints. He was on his baseline 8 L of oxygen. He had an uneventful night and review of systems otherwise negative. His records obtained from [place] showed that he had severe pulmonary hypertension with right ventricular dilatation. Objective Data Objective Data Vital Signs: Vital Signs Temp Pulse Resp BP Pulse Ox O2 Del Method O2 Flow Rate 98 F 77 18 105/68 92 Nasal Cannula 8 12/16/23 11:00 12/16/23 11:43 12/16/23 11:43 12/16/23 11:00 12/16/23 11:43 12/16/23 11:43 12/16/23 11:43 Oxygen Flow Rate (L/min) 8 Oxygen Delivery Method Nasal Cannula Weight: 212 lb 4.882 oz Body Mass Index (BMI) 28.8 Intake & Output: Intake and Output for Last 24 Hours 12/14/23 12/15/23 12/16/23 23:59 23:59 23:59 Intake Total 760 / 880 120 / 120 Output Total 1975 / 2125 550 / 550 Balance -1215 / -1245 -430 / -430 Lab / Micro Data 12/16/23 06:20 12/16/23 06:20 Labs: Laboratory Results - last 24 hr 12/15/23 16:56: POC Glucose 160 H 12/15/23 20:29: POC Glucose 214 H 12/16/23 06:20: WBC 18.0 H, RBC 4.04 L, Hgb 12.2 L, Hct 35.6 L, MCV 88.1, MCH 30.2, MCHC 34.3, RDW Std Deviation 42.0, RDW Coeff of Taylor 13.1, Plt Count 301, MPV 11.1, Immature Gran % (Auto) 0.600, Neut % (Auto) 92.9 H, Lymph % (Auto) 3.8 L, [place] % (Auto) 2.6, Eos % (Auto) 0.0, Baso % (Auto) 0.1, Absolute Neuts (auto) 16.7 H, Absolute Lymphs (auto) 0.68 L, Nucleated RBC % 0, Sodium 138, Potassium 3.5, Chloride 105, Carbon Dioxide 22.0, Anion Gap 11, BUN 28 H, Creatinine 1.77 H, Estim Creat Clear Calc 48.07, Est GFR (MDRD) Af Amer 49 L, Est GFR (MDRD) Non-Af 41 L, BUN/Creatinine Ratio 15.8, Glucose 147 H, Calcium 9.3 12/16/23 06:32: POC Glucose 144 H 12/16/23 11:51: POC Glucose 167 H Micro: Microbiology 12/15/23 00:17 Mucosa - Nose SARS-CoV-2, Influenza & RSV (PCR) - Final Physical Exam Const alert, oriented x3 and no apparent distress General Appearance: cooperative and well developed HEENT normocephalic, head/scalp atraumatic, hearing grossly normal bilaterally, moist oral mucous membranes and oropharynx normal Eyes PERRL, EOMs intact bilaterally and conjunctivae normal Neck no lymphadenopathy and supple Lymph Lymphatic: no lymphadenopathy noted and no lymphedema noted Resp no retractions, no use of accessory muscles and No clear to auscultation bilaterally Resp Narrative: diminished breath sounds bilaterally, no wheezes, few crackles. On 8L of oxygen. Auscultation: crackles Cardio regular rate, regular rhythm, S1 normal heart sound, S2 normal heart sound, no murmurs, no rub, no gallops and no clicks GI normal to inspection, nondistended, normoactive bowel sounds, soft to palpation, non-tender and non-distended Extremity normal capillary refill, no clubbing, cyanosis or edema and no calf tenderness General Extremity: no tenderness to palpation of joints or extremities Skin no rashes or lesions noted, no wounds, skin turgor normal, no jaundice, no petechiae and no mottling General Skin Exam: no breakdown Neuro oriented x3, CN's II-XII intact bilaterally, moves all extremities, no focal motor deficits, no sensory deficits noted and deep tendon reflexes 2+ bilaterally Speech: speech normal Motor Exam: strength 5/5 throughout and general weakness Psych thought process normal, cooperative and affect normal Appearance: appropriate Assessment & Plan Assessment/Plan (1) Acute on chronic hypoxic respiratory failure: PLAN: Plan #Acute on chronic hypoxic respiratory failure * Due to acute heart failure likely with preserved ejection fraction due to history of right-sided heart failure from severe pulmonary hypertension. May also be exacerbated by COPD. * He said he usually wears 8 L of oxygen at home. Remains on his baseline 8 L of oxygen. * BNP was elevated. Being diuresed with IV Lasix. Will cut down from IV Lasix 40 mg 3 times daily to IV Lasix 40 mg twice daily. * On IV Solu-Medrol. Breathing treatments with bronchodilators. Titrate oxygen to maintain saturation above 90%. * Pulmonology on board. * Records from [place] showed that he had severe pulmonary hypertension per echo done the day before admission. There is no record of right heart cath but he seems like he had left heart cath back in 2022. * Will consult pulmonology. Patient may benefit from a right heart cath before initiation of treatment for pulmonary hypertension. However he should have that done here which so that treatment can be initiated for the pulmonary hypertension there. * He did have CT of the chest which showed no evidence of PE. * I think the pulmonary hypertension is likely due to the severe COPD. * #Severe pulmonary hypertension: As above #Elevated troponin * Likely due to to hypoxia. 2D echo ordered and pending. * Continue aspirin, carvedilol, Imdur, losartan and pravastatin. * #Elevated D-dimer: CTA was negative for evidence of PE. #COPD and pulmonary fibrosis: As above. CT chest as above #CAD: S/p CABG. Follows cardiology at [place]. On amlodipine, aspirin and carvedilol as well as Imdur, losartan and high intensity statin. #Type 2 diabetes mellitus: Metformin held. Insulin sliding scale. Checks ACHS. #GERD: On PPI DVT prophylaxis: Lovenox Code status: DNRCCA no intubation. Charges/Coding Visit Charges Inpatient E&M: 43872 [facility] Hosp L2
[2023-12-16] MEDS: 0.9% Saline Lock 10 ML Syringe IV (14:49)
[2023-12-16 17:43] LABS: Bedside Glucose 133 mg/dL (74-106)
[2023-12-16] MEDS: Pravastatin 20 MG Tablet PO (20:06)
[2023-12-16] MEDS: Acetaminophen 325 MG Tablet 650 MG PO (20:07)
[2023-12-16 21:21] LABS: Bedside Glucose 140 mg/dL (74-106)
[2023-12-17] VITALS (11 sets, daily range): BP systolic 102–111; BP diastolic 64–73; PULSE 57–71; RESP 17–18; TEMP 36.5–36.8; O2SAT 92–99; BMI 28.8
[2023-12-17 05:15] LABS: Absolute Lymphocyte Count 0.63 X10^3/uL (0.83-4.51); Absolute Neutrophil Count 17.4 X10^3/uL (2.0-7.7); Basophil# 0.02 X10^3/uL; Basophil% 0.1 % (0-1); Eosinophil# 0.01 X10^3/uL; Eosinophils% 0.1 % (0-5); Hematocrit 35.8 % (40-54); Lymphocyte # 0.63 X10^3/ul (0.83-4.51); Lymphocyte % 3.4 % (19-41); Mean Corp Hgb Conc 33.5 g/dL (32-36); Mean Corpuscular Hgb 30.1 pg (27.0-32.0); Mean Corpuscular Volume 89.7 fL (80-94); Mean Platelet Vol. 11.1 fl (6.2-12.0); Monocyte# 0.35 X10^3/uL; Monocyte% 1.9 % (0-10); NRBC Flagged by Analyzer 0 % (0-5); Neutrophil # 17.36 X10^3/uL (2.7-7.7); Neutrophil % 93.7 % (47-70); Platelet Count 304 K/mm3 (150-450); RBC Distribution Width CV 13.3 % (11.6-14.6); RBC Distribution Width SD 43.8 fl (35.1-43.9); Red Blood Count 3.99 M/mm3 (4.6-6.2); White Blood Count 18.5 K/mm3 (4.4-11.0)
[2023-12-17 05:29] LABS: Anion Gap 8 (5-15); BUN 43 mg/dL (7-18); BUN/Creat Ratio 24.7 RATIO (10-20); Calcium,Total 8.8 mg/dL (8.5-10.1); Chloride 102 mmol/L (98-107); Creatinine, Serum 1.74 mg/dL (0.70-1.30); EST Glomerular Filtration Rate 42 mL/min (>60); Est Glom Filt Rate - Afr Amer 50 mL/min (>60); Glucose 137 mg/dL (74-106); Potassium 3.7 mmol/L (3.5-5.1); Sodium Level 135 mmol/L (136-145)
[2023-12-17] MEDS: Furosemide 40 MG/4 ML Vial IV ×2 (06:07→09:27)
[2023-12-17 06:45] LABS: Bedside Glucose 135 mg/dL (74-106)
[2023-12-17] MEDS: Enoxaparin 40 MG/0.4 ML Syringe SC (09:26)
[2023-12-17] MEDS: Losartan Potassium 50 MG Tablet PO ×2 (09:27→21:10)
[2023-12-17] MEDS: guaiFENesin 1,200 MG Tablet 1200 MG PO ×2 (09:27→21:10)
[2023-12-17] MEDS: Isosorbide Mononitrate 30 MG Tablet PO (09:27)
[2023-12-17] MEDS: amLODIPine 2.5 MG Tablet PO (09:27)
[2023-12-17] MEDS: Aspirin 81 MG TAB.CHEW PO (09:27)
[2023-12-17] MEDS: Pantoprazole Sodium 40 MG Tablet PO (09:28)
[2023-12-17] MEDS: Ipratropium/Albuterol Sulfate 3 ML AMPUL.NEB INHALATION ×3 (11:06→23:24)
[2023-12-17 11:25] LABS: Bedside Glucose 150 mg/dL (74-106)
--- NOTE | 2023-12-17 11:31 | PCM.PROGNOTE ---
Subjective Subjective Patient seen and examined. He had no active complaints. He remains on Airvo. Review of systems is otherwise negative. Objective Data Objective Data Vital Signs: Vital Signs Temp Pulse Resp BP Pulse Ox O2 Del Method O2 Flow Rate 98.3 F 68 18 102/64 94 Airvo 8 12/17/23 09:20 12/17/23 11:05 12/17/23 11:05 12/17/23 09:20 12/17/23 09:20 12/17/23 09:20 12/17/23 08:28 FiO2 58 12/17/23 04:00 Oxygen Flow Rate (L/min) 8 Oxygen Delivery Method Airvo Weight: 212 lb 4.882 oz Body Mass Index (BMI) 28.8 Intake & Output: Intake and Output for Last 24 Hours 12/15/23 12/16/23 12/17/23 23:59 23:59 23:59 Intake Total 760 / 880 360 / 600 360 / 360 Output Total 1975 / 2125 1850 / 2450 1500 / 1500 Balance -1215 / -1245 -1490 / -1850 -1140 / -1140 Lab / Micro Data 12/17/23 04:28 12/17/23 04:28 Labs: Laboratory Results - last 24 hr 12/16/23 11:51: POC Glucose 167 H 12/16/23 17:20: POC Glucose 133 H 12/16/23 20:21: POC Glucose 140 H 12/17/23 04:28: WBC 18.5 H, RBC 3.99 L, Hgb 12.0 L, Hct 35.8 L, MCV 89.7, MCH 30.1, MCHC 33.5, RDW Std Deviation 43.8, RDW Coeff of Taylor 13.3, Plt Count 304, MPV 11.1, Immature Gran % (Auto) 0.800, Neut % (Auto) 93.7 H, Lymph % (Auto) 3.4 L, [place] % (Auto) 1.9, Eos % (Auto) 0.1, Baso % (Auto) 0.1, Absolute Neuts (auto) 17.4 H, Absolute Lymphs (auto) 0.63 L, Nucleated RBC % 0, Sodium 135 L, Potassium 3.7, Chloride 102, Carbon Dioxide 25.0, Anion Gap 8, BUN 43 H, Creatinine 1.74 H, Estim Creat Clear Calc 48.90, Est GFR (MDRD) Af Amer 50 L, Est GFR (MDRD) Non-Af 42 L, BUN/Creatinine Ratio 24.7 H, Glucose 137 H, Calcium 8.8 12/17/23 06:09: POC Glucose 135 H 12/17/23 11:05: POC Glucose 150 H Micro: Microbiology 12/15/23 00:17 Mucosa - Nose SARS-CoV-2, Influenza & RSV (PCR) - Final Physical Exam Const alert, oriented x3, no apparent distress and average body habitus General Appearance: cooperative and well developed HEENT normocephalic, head/scalp atraumatic, hearing grossly normal bilaterally, moist oral mucous membranes and oropharynx normal Eyes PERRL, EOMs intact bilaterally and conjunctivae normal Neck no lymphadenopathy and supple Neck Narrative: Trachea midline, no thyroid enlargement Lymph Lymphatic: no lymphadenopathy noted and no lymphedema noted Resp no retractions, no use of accessory muscles and No clear to auscultation bilaterally Resp Narrative: diminished breath sounds bilaterally, no wheezes, few crackles. on Airvo Auscultation: crackles; Negative for rhonchi or wheezes Cardio regular rate, regular rhythm, S1 normal heart sound, S2 normal heart sound, no murmurs, no rub, no gallops and no clicks GI normal to inspection, nondistended, normoactive bowel sounds, soft to palpation, non-tender and non-distended Extremity normal capillary refill, no clubbing, cyanosis or edema and no calf tenderness General Extremity: no tenderness to palpation of joints or extremities Skin no rashes or lesions noted, no wounds, skin turgor normal, no jaundice, no petechiae and no mottling General Skin Exam: no breakdown Neuro oriented x3, CN's II-XII intact bilaterally and moves all extremities Speech: speech normal Motor Exam: strength 5/5 throughout and general weakness Psych thought process normal, cooperative and affect normal Appearance: appropriate Assessment & Plan Assessment/Plan (1) Acute on chronic hypoxic respiratory failure: PLAN: Plan #Acute on chronic hypoxic respiratory failure Due to acute heart failure likely with preserved ejection fraction due to history of right-sided heart failure from severe pulmonary hypertension. May also be exacerbated by COPD. He said he usually wears 8 L of oxygen at home. Remains on his baseline 8 L of oxygen. BNP was elevated. Being diuresed with IV Lasix. Will cut down from IV Lasix 40 mg 3 times daily to IV Lasix 40 mg twice daily. On IV Solu-Medrol. Breathing treatments with bronchodilators. Titrate oxygen to maintain saturation above 90%. Pulmonology on board. Records from [place] showed that he had severe pulmonary hypertension per echo done the day before admission. There is no record of right heart cath but he seems like he had left heart cath back in 2022. Pulmonology reviewed patient and recommends that he needs to max out his COPD regimen as still O2 is not enough. To consider adding Pulmicort 0.5 mcg nebulized and short acting beta agonist on outpatient basis. To try to wean down to 8 L of oxygen as tolerated. #Severe pulmonary hypertension: As above #Elevated troponin Likely due to to hypoxia. 2D echo ordered and pending. Continue aspirin, carvedilol, Imdur, losartan and pravastatin. #Elevated D-dimer: CTA was negative for evidence of PE. #COPD and pulmonary fibrosis: As above. CT chest as above #CAD: S/p CABG. Follows cardiology at [place]. On amlodipine, aspirin and carvedilol as well as Imdur, losartan and high intensity statin. #Type 2 diabetes mellitus: Metformin held. Insulin sliding scale. Checks ACHS. #GERD: On PPI DVT prophylaxis: Lovenox Code status: DNRCCA no intubation. Charges/Coding Visit Charges Inpatient E&M: 41405 [facility] Hosp L3
--- NOTE | 2023-12-17 14:00 | PN.CC_ITS ---
Objective Data Objective Data Vital Signs: Vital Signs Last response 3 Temperature 36.8 C 12/17/23 09:20 Temperature Source Oral 12/17/23 09:20 Pulse Rate 68 12/17/23 11:05 Pulse Strength Normal (2+) 12/17/23 08:15 Respiratory Rate 18 12/17/23 11:05 Respiratory Effort Normal, Non-Labored 12/17/23 07:59 Respiratory Depth Normal 12/17/23 07:59 Respiratory Pattern Normal 12/17/23 11:05 Blood Pressure 102/64 12/17/23 09:20 Blood Pressure Mean 76 12/17/23 09:20 Blood Pressure Source Monitor 12/17/23 09:20 Blood Pressure Position Semi-Fowlers 12/17/23 09:20 Blood Pressure Location Right Arm 12/17/23 09:20 Pulse Ox 94 12/17/23 09:20 Oxygen Delivery Method Airvo 12/17/23 11:05 Oxygen Flow Rate (L/min) 8 12/17/23 12:17 Fraction of Inspired Oxygen (FIO2) 60 12/17/23 11:05 I&O: I&O Last 24 Hours 3 12/16/23 12/17/23 12/17/23 23:59 11:59 23:59 Intake Total 240 / 600 360 / 360 Output Total 1300 / 2450 1500 / 1500 Balance -1060 / -1850 -1140 / -1140 I&O: Total Stay 3 12/14/23 20:24 thru 12/17/23 06:00 Intake Total 1480 Output Total 5325 Balance -3845 Current Meds Ordered / Administered: Current meds ordered / Administered 3 Generic Name Dose Route Start Last Admin Trade Name Vernell PRN Reason Stop Dose Admin Acetaminophen 650 mg 12/15/23 02:51 12/16/23 20:07 Acetaminophen 325 Mg Tablet PO 650 mg Q6H PRN PRN Administration Pain 1-10 Or Fever>100.7 Albuterol Sulfate 2.5 mg 12/15/23 02:51 Albuterol 2.5 Mg/3 Ml Vial.Neb. INHALATION Q2H PRN PRN SHORTNESS OF BREATH Albuterol/Ipratropium 3 ml 12/15/23 02:51 12/17/23 11:06 Ipratropium/Albuterol Sulfate 3 Ml Ampul.Neb INHALATION 3 ml Q4H.RT CHANELL Administration Amlodipine Besylate 2.5 mg 12/15/23 10:00 12/17/23 09:27 Amlodipine 2.5 Mg Tablet PO 2.5 mg DAILY CHANELL Administration Protocol Aspirin 81 mg 12/15/23 08:00 12/17/23 09:27 Aspirin 81 Mg Tab.Chew PO 81 mg DAILYCM CHANELL Administration Carvedilol 3.125 mg 12/15/23 10:00 12/16/23 20:06 Carvedilol 3.125 Mg Tablet PO 3.125 mg BID CHANELL Administration Protocol Enoxaparin Sodium 40 mg 12/15/23 10:00 12/17/23 09:26 Enoxaparin 40 Mg/0.4 Ml Syringe SC 40 mg DAILY CHANELL Administration Furosemide 40 mg 12/17/23 10:00 12/17/23 09:27 Furosemide 40 Mg/4 Ml Vial IV 40 mg DAILY CHANELL Administration Protocol Glucagon 1 mg 12/15/23 02:51 Glucagon 1 Mg/Ml Syringe IM X1 PRN HYPOGLYCEMIA Protocol Guaifenesin 1,200 mg 12/15/23 10:00 12/17/23 09:27 Guaifenesin 1,200 Mg Tablet PO 1,200 mg BID CHANELL Administration Dextrose 250 mls @ 0 mls/hr 12/15/23 02:51 Dextrose 10%-Water IV .Q0M PRN HYPOGLYCEMIA Protocol As Directed Sodium Chloride 250 mls @ 15 mls/hr 12/15/23 02:57 IV .[id number] PRN Additional IVPB Infusion Sodium Chloride 250 mls @ 15 mls/hr 12/15/23 02:57 IV .[id number] PRN Saline Flush Insulin Human Lispro 0 unit 12/15/23 07:00 12/17/23 11:53 Insulin Lispro 100 Unit/Ml Insuln.Pen SC Not Given ACHS CHANELL Protocol Isosorbide Mononitrate 30 mg 12/15/23 10:00 12/17/23 09:27 Isosorbide Mononitrate 30 Mg Tablet PO 30 mg DAILY CHANELL Administration Protocol Losartan Potassium 50 mg 12/15/23 10:00 12/17/23 09:27 Losartan Potassium 50 Mg Tablet PO 50 mg BID CHANELL Administration Protocol Methylprednisolone 40 mg 12/15/23 06:00 12/17/23 06:07 Methylprednisolone 40 Mg/Ml Vial IV 40 mg Q8 CHANELL Administration Ondansetron HCl 4 mg 12/15/23 02:51 Ondansetron 4 Mg/2 Ml Vial IV Q8H PRN PRN NAUSEA/VOMITING Pantoprazole Sodium 40 mg 12/15/23 10:00 12/17/23 09:28 Pantoprazole Sodium 40 Mg Tablet PO 40 mg DAILY CHANELL Administration Pravastatin Sodium 20 mg 12/15/23 22:00 12/16/23 20:06 Pravastatin 20 Mg Tablet PO 20 mg QHS CHANELL Administration Senna/Docusate Sodium 2 tablet 12/15/23 02:51 Senna/Docusate Sodium 1 Tablet PO BID PRN PRN Constipation Sodium Chloride 10 - 40 ml 12/15/23 02:57 12/16/23 14:49 0.9% Saline Lock 10 Ml Syringe IV 10 ml UD PRN Administration SALINE FLUSH Lab / Micro Data 12/17/23 04:28 12/17/23 04:28 Labs: Laboratory Results - last 24 hr 12/16/23 17:20: POC Glucose 133 H 12/16/23 20:21: POC Glucose 140 H 12/17/23 04:28: WBC 18.5 H, RBC 3.99 L, Hgb 12.0 L, Hct 35.8 L, MCV 89.7, MCH 30.1, MCHC 33.5, RDW Std Deviation 43.8, RDW Coeff of Taylor 13.3, Plt Count 304, MPV 11.1, Immature Gran % (Auto) 0.800, Neut % (Auto) 93.7 H, Lymph % (Auto) 3.4 L, [place] % (Auto) 1.9, Eos % (Auto) 0.1, Baso % (Auto) 0.1, Absolute Neuts (auto) 17.4 H, Absolute Lymphs (auto) 0.63 L, Nucleated RBC % 0, Sodium 135 L, Potassium 3.7, Chloride 102, Carbon Dioxide 25.0, Anion Gap 8, BUN 43 H, C reatinine 1.74 H, Estim Creat Clear Calc 48.90, Est GFR (MDRD) Af Amer 50 L, Est GFR (MDRD) Non-Af 42 L, BUN/Creatinine Ratio 24.7 H, Glucose 137 H, Calcium 8.8 12/17/23 06:09: POC Glucose 135 H 12/17/23 11:05: POC Glucose 150 H Assessment and Plan . Assessment and plan: Acute hypoxic respiratory failure AECOPD Pulmonary fibrosis Pulmonary hypertension - patient has COPD with mixed fibrotic disease - will need to max out his COPD regimen , stiloto likely not enough , considering add pulmicort 0.5 mcg neb or inhaled corticosteroids. - the echo is showing patient is developing pulmonary hypertension likely to his structural lung disease - needs lasix daily when discharged - needs 6 minute walk prior to discharge to evaluate exertion - PT/OT - will need to investigate cause of fibrotic disease and how to prevent progression - needs FULL PFTS as an outpatient Physical Exam Const alert and oriented x3 General Appearance: cooperative HEENT normocephalic Eyes PERRL Neck full ROM Resp Effort and Inspection: able to speak in complete sentences Auscultation: rales Cardio regular rate, regular rhythm and S1 normal heart sound GI normal to inspection, nondistended, normoactive bowel sounds Extremity General Extremity: edema Neuro oriented x3 and CN's II-XII intact bilaterally Subjective Subjective Patient was started on airvo for comfort. 45 L and 60%. Patient given lasix and steroids.
[2023-12-17] MEDS: 0.9% Saline Lock 10 ML Syringe IV (14:13)
[2023-12-17 16:51] LABS: Bedside Glucose 137 mg/dL (74-106)
[2023-12-17] MEDS: Carvedilol 3.125 MG TABLET PO (21:10)
[2023-12-17] MEDS: Pravastatin 20 MG Tablet PO (21:10)
[2023-12-17 23:31] LABS: Bedside Glucose 152 mg/dL (74-106)
[2023-12-18] VITALS (11 sets, daily range): BP systolic 103–116; BP diastolic 68–80; PULSE 58–73; RESP 16–18; TEMP 36.4–36.7; O2SAT 89–98; BMI 29.2
[2023-12-18 07:16] LABS: Absolute Lymphocyte Count 0.63 X10^3/uL (0.83-4.51); Absolute Neutrophil Count 13.5 X10^3/uL (2.0-7.7); Basophil# 0.01 X10^3/uL; Basophil% 0.1 % (0-1); Hematocrit 35.3 % (40-54); Hemoglobin 11.8 g/dL (13.0-16.5); Lymphocyte # 0.63 X10^3/ul (0.83-4.51); Lymphocyte % 4.3 % (19-41); Mean Corp Hgb Conc 33.4 g/dL (32-36); Mean Corpuscular Hgb 29.8 pg (27.0-32.0); Mean Corpuscular Volume 89.1 fL (80-94); Mean Platelet Vol. 11.2 fl (6.2-12.0); Monocyte# 0.36 X10^3/uL; Monocyte% 2.5 % (0-10); NRBC Flagged by Analyzer 0 % (0-5); Neutrophil # 13.51 X10^3/uL (2.7-7.7); Neutrophil % 92.3 % (47-70); Platelet Count 287 K/mm3 (150-450); RBC Distribution Width CV 13.1 % (11.6-14.6); RBC Distribution Width SD 42.7 fl (35.1-43.9); Red Blood Count 3.96 M/mm3 (4.6-6.2); White Blood Count 14.6 K/mm3 (4.4-11.0)
[2023-12-18] MEDS: Ipratropium/Albuterol Sulfate 3 ML AMPUL.NEB INHALATION ×2 (07:47→19:48)
[2023-12-18 07:56] LABS: Anion Gap 8 (5-15); BUN 48 mg/dL (7-18); BUN/Creat Ratio 33.8 RATIO (10-20); Calcium,Total 8.2 mg/dL (8.5-10.1); Chloride 104 mmol/L (98-107); Creatinine, Serum 1.42 mg/dL (0.70-1.30); EST Glomerular Filtration Rate 53 mL/min (>60); Est Glom Filt Rate - Afr Amer 64 mL/min (>60); Estimated Creatinine Clearance 60.34 ml/min; Glucose 124 mg/dL (74-106); Potassium 3.5 mmol/L (3.5-5.1); Sodium Level 138 mmol/L (136-145)
[2023-12-18] MEDS: Aspirin 81 MG TAB.CHEW PO (09:11)
[2023-12-18] MEDS: Losartan Potassium 50 MG Tablet PO ×2 (09:12→21:40)
[2023-12-18] MEDS: guaiFENesin 1,200 MG Tablet 1200 MG PO ×2 (09:12→21:40)
[2023-12-18] MEDS: Isosorbide Mononitrate 30 MG Tablet PO (09:12)
[2023-12-18] MEDS: Carvedilol 3.125 MG TABLET PO ×2 (09:12→21:39)
[2023-12-18] MEDS: Enoxaparin 40 MG/0.4 ML Syringe SC (09:12)
[2023-12-18] MEDS: Pantoprazole Sodium 40 MG Tablet PO (09:12)
[2023-12-18] MEDS: amLODIPine 2.5 MG Tablet PO (09:12)
--- NOTE | 2023-12-18 09:26 | PN_ITS ---
Subjective Subjective Patient seen and examined. He said he felt much better today. He had been weaned down to 6L of oxygen today and was saturating at 88-89%. He states he is coughing more and bringing up more green sputum and he feels that is helping with his breathing. He has no other complaints and review of systems otherwise negative. Objective Data Objective Data Vital Signs: Vital Signs Temp Pulse Resp BP Pulse Ox O2 Del Method O2 Flow Rate 97.5 F L 65 16 103/75 93 Nasal Cannula 2 12/18/23 03:30 12/18/23 07:47 12/18/23 07:47 12/18/23 03:30 12/18/23 07:47 12/18/23 07:47 12/18/23 07:47 FiO2 50 12/17/23 23:26 Oxygen Flow Rate (L/min) 2 Oxygen Delivery Method Nasal Cannula Weight: 215 lb 9.793 oz Body Mass Index (BMI) 29.2 Intake & Output: Intake and Output for Last 24 Hours 12/16/23 12/17/23 12/18/23 23:59 23:59 23:59 Intake Total 360 / 600 840 / 960 120 / 120 Output Total 1850 / 2450 2250 / 2650 650 / 650 Balance -1490 / -1850 -1410 / -1690 -530 / -530 Lab / Micro Data 12/18/23 06:32 12/18/23 06:32 Labs: Laboratory Results - last 24 hr 12/17/23 11:05: POC Glucose 150 H 12/17/23 16:31: POC Glucose 137 H 12/17/23 21:13: POC Glucose 152 H 12/18/23 06:32: WBC 14.6 H, RBC 3.96 L, Hgb 11.8 L, Hct 35.3 L, MCV 89.1, MCH 29.8, MCHC 33.4, RDW Std Deviation 42.7, RDW Coeff of Taylor 13.1, Plt Count 287, MPV 11.2, Immature Gran % (Auto) 0.800, Neut % (Auto) 92.3 H, Lymph % (Auto) 4.3 L, [place] % (Auto) 2.5, Eos % (Auto) 0.0, Baso % (Auto) 0.1, Absolute Neuts (auto) 13.5 H, Absolute Lymphs (auto) 0.63 L, Nucleated RBC % 0, Sodium 138, Potassium 3.5, Chloride 104, Carbon Dioxide 26.0, Anion Gap 8, BUN 48 H, Creatinine 1.42 H , Estim Creat Clear Calc 60.34, Est GFR (MDRD) Af Amer 64, Est GFR (MDRD) Non-Af 53 L, BUN/Creatinine Ratio 33.8 H, Glucose 124 H, Calcium 8.2 L Micro: Microbiology 12/15/23 00:17 Mucosa - Nose SARS-CoV-2, Influenza & RSV (PCR) - Final Physical Exam Const alert, oriented x3, no apparent distress, average body habitus and well nourished; Negative for healthy appearing General Appearance: cooperative and well developed HEENT normocephalic, head/scalp atraumatic, hearing grossly normal bilaterally, moist oral mucous membranes and oropharynx normal Eyes PERRL, EOMs intact bilaterally and conjunctivae normal Eyes Narrative: Neck no lymphadenopathy and supple Lymph Lymphatic: no lymphadenopathy noted and no lymphedema noted Resp no retractions, no use of accessory muscles and No clear to auscultation bilaterally Resp Narrative: diminished breath sounds bilaterally, no wheezes, few crackles. on 6L of oxygen at time of review Cardio regular rate, regular rhythm, S1 normal heart sound, S2 normal heart sound, no murmurs, no rub, no gallops and no clicks GI normal to inspection, nondistended, normoactive bowel sounds, soft to palpation, non-tender and non-distended Extremity normal capillary refill, no clubbing, cyanosis or edema and no calf tenderness General Extremity: no tenderness to palpation of joints or extremities Skin no rashes or lesions noted, no wounds, skin turgor normal, no jaundice, no petechiae and no mottling General Skin Exam: no breakdown Neuro oriented x3, CN's II-XII intact bilaterally, moves all extremities, no focal motor deficits, no sensory deficits noted and deep tendon reflexes 2+ bilaterally Speech: speech normal Motor Exam: strength 5/5 throughout and general weakness Psych thought process normal, cooperative and affect normal Appearance: appropriate Assessment & Plan Assessment/Plan (1) Acute on chronic hypoxic respiratory failure: PLAN: Plan #Acute on chronic hypoxic respiratory failure * Due to acute heart failure likely with preserved ejection fraction due to history of right-sided heart failure from severe pulmonary hypertension. May also be exacerbated by COPD. * He said he usually wears 8 L of oxygen at home. was on 6L of oxygen * BNP was elevated. Being diuresed with IV Lasix. Will cut down from IV Lasix 40 mg 3 times daily to IV Lasix 40 mg twice daily. * On IV Solu-Medrol. Breathing treatments with bronchodilators. Titrate oxygen to maintain saturation above 90%. * Pulmonology on board. * Records from [place] showed that he had severe pulmonary hypertension per echo done the day before admission. There is no record of right heart cath but he seems like he had left heart cath back in 2022. * Pulmonology reviewed patient and recommends that he needs to max out his COPD regimen as still O2 is not enough. To consider adding Pulmicort 0.5 mcg nebulized and short acting beta agonist on outpatient basis. * To try to wean down to 8 L of oxygen as tolerated. * * #Severe pulmonary hypertension: As above #Elevated troponin * Likely due to to hypoxia. 2D echo ordered and pending. * Continue aspirin, carvedilol, Imdur, losartan and pravastatin. * #Elevated D-dimer: CTA was negative for evidence of PE. #COPD and pulmonary fibrosis: As above. CT chest as above #CAD: S/p CABG. Follows cardiology at [place]. On amlodipine, aspirin and carvedilol as well as Imdur, losartan and high intensity statin. #Type 2 diabetes mellitus: Metformin held. Insulin sliding scale. Checks ACHS. #GERD: On PPI DVT prophylaxis: Lovenox Code status: DNRCCA no intubation. Charges/Coding Visit Charges Inpatient E&M: 66243 [facility] Hosp L2
[2023-12-18 09:35] LABS: Bedside Glucose 129 mg/dL (74-106)
[2023-12-18] MEDS: Furosemide 40 MG/4 ML Vial IV (10:23)
[2023-12-18] MEDS: 0.9% Saline Lock 10 ML Syringe IV ×2 (10:23→14:18)
--- NOTE | 2023-12-18 10:40 | CASEMGMT ---
ADRIANA Bryson at the [facility] and update given of the pt status and POC.
--- NOTE | 2023-12-18 11:59 | PCM.PN.INT ---
Assessment & Plan Assessment/Plan (1) Shortness of breath: (2) Hypoxia: PLAN: Plan RECOMMENDATIONS: 1. Wean supplemental oxygen to maintain saturations 88 to 92%. 2. Continue scheduled bronchodilators and steroids as ordered. 3. Continue attempts at diuresis as tolerated by hemodynamics and renal function. 4. Perform walking oximetry study prior to consideration for discharge home. 5. BiPAP therapy with naps and nightly. 6. Close outpatient follow-up with primary sql developer through the [facility] system after discharge. IMPRESSIONS: 1. Shortness of breath and hypoxemia The patient has a known history of COPD and is currently followed by an outside pulmonary provider. CTA chest showed no evidence for PE but did demonstrate significant end-stage emphysematous changes and areas of fibrosis. I suspect that his presenting symptoms and hypoxemia are just progression of his known obstructive lung disease. The patient reported that he just had PFTs completed 6 weeks ago, but does not know the results of testing. However, he does confirm that his prior sql developer indicated to him that he had end-stage COPD and pulmonary fibrosis. With this in mind, the patient needs close outpatient follow-up for a secondary workup for his pulmonary fibrosis. In addition, given that he has frequent exacerbations, he would likely benefit from being placed on a triple therapy inhaler regimen after discharge. The patient appears to be slowly improving with current medical therapy. Perform walking oximetry study prior to consideration for discharge home. Continue PAP therapy with naps and nightly, given his history of sleep apnea. Continue to wean supplemental oxygen to maintain saturations 80 to 92%. 2. History of coronary artery disease status post CABG/history of tobacco dependency/diabetes mellitus/GERD/sleep apnea Complicates care, management, recovery and prognosis. Continue supportive care as noted above. This note was generated with Patient Feed dictation software. It may contain incorrect words, spelling, and punctuation that were not noted in checking the note before signing. Subjective Subjective The patient was seen and examined at the bedside this morning. Events from the last 24 hours have been reviewed. The patient is currently afebrile, hemodynamically stable and maintaining appropriate oxygen saturations on 6 L/min via nasal cannula. White count is elevated at 14,000. Creatinine has improved to 1.42. The patient remains on scheduled bronchodilators, IV steroids and Lasix. His breathing quality continues to improve clinically. The patient reported that he is not happy with the care that he received from his sql developer at the [facility] [place] and that he has plans to transition back to [facility] after discharge for ongoing, longitudinal management. Objective Data Objective Data The patient's most recent lab work, culture data and imaging studies have all been personally reviewed. COVID, influenza and RSV PCR's were negative. Vital Signs: Vital Signs Temp Pulse Resp BP Pulse Ox O2 Del Method O2 Flow Rate 98.1 F 73 16 105/68 89 High Flow 6 12/18/23 08:00 12/18/23 08:00 12/18/23 08:00 12/18/23 08:00 12/18/23 09:00 12/18/23 09:00 12/18/23 09:00 FiO2 50 12/17/23 23:26 Oxygen Flow Rate (L/min) 6 Oxygen Delivery Method High Flow Weight: 215 lb 9.793 oz Body Mass Index (BMI) 29.2 Intake & Output: Intake and Output for Last 24 Hours 12/16/23 12/17/23 12/18/23 23:59 23:59 23:59 Intake Total 360 / 600 840 / 960 120 / 120 Output Total 1850 / 2450 2250 / 2650 650 / 650 Balance -1490 / -1850 -1410 / -1690 -530 / -530 Lab / Micro Data Attestation: I reviewed the patient's lab results. 12/18/23 06:32 12/18/23 06:32 Labs: Laboratory Results - last 24 hr 12/17/23 16:31: POC Glucose 137 H 12/17/23 21:13: POC Glucose 152 H 12/18/23 06:32: WBC 14.6 H, RBC 3.96 L, Hgb 11.8 L, Hct 35.3 L, MCV 89.1, MCH 29.8, MCHC 33.4, RDW Std Deviation 42.7, RDW Coeff of Taylor 13.1, Plt Count 287, MPV 11.2, Immature Gran % (Auto) 0.800, Neut % (Auto) 92.3 H, Lymph % (Auto) 4.3 L, [place] % (Auto) 2.5, Eos % (Auto) 0.0, Baso % (Auto) 0.1, Absolute Neuts (auto) 13.5 H, Absolute Lymphs (auto) 0.63 L, Nucleated RBC % 0, Sodium 138, Potassium 3.5, Chloride 104, Carbon Dioxide 26.0, Anion Gap 8, BUN 48 H, Creatinine 1.42 H, Estim Creat Clear Calc 60.34, Est GFR (MDRD) Af Amer 64, Est GFR (MDRD) Non-Af 53 L, BUN/Creatinine Ratio 33.8 H, Glucose 124 H, Calcium 8.2 L 12/18/23 08:44: POC Glucose 129 H Micro: Microbiology 12/15/23 00:17 Mucosa - Nose SARS-CoV-2, Influenza & RSV (PCR) - Final Physical Exam Const alert and no apparent distress General Appearance: cooperative HEENT normocephalic, head/scalp atraumatic and moist oral mucous membranes Eyes PERRL, EOMs intact bilaterally and conjunctivae normal Neck supple General: trachea midline Chest inspection of chest normal Resp normal respiratory effort Resp Narrative: Globally diminished air movement throughout all lung mcdaniel. Auscultation: rales Cardio regular rate and regular rhythm GI normal to inspection, nondistended, normoactive bowel sounds Extremity no clubbing, cyanosis or edema Skin no rashes or lesions noted Neuro oriented x3, CN's II-XII intact bilaterally and moves all extremities Psych cooperative and affect normal Charges/Coding Visit Charges Inpatient E&M: 57376 Subs Hosp L2
[2023-12-18] MEDS: Insulin Lispro 100 UNIT/ML INSULN.PEN SC ×2 (12:31→16:31)
[2023-12-18 12:59] LABS: Bedside Glucose 154 mg/dL (74-106)
--- NOTE | 2023-12-18 15:11 | CHAPLAIN ---
Type of Pastoral Visit _x__ Initial Visit ___ Follow-up Visit ___ On-call Visit ___ General Patient Visit ___ Spiritual Assessment ___ Family Conference ___ Bereavement ___ Rapid Response ___ Code Blue ___ Other (describe below) Pastoral Care Referral From _x__ Patient ___ Family ___ Nurse ___ Physician ___ Multicut Line Operator ___ Evaporator Operator ___ Other (describe below) Sacrament/Intervention _x__ Active listening ___ Anointing ___ Faith ___ Bereavement ___ Communion ___ Justyna exploration ___ _x__ Life review ___ Prayer ___ Reconciliation ___ Sacrament of Sick _x__ Supportive presence ___ Wedding ___ Other (describe below) Pastoral Comments patient talks openly and at length about his health changes the past six months and how he is coping with it all; pt talks about his [facility] medical care and concerns; pt has a that is more worried than I am; pt is asked about his thoughts, feelings, and justyna during his health changes; pt acknowledges his hope for more time to enjoy his pleasures of life and family;
[2023-12-18 16:50] LABS: Bedside Glucose 156 mg/dL (74-106)
[2023-12-18] MEDS: Pravastatin 20 MG Tablet PO (21:40)
[2023-12-18 22:04] LABS: Bedside Glucose 148 mg/dL (74-106)
[2023-12-19] VITALS (11 sets, daily range): BP systolic 118–132; BP diastolic 70–75; PULSE 50–69; RESP 16–20; TEMP 35.6–36.6; O2SAT 87–98; BMI 29.3
[2023-12-19] MEDS: 0.9% Saline Lock 10 ML Syringe IV ×3 (06:18→22:04)
[2023-12-19 06:44] LABS: Bedside Glucose 122 mg/dL (74-106)
[2023-12-19 07:09] LABS: Absolute Neutrophil Count 11.1 X10^3/uL (2.0-7.7); Basophil# 0.02 X10^3/uL; Basophil% 0.2 % (0-1); Hematocrit 36.2 % (40-54); Hemoglobin 12.4 g/dL (13.0-16.5); Lymphocyte % 4.1 % (19-41); Mean Corp Hgb Conc 34.3 g/dL (32-36); Mean Corpuscular Hgb 30.2 pg (27.0-32.0); Mean Corpuscular Volume 88.1 fL (80-94); Mean Platelet Vol. 10.7 fl (6.2-12.0); Monocyte# 0.38 X10^3/uL; Monocyte% 3.1 % (0-10); NRBC Flagged by Analyzer 0 % (0-5); Neutrophil # 11.13 X10^3/uL (2.7-7.7); Neutrophil % 91.7 % (47-70); POSITIVE DIFFERENTIAL YES; Platelet Count 285 K/mm3 (150-450); RBC Distribution Width CV 13.2 % (11.6-14.6); Red Blood Count 4.11 M/mm3 (4.6-6.2); White Blood Count 12.1 K/mm3 (4.4-11.0)
[2023-12-19] MEDS: Ipratropium/Albuterol Sulfate 3 ML AMPUL.NEB INHALATION ×5 (07:43→23:26)
[2023-12-19] MEDS: Aspirin 81 MG TAB.CHEW PO (08:04)
[2023-12-19] MEDS: Furosemide 40 MG/4 ML Vial IV (09:24)
[2023-12-19] MEDS: amLODIPine 2.5 MG Tablet PO (09:25)
[2023-12-19] MEDS: Pantoprazole Sodium 40 MG Tablet PO (09:25)
[2023-12-19] MEDS: Carvedilol 3.125 MG TABLET PO ×2 (09:25→22:04)
[2023-12-19] MEDS: Losartan Potassium 50 MG Tablet PO ×2 (09:25→22:04)
[2023-12-19] MEDS: Enoxaparin 40 MG/0.4 ML Syringe SC (09:25)
[2023-12-19] MEDS: guaiFENesin 1,200 MG Tablet 1200 MG PO ×2 (09:25→22:04)
[2023-12-19] MEDS: Isosorbide Mononitrate 30 MG Tablet PO (09:25)
[2023-12-19 11:33] LABS: Bedside Glucose 154 mg/dL (74-106)
[2023-12-19 11:43] LABS: Anion Gap 11 (5-15); BUN 45 mg/dL (7-18); BUN/Creat Ratio 35.2 RATIO (10-20); Calcium,Total 8.6 mg/dL (8.5-10.1); Chloride 103 mmol/L (98-107); Creatinine, Serum 1.28 mg/dL (0.70-1.30); EST Glomerular Filtration Rate 59 mL/min (>60); Est Glom Filt Rate - Afr Amer 72 mL/min (>60); Estimated Creatinine Clearance 67.03 ml/min; Glucose 118 mg/dL (74-106); Potassium 3.3 mmol/L (3.5-5.1); Sodium Level 138 mmol/L (136-145)
--- NOTE | 2023-12-19 14:26 | PN_ITS ---
Subjective Subjective Patient seen and examined. He still remains short of breath. He is on his baseline 8 L of oxygen but easily gets short of breath with exertion. Pulmonology on board. He has no other complaints. Objective Data Objective Data Vital Signs: Vital Signs Temp Pulse Resp BP Pulse Ox O2 Del Method O2 Flow Rate 96.1 F L 61 16 121/75 H 95 Room Air 8 12/19/23 09:15 12/19/23 12:01 12/19/23 12:01 12/19/23 09:15 12/19/23 12:59 12/19/23 10:00 12/19/23 12:59 FiO2 50 12/17/23 23:26 Oxygen Flow Rate (L/min) 8 Oxygen Delivery Method Room Air Weight: 216 lb 4.375 oz Body Mass Index (BMI) 29.3 Intake & Output: Intake and Output for Last 24 Hours 12/17/23 12/18/23 12/19/23 23:59 23:59 23:59 Intake Total 840 / 960 120 / 120 740 / 740 Output Total 2250 / 2650 1700 / 1700 1350 / 1350 Balance -1410 / -1690 -1580 / -1580 -610 / -610 Lab / Micro Data 12/19/23 06:45 12/19/23 06:45 Labs: Laboratory Results - last 24 hr 12/18/23 16:27: POC Glucose 156 H 12/18/23 21:46: POC Glucose 148 H 12/19/23 06:19: POC Glucose 122 H 12/19/23 06:45: WBC 12.1 H, RBC 4.11 L, Hgb 12.4 L, Hct 36.2 L, MCV 88.1, MCH 30.2, MCHC 34.3, RDW Std Deviation 42.0, RDW Coeff of Taylor 13.2, Plt Count 285, MPV 10.7, Immature Gran % (Auto) 0.900, Neut % (Auto) 91.7 H, Lymph % (Auto) 4.1 L, [place] % (Auto) 3.1, Eos % (Auto) 0.0, Baso % (Auto) 0.2, Absolute Neuts (auto) 11.1 H, Absolute Lymphs (auto) 0.50 L, Nucleated RBC % 0, Sodium 138, Potassium 3.3 L, Chloride 103, Carbon Dioxide 24.0, Anion Gap 11, BUN 45 H, Creatinine 1.28, Estim Creat Clear Calc 67.03, Est GFR (MDRD) Af Amer 72, Est GFR (MDRD) Non-Af 59 L, BUN/Creatinine Ratio 35.2 H, Glucose 118 H, Calcium 8.6 12/19/23 11:15: POC Glucose 154 H Micro: Microbiology 12/15/23 00:17 Mucosa - Nose SARS-CoV-2, Influenza & RSV (PCR) - Final Physical Exam Const alert, oriented x3, no apparent distress and average body habitus Constitutional Narrative: General Appearance: cooperative HEENT normocephalic, head/scalp atraumatic, hearing grossly normal bilaterally, moist oral mucous membranes and oropharynx normal Eyes PERRL, EOMs intact bilaterally and conjunctivae normal Eyes Narrative: Neck no lymphadenopathy and supple Lymph Lymphatic: no lymphadenopathy noted and no lymphedema noted Resp no retractions, no use of accessory muscles and No clear to auscultation bilaterally Resp Narrative: diminished breath sounds bilaterally, no wheezes, few crackles. on 8L of oxygen Cardio regular rate, regular rhythm, S1 normal heart sound and S2 normal heart sound GI normal to inspection, nondistended, normoactive bowel sounds, soft to palpation, non-tender and non-distended Extremity normal capillary refill, no clubbing, cyanosis or edema and no calf tenderness General Extremity: no tenderness to palpation of joints or extremities Skin no rashes or lesions noted, no wounds, skin turgor normal, no jaundice, no petechiae and no mottling General Skin Exam: no breakdown Neuro oriented x3, CN's II-XII intact bilaterally, moves all extremities, no focal motor deficits, no sensory deficits noted and deep tendon reflexes 2+ bilaterally Speech: speech normal Motor Exam: strength 5/5 throughout and general weakness Psych thought process normal, cooperative and affect normal Appearance: appropriate Assessment & Plan Assessment/Plan (1) Acute on chronic hypoxic respiratory failure: PLAN: Plan #Acute on chronic hypoxic respiratory failure * Due to acute heart failure likely with preserved ejection fraction due to history of right-sided heart failure from severe pulmonary hypertension. May also be exacerbated by COPD. * He said he usually wears 8 L of oxygen at home. was on 6L of oxygen * BNP was elevated. Being diuresed with IV Lasix. Will cut down from IV Lasix 40 mg 3 times daily to IV Lasix 40 mg twice daily. * On IV Solu-Medrol. Breathing treatments with bronchodilators. Titrate oxygen to maintain saturation above 90%. * Pulmonology on board. * Records from [facility] showed that he had severe pulmonary hypertension per echo done the day before admission. There is no record of right heart cath but he seems like he had left heart cath back in 2022. * Pulmonology reviewed patient and recommends that he needs to max out his COPD regimen as still O2 is not enough. To consider adding Pulmicort 0.5 mcg nebulized and short acting beta agonist on outpatient basis. * On 8 L of oxygen. * #Severe pulmonary hypertension: As above #Elevated troponin * Likely due to to hypoxia. 2D echo ordered and read is still pending. * Continue aspirin, carvedilol, Imdur, losartan and pravastatin. * #Elevated D-dimer: CTA was negative for evidence of PE. #COPD and pulmonary fibrosis: As above. CT chest as above #CAD: S/p CABG. Follows cardiology at [facility]. On amlodipine, aspirin and carvedilol as well as Imdur, losartan and high intensity statin. #Type 2 diabetes mellitus: Metformin held. Insulin sliding scale. Checks ACHS. #GERD: On PPI DVT prophylaxis: Lovenox Code status: DNRCCA no intubation. Charges/Coding Visit Charges Inpatient E&M: 66539 Subs Hosp L2
[2023-12-19] MEDS: Insulin Lispro 100 UNIT/ML INSULN.PEN SC ×2 (17:45→22:05)
[2023-12-19 18:05] LABS: Bedside Glucose 189 mg/dL (74-106)
[2023-12-19] MEDS: Pravastatin 20 MG Tablet PO (22:04)
[2023-12-19 23:32] LABS: Bedside Glucose 173 mg/dL (74-106)
[2023-12-20] VITALS (10 sets, daily range): BP systolic 109–128; BP diastolic 73–83; PULSE 60–71; RESP 16–18; TEMP 36.2–36.6; O2SAT 89–95; BMI 29.2
[2023-12-20 06:42] LABS: Absolute Lymphocyte Count 0.45 X10^3/uL (0.83-4.51); Basophil# 0.01 X10^3/uL; Basophil% 0.1 % (0-1); Hematocrit 39.1 % (40-54); Hemoglobin 13.1 g/dL (13.0-16.5); Lymphocyte # 0.45 X10^3/ul (0.83-4.51); Lymphocyte % 4.1 % (19-41); Mean Corp Hgb Conc 33.5 g/dL (32-36); Mean Corpuscular Hgb 29.9 pg (27.0-32.0); Mean Corpuscular Volume 89.3 fL (80-94); Mean Platelet Vol. 11.1 fl (6.2-12.0); Monocyte# 0.38 X10^3/uL; Monocyte% 3.5 % (0-10); NRBC Flagged by Analyzer 0 % (0-5); Neutrophil # 9.99 X10^3/uL (2.7-7.7); Neutrophil % 91.5 % (47-70); POSITIVE DIFFERENTIAL YES; Platelet Count 297 K/mm3 (150-450); RBC Distribution Width CV 13.2 % (11.6-14.6); RBC Distribution Width SD 42.9 fl (35.1-43.9); Red Blood Count 4.38 M/mm3 (4.6-6.2); White Blood Count 10.9 K/mm3 (4.4-11.0)
[2023-12-20] MEDS: 0.9% Saline Lock 10 ML Syringe IV ×4 (06:44→21:54)
[2023-12-20] MEDS: Ipratropium/Albuterol Sulfate 3 ML AMPUL.NEB INHALATION ×5 (07:03→22:53)
[2023-12-20 07:04] LABS: Anion Gap 7 (5-15); BUN 37 mg/dL (7-18); BUN/Creat Ratio 32.5 RATIO (10-20); Calcium,Total 8.6 mg/dL (8.5-10.1); Chloride 104 mmol/L (98-107); Creatinine, Serum 1.14 mg/dL (0.70-1.30); EST Glomerular Filtration Rate 68 mL/min (>60); Est Glom Filt Rate - Afr Amer 82 mL/min (>60); Estimated Creatinine Clearance 75.19 ml/min; Glucose 126 mg/dL (74-106); Potassium 3.3 mmol/L (3.5-5.1); Sodium Level 138 mmol/L (136-145)
[2023-12-20 07:05] LABS: Bedside Glucose 144 mg/dL (74-106)
[2023-12-20] MEDS: guaiFENesin 1,200 MG Tablet 1200 MG PO ×2 (09:09→21:52)
[2023-12-20] MEDS: Aspirin 81 MG TAB.CHEW PO (09:09)
[2023-12-20] MEDS: Isosorbide Mononitrate 30 MG Tablet PO (09:09)
[2023-12-20] MEDS: Carvedilol 3.125 MG TABLET PO ×2 (09:09→21:52)
[2023-12-20] MEDS: Furosemide 40 MG/4 ML Vial IV (09:09)
[2023-12-20] MEDS: Pantoprazole Sodium 40 MG Tablet PO (09:09)
[2023-12-20] MEDS: Losartan Potassium 50 MG Tablet PO ×2 (09:09→21:53)
[2023-12-20] MEDS: amLODIPine 2.5 MG Tablet PO (09:09)
[2023-12-20] MEDS: Enoxaparin 40 MG/0.4 ML Syringe SC (09:10)
[2023-12-20 11:55] LABS: Bedside Glucose 125 mg/dL (74-106)
--- NOTE | 2023-12-20 12:20 | PCM.PN.INT ---
Assessment & Plan Assessment/Plan (1) Shortness of breath: (2) Hypoxia: PLAN: Plan RECOMMENDATIONS: 1. Wean supplemental oxygen to maintain saturations 88 to 92%. 2. Continue scheduled bronchodilators and steroids as ordered. Recommend steroid taper at discharge. 3. Continue attempts at diuresis as tolerated by hemodynamics and renal function. 4. Perform walking oximetry study prior to consideration for discharge home. 5. BiPAP therapy with naps and nightly. 6. Close outpatient follow-up with primary credit reporting clerk through the [facility] system after discharge. 7. Recommend adding inhaled budesonide twice daily at discharge. Ultimately, the patient would benefit from being transition from Stiolto to a triple therapy inhaler regimen. However, I will defer this to the patient's primary credit reporting clerk. IMPRESSIONS: 1. Shortness of breath and hypoxemia The patient has a known history of COPD and is currently followed by an outside pulmonary provider. CTA chest showed no evidence for PE but did demonstrate significant end-stage emphysematous changes and areas of fibrosis. I suspect that his presenting symptoms and hypoxemia are just progression of his known obstructive lung disease. The patient reported that he just had PFTs completed 6 weeks ago, but does not know the results of testing. However, he does confirm that his prior credit reporting clerk indicated to him that he had end-stage COPD and pulmonary fibrosis. With this in mind, the patient needs close outpatient follow-up for a secondary workup for his pulmonary fibrosis. In addition, given that he has frequent exacerbations, he would likely benefit from being placed on a triple therapy inhaler regimen after discharge. The patient appears to be slowly improving with current medical therapy. Perform walking oximetry study prior to consideration for discharge home. Continue PAP therapy with naps and nightly, given his history of sleep apnea. Continue to wean supplemental oxygen to maintain saturations 80 to 92%. I have no new additional recommendations from a pulmonary perspective. 2. History of coronary artery disease status post CABG/history of tobacco dependency/diabetes mellitus/GERD/sleep apnea Complicates care, management, recovery and prognosis. Continue supportive care as noted above. This note was generated with ioSafeation software. It may contain incorrect words, spelling, and punctuation that were not noted in checking the note before signing. Subjective Subjective The patient was seen and examined at the bedside this morning. Events from the last 24 hours have been reviewed. The patient is currently afebrile, hemodynamically stable and maintaining appropriate oxygen saturations on 8 L/min via nasal cannula, which is his baseline requirement. The patient remains on scheduled bronchodilators and IV steroids along with scheduled Lasix. The patient reported that although he becomes short of breath with exertion, this is a chronic problem for him and that he typically takes short breaks to recover prior to proceeding with further ambulation. Objective Data Objective Data The patient's most recent lab work, culture data and imaging studies have all been personally reviewed. COVID, influenza and RSV PCR's were negative. Vital Signs: Vital Signs Temp Pulse Resp BP Pulse Ox O2 Del Method O2 Flow Rate 97.9 F 71 17 109/83 H 95 High Flow 8 12/20/23 08:00 12/20/23 11:45 12/20/23 11:45 12/20/23 08:00 12/20/23 08:00 12/20/23 10:00 12/20/23 11:20 FiO2 93 12/20/23 07:03 Oxygen Flow Rate (L/min) [ 8 AMBULATING with Oxygen #1] Oxygen Flow Rate (L/min) [At 8 REST with Oxygen] Oxygen Flow Rate (L/min) 8 Oxygen Delivery Method High Flow Weight: 215 lb 13.321 oz Body Mass Index (BMI) 29.2 Intake & Output: Intake and Output for Last 24 Hours 12/18/23 12/19/23 12/20/23 23:59 23:59 23:59 Intake Total 120 / 120 1460 / 1460 Output Total 1700 / 1700 1850 / 2250 1500 / 1500 Balance -1580 / -1580 -390 / -790 -1500 / -1500 Lab / Micro Data Attestation: I reviewed the patient's lab results. 12/20/23 06:03 12/20/23 06:03 Labs: Laboratory Results - last 24 hr 12/19/23 17:43: POC Glucose 189 H 12/19/23 22:03: POC Glucose 173 H 12/20/23 06:03: WBC 10.9, RBC 4.38 L, Hgb 13.1, Hct 39.1 L, MCV 89.3, MCH 29.9, MCHC 33.5, RDW Std Deviation 42.9, RDW Coeff of Tayolr 13.2, Plt Count 297, MPV 11.1, Immature Gran % (Auto) 0.800, Neut % (Auto) 91.5 H, Lymph % (Auto) 4.1 L, [place] % (Auto) 3.5, Eos % (Auto) 0.0, Baso % (Auto) 0.1, Absolute Neuts (auto) 10.0 H, Absolute Lymphs (auto) 0.45 L, Nucleated RBC % 0, Sodium 138, Potassium 3.3 L, Chloride 104, Carbon Dioxide 27.0, Anion Gap 7, BUN 37 H, Creatinine 1.14, Estim Creat Clear Calc 75.19, Est GFR (MDRD) Af Amer 82, Est GFR (MDRD) Non-Af 68, BUN/Creatinine Ratio 32.5 H, Glucose 126 H, Calcium 8.6 12/20/23 06:43: POC Glucose 144 H 12/20/23 11:36: POC Glucose 125 H Micro: Microbiology 12/15/23 00:17 Mucosa - Nose SARS-CoV-2, Influenza & RSV (PCR) - Final Physical Exam Const alert and no apparent distress General Appearance: cooperative HEENT normocephalic, head/scalp atraumatic and moist oral mucous membranes Eyes PERRL, EOMs intact bilaterally and conjunctivae normal Neck supple General: trachea midline Chest inspection of chest normal Resp normal respiratory effort Resp Narrative: Globally diminished air movement throughout all lung mcdaniel. Auscultation: rales Cardio regular rate and regular rhythm GI normal to inspection, nondistended, normoactive bowel sounds Extremity no clubbing, cyanosis or edema Skin no rashes or lesions noted Neuro oriented x3, CN's II-XII intact bilaterally and moves all extremities Psych cooperative and affect normal Charges/Coding Visit Charges Inpatient E&M: 93155 Subs Hosp L2
--- NOTE | 2023-12-20 14:40 | PCM.PN.HOSP ---
Reason for Visit Reason for Visit: Diagnoses Acute and chronic respiratory failure with hypoxia (12/15/23) Shortness of breath (12/15/23) Chest pain, unspecified (12/15/23) Hypoxemia (12/15/23) Other specified abnormal findings of blood chemistry (12/15/23) Subjective Subjective Breathing well. Ambulated with therapy very well Objective Data Objective Data Vital Signs: Vital Signs Temp Pulse Resp BP Pulse Ox O2 Del Method O2 Flow Rate 36.6 C 71 17 109/83 H 95 High Flow 8 12/20/23 08:00 12/20/23 11:45 12/20/23 11:45 12/20/23 08:00 12/20/23 08:00 12/20/23 10:00 12/20/23 11:20 FiO2 93 12/20/23 07:03 Oxygen Flow Rate (L/min) [ 8 AMBULATING with Oxygen #1] Oxygen Flow Rate (L/min) [At 8 REST with Oxygen] Oxygen Flow Rate (L/min) 8 Oxygen Delivery Method High Flow Weight: 97.9 kg Body Mass Index (BMI) 29.2 Intake & Output: Intake and Output for Last 24 Hours 12/18/23 12/19/23 12/20/23 23:59 23:59 23:59 Intake Total 120 / 120 1460 / 1460 Output Total 1700 / 1700 1850 / 2250 1500 / 1500 Balance -1580 / -1580 -390 / -790 -1500 / -1500 Lab / Micro Data 12/20/23 06:03 12/20/23 06:03 Labs: Laboratory Results - last 24 hr 12/19/23 17:43: POC Glucose 189 H 12/19/23 22:03: POC Glucose 173 H 12/20/23 06:03: WBC 10.9, RBC 4.38 L, Hgb 13.1, Hct 39.1 L, MCV 89.3, MCH 29.9, MCHC 33.5, RDW Std Deviation 42.9, RDW Coeff of Taylor 13.2, Plt Count 297, MPV 11.1, Immature Gran % (Auto) 0.800, Neut % (Auto) 91.5 H, Lymph % (Auto) 4.1 L, [place] % (Auto) 3.5, Eos % (Auto) 0.0, Baso % (Auto) 0.1, Absolute Neuts (auto) 10.0 H, Absolute Lymphs (auto) 0.45 L, Nucleated RBC % 0, Sodium 138, Potassium 3.3 L, Chloride 104, Carbon Dioxide 27.0, Anion Gap 7, BUN 37 H, Creatinine 1.14, Estim Creat Clear Calc 75.19, Est GFR (MDRD) Af Amer 82, Est GFR (MDRD) Non-Af 68, BUN/Creatinine Ratio 32.5 H, Glucose 126 H, Calcium 8.6 12/20/23 06:43: POC Glucose 144 H 12/20/23 11:36: POC Glucose 125 H Micro: Microbiology 12/15/23 00:17 Mucosa - Nose SARS-CoV-2, Influenza & RSV (PCR) - Final Physical Exam Const alert and no apparent distress Constitutional Narrative: Up in bed. No respiratory distress. No conversational HEENT head/scalp atraumatic and moist oral mucous membranes Resp normal respiratory effort and no retractions Resp Narrative: Good air exchange. Clear bilaterally. Cardio regular rate, regular rhythm, S1 normal heart sound and S2 normal heart sound GI normal to inspection, nondistended, normoactive bowel sounds, soft to palpation, non-tender, non-distended and hepatosplenomegaly Extremity normal to inspection Assessment & Plan Assessment/Plan (1) Acute on chronic hypoxic respiratory failure: PLAN: Plan Acute exacerbation of COPD Discussed with Dr. Qureshi who recommends triple therapy would defer to the patient's outpatient collar setter overlock. Recommending a prednisone taper as well as home oxygen evaluation. Patient has chronic respiratory failure and is on 8 L at home. Patient did well from home oxygen patient's name patient expressed seem concerned about going home eating slowly (patient was seen at 1630) Will tentatively plan for the patient be discharged on the with oxygen. Patient be on prednisone taper as well as phenacemide. Triple therapy, according to Dr. Qureshi. This will need to be facilitated through his collar setter overlock. Patient had been seeing a collar setter overlock in [place] who retired and has does not care for. Yes he is able to find pulmonology as to follow-up with the appropriate medications. Elevated troponins Secondary to demand ischemia from the patient's COPD and pulmonary hypertension. No additional workup at this time. Chronic conditions Group 3 pulmonary artery hypertension: Secondary to the patient's underlying COPD. Treating underlying process. On amlodipine, aspirin and carvedilol as well as Imdur, losartan and high intensity statin. DVT prophylaxis: Enoxaparin
[2023-12-20 16:51] LABS: Bedside Glucose 117 mg/dL (74-106)
[2023-12-20] MEDS: Pravastatin 20 MG Tablet PO (21:53)
[2023-12-20 22:20] LABS: Bedside Glucose 132 mg/dL (74-106)
[2023-12-21 03:47] VITALS: BP 114/72; PULSE 64; RESP 16; TEMP 36.6; O2SAT 97
[2023-12-21 04:43] VITALS: BMI 29.2
[2023-12-21 06:36] LABS: Absolute Lymphocyte Count 0.43 X10^3/uL (0.83-4.51); Basophil# 0.01 X10^3/uL; Basophil% 0.1 % (0-1); Hematocrit 36.8 % (40-54); Hemoglobin 12.6 g/dL (13.0-16.5); Lymphocyte # 0.43 X10^3/ul (0.83-4.51); Lymphocyte % 4.3 % (19-41); Mean Corp Hgb Conc 34.2 g/dL (32-36); Mean Corpuscular Hgb 30.2 pg (27.0-32.0); Mean Corpuscular Volume 88.2 fL (80-94); Mean Platelet Vol. 11.1 fl (6.2-12.0); Monocyte# 0.54 X10^3/uL; Monocyte% 5.4 % (0-10); NRBC Flagged by Analyzer 0 % (0-5); Neutrophil # 9.03 X10^3/uL (2.7-7.7); Neutrophil % 89.4 % (47-70); POSITIVE DIFFERENTIAL YES; Platelet Count 280 K/mm3 (150-450); RBC Distribution Width SD 42.1 fl (35.1-43.9); Red Blood Count 4.17 M/mm3 (4.6-6.2); White Blood Count 10.1 K/mm3 (4.4-11.0)
[2023-12-21 06:42] LABS: Bedside Glucose 124 mg/dL (74-106)
[2023-12-21 06:55] LABS: Anion Gap 6 (5-15); BUN 33 mg/dL (7-18); BUN/Creat Ratio 28.4 RATIO (10-20); Calcium,Total 8.5 mg/dL (8.5-10.1); Chloride 104 mmol/L (98-107); Creatinine, Serum 1.16 mg/dL (0.70-1.30); EST Glomerular Filtration Rate 66 mL/min (>60); Est Glom Filt Rate - Afr Amer 80 mL/min (>60); Estimated Creatinine Clearance 73.93 ml/min; Glucose 146 mg/dL (74-106); Potassium 3.6 mmol/L (3.5-5.1); Sodium Level 137 mmol/L (136-145)
[2023-12-21 07:38] VITALS: PULSE 65; RESP 17; O2SAT 95
[2023-12-21] MEDS: Ipratropium/Albuterol Sulfate 3 ML AMPUL.NEB INHALATION ×2 (07:38→11:14)
[2023-12-21] MEDS: Carvedilol 3.125 MG TABLET PO (09:13)
[2023-12-21] MEDS: Losartan Potassium 50 MG Tablet PO (09:13)
[2023-12-21] MEDS: predniSONE 20 MG Tablet 40 MG PO (09:13)
[2023-12-21] MEDS: Isosorbide Mononitrate 30 MG Tablet PO (09:13)
[2023-12-21] MEDS: amLODIPine 2.5 MG Tablet PO (09:13)
[2023-12-21] MEDS: Pantoprazole Sodium 40 MG Tablet PO (09:13)
[2023-12-21] MEDS: Aspirin 81 MG TAB.CHEW PO (09:13)
[2023-12-21] MEDS: Enoxaparin 40 MG/0.4 ML Syringe SC (09:14)
[2023-12-21] MEDS: Furosemide 40 MG/4 ML Vial IV (09:14)
[2023-12-21] MEDS: guaiFENesin 1,200 MG Tablet 1200 MG PO (09:14)
[2023-12-21] MEDS: 0.9% Saline Lock 10 ML Syringe IV (09:15)
[2023-12-21 10:00] VITALS: BP 123/66; PULSE 61; RESP 16; TEMP 36.1; O2SAT 95
[2023-12-21 11:14] VITALS: PULSE 60; RESP 16
--- NOTE | 2023-12-21 11:30 | PCM.DC.SUM ---
Providers Date of Admission: 12/15/23 Primary Care Physician: SHANELLE CASTELLON Consultations 12/15/23 02:51 Consult: Building Insulation Supervisor / Pulmonary Medicine Routine Consulting Provider: Intensivists/Pulmonary Med Reason for Consult: acute on chronic hypoxia EMERGENT Consult: No Notified: Yes Date Notified: 12/15/23 Time Notified: 07:41 Method of Notification: Text 12/16/23 10:51 Consult: Building Insulation Supervisor / Pulmonary Medicine Routine Consulting Provider: Intensivists/Pulmonary Med Reason for Consult: severe pulmonary hypertension EMERGENT Consult: No Notified: Yes Date Notified: 12/16/23 Time Notified: 10:52 Method of Notification: Answering Service Reason For Visit: ACUTE HYPOXIA ON CHRONIC HYPOXIC RESPIRATORY Diagnosis Discharge Diagnosis (1) Acute on chronic hypoxic respiratory failure: Status: Chronic Code(s): J96.21 - Acute and chronic respiratory failure with hypoxia Plan Acute exacerbation of COPD Discussed with Dr. Qureshi who recommends triple therapy would defer to the patient's outpatient housing management officer. Recommending a prednisone taper as well as home oxygen evaluation. Patient has chronic respiratory failure and is on 8 L at home. Patient did well from home oxygen patient's name patient expressed seem concerned about going home eating slowly (patient was seen at 1630) Will tentatively plan for the patient be discharged on the with oxygen. Patient be on prednisone taper as well as phenacemide. Triple therapy, according to Dr. Qureshi. This will need to be facilitated through his housing management officer. Patient had been seeing a housing management officer in [place] who retired and has does not care for. Yes he is able to find pulmonology as to follow-up with the appropriate medications. Oxygen testing reviewed and patient is ambulatory in home and in the community and requires home oxygen with portability. Elevated troponins Secondary to demand ischemia from the patient's COPD and pulmonary hypertension. No additional workup at this time. Chronic conditions Group 3 pulmonary artery hypertension: Secondary to the patient's underlying COPD. Treating underlying process. On amlodipine, aspirin and carvedilol as well as Imdur, losartan and high intensity statin. Pulmonary nodule Right lower lobe. Noted on CAT scan here. Reviewed the images with the patient and felt to be stable from 2020. Patient was concerned about some pain may be having the shoulder blade but told him that that is not related with the nodule. If the nodule is unchanged we will just require further monitor during as outpatient. odynophagia Patient has difficulty particular with bread but not with things like steak. Had been looked into having endoscopy but due to flare of any out of his lungs at the time that was aborted. Explained the patient that this may require further monitoring as outpatient but once he is overall improved. DVT prophylaxis: Enoxaparin Medications at Discharge Home Medications albuterol sulfate 90 mcg/actuation aerosol inhaler (ProAir HFA) 1 inh inhalation Q6H shortness of breath 06/10/23 amlodipine 2.5 mg tablet 5 mg PO DAILY Blood pressure 06/10/23 aspirin 81 mg chewable tablet 1 tab PO DAILY 06/10/23 carvedilol 3.125 mg tablet 3.125 mg PO BID 06/10/23 isosorbide mononitrate 30 mg tablet,extended release 24 hr 30 mg PO DAILY 06/10/23 losartan 50 mg tablet 50 mg PO DAILY Blood pressure 06/10/23 metformin 500 mg tablet 500 mg PO DAILY 06/10/23 pravastatin 20 mg tablet 40 mg PO QHS Cholesterol 06/10/23 furosemide 40 mg tablet (Lasix) 40 mg PO DAILY #30 tabs 06/15/23 pantoprazole 40 mg tablet,delayed release 20 mg PO DAILY Reflux 12/14/23 tiotropium 2.5 mcg-olodaterol 2.5 mcg/actuation mist for inhalation (Stiolto Respimat) 2 inh inhalation DAILY pulmonary HTN 12/15/23 budesonide 90 mcg/actuation breath activated powder inhaler 1 inh inhalation BID #1 ea 12/20/23 prednisone 10 mg tablet 10 mg PO DAILY #30 tabs 12/20/23 Hospital Course Operations None Procedures None Summary of Care Provided Minutes Spent on Discharge: 32 Physical Exam Narrative Breathing better. Const Constitutional Narrative: Up in bed working on his laptop. Eyes PERRL Resp normal respiratory effort and no retractions Resp Narrative: Clear bilaterally Weight / BMI Weight Weight: 98 kg Body Mass Index (BMI) 29.2 ABG / Lab / Microbiology Data 12/21/23 06:02 12/21/23 06:02 Laboratory: Laboratory Results - last 24 hr 12/20/23 11:36: POC Glucose 125 H 12/20/23 16:32: POC Glucose 117 H 12/20/23 22:01: POC Glucose 132 H 12/21/23 06:02: WBC 10.1, RBC 4.17 L, Hgb 12.6 L, Hct 36.8 L, MCV 88.2, MCH 30.2, MCHC 34.2, RDW Std Deviation 42.1, RDW Coeff of Taylor 13.0, Plt Count 280, MPV 11.1, Immature Gran % (Auto) 0.800, Neut % (Auto) 89.4 H, Lymph % (Auto) 4.3 L, [place] % (Auto) 5.4, Eos % (Auto) 0.0, Baso % (Auto) 0.1, Absolute Neuts (auto) 9.0 H, Absolute Lymphs (auto) 0.43 L, Nucleated RBC % 0, Sodium 137, Potassium 3.6, Chloride 104, Carbon Dioxide 27.0, Anion Gap 6, BUN 33 H, Creatinine 1.16, Estim Creat Clear Calc 73.93, Est GFR (MDRD) Af Amer 80, Est GFR (MDRD) Non-Af 66, BUN/Creatinine Ratio 28.4 H, Glucose 146 H, Calcium 8.5 12/21/23 06:22: POC Glucose 124 H Microbiology: Microbiology 12/15/23 00:17 Mucosa - Nose SARS-CoV-2, Influenza & RSV (PCR) - Final D/C Instructions Discharge Diet: No restrictions Meaningful Use Info Meaningful Use Meaningful Use Diagnoses (Choose all that apply): None applicable Ischemic Stroke Statin Dosing Therapy Reference: STATIN DOSE THERAPY REFERENCE: * Patients > 75 years receive moderate or high dose statin therapy. * Patients 75 years or YOUNGER should receive HIGH intensity statin dose unless contraindicated. You will be required to document reason for non-treatment if statin daily dose does not meet guidelines. HIGH DOSE STATIN THERAPY DAILY Atorvastatin > than or = to 40 mg Rosuvastatin > than or = to 20 mg Amlodipine + Atorvastatin > than or = to 2.5/40 mg Ezetimibe + Simvastatin 10/80 mg Simvastatin 80mg Discharge Plan Admission Admit Date/Time: 12/15/23 02:05 Primary Reason for Your Visit: COPD exacerbation Attending Provider: August Winston Primary Care Provider: SHANELLE CASTELLON Consulting Providers: Jamee Triana; Tyrone Huang; Jose Sage; Jey Qureshi; Darnell Santillan; Howie Patten; Niall Shankar; Kaia Ellison; Bony Lui; Clif Small; Deandra Collins; Krysta Owens; Charli Espinoza; Misael Gilliam; Saqib Garcia; Navin Encarnacion; Louis Rojas; Yanet Peña Instructions Additional Instructions / Restrictions: Please follow-up with [place] housing management officer, or any housing management officer, if permitted through your insurance Discharge Orders/Prescriptions Prescriptions: New budesonide 90 mcg/actuation aerosol powdr breath activated 1 inh inhalation BID Qty: 1 1RF prednisone 10 mg tablet 10 mg PO DAILY Qty: 30 0RF Rx Instructions: 4 tabs daily for 3 days, then 3 tabs daily for 3 days, then 2 tabs daily for 3 days, then 1 tab daily for 3 days Continued amlodipine 2.5 mg tablet 5 mg PO DAILY aspirin 81 mg tablet,chewable 1 tab PO DAILY albuterol sulfate [ProAir HFA] 90 mcg/actuation HFA aerosol inhaler 1 inh inhalation Q6H carvedilol 3.125 mg tablet 3.125 mg PO BID Rx Instructions: must administer with a meal/food isosorbide mononitrate 30 mg tablet extended release 24 hr 30 mg PO DAILY losartan 50 mg tablet 50 mg PO DAILY pravastatin 20 mg tablet 40 mg PO QHS metformin 500 mg tablet 500 mg PO DAILY furosemide [Lasix] 40 mg tablet 40 mg PO DAILY Qty: 30 0RF pantoprazole 40 mg tablet,delayed release (DR/EC) 20 mg PO DAILY Stiolto Respimat 2.5-2.5 mcg/actuation mist 2 inh inhalation DAILY Referrals / Follow Up: SHANELLE CASTELLON [Other] SHANELLE CASTELLON [Other] Disposition Disposition (needs filled in before D/C Order can be placed): Home, Self Care Charges/Coding Visit Charges Inpatient E&M: 33499 Disch Hosp >30min
[2023-12-21 11:42] LABS: Bedside Glucose 133 mg/dL (74-106)
--- NOTE | 2023-12-21 12:03 | CASEMGMT ---
Order for DC placed. Pt is saturating adequately on his baseline oxygen orders. Updated O2 Rx is not warranted. RN CM to pt room at this time. Pt states that he feels safe discharging home today with no additional needs. Pt has portability at bedside. Pt denies HHC and OP Tx needs. Pt states that his will be able to pick him up today and denies further questions or concerns. [facility] and updated on [facility] status. [facility] at [phone] per request.
== END 2023-12-21 13:37 | disposition home or self-care (01) | DRG 291 ==
LOC: ED 12-15 01:19 → PCU 12-15 01:31
PROVIDERS: Student in an Organized Health Care Education/Training Program; Admitting Provider Internal Medicine; Emergency Provider Emergency Medicine
DX: I11.0 Hypertensive heart disease with heart failure (principal); J96.21 Acute and chronic respiratory failure with hypoxia; I24.89 Other forms of acute ischemic heart disease; J44.1 Chronic obstructive pulmonary disease with (acute) exacerbation; E11.9 Type 2 diabetes mellitus without complications; I27.20 Pulmonary hypertension, unspecified; I50.9 Heart failure, unspecified; J84.10 Pulmonary fibrosis, unspecified; K21.9 Gastro-esophageal reflux disease without esophagitis; I25.10 Atherosclerotic heart disease of native coronary artery without angina pectoris; Z66 Do not resuscitate; Z86.16 Personal history of COVID-19; Z79.84 Long term (current) use of oral hypoglycemic drugs; Z79.51 Long term (current) use of inhaled steroids; Z79.899 Other long term (current) drug therapy; Z79.82 Long term (current) use of aspirin; Z87.891 Personal history of nicotine dependence; Z95.1 Presence of aortocoronary bypass graft
CPT/HCPCS: 36415; 36600; 71045; 71275; 80048; 80053; 82803; 82962; 83605; 83735; 83880; 84100; 84443; 84484; 85025; 85379; 85610; 85730; 87631; 93005; 94640; 94660; 94668; 94762; 97110; 97162; 97166; 97530; 97535; 97802; 97803; 99252; 99285; Q9967; A4216; G0463; J1940

== ENCOUNTER 2024-04-20 14:37 | Inpatient (IN) | payer OTHER, SELFPAY ==
[2024-04-20] VITALS (13 sets, daily range): BP systolic 122–164; BP diastolic 61–90; PULSE 63–82; RESP 13–24; TEMP 36.1–36.7; O2SAT 75–97; BMI 22.5; BMI 21.4
--- NOTE | 2024-04-20 15:08 | ED.VIS.DYS ---
HPI History of Present Illness Chief Complaint: Shortness of Breath Informant: patient Onset/Context/Timing Onset: Weeks (1) Context: gradual Timing: Continuous Quality: Positive for Dyspnea on exertion Worsened by: Exertion Relieved by: Oxygen Associated Symptoms cough, rhinorrhea, post nasal drip, clear sputum and green sputum; Negative for ear pain, fever, sore throat, chills or sweats Chest Pain: Positive for Intermittent and Pressure Narrative Narrative: Patient presents with shortness of breath that has been getting worse over the past week. Patient states it is gradually getting worse. Patient states his family has had viral illnesses recently. Patient states his breathing is worse with any exertion. Patient states that the oxygen mask seems to help with his breathing. Patient states he has been coughing up some green sputum over the past couple days. Patient admits to some rhinorrhea and postnasal drainage. Patient admits to some intermittent chest pain. Patient states it is over the left chest and substernal area. Patient states it feels somewhat similar to his angina. Patient admits to some nausea but denies any vomiting. PE Risk Factors: Negative for Cancer, OCP + Smoking + > 35, Prior DVT or PE, Recent immobilization, Recent surgery or Recent travel [facility] Medical History Kidney stones On home oxygen therapy Congestive heart failure (CHF) COPD (chronic obstructive pulmonary disease) Prediabetes COVID-19 High cholesterol Hypertension Myocardial infarction Coronary artery disease Home Medications ?Medication ?Instructions ?Recorded ?Last Taken ?Type albuterol sulfate 90 mcg/actuation 1 inh inhalation Q6H shortness of 06/10/23 Unknown History aerosol inhaler (ProAir HFA) breath amlodipine 2.5 mg tablet 5 mg PO DAILY Blood pressure 06/10/23 06/10/23 History aspirin 81 mg chewable tablet 1 tab PO DAILY heart health 06/10/23 06/10/23 History carvedilol 3.125 mg tablet 3.125 mg PO BID blood pressure 06/10/23 06/10/23 History isosorbide mononitrate 30 mg 30 mg PO DAILY heart 06/10/23 06/10/23 History tablet,extended release 24 hr losartan 50 mg tablet 50 mg PO DAILY Blood pressure 06/10/23 06/10/23 History pravastatin 20 mg tablet 40 mg PO QHS Cholesterol 06/10/23 06/09/23 History tiotropium 2.5 mcg-olodaterol 2.5 2 inh inhalation DAILY pulmonary 12/15/23 Unknown History mcg/actuation mist for inhalation HTN (Stiolto Respimat) budesonide 90 mcg/actuation breath 1 inh inhalation BID #1 ea 12/20/23 Unknown Rx activated powder inhaler Allergy/AdvReac Type Severity Reaction Status Date / Time Iodinated Contrast Media (iv Allergy Intermediate Other Verified 12/15/23 02:04 contrast) [id number] Reductase AdvReac Other Verified 12/15/23 01:32 Inhibitor (Wcjwegs-Oag-Ffw Reductase Inhibitor) Surgical History Hx of knee surgery Hx of CABG Social History (Updated 04/20/24 @ 15:[address] August Brandon, ) Smoking Status: Former smoker alcohol intake: never substance use type: other details: Occasional THC Gummies ROS ROS ED Constitutional Constitutional ED: Denies chills or fever(s) Eyes Eyes: Denies blurry vision or change in vision ENT ENT ED: Reports rhinorrhea; Denies sore throat Cardiovascular Cardiovascular: Reports chest pain; Denies palpitations Respiratory/Chest Respiratory/Chest: Reports cough and dyspnea Gastrointestinal Gastrointestinal: Reports nausea; Denies vomiting Genitourinary Genitourinary ED: Denies dysuria or hematuria Musculoskeletal Musculoskeletal: Reports neck pain; Denies back pain Integumentary Denies abscess or rash Neurologic Neurologic: Reports headache(s); Denies weakness Allergic/Immunologic Allergic/Immunologic ED: Denies mouth swelling or urticaria EXAM Physical Exam Const Vital Signs: 04/20/24 14:38 04/20/24 14:50 04/20/24 15:00 Temperature 97.7 F L Temperature Source Oral Pulse Rate 72 Respiratory Rate 18 Respiratory Effort Short of Breath Respiratory Depth Shallow Respiratory Pattern Tachypnea Blood Pressure 133/85 H Blood Pressure Mean 101 Pulse Ox 75 97 Oxygen Delivery Method Nasal Cannula Venturi Mask Venturi Mask Oxygen Flow Rate (L/min) 6 12 12 Fraction of Inspired Oxygen (FIO2) 50 04/20/24 15:03 04/20/24 16:00 04/20/24 16:06 Temperature 97.7 F L Temperature Source Oral Pulse Rate 74 Respiratory Rate 13 Respiratory Effort Respiratory Depth Respiratory Pattern Blood Pressure 122/61 H Blood Pressure Mean 81 Pulse Ox 91 91 Oxygen Delivery Method Venturi Mask Venturi Mask Venturi Mask Oxygen Flow Rate (L/min) 8 12 12 Fraction of Inspired Oxygen (FIO2) 40 04/20/24 17:00 Temperature 97.7 F L Temperature Source Oral Pulse Rate 76 Respiratory Rate 14 Respiratory Effort Respiratory Depth Respiratory Pattern Blood Pressure 126/77 H Blood Pressure Mean 93 Pulse Ox 93 Oxygen Delivery Method Venturi Mask Oxygen Flow Rate (L/min) 8 Fraction of Inspired Oxygen (FIO2) Positive well nourished and well developed General Appearance ED: well developed and NAD HEENT Reports moist mucous membranes Neck supple and no JVD Resp normal respiratory effort Auscultation: diminished lung sounds bilateral Cardio regular rate and regular rhythm Rhythm: abnormal rhythm ectopic beats (Occasional) GI non-tender and non-distended Palpation: soft Neuro oriented x3, CN's II-XII intact bilaterally and no sensory deficits noted Sensorium / Orientation: alert Motor Exam: strength 5/5 throughout Psych mental status grossly normal MDM MDM MDM Narrative Medical decision making narrative: Differential diagnosis includes pneumonia, bronchitis, viral upper respiratory infection, cardiac dysrhythmia, cardiac ischemia, electrolyte abnormality, pneumothorax, and COPD exacerbation. EKG will be obtained to assess for cardiac dysrhythmia and cardiac ischemia. Chest x-ray will be obtained to assess for pneumonia and pneumothorax. CBC will be obtained to assess for leukocytosis and anemia. Basic metabolic profile will be obtained to assess for electrolyte abnormality and renal function. High-sensitivity troponin will be obtained to assess for cardiac ischemia. 2-hour repeat high-sensitivity troponin will be obtained to assess for ongoing cardiac ischemia. Lab Data Attestation: I reviewed the patient's lab results. Lab results narrative: CBC was reviewed today and was within normal limits. Basic metabolic profile was reviewed. Potassium slightly low at 3.2. Glucose was slightly elevated at 149. The remainder is within normal limits. Serum lactate was reviewed and was normal at 1.9. High-sensitivity troponin was repeated and was normal at 50. 2-hour repeat high-sensitivity troponin was reviewed and was normal at 46. Labs: Laboratory Results - last 24 hr 04/20/24 04/20/24 04/20/24 14:30 15:43 17:02 WBC 9.2 RBC 4.37 L Hgb 13.8 Hct 40.3 MCV 92.2 MCH 31.6 MCHC 34.2 RDW Std Deviation 48.9 H RDW Coeff of Taylor 14.5 Plt Count 281 MPV 10.2 Immature Gran % (Auto) 0.700 Neut % (Auto) 79.9 H Lymph % (Auto) 12.1 L [place] % (Auto) 4.7 Eos % (Auto) 1.6 Baso % (Auto) 1.0 Absolute Neuts (auto) 7.4 Absolute Lymphs (auto) 1.12 Nucleated RBC % 0 Sodium 138 Potassium 3.2 L Chloride 109 H Carbon Dioxide 23.0 Anion Gap 6 BUN 15 Creatinine 1.03 Estim Creat Clear Calc 73.15 Est GFR (MDRD) Af Amer 92 Est GFR (MDRD) Non-Af 76 BUN/Creatinine Ratio 14.6 Glucose 149 H Lactic Acid 1.9 Calcium 9.6 Troponin I High Sens 50 46 Radiography Chest X-Ray - ED: 2 View, Read by ED Physician, Read by Radiologist and No Acute Disease Diagnostic Testing: Clinical Impression(s) from Imaging Studies Chest X-Ray 04/20/24 15:50 IMPRESSION: No radiographic evidence of acute cardiopulmonary disease. Electronically Signed: Umberto Hilario MD at 16:30 EST Reading Location ID and State: [facility] / [place] Tel , Service support , EKG Initial EKG: Interpretation: Sinus Rhythm (63 with occasional PVCs), RBBB (Incomplete) and Non-Specific ST Changes Comments: EKG was obtained. On my independent interpretation, it showed a normal sinus rhythm with occasional PVC with a rate of 63. CO interval, QRS interval, and QTc intervals were all normal. [place] was normal. There is an incomplete right bundle branch block pattern. There are nonspecific ST-T wave changes. Prior EKG tracings: available for review Prior: Unchanged (12/15/2023) Management Discussion w/another healthcare provider: Hospitalist (Dr. Morales) Treatment and Re-Evaluation :: Patient was given a dose of Solu-Medrol here. Patient was advised of his findings. Patient has been having oxygen saturations in the low 90s even on the 40% Venturi mask. Because of this, I recommended admission to the hospital. Patient is agreeable with this. Case was discussed with the hospitalist. He will admit the patient to PCU. Patient understood and was agreeable with the plan. All questions were answered. Discharge Plan Dx/Rx/DC Orders Clinical Impression: RSV (respiratory syncytial virus infection), CAD (coronary artery disease), Hypoxia Disposition Disposition: Acute Care Hospital [facility]
--- NOTE | 2024-04-20 15:32 | EKG12_ITS ---
Test Reason : SOB Blood Pressure : */* mmHG Vent. Rate : 63 BPM Atrial Rate : 63 BPM P-R Int : 124 ms QRS Dur : 122 ms QT Int : 428 ms P-R-T Axes : 62 71 18 degrees QTcB Int : 437 ms Sinus rhythm with marked sinus arrhythmia with occasional Premature ventricular complexes Confirmed by GEORGE CASTRO, LAINEY ([id number]), editor magazine [employer]IGIA COLLAZO (1950) on 04/22/2024 8:38:51 AM Referred By: JUAN ANTONIO/ABRIL Confirmed By: LAINEY VAZQUEZ MD
[2024-04-20 15:46] LABS: Absolute Lymphocyte Count 1.12 X10^3/uL (0.83-4.51); Absolute Neutrophil Count 7.4 X10^3/uL (2.0-7.7); Basophil# 0.09 X10^3/uL; Eosinophil# 0.15 X10^3/uL; Eosinophils% 1.6 % (0-5); Hematocrit 40.3 % (40-54); Hemoglobin 13.8 g/dL (13.0-16.5); Lymphocyte # 1.12 X10^3/ul (0.83-4.51); Lymphocyte % 12.1 % (19-41); Mean Corp Hgb Conc 34.2 g/dL (32-36); Mean Corpuscular Hgb 31.6 pg (27.0-32.0); Mean Corpuscular Volume 92.2 fL (80-94); Mean Platelet Vol. 10.2 fl (6.2-12.0); Monocyte# 0.43 X10^3/uL; Monocyte% 4.7 % (0-10); NRBC Flagged by Analyzer 0 % (0-5); Neutrophil # 7.38 X10^3/uL (2.7-7.7); Neutrophil % 79.9 % (47-70); Platelet Count 281 K/mm3 (150-450); RBC Distribution Width CV 14.5 % (11.6-14.6); RBC Distribution Width SD 48.9 fl (35.1-43.9); Red Blood Count 4.37 M/mm3 (4.6-6.2); White Blood Count 9.2 K/mm3 (4.4-11.0)
--- NOTE | 2024-04-20 15:50 | RAD_ITS ---
INDICATION: Dyspnea EXAMINATION/TECHNIQUE: X-RAY - XR Chest 2 Views COMPARISON: Chest x-ray 12/14/2023, CTA chest 12/15/2023 FINDINGS: LINES/DEVICES: None. LUNGS: No consolidation, edema or effusion. No pneumothorax. Stable emphysematous and fibrotic changes. MEDIASTINUM AND CARDIOVASCULAR STRUCTURES: Cardiac silhouette stable within upper normal limits. CABG changes. BONES AND SOFT TISSUES: Unremarkable. RAD/Chest PA and Lateral IMPRESSION: No radiographic evidence of acute cardiopulmonary disease. Electronically Signed: Umberto Hilario MD at 16:30 EST ,
[2024-04-20 16:05] LABS: Anion Gap 6 (5-15); BUN 15 mg/dL (7-18); BUN/Creat Ratio 14.6 RATIO (10-20); Calcium,Total 9.6 mg/dL (8.5-10.1); Chloride 109 mmol/L (98-107); Creatinine, Serum 1.03 mg/dL (0.70-1.30); EST Glomerular Filtration Rate 76 mL/min (>60); Est Glom Filt Rate - Afr Amer 92 mL/min (>60); Estimated Creatinine Clearance 73.15 ml/min; Glucose 149 mg/dL (74-106); Potassium 3.2 mmol/L (3.5-5.1); Sodium Level 138 mmol/L (136-145); Troponin-I HS (w/2H Reflex) 50 pg/mL (3.0-78.0)
[2024-04-20] MEDS: Aspirin 81 MG TAB.CHEW 324 MG PO (16:07)
[2024-04-20 16:26] LABS: Lactic Acid 1.9 mmol/L (0.4-1.9)
[2024-04-20] MEDS: MethylPREDNISolone 125 MG/2 ML Vial 60 MG IV (17:18)
[2024-04-20 17:25] LABS: Troponin-I HS 46 pg/mL (3.0-78.0)
--- NOTE | 2024-04-20 17:38 | HP.PCM.HOS_ITS ---
[facility] - General General Date of Admission: 04/20/24 Date of Service: 04/20/24 Chief Complaint: Worsening shortness of breath with productive cough HPI Narrative ANDRZEJ LLOYD, is a 68 M who presented to [facility] ED on 04/20/2024 with worsening shortness of breath and productive cough. Patient has history of end-stage COPD with emphysema. He currently wears 5 to 6 L nasal cannula at rest and increases to 10 L with exertion. He is wearing 5 to 6 L nasal cannula at night as well. He was last hospitalized here in November and CT chest then showed severe emphysematous and fibrotic changes in the lungs. Patient follows with outpatient pulmonology through the [place]. During that admission Dr. Qureshi recommended that patient follow-up closely with his outpatient software design analyst for secondary workup for pulmonary fibrosis and also recommended the patient's start triple therapy inhaler regimen after discharge. Patient does report being on triple therapy and had been doing well until 3 to 4 days ago. He began to develop worsening shortness of breath from his baseline as well as a cough with sputum production. Notes that several family members have been sick with upper respiratory symptoms recently. Because of his worsening symptoms, he came to the ED for further evaluation. In the ED he was found to be positive for RSV. Denies being vaccinated against RSV though he states he has been vaccinated for flu and COVID. His hypoxia was worsened from baseline and he was requiring 8 L at rest to maintain oxygen saturations around 90%. He was otherwise afebrile and hemodynamically stable. Labs were unremarkable. Chest x-ray showed stable emphysematous and fibrotic changes with no acute findings. Patient was given dose of IV Solu-Medrol and hospitalist was contacted for admission. I saw the patient at bedside in the ED. Patient was mildly fatigued appearing but otherwise sitting up comfortably in bed and breathing comfortably on 8 L nasal cannula at rest. He reported continued cough with sputum production here. However he denied any wheezing or tightness in his upper chest today over the past few days. Denies any fevers or chills. On exam patient did have fairly good air movement with only mild tightness noted and no significant wheezing noted. No other acute concerns at this time. [facility] Medical History Kidney stones On home oxygen therapy Congestive heart failure (CHF) COPD (chronic obstructive pulmonary disease) Prediabetes COVID-19 High cholesterol Hypertension Myocardial infarction Coronary artery disease Home Medications ?Medication ?Instructions ?Recorded ?Last Taken ?Type albuterol sulfate 90 mcg/actuation 1 inh inhalation Q6H shortness of 06/10/23 Unknown History aerosol inhaler (ProAir HFA) breath amlodipine 2.5 mg tablet 5 mg PO DAILY Blood pressure 06/10/23 06/10/23 History aspirin 81 mg chewable tablet 1 tab PO DAILY heart health 06/10/23 06/10/23 History carvedilol 3.125 mg tablet 3.125 mg PO BID blood pressure 06/10/23 06/10/23 History isosorbide mononitrate 30 mg 30 mg PO DAILY heart 06/10/23 06/10/23 History tablet,extended release 24 hr losartan 50 mg tablet 50 mg PO DAILY Blood pressure 06/10/23 06/10/23 History pravastatin 20 mg tablet 40 mg PO QHS Cholesterol 06/10/23 06/09/23 History tiotropium 2.5 mcg-olodaterol 2.5 2 inh inhalation DAILY pulmonary 12/15/23 Unknown History mcg/actuation mist for inhalation HTN (Stiolto Respimat) budesonide 90 mcg/actuation breath 1 inh inhalation BID #1 ea 12/20/23 Unknown Rx activated powder inhaler Allergy/AdvReac Type Severity Reaction Status Date / Time Iodinated Contrast Media (iv Allergy Intermediate Other Verified 12/15/23 02:04 contrast) Lwzkgqk-ZVQ-JeM Reductase AdvReac Other Verified 12/15/23 01:32 Inhibitor (Pmhhpvp-Xqx-Rkq Reductase Inhibitor) Surgical History Hx of knee surgery Hx of CABG Social History (Updated 04/20/24 @ 15:[address] August Brandon DO) Smoking Status: Former smoker alcohol intake: never substance use type: other details: Occasional THC Gummies ROS Constitutional Constitutional: Reports fatigue; Denies chills, fever(s) or weakness ENT HEENT: Reports nasal congestion and nasal discharge; Denies sinus pressure Cardiovascular Cardiovascular: Denies chest pain Respiratory/Chest Respiratory/Chest: Reports cough, productive cough, shortness of breath at rest and shortness of breath with exertion; Denies wheezing Gastrointestinal Gastrointestinal: Denies abdominal pain Musculoskeletal Musculoskeletal: Denies arthralgias or myalgias Vital Signs Vital Signs Vital Signs: 04/20/24 14:38 04/20/24 14:50 04/20/24 15:00 Temperature 97.7 F L Temperature Source Oral Pulse Rate 72 Respiratory Rate 18 Respiratory Effort Short of Breath Respiratory Depth Shallow Respiratory Pattern Tachypnea Blood Pressure 133/85 H Blood Pressure Mean 101 Pulse Ox 75 97 Oxygen Delivery Method Nasal Cannula Venturi Mask Venturi Mask Oxygen Flow Rate (L/min) 6 12 12 Fraction of Inspired Oxygen (FIO2) 50 04/20/24 15:03 04/20/24 16:00 04/20/24 16:06 Temperature 97.7 F L Temperature Source Oral Pulse Rate 74 Respiratory Rate 13 Respiratory Effort Respiratory Depth Respiratory Pattern Blood Pressure 122/61 H Blood Pressure Mean 81 Pulse Ox 91 91 Oxygen Delivery Method Venturi Mask Venturi Mask Venturi Mask Oxygen Flow Rate (L/min) 8 12 12 Fraction of Inspired Oxygen (FIO2) 40 04/20/24 17:00 Temperature 97.7 F L Temperature Source Oral Pulse Rate 76 Respiratory Rate 14 Respiratory Effort Respiratory Depth Respiratory Pattern Blood Pressure 126/77 H Blood Pressure Mean 93 Pulse Ox 93 Oxygen Delivery Method Venturi Mask Oxygen Flow Rate (L/min) 8 Fraction of Inspired Oxygen (FIO2) Weight Weight: 75.342 kg Body Mass Index (BMI) 22.5 Physical Exam Const alert, oriented x3, no apparent distress and average body habitus Constitutional Narrative: Pleasant elderly male, mildly fatigued appearing, otherwise breathing comfortably on 8 L nasal cannula at rest, sitting up comfortably in bed, conversing normally with no conversational dyspnea. General Appearance: cooperative and comfortable HEENT normocephalic, head/scalp atraumatic, hearing grossly normal bilaterally, nasal mucous membranes and turbinates normal and moist oral mucous membranes Eyes PERRL, EOMs intact bilaterally and conjunctivae normal Neck full ROM Chest inspection of chest normal Resp normal respiratory effort and no use of accessory muscles Resp Narrative: Breathing comfortably on 8 L nasal cannula at rest. Mildly decreased breath sounds bilaterally but otherwise fairly good air movement throughout and no wheezing noted. Cardio regular rate, regular rhythm, no murmurs and peripheral pulses 2+ throughout GI normal to inspection, nondistended, normoactive bowel sounds, soft to palpation, non-tender and non-distended Back/Spine normal ROM Extremity normal to inspection, full ROM and no pedal edema Skin no rashes or lesions noted Psych mental status grossly normal Results Lab / Micro Data 04/20/24 14:30 04/20/24 14:30 Labs: Laboratory Results - last 24 hr 04/20/24 14:30: WBC 9.2, RBC 4.37 L, Hgb 13.8, Hct 40.3, MCV 92.2, MCH 31.6, MCHC 34.2, RDW Std Deviation 48.9 H, RDW Coeff of Taylor 14.5, Plt Count 281, MPV 10.2, Immature Gran % (Auto) 0.700, Neut % (Auto) 79.9 H, Lymph % (Auto) 12.1 L, [place] % (Auto) 4.7, Eos % (Auto) 1.6, Baso % (Auto) 1.0, Absolute Neuts (auto) 7.4, Absolute Lymphs (auto) 1.12, Nucleated RBC % 0, Sodium 138, Potassium 3.2 L , Chloride 109 H, Carbon Dioxide 23.0, Anion Gap 6, BUN 15, Creatinine 1.03, Estim Creat Clear Calc 73.15, Est GFR (MDRD) Af Amer 92, Est GFR (MDRD) Non-Af 76, BUN/Creatinine Ratio 14.6, Glucose 149 H, Calcium 9.6, Troponin I High Sens 50 04/20/24 15:43: Lactic Acid 1.9 04/20/24 17:02: Troponin I High Sens 46 Micro: Microbiology 04/20/24 15:43 Mucosa - Nasopharyngeal SARS-CoV-2, Influenza & RSV (PCR) - Final Imaging Radiology Impression Chest X-Ray 04/20/24 15:50 IMPRESSION: No radiographic evidence of acute cardiopulmonary disease. Electronically Signed: Umberto Hilario MD at 16:30 EST , Assessment & Plan Assessment/Plan (1) COPD exacerbation: (2) RSV (respiratory syncytial virus infection): PLAN: Plan Patient is a 68-year-old male who presented [facility] ED on 04/20/2024 with productive cough and worsening shortness of breath. 1. 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 Admit under inpatient status to PCU. See HPI for further details on patient history. RSV positive in the ED. Patient is on 5 to 6 L nasal cannula at rest and 10 L with exertion at home, was requiring 8 L nasal cannula at rest on admit. Will treat with IV Solu-Medrol 40 mg every 8 hours and scheduled DuoNebs for now. Lower concern for superimposed bacterial infection, will hold on antibiotics. Procalcitonin ordered. Continue home long-acting inhalers. Can consider pulmonology consult as needed. 2. Mild hypokalemia ? Potassium 3.2 on admit. Mag and Phos ordered. Replete as needed. 3. History of nonobstructive CAD, hypertension, hyperlipidemia ? EKG on admit showed normal sinus rhythm with no ST changes. Continue home aspirin, amlodipine, nitrate, losartan and statin. Patient apparently self discontinued home Coreg for unclear reason, will hold for now. DVT prophylaxis: Lovenox CODE STATUS: DNR CCA, DNI Expected disposition: Home, TBD Total clinical time spent by myself addressing the patient's medical issues, reviewing all the data, and collaborating with patient's care team: 55 minutes. Charges/Coding Visit Charges Inpatient E&M: 31588 Init Hosp L2
[2024-04-20 17:41] LABS: Reflex Troponin-HS? (from REC) Y
[2024-04-20 18:14] LABS: Bacteria 0 SEEN /hpf (None Seen); Mucous, Urine 0 SEEN /hpf (<or=2+)
[2024-04-20 18:19] LABS: Color, Urine Yellow (Yellow); Glucose, Dipstick Normal (Normal); Ketone-Dipstick Negative (Negative); Leukocyte Esterase-Dipstick Negative /ul (Negative); Nitrite-Dipstick Negative (Negative); Occult Blood-Urine Negative /ul (Negative); Protein-Dipstick 30 mg/dl (Negative); Urine Bilirubin Dipstick Negative (Negative); Urine Clarity Clear (Clear); Urine Urobilinogen Normal (Normal)
--- NOTE | 2024-04-20 18:33 | NURSING ---
[facility] [place] Patient would rather stay at [facility].
[2024-04-20 19:03] LABS: Red Blood Cells-Urine 0-5 SEEN /hpf (0-5); White Blood Cells 0-5 SEEN /hpf (0-5)
[2024-04-20 19:04] LABS: Hyaline Cast 0-5 SEEN /lpf (0-5); Squamous Epithelial Cells - UA 0-5 SEEN /hpf (0-5)
[2024-04-20] MEDS: Budesonide Respules 0.5 MG/2 ML AMPUL.NEB. INHALATION (21:03)
[2024-04-20] MEDS: Ipratropium/Albuterol Sulfate 3 ML AMPUL.NEB INHALATION (21:04)
[2024-04-20] MEDS: 0.9% Saline Lock 10 ML Syringe IV (22:03)
[2024-04-20] MEDS: Pravastatin 40 MG Tablet PO (22:03)
[2024-04-20] MEDS: Potassium Chloride Oral Tablet 20 MEQ 40 MEQ PO (22:42)
[2024-04-20 22:54] LABS: Procalcitonin 0.19 ng/mL (0.00-0.09)
[2024-04-21] VITALS (14 sets, daily range): BP systolic 112–133; BP diastolic 69–81; PULSE 69–106; RESP 12–24; TEMP 36.3–36.8; O2SAT 93–96
[2024-04-21 01:39] LABS: Phosphorus 2.3 mg/dL (2.5-4.9)
[2024-04-21] MEDS: 0.9% Saline Lock 10 ML Syringe IV ×2 (05:58→21:29)
[2024-04-21] MEDS: Budesonide Respules 0.5 MG/2 ML AMPUL.NEB. INHALATION (07:06)
[2024-04-21] MEDS: Ipratropium/Albuterol Sulfate 3 ML AMPUL.NEB INHALATION ×3 (07:06→14:02)
[2024-04-21 07:20] LABS: Hematocrit 38.2 % (40-54); Mean Corpuscular Hgb 31.1 pg (27.0-32.0); Mean Corpuscular Volume 91.4 fL (80-94); Mean Platelet Vol. 10.4 fl (6.2-12.0); Platelet Count 288 K/mm3 (150-450); RBC Distribution Width CV 14.4 % (11.6-14.6); RBC Distribution Width SD 48.2 fl (35.1-43.9); Red Blood Count 4.18 M/mm3 (4.6-6.2); White Blood Count 5.8 K/mm3 (4.4-11.0)
[2024-04-21 07:39] LABS: Anion Gap 9 (5-15); BUN 18 mg/dL (7-18); BUN/Creat Ratio 14.8 RATIO (10-20); Calcium,Total 9.5 mg/dL (8.5-10.1); Chloride 111 mmol/L (98-107); Creatinine, Serum 1.22 mg/dL (0.70-1.30); EST Glomerular Filtration Rate 63 mL/min (>60); Est Glom Filt Rate - Afr Amer 76 mL/min (>60); Estimated Creatinine Clearance 58.69 ml/min; Glucose 151 mg/dL (74-106); Potassium 3.8 mmol/L (3.5-5.1); Sodium Level 138 mmol/L (136-145)
[2024-04-21] MEDS: Aspirin 81 MG TAB.CHEW PO (08:47)
[2024-04-21] MEDS: Losartan Potassium 50 MG Tablet PO (08:47)
[2024-04-21] MEDS: amLODIPine 5 MG Tablet PO (08:47)
[2024-04-21] MEDS: Isosorbide Mononitrate 30 MG Tablet PO (08:47)
[2024-04-21] MEDS: Enoxaparin 40 MG/0.4 ML Syringe SC (08:47)
--- NOTE | 2024-04-21 17:27 | EKG12_ITS ---
Test Reason : CP Blood Pressure : */* mmHG Vent. Rate : 100 BPM Atrial Rate : 100 BPM P-R Int : 122 ms QRS Dur : 118 ms QT Int : 332 ms P-R-T Axes : 52 57 27 degrees QTcB Int : 428 ms Sinus rhythm with Premature atrial complexes Incomplete right bundle branch block Nonspecific ST and T wave abnormality Abnormal ECG When compared with ECG of 20-Apr-2024 14:48, MANUAL COMPARISON REQUIRED DATA IS UNCONFIRMED Confirmed by GEORGE CASTRO, LAINEY ([id number]), clinical editor BECKY SHARMA ([id number]) on 04/22/2024 11:10:40 AM Referred By: BIJU Confirmed By: LAINEY VAZQUEZ MD
[2024-04-21] MEDS: Acetaminophen 325 MG Tablet 650 MG PO (17:54)
[2024-04-21] MEDS: Carvedilol 3.125 MG TABLET PO (18:47)
--- NOTE | 2024-04-21 20:15 | NURSING ---
[facility], patient very upset stating he has had chest pain all day, no one is doing anything about it. Patient stated he took one dose of his home nitroglycerin. Also stating he wants to take his coreg and we have not given it to him, stating you guys are just leaving me here to with my high heart rate, its way to high. Educated patient about heart rate, and that he is on a continous monitor that would alarm if his heart rate was too high. Attempted to educate that low 100s for heart rate was not a medical emergency and would talk to MD about ordering coreg and would get an ekg and something for his chest pain. Patient stating he wants to leave AMA. Educated that is his right, also educated about high o2 demand. MD notified, tylenol given, ekg obtained. Home meds locked.
[2024-04-21] MEDS: Pravastatin 40 MG Tablet PO (21:29)
[2024-04-22] VITALS (10 sets, daily range): BP systolic 91–114; BP diastolic 60–86; PULSE 77–102; RESP 14–22; TEMP 35.9–36.6; O2SAT 90–98
[2024-04-22] MEDS: 0.9% Saline Lock 10 ML Syringe IV ×2 (05:22→14:50)
[2024-04-22] MEDS: Budesonide Respules 0.5 MG/2 ML AMPUL.NEB. INHALATION ×2 (07:30→19:36)
[2024-04-22] MEDS: Ipratropium/Albuterol Sulfate 3 ML AMPUL.NEB INHALATION ×4 (07:30→19:36)
[2024-04-22] MEDS: Acetaminophen 325 MG Tablet 650 MG PO (08:18)
[2024-04-22 08:35] LABS: Albumin, Serum 3.2 g/dL (3.2-5.0); BUN 24 mg/dL (7-18); BUN/Creat Ratio 21.8 RATIO (10-20); Calcium,Total 9.2 mg/dL (8.5-10.1); Chloride 111 mmol/L (98-107); EST Glomerular Filtration Rate 71 mL/min (>60); Est Glom Filt Rate - Afr Amer 85 mL/min (>60); Estimated Creatinine Clearance 65.09 ml/min; Glucose 142 mg/dL (74-106); Phosphorus 3.1 mg/dL (2.5-4.9); Sodium Level 139 mmol/L (136-145)
[2024-04-22] MEDS: Aspirin 81 MG TAB.CHEW PO (10:27)
[2024-04-22] MEDS: Carvedilol 3.125 MG TABLET PO (10:27)
--- NOTE | 2024-04-22 12:10 | PN.HOSP_ITS ---
Reason for Visit Reason for Visit: Diagnoses Other specified viral diseases (04/20/24) Chronic obstructive pulmonary disease with (acute) exacerbation (04/20/24) Subjective Subjective Saw patient at bedside this morning. Patient was sitting up comfortably in bed. He was somewhat anxious appearing. Was otherwise breathing comfortably on Airvo at 55 L. Patient reports feeling similar today to yesterday. Denies any shortness of breath at rest but has not tried to get out of bed yet this morning. Denies any chest pain or palpitations today. Notes that he is somewhat frustrated by his lack of improvement but understands that it may take some time for him to get better from this RSV infection. No other new concerns today. Objective Data Objective Data Vital Signs: Vital Signs Temp Pulse Resp BP Pulse Ox O2 Del Method O2 Flow Rate 97.8 F 84 16 91/72 93 Airvo 55 04/22/24 10:23 04/22/24 10:55 04/22/24 10:55 04/22/24 10:23 04/22/24 10:55 04/22/24 10:23 04/22/24 07:33 FiO2 50 04/22/24 10:55 Oxygen Flow Rate (L/min) 55 Oxygen Delivery Method Airvo Weight: 71.6 kg Body Mass Index (BMI) 21.4 Intake & Output: Intake and Output for Last 24 Hours 04/20/24 04/21/24 04/22/24 23:59 23:59 23:59 Intake Total 500 / 500 Output Total 700 / 925 350 / 350 Balance -200 / -425 -350 / -350 Medical Nutrition Assessment Dietitian: Malnutrition Criteria Met Start: 04/21/24 09:52 Freq: Status: Active Protocol: Document 04/21/24 09:52 LO (Rec: 04/21/24 09:52 [id number]) Nutrition Malnutrition Evidence of Malnutrition Exists Yes Malnutrition (severe): Acute Illness/Injury Evidenced By Suboptimal Energy Intake ( Severe),Weight Loss (Severe) Clinical Problem Acute Disease or Injury Related Malnutrition Etiology severe related to COPD exacerbation, RSV, and decreased appetite Signs/Symptoms as evidenced by PO intakes meeting <50% of estimated nutrition needs for 2-3 weeks and 9.7% unintentional weight loss in ~1 month Status Active Problem Recommendation Dietitian Recommendations/Changes Continue liberalized regular diet to optimize oral intakes. If pt begins to retain fluid, recommend low sodium diet to manage CHF. RD will order 120mL ensure plus high protein 4x daily with medpass to provide supplemental energy Lab / Micro Data 04/21/24 06:20 04/22/24 08:00 Labs: Laboratory Results - last 24 hr 04/22/24 08:00: Sodium 139, Potassium 4.0, Chloride 111 H, Carbon Dioxide 21.0, BUN 24 H, Creatinine 1.10, Estim Creat Clear Calc 65.09, Est GFR (MDRD) Af Amer 85, Est GFR (MDRD) Non-Af 71, BUN/Creatinine Ratio 21.8 H, Glucose 142 H, Calcium 9.2, Phosphorus 3.1, Albumin 3.2 Micro: Microbiology 04/20/24 15:43 Mucosa - Nasopharyngeal SARS-CoV-2, Influenza & RSV (PCR) - Final RSV Physical Exam Const alert, oriented x3, no apparent distress and average body habitus Constitutional Narrative: Elderly male, somewhat anxious appearing but otherwise sitting up comfortably in bed, breathing comfortably on Airvo at 55 L and conversing normally with no conversational dyspnea. General Appearance: cooperative and comfortable HEENT normocephalic, head/scalp atraumatic, hearing grossly normal bilaterally, nasal mucous membranes and turbinates normal and moist oral mucous membranes Eyes PERRL, EOMs intact bilaterally and conjunctivae normal Neck full ROM Chest inspection of chest normal Resp normal respiratory effort and no use of accessory muscles Resp Narrative: Breathing comfortably on Airvo at 55 L at rest. Mildly decreased breath sounds bilaterally throughout but otherwise with fairly good air movement and no wheezing or crackles noted. Cardio regular rate, regular rhythm, no murmurs and peripheral pulses 2+ throughout GI normal to inspection, nondistended, normoactive bowel sounds, soft to palpation, non-tender and non-distended Back/Spine normal ROM Extremity normal to inspection, full ROM and no pedal edema Skin no rashes or lesions noted Psych mental status grossly normal Mood & Affect: anxious Assessment & Plan Assessment/Plan (1) COPD exacerbation: (2) RSV (respiratory syncytial virus infection): PLAN: Plan Patient is a 68-year-old male who presented [facility] ED on 04/20/2024 with productive cough and worsening shortness of breath. 1. 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 See H&P for further details on patient history. RSV positive in the ED. Patient is on 8 L nasal cannula at rest and with exertion, was requiring Airvo on admit. Continues to require Airvo 55 L at rest on 04/22, similar to admit. Will continue to treat with IV Solu-Medrol 40 mg every 8 hours and scheduled DuoNebs. Procalcitonin normal, low concern for superimposed bacterial infection, continue to hold on antibiotics. Continue home long-acting inhalers. 2. Mild hypokalemia, resolved ? Potassium 3.2 on admit. Mag and Phos normal. Repleted with improvement. 3. History of nonobstructive CAD, hypertension, hyperlipidemia ? EKG on admit showed normal sinus rhythm with no ST changes. Has had borderline hypotension during this hospitalization. Will continue home Coreg, aspirin and statin. Will hold home amlodipine, nitrate and losartan for now. DVT prophylaxis: Lovenox CODE STATUS: DNR CCA, DNI Expected disposition: Home, TBD Total clinical time spent by myself addressing the patient's medical issues, reviewing all the data, and collaborating with patient's care team: 35 minutes. Charges/Coding Visit Charges Inpatient E&M: 89316 Subs Hosp L2
[2024-04-22] MEDS: Isosorbide Mononitrate 30 MG Tablet PO (12:37)
[2024-04-22] MEDS: Enoxaparin 40 MG/0.4 ML Syringe SC (12:38)
--- NOTE | 2024-04-22 15:15 | CASEMGMT ---
KATI CAMERON assessment: KATI CAMERON to room to meet with patient for initial transition planning/care coordination assessment. KATI CAMERON introduced self and role at [facility]. Patient lying in bed, alert and oriented. Airvo in place. Patient willing to participate in assessment and is able to answer all questions appropriately. Care providers, pharmacy, and demographics verified. Strata: 3 PCP: Trip Starkey Specialists: Cardologist and documentation liaison at [place] Preferred Pharmacy: [facility] for short-term fill, otherwise [facility] Insurance: [facility], [place] Prescription Benefit: [facility] only LNOK: Living Arrangements: Patient lives with and 24-yr-old daughter in a 3 story home w/5 steps to enter. Pt has to use all levels, but has stair lift inside the home. He does not have lift to enter the home, but states he has [facility] w[facility]the [facility] about this and they can assist w/this, but states he has been putting it off. He states he has not left his home for a few months, so he has not had to navigate them for awhile. He does not typically use AD to ambulate. Pt is indep w/ADL's and does home mgnt tasks. Transportation: DME: Patient has shower chair, hand held shower, cpap (but does not use d/t did not like it), nebulizer, pulse ox, W/C for long distances, stair lift in the home, lift chair, and home oxygen [facility]ability through [facility]. He states he uses 5-6 l/m @ rest and 10 l/m w/exertion. Home O2 orders will need verified w/[facility]. Pt has a concentrator and portability that his can bring in for him to go home on, but he is not sure how high the liter flow can go on them. GUNNER Womack RN, CM, made aware. Pt denies need for further DME. He does not use AD to ambulate @ baseline. HHC/SNF: No previous HHC or SNF. Discussed discharge planning. Pt wishes to dc home and would like [facility] HHC for SN only, and declines wanting list of other HHC options. Call to Alba @ [facility] and referral made. She is aware to call Shanta PARIKH CM w/ response. Pt states denies needing further assistance in the home. He states he has [facility] SW contact info and plans to f/u with her once he returns home re: aide for home tasks and to see what other things they can provide for on-going/long-term and denies needing assistance from [facility] SW/CM at this time. Palliative: discussed Palliative care and questions answered. He is not interested in a referral at this time. Patient states he has no further needs or concerns at this time. CM to follow for discharge planning needs that may arise. Plan: Home w/HHC and family support. Monitor for increase in home oxygen. Alona TOLENTINON RN CM
[2024-04-22] MEDS: Pravastatin 40 MG Tablet PO (21:41)
[2024-04-23] VITALS (12 sets, daily range): BP systolic 99–108; BP diastolic 54–74; PULSE 67–85; RESP 14–20; TEMP 35.9–36.6; O2SAT 94–96
[2024-04-23] MEDS: Ipratropium/Albuterol Sulfate 3 ML AMPUL.NEB INHALATION ×4 (06:53→19:38)
[2024-04-23] MEDS: Budesonide Respules 0.5 MG/2 ML AMPUL.NEB. INHALATION ×2 (06:53→19:38)
[2024-04-23 07:42] LABS: Hematocrit 34.7 % (40-54); Hemoglobin 11.7 g/dL (13.0-16.5); Mean Corp Hgb Conc 33.7 g/dL (32-36); Mean Corpuscular Hgb 31.5 pg (27.0-32.0); Mean Corpuscular Volume 93.3 fL (80-94); Mean Platelet Vol. 10.4 fl (6.2-12.0); Platelet Count 259 K/mm3 (150-450); RBC Distribution Width CV 14.6 % (11.6-14.6); RBC Distribution Width SD 49.5 fl (35.1-43.9); Red Blood Count 3.72 M/mm3 (4.6-6.2); White Blood Count 15.3 K/mm3 (4.4-11.0)
[2024-04-23] MEDS: Acetaminophen 325 MG Tablet 650 MG PO (07:52)
[2024-04-23 07:58] LABS: BUN 27 mg/dL (7-18); BUN/Creat Ratio 26.2 RATIO (10-20); Chloride 107 mmol/L (98-107); Creatinine, Serum 1.03 mg/dL (0.70-1.30); EST Glomerular Filtration Rate 76 mL/min (>60); Est Glom Filt Rate - Afr Amer 92 mL/min (>60); Estimated Creatinine Clearance 69.51 ml/min; Glucose 126 mg/dL (74-106); Phosphorus 3.3 mg/dL (2.5-4.9); Potassium 3.8 mmol/L (3.5-5.1); Sodium Level 138 mmol/L (136-145)
[2024-04-23] MEDS: Carvedilol 3.125 MG TABLET PO (09:01)
[2024-04-23] MEDS: Enoxaparin 40 MG/0.4 ML Syringe SC (09:02)
[2024-04-23] MEDS: Aspirin 81 MG TAB.CHEW PO (09:02)
--- NOTE | 2024-04-23 11:36 | PCM.PN.HOSP ---
Reason for Visit Reason for Visit: Diagnoses Other specified viral diseases (04/20/24) Chronic obstructive pulmonary disease with (acute) exacerbation (04/20/24) Subjective Subjective Saw patient at bedside this morning. Patient appeared similar today to yesterday. Was still on Airvo with high oxygen requirements. Was laying back comfortably in bed and breathing comfortably on this. Was conversing normally with no conversational dyspnea noted. No other new concerns today. Objective Data Objective Data Vital Signs: Vital Signs Temp Pulse Resp BP Pulse Ox O2 Del Method O2 Flow Rate 97.6 F L 83 14 104/60 95 Airvo 50 04/23/24 09:00 04/23/24 09:00 04/23/24 09:00 04/23/24 09:00 04/23/24 09:00 04/23/24 09:00 04/23/24 09:00 FiO2 53 04/23/24 09:00 Oxygen Flow Rate (L/min) 50 Oxygen Delivery Method Airvo Weight: 71.6 kg Body Mass Index (BMI) 21.4 Intake & Output: Intake and Output for Last 24 Hours 04/21/24 04/22/24 04/23/24 23:59 23:59 23:59 Intake Total 500 / 500 Output Total 700 / 925 450 / 450 300 / 300 Balance -200 / -425 -450 / -450 -300 / -300 Medical Nutrition Assessment Dietitian: Malnutrition Criteria Met Start: 04/21/24 09:52 Freq: Status: Active Protocol: Document 04/21/24 09:52 (Rec: 04/21/24 09:52 [id number]) Nutrition Malnutrition Evidence of Malnutrition Exists Yes Malnutrition (severe): Acute Illness/Injury Evidenced By Suboptimal Energy Intake ( Severe),Weight Loss (Severe) Clinical Problem Acute Disease or Injury Related Malnutrition Etiology severe related to COPD exacerbation, RSV, and decreased appetite Signs/Symptoms as evidenced by PO intakes meeting <50% of estimated nutrition needs for 2-3 weeks and 9.7% unintentional weight loss in ~1 month Status Active Problem Recommendation Dietitian Recommendations/Changes Continue liberalized regular diet to optimize oral intakes. If pt begins to retain fluid, recommend low sodium diet to manage CHF. RD will order 120mL ensure plus high protein 4x daily with medpass to provide supplemental energy Lab / Micro Data 04/23/24 07:24 04/23/24 07:24 Labs: Laboratory Results - last 24 hr 04/23/24 07:24: WBC 15.3 H, RBC 3.72 L, Hgb 11.7 L, Hct 34.7 L, MCV 93.3, MCH 31.5, MCHC 33.7, RDW Std Deviation 49.5 H, RDW Coeff of Taylor 14.6, Plt Count 259, MPV 10.4, Sodium 138, Potassium 3.8, Chloride 107, Carbon Dioxide 23.0, BUN 27 H, Creatinine 1.03, Estim Creat Clear Calc 69.51, Est GFR (MDRD) Af Amer 92, Est GFR (MDRD) Non-Af 76, BUN/Creatinine Ratio 26.2 H, Glucose 126 H, Calcium 9.0, Phosphorus 3.3, Albumin 3.0 L Micro: Microbiology 04/20/24 15:43 Mucosa - Nasopharyngeal SARS-CoV-2, Influenza & RSV (PCR) - Final RSV Physical Exam Const alert, oriented x3, no apparent distress and average body habitus Constitutional Narrative: Elderly male, mildly fatigued appearing but otherwise laying back comfortably in bed, breathing comfortably on Airvo at 50 L and conversing normally with no conversational dyspnea. General Appearance: cooperative and comfortable HEENT normocephalic, head/scalp atraumatic, hearing grossly normal bilaterally, nasal mucous membranes and turbinates normal and moist oral mucous membranes Eyes PERRL, EOMs intact bilaterally and conjunctivae normal Neck full ROM Chest inspection of chest normal Resp normal respiratory effort and no use of accessory muscles Resp Narrative: Breathing comfortably on Airvo at 50 L at rest. Mildly decreased breath sounds bilaterally throughout but otherwise with fairly good air movement and no wheezing or crackles noted. Stable. Cardio regular rate, regular rhythm, no murmurs and peripheral pulses 2+ throughout GI normal to inspection, nondistended, normoactive bowel sounds, soft to palpation, non-tender and non-distended Back/Spine normal ROM Extremity normal to inspection, full ROM and no pedal edema Skin no rashes or lesions noted Psych mental status grossly normal Assessment & Plan Assessment/Plan (1) COPD exacerbation: (2) RSV (respiratory syncytial virus infection): PLAN: Plan Patient is a 68-year-old male who presented [facility] ED on 04/20/2024 with productive cough and worsening shortness of breath. 1. 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 See H&P for further details on patient history. RSV positive in the ED. Patient is on 8 L nasal cannula at rest and with exertion, was requiring Airvo on admit. Continues to require Airvo 50 L at rest on 04/23, similar to admit. Will continue to treat with IV Solu-Medrol 40 mg every 8 hours and scheduled DuoNebs. Procalcitonin normal, low concern for superimposed bacterial infection, continue to hold on antibiotics. Continue home long-acting inhalers. 2. Mild hypokalemia, resolved ? Potassium 3.2 on admit. Mag and Phos normal. Repleted with improvement. 3. History of nonobstructive CAD, hypertension, hyperlipidemia ? EKG on admit showed normal sinus rhythm with no ST changes. Has had borderline hypotension during this hospitalization. Will continue home Coreg, aspirin and statin. Will hold home amlodipine, nitrate and losartan for now. DVT prophylaxis: Lovenox CODE STATUS: DNR CCA, DNI Expected disposition: TBD Total clinical time spent by myself addressing the patient's medical issues, reviewing all the data, and collaborating with patient's care team: 35 minutes. Charges/Coding Visit Charges Inpatient E&M: 14844 Subs Hosp L2
[2024-04-23] MEDS: guaiFENesin 1,200 MG Tablet 1200 MG PO (20:09)
[2024-04-23] MEDS: 0.9% Saline Lock 10 ML Syringe IV (20:13)
[2024-04-23] MEDS: MELATONIN 3 MG TABLET PO (22:21)
[2024-04-23] MEDS: Pravastatin 40 MG Tablet PO (22:21)
[2024-04-24] VITALS (21 sets, daily range): BP systolic 108–138; BP diastolic 74–92; PULSE 56–92; RESP 16–22; TEMP 36.2–36.6; O2SAT 89–97
[2024-04-24 04:55] LABS: Albumin, Serum 2.8 g/dL (3.2-5.0); BUN 33 mg/dL (7-18); Calcium,Total 8.7 mg/dL (8.5-10.1); Chloride 109 mmol/L (98-107); Creatinine, Serum 0.89 mg/dL (0.70-1.30); EST Glomerular Filtration Rate 90 mL/min (>60); Est Glom Filt Rate - Afr Amer 109 mL/min (>60); Estimated Creatinine Clearance 80.45 ml/min; Glucose 130 mg/dL (74-106); Phosphorus 2.7 mg/dL (2.5-4.9); Potassium 3.8 mmol/L (3.5-5.1); Sodium Level 139 mmol/L (136-145)
[2024-04-24] MEDS: 0.9% Saline Lock 10 ML Syringe IV ×4 (06:31→21:45)
[2024-04-24] MEDS: Ipratropium/Albuterol Sulfate 3 ML AMPUL.NEB INHALATION ×4 (07:05→19:23)
[2024-04-24] MEDS: Budesonide Respules 0.5 MG/2 ML AMPUL.NEB. INHALATION ×2 (07:05→19:22)
[2024-04-24] MEDS: guaiFENesin 1,200 MG Tablet 1200 MG PO ×2 (09:33→19:28)
[2024-04-24] MEDS: Enoxaparin 40 MG/0.4 ML Syringe SC (09:33)
[2024-04-24] MEDS: Carvedilol 3.125 MG TABLET PO (09:33)
[2024-04-24] MEDS: Acetaminophen 325 MG Tablet 650 MG PO ×2 (09:33→19:28)
[2024-04-24] MEDS: Aspirin 81 MG TAB.CHEW PO (09:34)
[2024-04-24] MEDS: Ensure Plus High Protein 120 ML LIQUID PO ×2 (09:35→13:07)
--- NOTE | 2024-04-24 11:05 | PCM.PN.HOSP ---
Reason for Visit Reason for Visit: Diagnoses Other specified viral diseases (04/20/24) Chronic obstructive pulmonary disease with (acute) exacerbation (04/20/24) Subjective Subjective Saw patient at bedside this morning. Patient was just finishing using a bedside commode when I saw him. He remained on Airvo and appeared similar today to previous days. He reported feeling about the same today without much improvement. Noted to him that I discussed his case with Dr. Qureshi with pulmonology who agreed to see him. No other new concerns today. Objective Data Objective Data Vital Signs: Vital Signs Temp Pulse Resp BP Pulse Ox O2 Del Method O2 Flow Rate 97.2 F L 75 16 124/84 H 95 Airvo 50 04/24/24 09:15 04/24/24 09:15 04/24/24 09:15 04/24/24 09:15 04/24/24 09:15 04/24/24 09:25 04/24/24 09:25 FiO2 53 04/24/24 09:25 Oxygen Flow Rate (L/min) 50 Oxygen Delivery Method Airvo Weight: 71.6 kg Body Mass Index (BMI) 21.4 Intake & Output: Intake and Output for Last 24 Hours 04/22/24 04/23/24 04/24/24 23:59 23:59 23:59 Intake Total 240 / 240 Output Total 450 / 450 900 / 1200 600 / 600 Balance -450 / -450 -900 / -1080 -360 / -360 Medical Nutrition Assessment Dietitian: Malnutrition Criteria Met Start: 04/21/24 09:52 Freq: Status: Active Protocol: Document 04/21/24 09:52 (Rec: 04/21/24 09:52 [id number]) Nutrition Malnutrition Evidence of Malnutrition Exists Yes Malnutrition (severe): Acute Illness/Injury Evidenced By Suboptimal Energy Intake ( Severe),Weight Loss (Severe) Clinical Problem Acute Disease or Injury Related Malnutrition Etiology severe related to COPD exacerbation, RSV, and decreased appetite Signs/Symptoms as evidenced by PO intakes meeting <50% of estimated nutrition needs for 2-3 weeks and 9.7% unintentional weight loss in ~1 month Status Active Problem Recommendation Dietitian Recommendations/Changes Continue liberalized regular diet to optimize oral intakes. If pt begins to retain fluid, recommend low sodium diet to manage CHF. RD will order 120mL ensure plus high protein 4x daily with medpass to provide supplemental energy Lab / Micro Data 04/23/24 07:24 04/24/24 03:19 Labs: Laboratory Results - last 24 hr 04/24/24 03:19: Sodium 139, Potassium 3.8, Chloride 109 H, Carbon Dioxide 23.0, BUN 33 H, Creatinine 0.89, Estim Creat Clear Calc 80.45, Est GFR (MDRD) Af Amer 109, Est GFR (MDRD) Non-Af 90, BUN/Creatinine Ratio 37.0 H, Glucose 130 H, Calcium 8.7, Phosphorus 2.7, Albumin 2.8 L Micro: Microbiology 04/20/24 15:43 Mucosa - Nasopharyngeal SARS-CoV-2, Influenza & RSV (PCR) - Final RSV Physical Exam Const alert, oriented x3, no apparent distress and average body habitus Constitutional Narrative: Elderly male, mildly fatigued appearing but otherwise laying back comfortably in bed, breathing comfortably on Airvo at 50 L and conversing normally with no conversational dyspnea. Stable. General Appearance: cooperative and comfortable HEENT normocephalic, head/scalp atraumatic, hearing grossly normal bilaterally, nasal mucous membranes and turbinates normal and moist oral mucous membranes Eyes PERRL, EOMs intact bilaterally and conjunctivae normal Neck full ROM Chest inspection of chest normal Resp normal respiratory effort and no use of accessory muscles Resp Narrative: Breathing comfortably on Airvo at 50 L at rest. Mildly decreased breath sounds bilaterally throughout but otherwise with fairly good air movement and no wheezing or crackles noted. Stable. Cardio regular rate, regular rhythm, no murmurs and peripheral pulses 2+ throughout GI normal to inspection, nondistended, normoactive bowel sounds, soft to palpation, non-tender and non-distended Back/Spine normal ROM Extremity normal to inspection, full ROM and no pedal edema Skin no rashes or lesions noted Psych mental status grossly normal Assessment & Plan Assessment/Plan (1) COPD exacerbation: (2) RSV (respiratory syncytial virus infection): PLAN: Plan Patient is a 68-year-old male who presented [facility] ED on 04/20/2024 with productive cough and worsening shortness of breath. 1. 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 See H&P for further details on patient history. RSV positive in the ED. Patient is on 8 L nasal cannula at rest and with exertion, was requiring Airvo on admit. Continues to require Airvo 50 L at rest on 04/23, similar to admit. Will continue to treat with IV Solu-Medrol 40 mg every 8 hours and scheduled DuoNebs. Procalcitonin normal, low concern for superimposed bacterial infection, continue to hold on antibiotics. Continue home long-acting inhalers. Patient remaining stable but without much improvement since admission, so pulmonology consulted on 04/24 for further evaluation. 2. Mild hypokalemia, resolved ? Potassium 3.2 on admit. Mag and Phos normal. Repleted with improvement. 3. History of nonobstructive CAD, hypertension, hyperlipidemia ? EKG on admit showed normal sinus rhythm with no ST changes. Has had borderline hypotension during this hospitalization. Will continue home Coreg, aspirin and statin. Continue holding home amlodipine, nitrate and losartan for now. DVT prophylaxis: Lovenox CODE STATUS: DNR CCA, DNI Expected disposition: TBD Total clinical time spent by myself addressing the patient's medical issues, reviewing all the data, and collaborating with patient's care team: 35 minutes. Charges/Coding Visit Charges Inpatient E&M: 40289 Subs Hosp L2
[2024-04-24] MEDS: MELATONIN 3 MG TABLET PO (21:45)
[2024-04-24] MEDS: Pravastatin 40 MG Tablet PO (21:45)
[2024-04-25] VITALS (10 sets, daily range): BP systolic 120–144; BP diastolic 78–86; PULSE 72–84; RESP 14–18; TEMP 36.1–36.6; O2SAT 90–94
[2024-04-25] MEDS: 0.9% Saline Lock 10 ML Syringe IV ×3 (05:32→21:38)
[2024-04-25] MEDS: Ipratropium/Albuterol Sulfate 3 ML AMPUL.NEB INHALATION ×4 (07:07→19:06)
[2024-04-25] MEDS: Budesonide Respules 0.5 MG/2 ML AMPUL.NEB. INHALATION ×2 (07:07→19:06)
[2024-04-25 08:02] LABS: Albumin, Serum 2.7 g/dL (3.2-5.0); BUN 30 mg/dL (7-18); BUN/Creat Ratio 36.5 RATIO (10-20); Calcium,Total 8.3 mg/dL (8.5-10.1); Chloride 105 mmol/L (98-107); Creatinine, Serum 0.82 mg/dL (0.70-1.30); EST Glomerular Filtration Rate 99 mL/min (>60); Est Glom Filt Rate - Afr Amer 120 mL/min (>60); Estimated Creatinine Clearance 87.32 ml/min; Glucose 148 mg/dL (74-106); Phosphorus 2.5 mg/dL (2.5-4.9); Potassium 3.6 mmol/L (3.5-5.1); Sodium Level 138 mmol/L (136-145)
--- NOTE | 2024-04-25 08:20 | EX.PCM.CONCC ---
Assessment & Plan Assessment/Plan (1) COPD exacerbation: (2) RSV (respiratory syncytial virus infection): PLAN: Plan RECOMMENDATIONS: 1. Supplemental oxygen to maintain saturations 88-92%. 2. Continue scheduled bronchodilators and IV steroids. 3. Obtain CTA chest. Will premedicate patient due to his reported allergy to contrast media. 4. Continue appropriate DVT prophylaxis. IMPRESSIONS: 1. Acute on chronic hypoxemic respiratory failure Likely secondary to COPD exacerbation precipitated by RSV infection. The patient has a known history of advanced age COPD and is currently followed by a gutter installer at the [facility]. At his baseline, the patient has been requiring 6 L/min of supplemental oxygen at rest and 10 L/min with exertion. In addition, he has radiographic evidence of pulmonary fibrosis, which has likely progressed with time. Given his tenuous respiratory status, we will plan to obtain follow-up CTA chest to rule out pulmonary embolism and to evaluate for progression of his interstitial disease. In the interim, I agree with continuing supportive care with supplemental oxygen, scheduled bronchodilators and IV steroids. 2. History of coronary artery disease status post CABG/history of tobacco dependency/diabetes mellitus/GERD/sleep apnea Complicates care, management, recovery and prognosis. Continue supportive care as noted above. This note was generated with [employer] dictation software. It may contain incorrect words, spelling, and punctuation that were not noted in checking the note before signing. HPI Consult Data Date of Consult: 04/25/24 HPI Narrative Reason for Consultation: COPD exacerbation HPI Narrative: The patient is a 68-year-old male, with a history as outlined below, who presented to the emergency department on April 20 with worsening shortness of breath and cough. The patient has a known history of coronary artery disease status post CABG along with chronic tobacco dependency and suspected obstructive lung disease. In addition, the patient was previously diagnosed with obstructive sleep apnea, for which he is prescribed nocturnal PAP therapy. The patient does have a tobacco abuse history, having quit completely 15 years ago. He is currently an established patient of a pulmonary provider through the [facility]. He is already on a stable maintenance inhaler regimen. He stated that his breathing quality has been on a downward trajectory since 2020, when he was diagnosed with COVID-19. The patient reported that he has been utilizing supplemental oxygen at 6 L/min at rest and 10 L/min with exertion, prior to this hospitalization. The patient was last hospitalized in May 2023 with shortness of breath and hypoxemia, likely secondary to progression of his underlying obstructive lung disease. The patient was ultimately admitted to the hospital after being found to be positive for RSV, which is likely precipitating a COPD exacerbation. The patient's respiratory status has remained quite tenuous, despite being on scheduled bronchodilators and IV steroids. [facility] Medical History Kidney stones On home oxygen therapy Congestive heart failure (CHF) COPD (chronic obstructive pulmonary disease) Prediabetes COVID-19 High cholesterol Hypertension Myocardial infarction Coronary artery disease Home Medications ?Medication ?Instructions ?Recorded ?Last Taken ?Type albuterol sulfate 90 mcg/actuation 1 inh inhalation Q6H shortness of 06/10/23 Unknown History aerosol inhaler (ProAir HFA) breath amlodipine 2.5 mg tablet 5 mg PO DAILY Blood pressure 06/10/23 06/10/23 History aspirin 81 mg chewable tablet 1 tab PO DAILY heart health 06/10/23 06/10/23 History carvedilol 3.125 mg tablet 3.125 mg PO DAILY blood pressure 06/10/23 06/10/23 History isosorbide mononitrate 30 mg 30 mg PO DAILY heart 06/10/23 06/10/23 History tablet,extended release 24 hr losartan 50 mg tablet 50 mg PO DAILY Blood pressure 06/10/23 06/10/23 History pravastatin 20 mg tablet 40 mg PO QHS Cholesterol 06/10/23 06/09/23 History tiotropium 2.5 mcg-olodaterol 2.5 2 inh inhalation DAILY pulmonary 12/15/23 Unknown History mcg/actuation mist for inhalation HTN (Stiolto Respimat) budesonide 90 mcg/actuation breath 1 inh inhalation BID #1 ea 12/20/23 Unknown Rx activated powder inhaler Allergy/AdvReac Type Severity Reaction Status Date / Time Iodinated Contrast Media (iv Allergy Intermediate Other Verified 12/15/23 02:04 contrast) Qsomsti-CLK-IiY Reductase AdvReac Other Verified 12/15/23 01:32 Inhibitor (Hehzakd-Bse-Aex Reductase Inhibitor) Surgical History Hx of knee surgery Hx of CABG Social History (Updated 04/20/24 @ 15:[address] August Brandon, DO) Smoking Status: Former smoker alcohol intake: never substance use type: other details: Occasional THC Gummies ROS ROS Narrative 10 systems were reviewed with pertinent positives as noted in the HPI above. Physical Exam Const alert and no apparent distress Constitutional Narrative: Sitting upright in bed. Currently working on his computer. General Appearance: cooperative HEENT normocephalic and head/scalp atraumatic Eyes EOMs intact bilaterally, conjunctivae normal and no scleral icterus Neck supple General: trachea midline Chest inspection of chest normal Resp Auscultation: diminished lung sounds; Negative for rales, rhonchi or wheezes Cardio regular rate and regular rhythm GI normal to inspection, nondistended, normoactive bowel sounds Extremity no clubbing, cyanosis or edema Skin no rashes or lesions noted Neuro CN's II-XII intact bilaterally, moves all extremities and no focal motor deficits Psych cooperative and affect normal Medical Records Data Medical Nutrition Assessment Dietitian: Malnutrition Criteria Met Start: 04/21/24 09:52 Freq: Status: Active Protocol: Document 04/21/24 09:52 (Rec: 04/21/24 09:52 [id number]) Nutrition Malnutrition Evidence of Malnutrition Exists Yes Malnutrition (severe): Acute Illness/Injury Evidenced By Suboptimal Energy Intake ( Severe),Weight Loss (Severe) Clinical Problem Acute Disease or Injury Related Malnutrition Etiology severe related to COPD exacerbation, RSV, and decreased appetite Signs/Symptoms as evidenced by PO intakes meeting <50% of estimated nutrition needs for 2-3 weeks and 9.7% unintentional weight loss in ~1 month Status Active Problem Recommendation Dietitian Recommendations/Changes Continue liberalized regular diet to optimize oral intakes. If pt begins to retain fluid, recommend low sodium diet to manage CHF. RD will order 120mL ensure plus high protein 4x daily with medpass to provide supplemental energy Lab / Micro Data 04/23/24 07:24 04/25/24 06:06 Labs: Laboratory Results - last 24 hr 04/25/24 06:06: Sodium 138, Potassium 3.6, Chloride 105, Carbon Dioxide 26.0, BUN 30 H, Creatinine 0.82, Estim Creat Clear Calc 87.32, Est GFR (MDRD) Af Amer 120, Est GFR (MDRD) Non-Af 99, BUN/Creatinine Ratio 36.5 H, Glucose 148 H, Calcium 8.3 L, Phosphorus 2.5, Albumin 2.7 L Charges/Coding Visit Charges Inpatient E&M: 60508 Init Hosp L3
--- NOTE | 2024-04-25 08:24 | CT_ITS ---
STUDY: CTA CHEST REASON FOR EXAM: Male, 68 years old. Persistent Hypoxemia RADIATION DOSAGE (If Supplied By Facility): CTDIvol = ( 17.69 ) mGy, DLP = ( 425.13 ) mGycm TECHNIQUE: The examination was performed with the intravenous administration of IV 100mL Isovue-370. Post-processing of the angiographic images was performed, with multiplanar reformation and 3D reconstruction. The protocol utilizes one or more of the following dose reduction techniques: automated exposure control, adjustment of mA and/or kV according to patient size,and/or use of iterative reconstruction technique. COMPARISON: Prior study dated: [12/15/2023 FINDINGS: Normal enhancement of the main pulmonary artery and right and left pulmonary arteries. Normal enhancement of the bilateral peripheral pulmonary arteries. There is no demonstrated pulmonary embolism. Atherosclerotic calcifications of the thoracic aorta without evidence of aneurysm There is no demonstrated aortic dissection. Sternal cerclage wires and vascular clips are present from a prior sternotomy and coronary artery bypass graft procedure (CABG). There are calcifications of the coronary arteries. Normal mediastinum. Normal hilar regions. Normal visualized trachea and bronchi. Severe panlobular emphysema with bullous changes which is associated with increased incidence of cancer. Atelectatic changes or scarring in the lower lungs. No focal consolidation is seen. There are no pleural effusions. Normal chest wall structures. There are degenerative changes of thoracic spine. No demonstrated acute changes in the visualized upper abdomen. CT/CTA Chest W/WO Contrast IMPRESSION: 1. No evidence of pulmonary embolism or aortic dissection. 2. Severe panlobular emphysema which is associated with increased incidence of cancer. Follow-up exam in one year is recommended. 3. Atelectatic changes or scarring in the lower lungs. No focal consolidation is seen. Electronically Signed: Eusebio Arshad MD at 11:37 EST ,
[2024-04-25] MEDS: Carvedilol 3.125 MG TABLET PO (08:57)
[2024-04-25] MEDS: Famotidine 200 MG/20 ML MDV 20 MG in 0.9% Normal Saline (Pres. free 8 ML 300 MG IV (08:57)
[2024-04-25] MEDS: DiphenhydrAMINE 25 MG Capsule PO (08:57)
[2024-04-25] MEDS: Aspirin 81 MG TAB.CHEW PO (08:57)
[2024-04-25] MEDS: Enoxaparin 40 MG/0.4 ML Syringe SC (08:57)
[2024-04-25] MEDS: guaiFENesin 1,200 MG Tablet 1200 MG PO ×2 (08:58→21:38)
[2024-04-25] MEDS: Acetaminophen 325 MG Tablet 650 MG PO ×2 (13:36→21:40)
--- NOTE | 2024-04-25 15:34 | PN_ITS ---
Subjective Subjective Patient seen and examined. He had no active complaints. He is on 14L of oxygen; usually wears 10L at home. He says some of his medications were switched around without his knowledge and he wants with hospitalist to review his medications. He denies any chest pain or palpitations, dizziness, nausea vomiting or any other symptoms. Review of systems otherwise negative. Objective Data Objective Data Vital Signs: Vital Signs Temp Pulse Resp BP Pulse Ox O2 Del Method O2 Flow Rate 97.2 F L 78 16 120/78 94 High Flow 14 04/25/24 11:00 04/25/24 14:45 04/25/24 14:45 04/25/24 11:00 04/25/24 11:00 04/25/24 14:00 04/25/24 14:00 FiO2 53 04/24/24 11:23 Oxygen Flow Rate (L/min) 14 Oxygen Delivery Method High Flow Weight: 157 lb 13.616 oz Body Mass Index (BMI) 21.4 Intake & Output: Intake and Output for Last 24 Hours 04/23/24 04/24/24 04/25/24 23:59 23:59 23:59 Intake Total 1740 / 1740 510 / 510 Output Total 900 / 1200 850 / 850 725 / 725 Balance -900 / -1080 890 / 890 -215 / -215 Medical Nutrition Assessment Dietitian: Malnutrition Criteria Met Start: 04/21/24 09:52 Freq: Status: Active Protocol: Document 04/21/24 09:52 (Rec: 04/21/24 09:52 [id number]) Nutrition Malnutrition Evidence of Malnutrition Exists Yes Malnutrition (severe): Acute Illness/Injury Evidenced By Suboptimal Energy Intake ( Severe),Weight Loss (Severe) Clinical Problem Acute Disease or Injury Related Malnutrition Etiology severe related to COPD exacerbation, RSV, and decreased appetite Signs/Symptoms as evidenced by PO intakes meeting <50% of estimated nutrition needs for 2-3 weeks and 9.7% unintentional weight loss in ~1 month Status Active Problem Recommendation Dietitian Recommendations/Changes Continue liberalized regular diet to optimize oral intakes. If pt begins to retain fluid, recommend low sodium diet to manage CHF. RD will order 120mL ensure plus high protein 4x daily with medpass to provide supplemental energy Lab / Micro Data 04/23/24 07:24 04/25/24 06:06 Labs: Laboratory Results - last 24 hr 04/25/24 06:06: Sodium 138, Potassium 3.6, Chloride 105, Carbon Dioxide 26.0, B UN 30 H, Creatinine 0.82, Estim Creat Clear Calc 87.32, Est GFR (MDRD) Af Amer 120, Est GFR (MDRD) Non-Af 99, BUN/Creatinine Ratio 36.5 H, Glucose 148 H, C alcium 8.3 L, Phosphorus 2.5, Albumin 2.7 L Micro: Microbiology 04/20/24 15:43 Mucosa - Nasopharyngeal SARS-CoV-2, Influenza & RSV (PCR) - Final RSV Radiography Diagnostic Testing: Radiology Impression Chest CTA 04/25/24 08:24 IMPRESSION: 1. No evidence of pulmonary embolism or aortic dissection. 2. Severe panlobular emphysema which is associated with increased incidence of cancer. Follow-up exam in one year is recommended. 3. Atelectatic changes or scarring in the lower lungs. No focal consolidation is seen. Electronically Signed: Eusebio Arshad MD at 11:37 EST , Physical Exam Const alert, oriented x3 and no apparent distress General Appearance: cooperative HEENT normocephalic, head/scalp atraumatic, moist oral mucous membranes and oropharynx normal Eyes PERRL and EOMs intact bilaterally Neck no lymphadenopathy, supple and no JVD Lymph Lymphatic: no lymphadenopathy noted and no lymphedema noted Resp Resp Narrative: moderately diminished breath sounds bilaterally, few bilateral crackles. On 14L of oxygen by nasal canula Cardio regular rate, regular rhythm, S1 normal heart sound, S2 normal heart sound and no murmurs GI normal to inspection, nondistended, normoactive bowel sounds, soft to palpation, non-tender and non-distended Extremity normal capillary refill, no clubbing, cyanosis or edema and no calf tenderness General Extremity: no tenderness to palpation of joints or extremities Neuro CN's II-XII intact bilaterally, no focal motor deficits and no sensory deficits noted Motor Exam: strength 5/5 throughout and general weakness Psych thought process normal, cooperative and affect normal Appearance: appropriate Assessment & Plan Assessment/Plan (1) COPD exacerbation: (2) Hypoxia: (3) RSV (respiratory syncytial virus infection): PLAN: Plan #Acute on chronic hypoxic respiratory failure due to RSV infection and COPD exacerbation * Patient has baseline end-stage COPD and is on 10 L of oxygen at home. He was initially admitted * On Airvo and required up to 15 L. He is now down to 14 L of oxygen by nasal cannula. * On IV Solu-Medrol. Critical care on board. Breathing treatments bronchodilators. * Procalcitonin was normal so there is low concern for superimposed bacterial infection so antibiotics were held. * Titrate oxygen to maintain saturation above 90%. * By critical care to get CT of the chest today. Patient does have radiographic evidence of pulmonary fibrosis also which per pulmonology is likely progress with time. * CTA chest done today was negative for any evidence of PE or aortic dissection but showed severe panlobular emphysema which is associated with increased incidence of cancer. * #Hypokalemia: Resolved #Nonobstructive CAD: Aspirin and statin as well as Coreg and Imdur. #Hypertension: * On amlodipine and losartan. Also on Coreg. * These were held on admission as his blood pressure was borderline low. * Will resume. DVT prophylaxis: Lovenox Charges/Coding Visit Charges Inpatient E&M: 62912 Subs Hosp L3
[2024-04-25] MEDS: MELATONIN 3 MG TABLET PO (21:38)
[2024-04-25] MEDS: Pravastatin 40 MG Tablet PO (21:38)
--- NOTE | 2024-04-25 22:09 | CPS ---
Patient complained to RN about his mouth having blisters and saying something was wrong with his oxygen, that it was burning his nose and throat. SENIOR PAYROLL MANAGER changed out humidification H2O on the HFNC. Patient stated the staff tell him what he needs to do and he is tired of this. Patient seems very adjitated and nasty towards SENIOR PAYROLL MANAGER. He also stated he wanted to go back on the AIRVO due to his throat and mouth hurting from the HFNC. SENIOR PAYROLL MANAGER tried to tell explaining to patient he does not need the oxygen support from the AIRVO. SENIOR PAYROLL MANAGER changed HFNC H2O to see if that helped patients problems with dry feeling. Patient also stated he does not want anymore breathing treatments or breathing exercises. Patient stated they do not do anything for him.
[2024-04-26] VITALS (9 sets, daily range): BP systolic 103–133; BP diastolic 72–92; PULSE 72–88; RESP 12–19; TEMP 36.1–36.6; O2SAT 93–96
[2024-04-26] MEDS: Ipratropium/Albuterol Sulfate 3 ML AMPUL.NEB INHALATION ×4 (06:49→19:59)
[2024-04-26] MEDS: Budesonide Respules 0.5 MG/2 ML AMPUL.NEB. INHALATION ×2 (06:49→19:59)
[2024-04-26 07:24] LABS: Absolute Lymphocyte Count 0.58 X10^3/uL (0.83-4.51); Absolute Neutrophil Count 11.8 X10^3/uL (2.0-7.7); Basophil# 0.03 X10^3/uL; Basophil% 0.2 % (0-1); Hematocrit 36.3 % (40-54); Hemoglobin 12.4 g/dL (13.0-16.5); Lymphocyte # 0.58 X10^3/ul (0.83-4.51); Lymphocyte % 4.5 % (19-41); Mean Corp Hgb Conc 34.2 g/dL (32-36); Mean Corpuscular Hgb 31.5 pg (27.0-32.0); Mean Corpuscular Volume 92.1 fL (80-94); Mean Platelet Vol. 10.8 fl (6.2-12.0); Monocyte# 0.46 X10^3/uL; Monocyte% 3.5 % (0-10); NRBC Flagged by Analyzer 0 % (0-5); Neutrophil # 11.82 X10^3/uL (2.7-7.7); Neutrophil % 90.7 % (47-70); POSITIVE DIFFERENTIAL YES; Platelet Count 281 K/mm3 (150-450); RBC Distribution Width CV 14.5 % (11.6-14.6); RBC Distribution Width SD 48.7 fl (35.1-43.9); Red Blood Count 3.94 M/mm3 (4.6-6.2)
[2024-04-26 07:38] LABS: Anion Gap 5 (5-15); BUN 20 mg/dL (7-18); BUN/Creat Ratio 24.2 RATIO (10-20); Calcium,Total 8.7 mg/dL (8.5-10.1); Chloride 103 mmol/L (98-107); Creatinine, Serum 0.82 mg/dL (0.70-1.30); EST Glomerular Filtration Rate 98 mL/min (>60); Est Glom Filt Rate - Afr Amer 119 mL/min (>60); Estimated Creatinine Clearance 87.32 ml/min; Glucose 119 mg/dL (74-106); Potassium 3.7 mmol/L (3.5-5.1); Sodium Level 137 mmol/L (136-145)
[2024-04-26] MEDS: guaiFENesin 1,200 MG Tablet 1200 MG PO ×2 (09:27→22:00)
[2024-04-26] MEDS: Carvedilol 3.125 MG TABLET PO (09:27)
[2024-04-26] MEDS: Aspirin 81 MG TAB.CHEW PO (09:27)
[2024-04-26] MEDS: Enoxaparin 40 MG/0.4 ML Syringe SC (09:27)
--- NOTE | 2024-04-26 10:11 | PN.CC_ITS ---
Assessment & Plan Assessment/Plan (1) COPD exacerbation: (2) RSV (respiratory syncytial virus infection): PLAN: Plan RECOMMENDATIONS: 1. Supplemental oxygen to maintain saturations 88-92%. 2. Continue scheduled bronchodilators and IV steroids. 3. Initiate gentle diuresis as tolerated by hemodynamics and renal function. 4. Continue appropriate DVT prophylaxis. IMPRESSIONS: 1. Acute on chronic hypoxemic respiratory failure Likely secondary to COPD exacerbation precipitated by RSV infection. The patient has a known history of advanced stage COPD and is currently followed by a downstream biomanufacturing technician at the [facility]. At his baseline, the patient has been requiring 6 L/min of supplemental oxygen at rest and 10 L/min with exertion. In addition, he has radiographic evidence of pulmonary fibrosis, which has likely progressed with time. CTA chest ruled out pulmonary embolism. I agree with continuing supportive care with supplemental oxygen, scheduled bronchodilators and IV steroids. In addition, we will plan to initiate gentle diuresis today as tolerated by hemodynamics and renal function. 2. History of coronary artery disease status post CABG/history of tobacco dependency/diabetes mellitus/GERD/sleep apnea Complicates care, management, recovery and prognosis. Continue supportive care as noted above. This note was generated with pluriSelect dictation software. It may contain incorrect words, spelling, and punctuation that were not noted in checking the note before signing. Subjective Subjective The patient was seen and examined at the bedside this morning. Events from the last 24 hours have been reviewed. The patient is currently afebrile, hemodynamically stable and maintaining appropriate oxygen saturations on 10 L/min via nasal cannula. White blood cell count is improved at 13,000. Hemoglobin and platelet count are stable. Creatinine is within normal limits. CTA chest completed yesterday ruled out pulmonary embolism and again confirmed the presence of significant bilateral bolus emphysematous changes. The patient remains on bronchodilators and steroids. Objective Data Objective Data The patient's most recent lab work, culture data and imaging studies have all been personally reviewed. RSV PCR was positive on April 20. Vital Signs: Vital Signs Temp Pulse Resp BP Pulse Ox O2 Del Method O2 Flow Rate 96.9 F L 88 14 126/81 H 93 Nasal Cannula 10 04/26/24 09:24 04/26/24 09:24 04/26/24 09:24 04/26/24 09:24 04/26/24 09:24 04/26/24 09:24 04/26/24 09:24 FiO2 53 04/24/24 11:23 Oxygen Flow Rate (L/min) 10 Oxygen Delivery Method Nasal Cannula Weight: 157 lb 13.616 oz Body Mass Index (BMI) 21.4 Intake & Output: Intake and Output for Last 24 Hours 04/24/24 04/25/24 04/26/24 23:59 23:59 23:59 Intake Total 1740 / 1740 1470 / 1470 240 / 240 Output Total 850 / 850 1825 / 1825 800 / 800 Balance 890 / 890 -355 / -355 -560 / -560 Medical Nutrition Assessment Dietitian: Malnutrition Criteria Met Start: 04/21/24 09:52 Freq: Status: Active Protocol: Document 04/21/24 09:52 (Rec: 04/21/24 09:52 [id number]) Nutrition Malnutrition Evidence of Malnutrition Exists Yes Malnutrition (severe): Acute Illness/Injury Evidenced By Suboptimal Energy Intake ( Severe),Weight Loss (Severe) Clinical Problem Acute Disease or Injury Related Malnutrition Etiology severe related to COPD exacerbation, RSV, and decreased appetite Signs/Symptoms as evidenced by PO intakes meeting <50% of estimated nutrition needs for 2-3 weeks and 9.7% unintentional weight loss in ~1 month Status Active Problem Recommendation Dietitian Recommendations/Changes Continue liberalized regular diet to optimize oral intakes. If pt begins to retain fluid, recommend low sodium diet to manage CHF. RD will order 120mL ensure plus high protein 4x daily with medpass to provide supplemental energy Lab / Micro Data Attestation: I reviewed the patient's lab results. 04/26/24 06:01 04/26/24 06:01 Labs: Laboratory Results - last 24 hr 04/26/24 06:01: WBC 13.0 H, RBC 3.94 L, Hgb 12.4 L, Hct 36.3 L, MCV 92.1, MCH 31.5, MCHC 34.2, RDW Std Deviation 48.7 H, RDW Coeff of [place] 14.5, Plt Count 281, MPV 10.8, Immature Gran % (Auto) 1.100 H, Neut % (Auto) 90.7 H, Lymph % (Auto) 4.5 L, [place] % (Auto) 3.5, Eos % (Auto) 0.0, Baso % (Auto) 0.2, Absolute Neuts (auto) 11.8 H, Absolute Lymphs (auto) 0.58 L, Nucleated RBC % 0, Sodium 137, Potassium 3.7, Chloride 103, Carbon Dioxide 29.0, Anion Gap 5, BUN 20 H, Creatinine 0.82, Estim Creat Clear Calc 87.32, Est GFR (MDRD) Af Amer 119, Est GFR (MDRD) Non-Af 98, BUN/Creatinine Ratio 24.2 H, Glucose 119 H, Calcium 8.7 Micro: Microbiology 04/20/24 15:43 Mucosa - Nasopharyngeal SARS-CoV-2, Influenza & RSV (PCR) - Final RSV Radiography Diagnostic Testing: Radiology Impression Chest CTA 04/25/24 08:24 IMPRESSION: 1. No evidence of pulmonary embolism or aortic dissection. 2. Severe panlobular emphysema which is associated with increased incidence of cancer. Follow-up exam in one year is recommended. 3. Atelectatic changes or scarring in the lower lungs. No focal consolidation is seen. Electronically Signed: Eusebio Arshad MD at 11:37 EST , Physical Exam Const alert, oriented x3 and no apparent distress General Appearance: cooperative HEENT normocephalic, head/scalp atraumatic and moist oral mucous membranes Eyes EOMs intact bilaterally, conjunctivae normal and no scleral icterus Neck supple General: trachea midline Chest inspection of chest normal Resp Auscultation: diminished lung sounds; Negative for rales, rhonchi or wheezes Cardio regular rate and regular rhythm GI normal to inspection, nondistended, normoactive bowel sounds Extremity no clubbing, cyanosis or edema Skin no rashes or lesions noted Neuro CN's II-XII intact bilaterally, moves all extremities and no focal motor deficits Psych cooperative and affect normal Charges/Coding Visit Charges Inpatient E&M: 88619 Subs Hosp L2
--- NOTE | 2024-04-26 10:11 | CASEMGMT ---
Addendum entered by Adrianna Linn 04/26/24 12:25: Pt made aware [facility] able to accept him w/SOC slated for Monday. Addendum entered by Adrianna Linn 04/26/24 11:17: Alba states they are able to accept pt w/SOC slated for . She was updated that pt will not discharge until Monday, at the earliest. She will f/u with Shanta PARIKH CM, on Monday. Original Note: KATI CAMERON NOTE: Call placed to Alba @ [facility] and referral made. Made aware anticipate pt will discharge tomorrow. Alona BLUE RN, CM
--- NOTE | 2024-04-26 10:51 | CASEMGMT ---
Addendum entered by Shanta Ruth 04/26/24 11:25: KATI CAMERON updated by cotton dispatcher that patient will be here through the weekend. KATI CAMERON in to discuss needs at discharge. KATI CAMERON updated patient that cotton dispatcher states patient will be here through the weekend, patient voiced understanding. KATI CAMERON discussed oxygen equipment at home and need to monitor for increase in equipment if needed and that CM will follow-up on Monday. KATI CAMERON discuss palliative care with patient and provided information. Patient states [facility] but states he felt he wasn't ready for it yet. Patient declined further needs or concerns at this time. Patient had no further questions or concerns. Original Note: KATI CAMERON called and spoke to to verify oxygen equipment. Per , patient has oxygen concentrator that goes up to 10lpm and portable tanks that go up to 8lpm. Per , patient usually is able to ambulate short distances on 8lpm with portable tank. had no further questions or concerns. KATI CAMERON updated STAIR BUILDER CM Darletta. Green sheet placed on chart for weekend.
--- NOTE | 2024-04-26 11:29 | PN_ITS ---
Subjective Subjective Patient seen and examined today. She had no active complaints. However he said the nursing staff and respiratory staff Told increase his oxygen requirement during the night whenever he desaturated. He said he tried to explain that he would desaturate easily with slight exertion but this was normal for him. He said he understood he was end-stage COPD and is wanted to get over his RSV infection so he could go home. He is still coughing but denied any chest pain, palpitations, dizziness, nausea or vomiting. Review of systems otherwise negative. Objective Data Objective Data Vital Signs: Vital Signs Temp Pulse Resp BP Pulse Ox O2 Del Method O2 Flow Rate 96.9 F L 77 17 126/81 H 93 Nasal Cannula 10 04/26/24 09:24 04/26/24 11:19 04/26/24 11:19 04/26/24 09:24 04/26/24 09:24 04/26/24 09:24 04/26/24 09:24 FiO2 53 04/24/24 11:23 Oxygen Flow Rate (L/min) 10 Oxygen Delivery Method Nasal Cannula Weight: 157 lb 13.616 oz Body Mass Index (BMI) 21.4 Intake & Output: Intake and Output for Last 24 Hours 04/24/24 04/25/24 04/26/24 23:59 23:59 23:59 Intake Total 1740 / 1740 1470 / 1470 240 / 240 Output Total 850 / 850 1825 / 1825 800 / 800 Balance 890 / 890 -355 / -355 -560 / -560 Medical Nutrition Assessment Dietitian: Malnutrition Criteria Met Start: 04/21/24 09:52 Freq: Status: Active Protocol: Document 04/21/24 09:52 (Rec: 04/21/24 09:52 [id number]) Nutrition Malnutrition Evidence of Malnutrition Exists Yes Malnutrition (severe): Acute Illness/Injury Evidenced By Suboptimal Energy Intake ( Severe),Weight Loss (Severe) Clinical Problem Acute Disease or Injury Related Malnutrition Etiology severe related to COPD exacerbation, RSV, and decreased appetite Signs/Symptoms as evidenced by PO intakes meeting <50% of estimated nutrition needs for 2-3 weeks and 9.7% unintentional weight loss in ~1 month Status Active Problem Recommendation Dietitian Recommendations/Changes Continue liberalized regular diet to optimize oral intakes. If pt begins to retain fluid, recommend low sodium diet to manage CHF. RD will order 120mL ensure plus high protein 4x daily with medpass to provide supplemental energy Lab / Micro Data 04/26/24 06:01 04/26/24 06:01 Labs: Laboratory Results - last 24 hr 04/26/24 06:01: WBC 13.0 H, RBC 3.94 L, Hgb 12.4 L, Hct 36.3 L, MCV 92.1, MCH 31.5, MCHC 34.2, RDW Std Deviation 48.7 H, RDW Coeff of [place] 14.5, Plt Count 281, MPV 10.8, Immature Gran % (Auto) 1.100 H, Neut % (Auto) 90.7 H, Lymph % (Auto) 4.5 L, [place] % (Auto) 3.5, Eos % (Auto) 0.0, Baso % (Auto) 0.2, Absolute Neuts (auto) 11.8 H, Absolute Lymphs (auto) 0.58 L, Nucleated RBC % 0, Sodium 137, Potassium 3.7, Chloride 103, Carbon Dioxide 29.0, Anion Gap 5, BUN 20 H, Creatinine 0.82, Estim Creat Clear Calc 87.32, Est GFR (MDRD) Af Amer 119, Est GFR (MDRD) Non-Af 98, BUN/Creatinine Ratio 24.2 H, Glucose 119 H, Calcium 8.7 Micro: Microbiology 04/20/24 15:43 Mucosa - Nasopharyngeal SARS-CoV-2, Influenza & RSV (PCR) - Final RSV Radiography Diagnostic Testing: Radiology Impression Chest CTA 04/25/24 08:24 IMPRESSION: 1. No evidence of pulmonary embolism or aortic dissection. 2. Severe panlobular emphysema which is associated with increased incidence of cancer. Follow-up exam in one year is recommended. 3. Atelectatic changes or scarring in the lower lungs. No focal consolidation is seen. Electronically Signed: Eusebio Arshad MD at 11:37 EST , Physical Exam Const alert, oriented x3, no apparent distress and average body habitus General Appearance: cooperative and comfortable HEENT normocephalic, head/scalp atraumatic and hearing grossly normal bilaterally Eyes PERRL, EOMs intact bilaterally and conjunctivae normal Neck full ROM, no lymphadenopathy, supple and no JVD Lymph Lymphatic: no lymphadenopathy noted and no lymphedema noted Chest inspection of chest normal Resp normal respiratory effort and no use of accessory muscles Resp Narrative: moderately diminished breath sounds bilaterally, few bilateral crackles. On 10 L of oxygen by nasal canula Cardio regular rate, regular rhythm, S1 normal heart sound, S2 normal heart sound, no murmurs and peripheral pulses 2+ throughout GI normal to inspection, nondistended, normoactive bowel sounds, soft to palpation, non-tender and non-distended Back/Spine normal ROM Extremity normal to inspection, full ROM, normal capillary refill, no clubbing, cyanosis or edema, no calf tenderness and no pedal edema General Extremity: no tenderness to palpation of joints or extremities Skin no rashes or lesions noted Neuro CN's II-XII intact bilaterally, no focal motor deficits and no sensory deficits noted Motor Exam: strength 5/5 throughout and general weakness Psych mental status grossly normal, thought process normal, cooperative and affect normal Appearance: appropriate Assessment & Plan Assessment/Plan (1) COPD exacerbation: (2) Hypoxia: (3) RSV (respiratory syncytial virus infection): PLAN: Plan #Acute on chronic hypoxic respiratory failure due to RSV infection and COPD exacerbation * Patient has baseline end-stage COPD and is on 10 L of oxygen at home. He was initially admitted On Airvo and required up to 15 L. * He is on 10L of oxygen today; he apparently demanded during the night to be put on 10L, down from 15L as there was not enough humidification at the higher oxygen levels, making him uncomfortable. * he was saturating in the mid 80s during my review, but he said this was normal for him when he was agitated or talking. He did not want his oxygen increased. * On IV Solu-Medrol. Critical care on board. Breathing treatments bronchodilators. * Procalcitonin was normal so there is low concern for superimposed bacterial infection so antibiotics were held. * Titrate oxygen to maintain saturation above 90%. * Patient does have radiographic evidence of pulmonary fibrosis also which per pulmonology is likely progress with time. * CTA chest done was negative for any evidence of PE or aortic dissection but showed severe panlobular emphysema which is associated with increased incidence of cancer. * Patient states bicycle ii assembler mention hospice history but he is not ready for hospice and just was good we will opt to go home. * * #Hypokalemia: Resolved #Nonobstructive CAD: Aspirin and statin as well as Coreg and Imdur. #Hypertension: * On amlodipine and losartan. Also on Coreg. * These were held on admission as his blood pressure was borderline low. * Will resume. DVT prophylaxis: Lovenox Charges/Coding Visit Charges Inpatient E&M: 21344 Subs Hosp L3
[2024-04-26] MEDS: Acetaminophen 325 MG Tablet 650 MG PO ×2 (12:23→22:00)
[2024-04-26] MEDS: Furosemide 40 MG/4 ML Vial IV (12:23)
[2024-04-26] MEDS: 0.9% Saline Lock 10 ML Syringe IV (14:26)
[2024-04-26] MEDS: Pravastatin 40 MG Tablet PO (22:00)
[2024-04-27] VITALS (10 sets, daily range): BP systolic 118–140; BP diastolic 70–84; PULSE 69–95; RESP 14–18; TEMP 36.5–36.9; O2SAT 92–100
[2024-04-27 05:53] LABS: Absolute Lymphocyte Count 0.56 X10^3/uL (0.83-4.51); Absolute Neutrophil Count 13.3 X10^3/uL (2.0-7.7); Basophil# 0.03 X10^3/uL; Basophil% 0.2 % (0-1); Hematocrit 36.4 % (40-54); Hemoglobin 12.6 g/dL (13.0-16.5); Lymphocyte # 0.56 X10^3/ul (0.83-4.51); Lymphocyte % 3.9 % (19-41); Mean Corp Hgb Conc 34.6 g/dL (32-36); Mean Corpuscular Hgb 31.6 pg (27.0-32.0); Mean Corpuscular Volume 91.2 fL (80-94); Mean Platelet Vol. 10.7 fl (6.2-12.0); Monocyte# 0.49 X10^3/uL; Monocyte% 3.4 % (0-10); NRBC Flagged by Analyzer 0.1 % (0-5); Neutrophil # 13.28 X10^3/uL (2.7-7.7); Neutrophil % 91.5 % (47-70); POSITIVE DIFFERENTIAL YES; Platelet Count 295 K/mm3 (150-450); RBC Distribution Width CV 14.3 % (11.6-14.6); RBC Distribution Width SD 47.9 fl (35.1-43.9); Red Blood Count 3.99 M/mm3 (4.6-6.2); White Blood Count 14.5 K/mm3 (4.4-11.0)
[2024-04-27] MEDS: 0.9% Saline Lock 10 ML Syringe IV ×2 (06:01→20:49)
[2024-04-27 06:05] LABS: Anion Gap 7 (5-15); BUN 24 mg/dL (7-18); BUN/Creat Ratio 24.7 RATIO (10-20); Calcium,Total 8.9 mg/dL (8.5-10.1); Chloride 99 mmol/L (98-107); Creatinine, Serum 0.97 mg/dL (0.70-1.30); EST Glomerular Filtration Rate 82 mL/min (>60); Est Glom Filt Rate - Afr Amer 99 mL/min (>60); Estimated Creatinine Clearance 73.81 ml/min; Glucose 153 mg/dL (74-106); Potassium 3.4 mmol/L (3.5-5.1); Sodium Level 136 mmol/L (136-145)
[2024-04-27] MEDS: Ipratropium/Albuterol Sulfate 3 ML AMPUL.NEB INHALATION ×4 (07:51→20:30)
[2024-04-27] MEDS: Budesonide Respules 0.5 MG/2 ML AMPUL.NEB. INHALATION ×2 (07:51→20:30)
[2024-04-27] MEDS: Carvedilol 3.125 MG TABLET PO (09:10)
[2024-04-27] MEDS: Enoxaparin 40 MG/0.4 ML Syringe SC (09:11)
[2024-04-27] MEDS: Aspirin 81 MG TAB.CHEW PO (09:11)
[2024-04-27] MEDS: Potassium Chloride Oral Tablet 20 MEQ 40 MEQ PO (09:11)
[2024-04-27] MEDS: guaiFENesin 1,200 MG Tablet 1200 MG PO (09:12)
[2024-04-27] MEDS: Acetaminophen 325 MG Tablet 650 MG PO ×2 (09:18→20:53)
--- NOTE | 2024-04-27 13:34 | PN_ITS ---
Subjective Subjective Patient seen and examined. He had no active complaints. He still complain of shortness of breath. He remains on 10 L of oxygen. Review of systems otherwise negative. He states he was told by pulmonology that he would be evaluated for inpatient rehab on Monday. Objective Data Objective Data Vital Signs: Vital Signs Temp Pulse Resp BP Pulse Ox O2 Del Method O2 Flow Rate 97.8 F 84 16 118/70 93 High Flow 10 04/27/24 11:25 04/27/24 11:47 04/27/24 11:47 04/27/24 11:25 04/27/24 11:25 04/27/24 11:25 04/27/24 11:25 FiO2 53 04/24/24 11:23 Oxygen Flow Rate (L/min) 10 Oxygen Delivery Method High Flow Weight: 157 lb 13.616 oz Body Mass Index (BMI) 21.4 Intake & Output: Intake and Output for Last 24 Hours 04/25/24 04/26/24 04/27/24 23:59 23:59 23:59 Intake Total 1470 / 1470 1090 / 1240 610 / 610 Output Total 1825 / 1825 2800 / 3400 1350 / 1350 Balance -355 / -355 -1710 / -2160 -740 / -740 Medical Nutrition Assessment Dietitian: Malnutrition Criteria Met Start: 04/21/24 09:52 Freq: Status: Active Protocol: Document 04/21/24 09:52 INOCENTE (Rec: 04/21/24 09:52 [id number]) Nutrition Malnutrition Evidence of Malnutrition Exists Yes Malnutrition (severe): Acute Illness/Injury Evidenced By Suboptimal Energy Intake ( Severe),Weight Loss (Severe) Clinical Problem Acute Disease or Injury Related Malnutrition Etiology severe related to COPD exacerbation, RSV, and decreased appetite Signs/Symptoms as evidenced by PO intakes meeting <50% of estimated nutrition needs for 2-3 weeks and 9.7% unintentional weight loss in ~1 month Status Active Problem Recommendation Dietitian Recommendations/Changes Continue liberalized regular diet to optimize oral intakes. If pt begins to retain fluid, recommend low sodium diet to manage CHF. RD will order 120mL ensure plus high protein 4x daily with medpass to provide supplemental energy Lab / Micro Data 04/27/24 04:52 04/27/24 04:52 Labs: Laboratory Results - last 24 hr 04/27/24 04:52: WBC 14.5 H, RBC 3.99 L, Hgb 12.6 L, Hct 36.4 L, MCV 91.2, MCH 31.6, MCHC 34.6, RDW Std Deviation 47.9 H, RDW Coeff of Taylor 14.3, Plt Count 295, MPV 10.7, Immature Gran % (Auto) 1.000 H, Neut % (Auto) 91.5 H, Lymph % (Auto) 3.9 L, [place] % (Auto) 3.4, Eos % (Auto) 0.0, Baso % (Auto) 0.2, Absolute Neuts (auto) 13.3 H, Absolute Lymphs (auto) 0.56 L, Nucleated RBC % 0.1, Sodium 136, P otassium 3.4 L, Chloride 99, Carbon Dioxide 31.0, Anion Gap 7, BUN 24 H, Creatinine 0.97, Estim Creat Clear Calc 73.81, Est GFR (MDRD) Af Amer 99, Est GFR (MDRD) Non-Af 82, BUN/Creatinine Ratio 24.7 H, Glucose 153 H, Calcium 8.9 Micro: Microbiology 04/20/24 15:43 Mucosa - Nasopharyngeal SARS-CoV-2, Influenza & RSV (PCR) - Final RSV Physical Exam Const alert, oriented x3, no apparent distress and average body habitus General Appearance: cooperative and comfortable HEENT normocephalic, head/scalp atraumatic, hearing grossly normal bilaterally, nasal mucous membranes and turbinates normal, moist oral mucous membranes and oropharynx normal Eyes PERRL, EOMs intact bilaterally and conjunctivae normal Neck full ROM, no lymphadenopathy, supple and no JVD Lymph Lymphatic: no lymphadenopathy noted and no lymphedema noted Chest inspection of chest normal Resp Resp Narrative: moderately diminished breath sounds bilaterally, few bilateral crackles. Remains on 10 L of oxygen by nasal canula Cardio regular rate, regular rhythm, S1 normal heart sound, S2 normal heart sound, no murmurs and peripheral pulses 2+ throughout GI normal to inspection, nondistended, normoactive bowel sounds, soft to palpation, non-tender and non-distended Back/Spine normal ROM Extremity normal to inspection, full ROM, normal capillary refill, no clubbing, cyanosis or edema, no calf tenderness and no pedal edema General Extremity: no tenderness to palpation of joints or extremities Skin no rashes or lesions noted Neuro CN's II-XII intact bilaterally, no focal motor deficits and no sensory deficits noted Motor Exam: strength 5/5 throughout and general weakness Psych mental status grossly normal, thought process normal, cooperative and affect normal Appearance: appropriate Assessment & Plan Assessment/Plan (1) COPD exacerbation: (2) Hypoxia: (3) RSV (respiratory syncytial virus infection): PLAN: Plan #Acute on chronic hypoxic respiratory failure due to RSV infection and COPD exacerbation * Patient has baseline end-stage COPD and is on 10 L of oxygen at home. He was initially admitted On Airvo and required up to 15 L. * He remains on 10L of oxygen today * On IV Solu-Medrol. Critical care on board. Breathing treatments bronchodilators. * Procalcitonin was normal so there is low concern for superimposed bacterial infection so antibiotics were held. * Titrate oxygen to maintain saturation above 90%. * Patient does have radiographic evidence of pulmonary fibrosis also which per pulmonology is likely progress with time. * CTA chest done was negative for any evidence of PE or aortic dissection but showed severe panlobular emphysema which is associated with increased incidence of cancer. * #Hypokalemia: Potassium is 3.4 today. Will replace and trend. #Nonobstructive CAD: Aspirin and statin as well as Coreg and Imdur. #Hypertension: * On amlodipine and losartan. Also on Coreg. * DVT prophylaxis: Lovenox Disposition: Anticipate DC over the next 1 to 2 days. Charges/Coding Visit Charges Inpatient E&M: 31888 Subs Hosp L2
[2024-04-27] MEDS: MELATONIN 3 MG TABLET PO (20:49)
[2024-04-27] MEDS: Pravastatin 40 MG Tablet PO (20:49)
[2024-04-28] VITALS (8 sets, daily range): BP systolic 119–140; BP diastolic 76–86; PULSE 69–90; RESP 12–20; TEMP 36.3–36.8; O2SAT 92–99
[2024-04-28 05:28] LABS: Absolute Lymphocyte Count 0.46 X10^3/uL (0.83-4.51); Absolute Neutrophil Count 12.6 X10^3/uL (2.0-7.7); Basophil# 0.03 X10^3/uL; Basophil% 0.2 % (0-1); Hematocrit 36.2 % (40-54); Hemoglobin 12.5 g/dL (13.0-16.5); Lymphocyte # 0.46 X10^3/ul (0.83-4.51); Lymphocyte % 3.3 % (19-41); Mean Corp Hgb Conc 34.5 g/dL (32-36); Mean Corpuscular Hgb 31.6 pg (27.0-32.0); Mean Corpuscular Volume 91.6 fL (80-94); Mean Platelet Vol. 10.9 fl (6.2-12.0); Monocyte# 0.51 X10^3/uL; Monocyte% 3.7 % (0-10); NRBC Flagged by Analyzer 0 % (0-5); Neutrophil # 12.62 X10^3/uL (2.7-7.7); Neutrophil % 91.4 % (47-70); POSITIVE DIFFERENTIAL YES; Platelet Count 278 K/mm3 (150-450); RBC Distribution Width CV 14.1 % (11.6-14.6); Red Blood Count 3.95 M/mm3 (4.6-6.2); White Blood Count 13.8 K/mm3 (4.4-11.0)
[2024-04-28] MEDS: 0.9% Saline Lock 10 ML Syringe IV (05:49)
[2024-04-28 06:05] LABS: Anion Gap 6 (5-15); BUN 24 mg/dL (7-18); BUN/Creat Ratio 30.1 RATIO (10-20); Calcium,Total 8.7 mg/dL (8.5-10.1); Chloride 101 mmol/L (98-107); EST Glomerular Filtration Rate 102 mL/min (>60); Est Glom Filt Rate - Afr Amer 124 mL/min (>60); Glucose 140 mg/dL (74-106); Potassium 3.9 mmol/L (3.5-5.1); Sodium Level 135 mmol/L (136-145)
[2024-04-28] MEDS: Budesonide Respules 0.5 MG/2 ML AMPUL.NEB. INHALATION ×2 (07:21→20:42)
[2024-04-28] MEDS: Ipratropium/Albuterol Sulfate 3 ML AMPUL.NEB INHALATION ×3 (07:21→20:42)
[2024-04-28] MEDS: guaiFENesin 1,200 MG Tablet 1200 MG PO (09:02)
[2024-04-28] MEDS: Carvedilol 3.125 MG TABLET PO (09:02)
[2024-04-28] MEDS: Acetaminophen 325 MG Tablet 650 MG PO ×2 (09:02→19:29)
[2024-04-28] MEDS: Aspirin 81 MG TAB.CHEW PO (09:02)
[2024-04-28] MEDS: Enoxaparin 40 MG/0.4 ML Syringe SC (09:03)
--- NOTE | 2024-04-28 12:08 | PN_ITS ---
Subjective Subjective Patient seen and examined. He is complaining that his oxygen has been turned down to 8 L. He had no other complaints. Review of symptoms otherwise negative. Objective Data Objective Data Vital Signs: Vital Signs Temp Pulse Resp BP Pulse Ox O2 Del Method O2 Flow Rate 97.9 F 80 18 131/82 H 92 High Flow 9 04/28/24 09:35 04/28/24 11:19 04/28/24 11:19 04/28/24 09:35 04/28/24 09:35 04/28/24 09:35 04/28/24 09:35 FiO2 53 04/24/24 11:23 Oxygen Flow Rate (L/min) 9 Oxygen Delivery Method High Flow Weight: 157 lb 13.616 oz Body Mass Index (BMI) 21.4 Intake & Output: Intake and Output for Last 24 Hours 04/26/24 04/27/24 04/28/24 23:59 23:59 23:59 Intake Total 1090 / 1240 850 / 850 Output Total 2800 / 3400 1925 / 1925 225 / 225 Balance -1710 / -2160 -1075 / -1075 -225 / -225 Medical Nutrition Assessment Dietitian: Malnutrition Criteria Met Start: 04/21/24 09:52 Freq: Status: Active Protocol: Document 04/21/24 09:52 INOCENTE (Rec: 04/21/24 09:52 [id number]) Nutrition Malnutrition Evidence of Malnutrition Exists Yes Malnutrition (severe): Acute Illness/Injury Evidenced By Suboptimal Energy Intake ( Severe),Weight Loss (Severe) Clinical Problem Acute Disease or Injury Related Malnutrition Etiology severe related to COPD exacerbation, RSV, and decreased appetite Signs/Symptoms as evidenced by PO intakes meeting <50% of estimated nutrition needs for 2-3 weeks and 9.7% unintentional weight loss in ~1 month Status Active Problem Recommendation Dietitian Recommendations/Changes Continue liberalized regular diet to optimize oral intakes. If pt begins to retain fluid, recommend low sodium diet to manage CHF. RD will order 120mL ensure plus high protein 4x daily with medpass to provide supplemental energy Lab / Micro Data 04/28/24 04:10 04/28/24 04:10 Labs: Laboratory Results - last 24 hr 04/28/24 04:10: WBC 13.8 H, RBC 3.95 L, Hgb 12.5 L, Hct 36.2 L, MCV 91.6, MCH 31.6, MCHC 34.5, RDW Std Deviation 48.0 H, RDW Coeff of Taylor 14.1, Plt Count 278, MPV 10.9, Immature Gran % (Auto) 1.400 H, Neut % (Auto) 91.4 H, Lymph % (Auto) 3.3 L, [place] % (Auto) 3.7, Eos % (Auto) 0.0, Baso % (Auto) 0.2, Absolute Neuts (auto) 12.6 H, Absolute Lymphs (auto) 0.46 L, Nucleated RBC % 0, Sodium 135 L, Potassium 3.9, Chloride 101, Carbon Dioxide 28.0, Anion Gap 6, BUN 24 H, Creatinine 0.80, Estim Creat Clear Calc 89.50, Est GFR (MDRD) Af Amer 124, Est GFR (MDRD) Non-Af 102, BUN/Creatinine Ratio 30.1 H, Glucose 140 H, Calcium 8.7 Micro: Microbiology 04/20/24 15:43 Mucosa - Nasopharyngeal SARS-CoV-2, Influenza & RSV (PCR) - Final RSV Physical Exam Const alert, oriented x3, no apparent distress and average body habitus General Appearance: cooperative and comfortable HEENT normocephalic, head/scalp atraumatic, hearing grossly normal bilaterally and moist oral mucous membranes Eyes PERRL, EOMs intact bilaterally and conjunctivae normal Neck full ROM, no lymphadenopathy, supple and no JVD Lymph Lymphatic: no lymphadenopathy noted and no lymphedema noted Chest inspection of chest normal Resp Resp Narrative: moderately diminished breath sounds bilaterally, few bilateral crackles. On 9 L of oxygen by nasal canula Cardio regular rate, regular rhythm, S1 normal heart sound, S2 normal heart sound, no murmurs and peripheral pulses 2+ throughout GI normal to inspection, nondistended, normoactive bowel sounds, soft to palpation, non-tender and non-distended Back/Spine normal ROM Extremity normal to inspection, full ROM, normal capillary refill, no clubbing, cyanosis or edema, no calf tenderness and no pedal edema General Extremity: no tenderness to palpation of joints or extremities Skin no rashes or lesions noted Neuro CN's II-XII intact bilaterally, no focal motor deficits and no sensory deficits noted Motor Exam: strength 5/5 throughout and general weakness Psych mental status grossly normal, thought process normal, cooperative and affect normal Appearance: appropriate Assessment & Plan Assessment/Plan (1) COPD exacerbation: (2) Hypoxia: (3) RSV (respiratory syncytial virus infection): PLAN: Plan #Acute on chronic hypoxic respiratory failure due to RSV infection and COPD exacerbation * Patient has baseline end-stage COPD and is on 10 L of oxygen at home. He was initially admitted On Airvo and required up to 15 L. * was down to 8-9L today. * On IV Solu-Medrol. Critical care on board. Breathing treatments bronchodilators. * Procalcitonin was normal so there is low concern for superimposed bacterial infection so antibiotics were held. * Titrate oxygen to maintain saturation above 90%. * Patient does have radiographic evidence of pulmonary fibrosis also which per pulmonology is likely progress with time. * CTA chest done was negative for any evidence of PE or aortic dissection but showed severe panlobular emphysema which is associated with increased incidence of cancer. * #Hypokalemia: resolved. Potassium is 3.9 today. #Nonobstructive CAD: Aspirin and statin as well as Coreg and Imdur. #Hypertension: * On amlodipine and losartan. Also on Coreg. * DVT prophylaxis: Lovenox Disposition: for likely DC tomorrow. He says he wants to see Dr Qureshi tomorrow as he was told he would be evaluated for rehab on Monday. Charges/Coding Visit Charges Inpatient E&M: 91194 Subs Hosp L2
[2024-04-28] MEDS: Ensure Plus High Protein 120 ML LIQUID PO (14:24)
[2024-04-28] MEDS: Pravastatin 40 MG Tablet PO (22:01)
[2024-04-28] MEDS: MELATONIN 3 MG TABLET PO (22:01)
[2024-04-29 04:00] VITALS: BP 137/98; PULSE 63; RESP 16; TEMP 36.3; O2SAT 100
[2024-04-29] MEDS: Acetaminophen 325 MG Tablet 650 MG PO ×3 (06:01→21:44)
[2024-04-29] MEDS: 0.9% Saline Lock 10 ML Syringe IV (06:01)
[2024-04-29 06:40] VITALS: PULSE 63; RESP 12; O2SAT 99
[2024-04-29] MEDS: Ipratropium/Albuterol Sulfate 3 ML AMPUL.NEB INHALATION ×2 (06:40→20:06)
[2024-04-29] MEDS: Budesonide Respules 0.5 MG/2 ML AMPUL.NEB. INHALATION ×2 (06:40→20:06)
[2024-04-29 07:13] LABS: Absolute Lymphocyte Count 0.59 X10^3/uL (0.83-4.51); Absolute Neutrophil Count 12.3 X10^3/uL (2.0-7.7); Basophil# 0.01 X10^3/uL; Basophil% 0.1 % (0-1); Hematocrit 37.7 % (40-54); Hemoglobin 12.8 g/dL (13.0-16.5); Lymphocyte # 0.59 X10^3/ul (0.83-4.51); Lymphocyte % 4.3 % (19-41); Mean Corpuscular Hgb 31.1 pg (27.0-32.0); Mean Corpuscular Volume 91.7 fL (80-94); Mean Platelet Vol. 10.4 fl (6.2-12.0); Monocyte# 0.52 X10^3/uL; Monocyte% 3.8 % (0-10); NRBC Flagged by Analyzer 0 % (0-5); Neutrophil # 12.32 X10^3/uL (2.7-7.7); Neutrophil % 90.1 % (47-70); POSITIVE DIFFERENTIAL YES; Platelet Count 273 K/mm3 (150-450); RBC Distribution Width SD 47.3 fl (35.1-43.9); Red Blood Count 4.11 M/mm3 (4.6-6.2); White Blood Count 13.7 K/mm3 (4.4-11.0)
[2024-04-29 07:49] LABS: Anion Gap 7 (5-15); BUN 21 mg/dL (7-18); BUN/Creat Ratio 27.2 RATIO (10-20); Calcium,Total 8.5 mg/dL (8.5-10.1); Chloride 102 mmol/L (98-107); Creatinine, Serum 0.77 mg/dL (0.70-1.30); EST Glomerular Filtration Rate 106 mL/min (>60); Est Glom Filt Rate - Afr Amer 128 mL/min (>60); Glucose 137 mg/dL (74-106); Potassium 3.8 mmol/L (3.5-5.1); Sodium Level 135 mmol/L (136-145)
[2024-04-29 09:42] VITALS: BP 117/85; PULSE 85; RESP 13; TEMP 36.4; O2SAT 93
[2024-04-29] MEDS: guaiFENesin 1,200 MG Tablet 1200 MG PO ×2 (10:07→22:13)
[2024-04-29] MEDS: Aspirin 81 MG TAB.CHEW PO (10:07)
[2024-04-29] MEDS: Enoxaparin 40 MG/0.4 ML Syringe SC (10:07)
[2024-04-29] MEDS: Carvedilol 3.125 MG TABLET PO (11:05)
--- NOTE | 2024-04-29 13:29 | PCM.PN.INT ---
Assessment & Plan Assessment/Plan (1) COPD exacerbation: (2) RSV (respiratory syncytial virus infection): PLAN: Plan RECOMMENDATIONS: 1. Supplemental oxygen to maintain saturations 88-92%. 2. Continue scheduled bronchodilators and IV steroids. 3. Continue appropriate DVT prophylaxis. 4. Referral to hospice care services, per patient request. IMPRESSIONS: 1. Acute on chronic hypoxemic respiratory failure Likely secondary to COPD exacerbation precipitated by RSV infection. The patient has a known history of advanced stage COPD and is currently followed by a panelboard tank pumper at the [facility]. At his baseline, the patient has been requiring 6 L/min of supplemental oxygen at rest and 10 L/min with exertion. In addition, he has radiographic evidence of pulmonary fibrosis, which has likely progressed with time. CTA chest ruled out pulmonary embolism. I agree with continuing supportive care with supplemental oxygen, scheduled bronchodilators and IV steroids. Unfortunately, the patient continues to have a high supplemental oxygen requirement and readily desaturates with exertion. I do not feel that he is likely to make a meaningful recovery from this exacerbation. Following a discussion with the patient this morning at the bedside, he is electing to pursue referral to hospice care services. Social work has been made aware of the patient's request. 2. History of coronary artery disease status post CABG/history of tobacco dependency/diabetes mellitus/GERD/sleep apnea Complicates care, management, recovery and prognosis. Continue supportive care as noted above. This note was generated with [employer] dictation software. It may contain incorrect words, spelling, and punctuation that were not noted in checking the note before signing. Subjective Subjective The patient was seen and examined at the bedside this morning. Events from the last 24 hours have been reviewed. The patient is currently afebrile, hemodynamically stable and maintaining appropriate oxygen saturations on 10 L/min via nasal cannula. The patient again readily desaturates with any form of physical exertion. He seems overtly frustrated over the fact that he is still admitted to the hospital. I did engage the patient in a goals of care discussion and included the possibility of enrollment with hospice care services. Following my discussion with the patient, he reported he is interested in pursuing hospice care in hopes that he could be discharged home with their services. Social work was made aware of the patient's request. Objective Data Objective Data The patient's most recent lab work, culture data and imaging studies have all been personally reviewed. RSV PCR was positive on April 20. Vital Signs: Vital Signs Temp Pulse Resp BP Pulse Ox O2 Del Method O2 Flow Rate 97.6 F L 85 13 117/85 H 93 High Flow 10 04/29/24 09:42 04/29/24 09:42 04/29/24 09:42 04/29/24 09:42 04/29/24 09:42 04/29/24 10:00 04/29/24 10:00 FiO2 53 04/24/24 11:23 Oxygen Flow Rate (L/min) 10 Oxygen Delivery Method High Flow Weight: 157 lb 13.616 oz Body Mass Index (BMI) 21.4 Intake & Output: Intake and Output for Last 24 Hours 04/27/24 04/28/24 04/29/24 23:59 23:59 23:59 Intake Total 850 / 850 720 / 960 480 / 480 Output Total 1925 / [id number] / 2024 1100 / 1100 Balance -1075 / -1075 -880 / -1065 -620 / -620 Medical Nutrition Assessment Dietitian: Malnutrition Criteria Met Start: 04/21/24 09:52 Freq: Status: Active Protocol: Document 04/21/24 09:52 LO (Rec: 04/21/24 09:52 [id number]) Nutrition Malnutrition Evidence of Malnutrition Exists Yes Malnutrition (severe): Acute Illness/Injury Evidenced By Suboptimal Energy Intake ( Severe),Weight Loss (Severe) Clinical Problem Acute Disease or Injury Related Malnutrition Etiology severe related to COPD exacerbation, RSV, and decreased appetite Signs/Symptoms as evidenced by PO intakes meeting <50% of estimated nutrition needs for 2-3 weeks and 9.7% unintentional weight loss in ~1 month Status Active Problem Recommendation Dietitian Recommendations/Changes Continue liberalized regular diet to optimize oral intakes. If pt begins to retain fluid, recommend low sodium diet to manage CHF. RD will order 120mL ensure plus high protein 4x daily with medpass to provide supplemental energy Lab / Micro Data Attestation: I reviewed the patient's lab results. 04/29/24 06:59 04/29/24 06:59 Labs: Laboratory Results - last 24 hr 04/29/24 06:59: WBC 13.7 H, RBC 4.11 L, Hgb 12.8 L, Hct 37.7 L, MCV 91.7, MCH 31.1, MCHC 34.0, RDW Std Deviation 47.3 H, RDW Coeff of Taylor 14.0, Plt Count 273, MPV 10.4, Immature Gran % (Auto) 1.700 H, Neut % (Auto) 90.1 H, Lymph % (Auto) 4.3 L, [place] % (Auto) 3.8, Eos % (Auto) 0.0, Baso % (Auto) 0.1, Absolute Neuts (auto) 12.3 H, Absolute Lymphs (auto) 0.59 L, Nucleated RBC % 0, Sodium 135 L, Potassium 3.8, Chloride 102, Carbon Dioxide 26.0, Anion Gap 7, BUN 21 H, Creatinine 0.77, Estim Creat Clear Calc 89.50, Est GFR (MDRD) Af Amer 128, Est GFR (MDRD) Non-Af 106, BUN/Creatinine Ratio 27.2 H, Glucose 137 H, Calcium 8.5 Micro: Microbiology 04/20/24 15:43 Mucosa - Nasopharyngeal SARS-CoV-2, Influenza & RSV (PCR) - Final RSV Radiography Diagnostic Testing: Radiology Impression Chest CTA 04/25/24 08:24 IMPRESSION: 1. No evidence of pulmonary embolism or aortic dissection. 2. Severe panlobular emphysema which is associated with increased incidence of cancer. Follow-up exam in one year is recommended. 3. Atelectatic changes or scarring in the lower lungs. No focal consolidation is seen. Electronically Signed: Eusebio Arshad MD at 11:37 EST , Physical Exam Const alert, oriented x3 and no apparent distress General Appearance: cooperative HEENT normocephalic, head/scalp atraumatic and moist oral mucous membranes Eyes EOMs intact bilaterally, conjunctivae normal and no scleral icterus Neck supple General: trachea midline Chest inspection of chest normal Resp Auscultation: diminished lung sounds; Negative for rales, rhonchi or wheezes Cardio regular rate and regular rhythm GI normal to inspection, nondistended, normoactive bowel sounds Extremity no clubbing, cyanosis or edema Skin no rashes or lesions noted Neuro CN's II-XII intact bilaterally, moves all extremities and no focal motor deficits Psych cooperative and affect normal Charges/Coding Visit Charges Inpatient E&M: 89834 Subs Hosp L2
[2024-04-29 14:22] VITALS: BP 129/85; PULSE 73; RESP 11; TEMP 36.4; O2SAT 95
--- NOTE | 2024-04-29 14:33 | CASEMGMT ---
Per physician patient is agreeable to Hospice. SW met with patient. Introduced self and role at [facility]. Patient confirmed he would like to go home with Hospice. SW explained how the process works. Patient said he would call his and let her know. He also was agreeable to Hospice calling his . SW called Hospice and spoke with Kimberly regarding referral. SW also faxed referral information. Talya CHIN
--- NOTE | 2024-04-29 14:56 | PN_ITS ---
Subjective Subjective Patient seen and examined. She had no active complaints. He is on 10 L of oxygen. He feels his breathing is the same. Review of systems was otherwise negative. Objective Data Objective Data Vital Signs: Vital Signs Temp Pulse Resp BP Pulse Ox O2 Del Method O2 Flow Rate 97.6 F L 73 11 L 129/85 H 95 High Flow 10 04/29/24 14:22 04/29/24 14:22 04/29/24 14:22 04/29/24 14:22 04/29/24 14:22 04/29/24 14:22 04/29/24 14:22 FiO2 53 04/24/24 11:23 Oxygen Flow Rate (L/min) 10 Oxygen Delivery Method High Flow Weight: 157 lb 13.616 oz Body Mass Index (BMI) 21.4 Intake & Output: Intake and Output for Last 24 Hours 04/27/24 04/28/24 04/29/24 23:59 23:59 23:59 Intake Total 850 / 850 720 / 960 880 / 880 Output Total 1925 / 1925 1600 / 2024 1400 / 1400 Balance -1075 / -1075 -880 / -1065 -520 / -520 Medical Nutrition Assessment Dietitian: Malnutrition Criteria Met Start: 04/21/24 09:52 Freq: Status: Active Protocol: Document 04/21/24 09:52 INOCENTE (Rec: 04/21/24 09:52 [id number]) Nutrition Malnutrition Evidence of Malnutrition Exists Yes Malnutrition (severe): Acute Illness/Injury Evidenced By Suboptimal Energy Intake ( Severe),Weight Loss (Severe) Clinical Problem Acute Disease or Injury Related Malnutrition Etiology severe related to COPD exacerbation, RSV, and decreased appetite Signs/Symptoms as evidenced by PO intakes meeting <50% of estimated nutrition needs for 2-3 weeks and 9.7% unintentional weight loss in ~1 month Status Active Problem Recommendation Dietitian Recommendations/Changes Continue liberalized regular diet to optimize oral intakes. If pt begins to retain fluid, recommend low sodium diet to manage CHF. RD will order 120mL ensure plus high protein 4x daily with medpass to provide supplemental energy Lab / Micro Data 04/29/24 06:59 04/29/24 06:59 Labs: Laboratory Results - last 24 hr 04/29/24 06:59: WBC 13.7 H, RBC 4.11 L, Hgb 12.8 L, Hct 37.7 L, MCV 91.7, MCH 31.1, MCHC 34.0, RDW Std Deviation 47.3 H, RDW Coeff of Taylor 14.0, Plt Count 273, MPV 10.4, Immature Gran % (Auto) 1.700 H, Neut % (Auto) 90.1 H, Lymph % (Auto) 4.3 L, [place] % (Auto) 3.8, Eos % (Auto) 0.0, Baso % (Auto) 0.1, Absolute Neuts (auto) 12.3 H, Absolute Lymphs (auto) 0.59 L, Nucleated RBC % 0, Sodium 135 L, Potassium 3.8, Chloride 102, Carbon Dioxide 26.0, Anion Gap 7, BUN 21 H, Creatinine 0.77, Estim Creat Clear Calc 89.50, Est GFR (MDRD) Af Amer 128, Est GFR (MDRD) Non-Af 106, BUN/Creatinine Ratio 27.2 H, Glucose 137 H, Calcium 8.5 Micro: Microbiology 04/20/24 15:43 Mucosa - Nasopharyngeal SARS-CoV-2, Influenza & RSV (PCR) - Final RSV Physical Exam Const alert, oriented x3, no apparent distress and average body habitus Constitutional Narrative: General Appearance: cooperative and comfortable HEENT normocephalic, head/scalp atraumatic, hearing grossly normal bilaterally, nasal mucous membranes and turbinates normal, moist oral mucous membranes and oropharynx normal Eyes PERRL, EOMs intact bilaterally and conjunctivae normal Neck full ROM, no lymphadenopathy, supple and no JVD Lymph Lymphatic: no lymphadenopathy noted and no lymphedema noted Chest inspection of chest normal Resp normal respiratory effort and no use of accessory muscles Resp Narrative: moderately diminished breath sounds bilaterally, few bilateral crackles. On 10 L of oxygen by nasal canula Cardio regular rate, regular rhythm, S1 normal heart sound, S2 normal heart sound, no murmurs and peripheral pulses 2+ throughout GI normal to inspection, nondistended, normoactive bowel sounds, soft to palpation, non-tender and non-distended Back/Spine normal ROM Extremity normal to inspection, full ROM, normal capillary refill, no clubbing, cyanosis or edema, no calf tenderness and no pedal edema General Extremity: no tenderness to palpation of joints or extremities Skin no rashes or lesions noted Neuro CN's II-XII intact bilaterally, no focal motor deficits and no sensory deficits noted Motor Exam: strength 5/5 throughout and general weakness Psych mental status grossly normal, thought process normal, cooperative and affect normal Appearance: appropriate Mood & Affect: anxious Assessment & Plan Assessment/Plan (1) COPD exacerbation: (2) Hypoxia: (3) RSV (respiratory syncytial virus infection): PLAN: Plan #Acute on chronic hypoxic respiratory failure due to RSV infection and COPD exacerbation * Patient has baseline end-stage COPD and is on 10 L of oxygen at home. He was initially admitted On Airvo and required up to 15 L. * On IV Solu-Medrol. Critical care on board. Breathing treatments bronchodilators. * Procalcitonin was normal so there is low concern for superimposed bacterial infection so antibiotics were held. * Titrate oxygen to maintain saturation above 90%. * Patient does have radiographic evidence of pulmonary fibrosis also which per pulmonology is likely progress with time. * CTA chest done was negative for any evidence of PE or aortic dissection but showed severe panlobular emphysema which is associated with increased incidence of cancer. * hospice consulted by pulmonology today. * #Hypokalemia: resolved. Potassium is 3.9 today. #Nonobstructive CAD: Aspirin and statin as well as Coreg and Imdur. #Hypertension: * On amlodipine and losartan. Also on Coreg. * DVT prophylaxis: Lovenox Disposition: hospice consulted per pulmonology Charges/Coding Visit Charges Inpatient E&M: 73633 Subs Hosp L2
--- NOTE | 2024-04-29 15:30 | CASEMGMT ---
SW received a call from Hospice and they will meet with patient and his tomorrow, 04-30 at 11:30a. MILLICENT notified RN, physician, and studio operations engineer in charge. Talya CHIN
[2024-04-29 20:06] VITALS: PULSE 74; RESP 16
[2024-04-29 21:37] VITALS: BP 129/70; PULSE 79; RESP 18; TEMP 36.2; O2SAT 95
[2024-04-29] MEDS: Pravastatin 40 MG Tablet PO (21:44)
[2024-04-29] MEDS: MELATONIN 3 MG TABLET PO (21:44)
[2024-04-30 03:50] VITALS: O2SAT 95
[2024-04-30 03:53] VITALS: BP 131/77; PULSE 75; RESP 18; TEMP 36; O2SAT 97
[2024-04-30] MEDS: 0.9% Saline Lock 10 ML Syringe IV (06:15)
[2024-04-30 07:45] VITALS: BP 140/89; PULSE 65; RESP 16; TEMP 36.6; O2SAT 96
[2024-04-30] MEDS: Acetaminophen 325 MG Tablet 650 MG PO (07:46)
[2024-04-30] MEDS: guaiFENesin 1,200 MG Tablet 1200 MG PO (07:46)
[2024-04-30] MEDS: Aspirin 81 MG TAB.CHEW PO (07:47)
[2024-04-30] MEDS: Carvedilol 3.125 MG TABLET PO (07:47)
--- NOTE | 2024-04-30 13:04 | DCINST_ITS ---
Discharge Instructions Diet Discharge Diet: Low fat / Low cholesterol DC O2, CPAP, BIPAP needs Home O2 Discharge instructions: Yes Type of respiratory needs?: Oxygen Oxygen frequency: Continuous Continuous oxygen liters per minute: 10 Dressing / Incision Discharge Activity: Return to Normal Activity Weight Bearing Status: Weight bearing as tolerated Dressing / Incision Call your doctor if you observe: Fever of 101 or Higher, Shortness of breath, Dizziness, Swelling in the ankles and Chest pain Follow Up Care Test Results: Test results from this visit will be discussed in further detail at your follow- up appointment, if applicable. Discharge Plan Admission Admit Date/Time: 04/20/24 17:38 Primary Reason for Your Visit: COPD exacerbation, RSV pneumonia Attending Provider: Yanet Peña Primary Care Provider: Rustam Starkey Consulting Providers: Greg Morales; Hi Osborne; Jey Qureshi; Darnell Guevara; Maryann Cuellar; Molly De Leon; Nenita Tong; June Savage NP; Shayy Costa Instructions Patient Instructions: RSV (Respiratory Syncytial Virus), COPD Controlled Breathing Dc Discharge Orders/Prescriptions Prescriptions: New prednisone 10 mg tablets,dose pack See Taper PO DAILY Qty: 48 0RF Taper: Prednisone Taper 60 mg WITH BREAKFAST for 3 Days and 0 Hour 50 mg WITH BREAKFAST for 3 Days and 0 Hour 40 mg WITH BREAKFAST for 3 Days and 0 Hour 30 mg WITH BREAKFAST for 3 Days and 0 Hour 20 mg WITH BREAKFAST for 3 Days and 0 Hour 10 mg WITH BREAKFAST for 3 Days and 0 Hour Continued pantoprazole 20 mg tablet,delayed release (DR/EC) 20 mg PO DAILY amlodipine 2.5 mg tablet 5 mg PO DAILY aspirin 81 mg tablet,chewable 1 tab PO DAILY albuterol sulfate [ProAir HFA] 90 mcg/actuation HFA aerosol inhaler 1 inh inhalation Q6H carvedilol 3.125 mg tablet 3.125 mg PO DAILY Rx Instructions: must administer with a meal/food isosorbide mononitrate 30 mg tablet extended release 24 hr 30 mg PO DAILY losartan 50 mg tablet 50 mg PO DAILY pravastatin 20 mg tablet 40 mg PO QHS Stiolto Respimat 2.5-2.5 mcg/actuation mist 2 inh inhalation DAILY budesonide 90 mcg/actuation aerosol powdr breath activated 1 inh inhalation BID Qty: 1 1RF Referrals / Follow Up: Rustam Starkey, MEDIA RELATIONS SPECIALIST-C [Primary Care Provider] - Within 1 Week Disposition Disposition (needs filled in before D/C Order can be placed): Hospice in Home
--- NOTE | 2024-04-30 13:05 | PCM.DC.SUM ---
Providers Date of Admission: 04/20/24 Date of Discharge: 04/30/24 Primary Care Physician: Rustam Starkey, LETY Consultations 04/24/24 08:01 Consult: Pipe Testing Technician / Pulmonary Medicine Routine Consulting Provider: Jey Qureshi Reason for Consult: acute on chronic resp failure w/ RSV EMERGENT Consult: No Notified: Yes Date Notified: 04/24/24 Time Notified: 08:18 Method of Notification: Text 04/29/24 13:28 Consult: Hospice / Palliative Care Routine Consulting Provider: [facility] Reason for Consult: copd EMERGENT Consult: No Notified: Yes Date Notified: 04/29/24 Time Notified: 14:15 Method of Notification: per social media intern Reason For Visit: COPD EXACERBATION 2NDARY TO RSV INFECTION Diagnosis Discharge Diagnosis (1) COPD exacerbation: Status: Chronic Code(s): J44.1 - Chronic obstructive pulmonary disease with (acute) exacerbation (2) Hypoxia: Status: Acute Code(s): R09.02 - Hypoxemia (3) RSV (respiratory syncytial virus infection): Status: Acute Code(s): B33.8 - Other specified viral diseases Plan #Acute on chronic hypoxic respiratory failure due to RSV infection and COPD exacerbation Patient has baseline end-stage COPD and is on 10 L of oxygen at home. He was initially admitted On Airvo and required up to 15 L. On IV Solu-Medrol. Critical care on board. Breathing treatments bronchodilators. Procalcitonin was normal so there is low concern for superimposed bacterial infection so antibiotics were held. Titrate oxygen to maintain saturation above 90%. Patient does have radiographic evidence of pulmonary fibrosis also which per pulmonology is likely progress with time. CTA chest done was negative for any evidence of PE or aortic dissection but showed severe panlobular emphysema which is associated with increased incidence of cancer. hospice consulted by pulmonology today. #Hypokalemia: resolved. Potassium is 3.9 today. #Nonobstructive CAD: Aspirin and statin as well as Coreg and Imdur. #Hypertension: On amlodipine and losartan. Also on Coreg. DVT prophylaxis: Lovenox Disposition: hospice consulted per pulmonology Medications at Discharge Home Medications albuterol sulfate 90 mcg/actuation aerosol inhaler (ProAir HFA) 1 inh inhalation Q6H shortness of breath 06/10/23 amlodipine 2.5 mg tablet 5 mg PO DAILY Blood pressure 06/10/23 aspirin 81 mg chewable tablet 1 tab PO DAILY heart health 06/10/23 carvedilol 3.125 mg tablet 3.125 mg PO DAILY blood pressure 06/10/23 isosorbide mononitrate 30 mg tablet,extended release 24 hr 30 mg PO DAILY heart 06/10/23 losartan 50 mg tablet 50 mg PO DAILY Blood pressure 06/10/23 pravastatin 20 mg tablet 40 mg PO QHS Cholesterol 06/10/23 tiotropium 2.5 mcg-olodaterol 2.5 mcg/actuation mist for inhalation (Stiolto Respimat) 2 inh inhalation DAILY pulmonary HTN 12/15/23 budesonide 90 mcg/actuation breath activated powder inhaler 1 inh inhalation BID #1 ea 12/20/23 pantoprazole 20 mg tablet,delayed release 20 mg PO DAILY gerd 04/26/24 prednisone 10 mg tablets in a dose pack See Taper PO DAILY #48 tabs 04/30/24 Hospital Course Operations None Procedures None Summary of Care Provided Minutes Spent on Discharge: 46 Hospital Course: Patient is a 68-year-old male with a past medical history as outlined including chronic hypoxic respiratory failure due to COPD, on 10 L of oxygen at home was admitted through the ED on 04/20/2024 with a complaint of shortness of breath and productive cough. He said he usually will 5 to 6 L of oxygen at rest and it increased to 10 L with exertion at home. He had had imaging done when he came to the hospital in November 2023 which showed severe emphysematous and fibrotic changes in the lungs. He was following up with outpatient pulmonology at the [place]. He said he had been doing well on his triple inhaler therapy until 3 to 4 days prior to admission when he started having the worsening shortness of breath and productive cough. On admission respiratory panel was positive for RSV. He had been vaccinated for flu and COVID but not RSV. Chest x-ray showed stable emphysematous and fibrotic changes with no acute findings. He was admitted and managed for hypoxia in the setting of chronic respiratory failure due to RSV infection. He he was placed on breathing treatments and IV Solu-Medrol. Pulmonology was consulted due to worsening respiratory status. His respiratory status declined and he required Airvo during the admission and also had to go up to 15 L of oxygen. Procalcitonin was normal so there was low concern for superimposed bacterial infection so antibiotics were held. He did have CT of the chest which was negative for PE or aortic dissection but showed severe panlobular emphysema which is associated with increased risk of cancer. Patient's respiratory status did not really improve during admission and he remained on 10 L of oxygen even at rest. Pulmonology therefore discussed with him about consulting hospice and patient was amenable to this. Hospice was therefore consulted on 04/29/2024. Patient and his met with hospice on 04/30/2024 he was agreeable to being discharged home with hospice. Patient was therefore discharged home with hospice on 04/30/2024. He was discharged with a prescription for a Medrol Dosepak. He is follow-up with his primary care doctor and follow-up with pulmonology on outpatient basis. Patient seen and examined prior to discharge. He had no complaints. His breathing remained the same and he was on 10 L of oxygen. Labs and vitals reviewed. Home medication reviewed and reconciled. Physical Exam Const alert, oriented x3 and no apparent distress Constitutional Narrative: General Appearance: cooperative and comfortable Orientation / Consciousness: awake Exam Limitations: no limitations HEENT normocephalic, head/scalp atraumatic, hearing grossly normal bilaterally, nasal mucous membranes and turbinates normal, moist oral mucous membranes and oropharynx normal Mouth: oral and palatal mucosa normal Eyes PERRL, EOMs intact bilaterally and conjunctivae normal Neck full ROM, no lymphadenopathy, supple and no JVD Lymph Lymphatic: no lymphadenopathy noted and no lymphedema noted Chest inspection of chest normal Resp Resp Narrative: moderately diminished breath sounds bilaterally, few bilateral crackles. On 10 L of oxygen by nasal canula Cardio regular rate, regular rhythm, S1 normal heart sound, S2 normal heart sound, no murmurs and peripheral pulses 2+ throughout GI normal to inspection, nondistended, normoactive bowel sounds, soft to palpation, non-tender and non-distended Back/Spine no CVA tenderness and normal ROM Extremity normal to inspection, full ROM, normal capillary refill, no clubbing, cyanosis or edema, no calf tenderness and no pedal edema General Extremity: no tenderness to palpation of joints or extremities Skin no rashes or lesions noted Neuro oriented x3, CN's II-XII intact bilaterally, moves all extremities, no focal motor deficits and no sensory deficits noted Sensorium / Orientation: awake and alert Motor Exam: strength 5/5 throughout and general weakness Psych mental status grossly normal, thought process normal, cooperative and affect normal Appearance: appropriate Medical Records Data Medical Nutrition Assessment Dietitian: Malnutrition Criteria Met Start: 04/21/24 09:52 Freq: Status: Active Protocol: Document 04/21/24 09:52 (Rec: 04/21/24 09:52 [id number]) Nutrition Malnutrition Evidence of Malnutrition Exists Yes Malnutrition (severe): Acute Illness/Injury Evidenced By Suboptimal Energy Intake ( Severe),Weight Loss (Severe) Clinical Problem Acute Disease or Injury Related Malnutrition Etiology severe related to COPD exacerbation, RSV, and decreased appetite Signs/Symptoms as evidenced by PO intakes meeting <50% of estimated nutrition needs for 2-3 weeks and 9.7% unintentional weight loss in ~1 month Status Active Problem Recommendation Dietitian Recommendations/Changes Continue liberalized regular diet to optimize oral intakes. If pt begins to retain fluid, recommend low sodium diet to manage CHF. RD will order 120mL ensure plus high protein 4x daily with medpass to provide supplemental energy Weight / BMI Weight Weight: 157 lb 13.616 oz Body Mass Index (BMI) 21.4 ABG / Lab / Microbiology Data 04/29/24 06:59 04/29/24 06:59 Microbiology: Microbiology 04/20/24 15:43 Mucosa - Nasopharyngeal SARS-CoV-2, Influenza & RSV (PCR) - Final RSV D/C Instructions Discharge Diet: Low fat / Low cholesterol Discharge Activity: Return to Normal Activity Weight Bearing Status: Weight bearing as tolerated Call your doctor if you observe: Fever of 101 or Higher, Shortness of breath, Dizziness, Swelling in the ankles and Chest pain DC O2, CPAP, BIPAP Needs PSN CPAP & BiPAP: BiPAP & CPAP Settings per PSN Mode AIRVO 04/24/24 11:23 Bipap Delivery Device Nasal Pillows 04/24/24 11:23 Fraction of Inspired Oxygen ( 53 04/24/24 11:23 FIO2) Total Flow Rate 50 04/24/24 11:23 Home O2 Discharge instructions: Yes Type of respiratory needs?: Oxygen Oxygen frequency: Continuous Continuous oxygen liters per minute: 10 DC home with Oxygen: Yes Home O2 MD Review: I have reviewed the oxygen testing, and the patient qualifies for home oxygen equipment and portability. The patient is mobile in the home and the community. Meaningful Use Info Meaningful Use Meaningful Use Diagnoses (Choose all that apply): None applicable Ischemic Stroke Statin Dosing Therapy Reference: STATIN DOSE THERAPY REFERENCE: * Patients > 75 years receive moderate or high dose statin therapy. * Patients 75 years or YOUNGER should receive HIGH intensity statin dose unless contraindicated. You will be required to document reason for non-treatment if statin daily dose does not meet guidelines. HIGH DOSE STATIN THERAPY DAILY Atorvastatin > than or = to 40 mg Rosuvastatin > than or = to 20 mg Amlodipine + Atorvastatin > than or = to 2.5/40 mg Ezetimibe + Simvastatin 10/80 mg Simvastatin 80mg Discharge Plan Admission Admit Date/Time: 04/20/24 17:38 Primary Reason for Your Visit: COPD exacerbation, RSV pneumonia Attending Provider: Yanet Peña Primary Care Provider: Rustam Starkey Consulting Providers: Greg Morales; Hi Osborne; Jey Qureshi; Darnell Guevara; Maryann Cuellar; Molly De Leon; Nenita Tong; June Savage NP; Shayy Costa Instructions Patient Instructions: RSV (Respiratory Syncytial Virus), COPD Controlled Breathing Dc Discharge Orders/Prescriptions Prescriptions: New prednisone 10 mg tablets,dose pack See Taper PO DAILY Qty: 48 0RF Taper: Prednisone Taper 60 mg WITH BREAKFAST for 3 Days and 0 Hour 50 mg WITH BREAKFAST for 3 Days and 0 Hour 40 mg WITH BREAKFAST for 3 Days and 0 Hour 30 mg WITH BREAKFAST for 3 Days and 0 Hour 20 mg WITH BREAKFAST for 3 Days and 0 Hour 10 mg WITH BREAKFAST for 3 Days and 0 Hour Continued pantoprazole 20 mg tablet,delayed release (DR/EC) 20 mg PO DAILY amlodipine 2.5 mg tablet 5 mg PO DAILY aspirin 81 mg tablet,chewable 1 tab PO DAILY albuterol sulfate [ProAir HFA] 90 mcg/actuation HFA aerosol inhaler 1 inh inhalation Q6H carvedilol 3.125 mg tablet 3.125 mg PO DAILY Rx Instructions: must administer with a meal/food isosorbide mononitrate 30 mg tablet extended release 24 hr 30 mg PO DAILY losartan 50 mg tablet 50 mg PO DAILY pravastatin 20 mg tablet 40 mg PO QHS Stiolto Respimat 2.5-2.5 mcg/actuation mist 2 inh inhalation DAILY budesonide 90 mcg/actuation aerosol powdr breath activated 1 inh inhalation BID Qty: 1 1RF Referrals / Follow Up: Rustam Starkey BLANKET WINDER OPERATOR-C [Primary Care Provider] - Within 1 Week Disposition Disposition (needs filled in before D/C Order can be placed): Hospice in Home Charges/Coding Visit Charges Inpatient E&M: 24605 Disch Hosp >30min
--- NOTE | 2024-04-30 13:26 | CASEMGMT ---
Hospice notified SW that they will be at [facility] around 230-3 to pickle pumper patient. SW notified RN, charger, and physician. Plan: d/c home with [facility]. Hospice arranged transport. Talya CHIN
[2024-04-30 13:37] VITALS: BP 155/84; PULSE 72; RESP 13; TEMP 36.6; O2SAT 99
--- NOTE | 2024-04-30 13:43 | PHA.DC.MR.R ---
Pharmacy PA Med Reconciliation Pharmacy Service has performed discharge medication reconciliation for this patient. The patient's discharge medication list was reviewed for discrepancies and discrepancies were resolved. Medications at Discharge Home Medications albuterol sulfate 90 mcg/actuation aerosol inhaler (ProAir HFA) 1 inh inhalation Q6H shortness of breath 06/10/23 amlodipine 2.5 mg tablet 5 mg PO DAILY Blood pressure 06/10/23 aspirin 81 mg chewable tablet 1 tab PO DAILY heart health 06/10/23 carvedilol 3.125 mg tablet 3.125 mg PO DAILY blood pressure 06/10/23 isosorbide mononitrate 30 mg tablet,extended release 24 hr 30 mg PO DAILY heart 06/10/23 losartan 50 mg tablet 50 mg PO DAILY Blood pressure 06/10/23 pravastatin 20 mg tablet 40 mg PO QHS Cholesterol 06/10/23 tiotropium 2.5 mcg-olodaterol 2.5 mcg/actuation mist for inhalation (Stiolto Respimat) 2 inh inhalation DAILY pulmonary HTN 12/15/23 budesonide 90 mcg/actuation breath activated powder inhaler 1 inh inhalation BID #1 ea 12/20/23 pantoprazole 20 mg tablet,delayed release 20 mg PO DAILY gerd 04/26/24 prednisone 10 mg tablets in a dose pack See Taper PO DAILY #48 tabs 04/30/24
== END 2024-04-30 15:03 | disposition hospice, home (50) | DRG 189 ==
LOC: ED 17:45 → PCU 18:06
PROVIDERS: Admitting Provider Hospitalist; Emergency Provider Emergency Medicine; PCP Nurse Practitioner Family; Visit Provider Student in an Organized Health Care Education/Training Program
DX: J96.21 Acute and chronic respiratory failure with hypoxia (principal); E43 Unspecified severe protein-calorie malnutrition; J44.1 Chronic obstructive pulmonary disease with (acute) exacerbation; Z66 Do not resuscitate; J84.10 Pulmonary fibrosis, unspecified; Z99.81 Dependence on supplemental oxygen; E11.9 Type 2 diabetes mellitus without complications; I10 Essential (primary) hypertension; J43.1 Panlobular emphysema; E78.00 Pure hypercholesterolemia, unspecified; I25.2 Old myocardial infarction; I25.10 Atherosclerotic heart disease of native coronary artery without angina pectoris; I45.10 Unspecified right bundle-branch block; E87.6 Hypokalemia; G47.33 Obstructive sleep apnea (adult) (pediatric); K21.9 Gastro-esophageal reflux disease without esophagitis; B97.4 Respiratory syncytial virus as the cause of diseases classified elsewhere; I49.3 Ventricular premature depolarization; Z86.16 Personal history of COVID-19; Z79.82 Long term (current) use of aspirin; Z79.899 Other long term (current) drug therapy; Z95.1 Presence of aortocoronary bypass graft; Z87.891 Personal history of nicotine dependence; Z91.148 Patient's other noncompliance with medication regimen for other reason; Z68.21 Body mass index [BMI] 21.0-21.9, adult; Z79.51 Long term (current) use of inhaled steroids
CPT/HCPCS: 36415; 71046; 71275; 80048; 80069; 81001; 83605; 83735; 84100; 84145; 84484; 85025; 85027; 87631; 92526; 92610; 93005; 94003; 94640; 94660; 94668; 94762; 97802; 97803; 99285; Q9967; A4216; J1940